=== PATIENT | female | born 1985 | race Two or more races ===

== ENCOUNTER → 2020-04-26 12:18 | Outpatient (BNVA) | payer OTHER, SELFPAY | PROVIDERS: PCP Internal Medicine; Visit Provider Physician Assistant | DX: E66.01 Morbid (severe) obesity due to excess calories (principal); Z68.41 Body mass index [BMI] 40.0-44.9, adult | CPT/HCPCS: 99212 ==

== ENCOUNTER → 2020-05-11 14:26 | Outpatient (BNVA) | payer OTHER, SELFPAY | PROVIDERS: PCP Internal Medicine; Visit Provider Hospitalist | DX: J45.40 Moderate persistent asthma, uncomplicated (principal); J30.2 Other seasonal allergic rhinitis; G47.33 Obstructive sleep apnea (adult) (pediatric) | CPT/HCPCS: 90686; 99212 ==

== ENCOUNTER → 2020-05-26 10:44 | Outpatient (BNVA) | payer OTHER, SELFPAY | PROVIDERS: PCP Internal Medicine; Visit Provider Physician Assistant | DX: Z76.89 Persons encountering health services in other specified circumstances (principal) ==

== ENCOUNTER 2020-05-29 14:12 | Outpatient (REF) | payer OTHER, SELFPAY ==
--- NOTE | 2020-05-29 14:48 | ECG_ITS ---
Test Reason : CP Blood Pressure : / mmHG Vent. Rate : 073 BPM Atrial Rate : 073 BPM P-R Int : 126 ms QRS Dur : 074 ms QT Int : 390 ms P-R-T Axes : 067 020 034 degrees QTc Int : 429 ms Normal sinus rhythm Normal ECG When compared to the previous EKG of No significant changes seen Referred By: Toña Isaac Electronically Signed By:ALISA RUSSELL MD
[2020-05-29 15:24] LABS: Basophils Percent Auto 0.2 % (0-2); Eosinophils Absolute Auto 0.3 X10*3/uL (0.0-0.4); Hematocrit 41.2 % (37-47); Hemoglobin 13.3 g/dl (12.0-16.0); Imm Gran Abs Auto 0.03 X10*3/uL (0.00-0.03); Imm Gran Pct Auto 0.3 % (0.0-0.4); MANUAL DIFF FLAG NO; Mean Corpuscular HGB Conc 32.3 g/dl (31.0-35.0); Mean Corpuscular Hemoglobin 27.7 pg (27.0-33.0); Mean Corpuscular Volume 85.8 fL (80-98); Mean Platelet Volume 11.4 fL (9.4-12.3); Monocytes Absolute Auto 0.6 X10*3/uL (0.1-1.2); Monocytes Percent Auto 6.2 % (2-11); Neutrophils Absolute Auto 6.1 X10*3/uL (2.0-8.3); Neutrophils Percent Auto 68.3 % (45-73); Platelet Count 256 X10*3/uL (160-400); Red Cell Distribution Width 12.9 % (11.0-16.0)
[2020-05-29 15:49] LABS: Glucose Urine UA NEG (NEG); Leukocyte Esterase Urine NEG (NEG); Nitrite Urine NEG (NEG); Urine Blood NEG (NEG); Urine Ketones NEG (NEG); Urine Protein NEG (NEG-TRACE)
[2020-05-29 15:52] LABS: Appearance Urine CLEAR; Color Urine YELLOW
[2020-05-29 16:01] LABS: Albumin Level 4.1 g/dL (3.5-5.0); Anion Gap 11 (12-20); Blood Urea Nitrogen 11 mg/dL (9-16); Calcium 9.1 mg/dL (8.4-10.2); Carbon Dioxide 31 mmol/L (22-29); Chloride 101 mmol/L (96-108); Estimated Glomerular Filt Rate > 60; Glucose Random 101 mg/dL (60-115); Potassium 4.1 mmol/l (3.3-5.1); Sodium 139 mmol/L (135-145)
== END 2020-05-29 14:13 | disposition home or self-care (01) ==
LOC: HO.LAB 14:12
PROVIDERS: PCP Internal Medicine; Visit Provider Surgery
DX: R07.9 Chest pain, unspecified (principal); Z01.818 Encounter for other preprocedural examination; R06.02 Shortness of breath
CPT/HCPCS: 36415; 80048; 81003; 82040; 85025; 86850; 86900; 86901; 93005; 99212

== ENCOUNTER 2020-06-07 09:59 | Inpatient (IN) | payer OTHER, SELFPAY ==
[2020-05-26 10:40] VITALS: BMI 42.3
--- NOTE | 2020-06-05 14:52 | MHC.SHP ---
Pre-Procedural Eval Section B Chief Complaint: severe obesity Allergies: Allergies Allergy/AdvReac Type Severity Reaction Status Date / Time Shellfish Allergy Severe oral Verified 05/29/20 14:32 swelling ENVIRONMENTAL Allergy Severe SINUS, Uncoded 05/29/20 14:32 SNEEZING Plan I have reviewed the history and physical and performed a pertinent physical examination on my patient. No changes have occurred unless specified.
--- NOTE | 2020-06-06 10:34 | P.CONAN_ITS ---
Documented by User: Alexandra Colmenares 06/06/20 10:37 HPI - Anesthesia Eval Consult details Narrative: 34yo F for Gastrectomy Sleeve PMFSH Past Medical History Medical History ASCUS favor benign Degenerative disc disease, lumbar Depression with anxiety Intrauterine contraceptive device Moderate persistent asthma Morbid obesity RODRIGUEZ (obstructive sleep apnea) RODRIGUEZ on CPAP Seasonal allergies Family History Family History Mother Stroke Dementia Migraines Kidney stone Father Asthma Surgical History Surgical History History of appendectomy History of esophagogastroduodenoscopy (EGD) History of tonsillectomy Social History Social History Household Members: Children Are you a primary health care analyst to a significant other at home: Yes (children) Do you presently have visiting nurse or other home services: No Alcohol intake: never Smoking Status: Never smoker Use of substances other than those prescribed or required for medical reasons: No Have you been hit, kicked, punched, or otherwise hurt by someone within the past year? If so, by whom?: No Advance Directives Information Provided: No Recently lost weight without trying: No Meds Allergies Allergy/AdvReac Type Severity Reaction Status Date / Time Shellfish Allergy Severe oral Verified 06/07/20 09:22 swelling ENVIRONMENTAL Allergy Severe SINUS, Uncoded 05/29/20 14:32 SNEEZING Home Medications Medication Instructions Recorded Confirmed Type albuterol sulfate 90 mcg/actuation 2 puff INHALATION Q4H PRN 03/29/20 05/29/20 History aerosol inhaler budesonide-formoterol HFA 160 2 puff PO BID 03/29/20 05/29/20 History mcg-4.5 mcg/actuation aerosol inhaler cyclobenzaprine 10 mg tablet 10 mg PO TID 03/29/20 05/29/20 History dupilumab 300 mg/2 mL subcutaneous 300 mg SUBCUT Q2W 03/29/20 05/29/20 History syringe epinephrine 0.3 mg/0.3 mL 0.3 mg IM DAILY PRN 03/29/20 05/29/20 History injection, auto-injector fluoxetine 20 mg capsule 20 mg PO DAILY 03/29/20 05/29/20 History fluticasone 232 mcg-salmeterol 14 1 inh PO BID 03/29/20 05/29/20 History mcg/actuation breath activated powdr folic acid 400 mcg tablet 0.4 mg PO DAILY 03/29/20 05/29/20 History loratadine 10 mg tablet 10 mg PO DAILY 03/29/20 05/29/20 History montelukast 10 mg tablet 10 mg PO BEDTIME 03/29/20 05/29/20 History tiotropium bromide 2.5 1 puff INHALATION BEDTIME 03/29/20 05/29/20 History mcg/actuation mist for inhalation trazodone 50 mg tablet 50 mg PO BEDTIME 03/29/20 05/29/20 History albuterol sulfate 2.5 mg INHALATION TID PRN 05/26/20 05/29/20 History roflumilast 500 mcg PO BEDTIME 05/26/20 05/29/20 History Exam Exam Date and Time: June 06, 2020 1034 Height,Weight and Vital Signs: Height 5 ft 3 in Weight 108.409 kg Pertinent Lab Results Pertinent Lab Results: Laboratory Tests 05/29/20 15:10 Blood Type A Negative Antibody Screen NEGATIVE Laboratory Tests 05/29/20 05/29/20 15:15 15:15 WBC 9.0 Hgb 13.3 Hct 41.2 Plt Count 256 Sodium 139 Potassium 4.1 Chloride 101 Carbon Dioxide 31 H BUN 11 Creatinine 0.76 Narrative Narrative: EKG NSR@73 Assessment and Plan Assessment Anesthesia Assessment: Chart Reviewed Documented by User: Scott Nguyen MD 06/07/20 11:10 [facility] Past Medical History Medical History ASCUS favor benign Degenerative disc disease, lumbar Depression with anxiety Intrauterine contraceptive device Moderate persistent asthma Morbid obesity RODRIGUEZ (obstructive sleep apnea) RODRIGUEZ on CPAP Seasonal allergies Family History Family History Mother Stroke Dementia Migraines Kidney stone Father Asthma Surgical History Surgical History History of appendectomy History of esophagogastroduodenoscopy (EGD) History of tonsillectomy Social History Social History Household Members: Children Are you a primary health care analyst to a significant other at home: Yes (children) Do you presently have visiting nurse or other home services: No Alcohol intake: never Smoking Status: Never smoker Use of substances other than those prescribed or required for medical reasons: No Have you been hit, kicked, punched, or otherwise hurt by someone within the past year? If so, by whom?: No Advance Directives Information Provided: No Recently lost weight without trying: No Meds Allergies Allergy/AdvReac Type Severity Reaction Status Date / Time Shellfish Allergy Severe oral Verified 06/07/20 09:22 swelling ENVIRONMENTAL Allergy Severe SINUS, Uncoded 05/29/20 14:32 SNEEZING Home Medications Medication Instructions Recorded Confirmed Type albuterol sulfate 90 mcg/actuation 2 puff INHALATION Q4H PRN 03/29/20 05/29/20 History aerosol inhaler budesonide-formoterol HFA 160 2 puff PO BID 03/29/20 05/29/20 History mcg-4.5 mcg/actuation aerosol inhaler cyclobenzaprine 10 mg tablet 10 mg PO TID 03/29/20 05/29/20 History dupilumab 300 mg/2 mL subcutaneous 300 mg SUBCUT Q2W 03/29/20 05/29/20 History syringe epinephrine 0.3 mg/0.3 mL 0.3 mg IM DAILY PRN 03/29/20 05/29/20 History injection, auto-injector fluoxetine 20 mg capsule 20 mg PO DAILY 03/29/20 05/29/20 History fluticasone 232 mcg-salmeterol 14 1 inh PO BID 03/29/20 05/29/20 History mcg/actuation breath activated powdr folic acid 400 mcg tablet 0.4 mg PO DAILY 03/29/20 05/29/20 History loratadine 10 mg tablet 10 mg PO DAILY 03/29/20 05/29/20 History montelukast 10 mg tablet 10 mg PO BEDTIME 03/29/20 05/29/20 History tiotropium bromide 2.5 1 puff INHALATION BEDTIME 03/29/20 05/29/20 History mcg/actuation mist for inhalation trazodone 50 mg tablet 50 mg PO BEDTIME 03/29/20 05/29/20 History albuterol sulfate 2.5 mg INHALATION TID PRN 05/26/20 05/29/20 History roflumilast 500 mcg PO BEDTIME 05/26/20 05/29/20 History Exam Airway Mallampati Class: I TM Dist: >3cm Neck ROM: Full Loose/Missing/Broken Teeth: No Heart: RRR Lungs: NL Other: AO Assessment and Plan Assessment Anesthesia Assessment: Anesthesia Plan Discussed and Chart Reviewed Final Anesthetic Review NPO: Yes ASA Class: III Final Preanesthetic Review: No Changes in Pt Med Stat, Meds/Allgs Chart Reviewed, Consent Obtained/Reviewed and Anes Risks/Benef Reviewed Patient Risk: High Procedure Risk: Intermediate Anesthetic Plan Anesthetic Plan: GA Disposition: Standard PACU
[2020-06-07] VITALS (14 sets, daily range): BP systolic 106–143; BP diastolic 53–90; PULSE 73–97; RESP 15–20; TEMP 36–37.1; O2SAT 93–100
[2020-06-07 09:18] LABS: UPreg QC Valid YES; Urine Pregnancy NEGATIVE (NEGATIVE)
[2020-06-07 09:29] LABS: COVID-19 Test Negative (Negative); IDNOW Serial# 9DD0AD1C
[2020-06-07] MEDS: Lactated Ringers 1,000 ML 100 ML IVCONT (10:11)
--- NOTE | 2020-06-07 13:31 | P.BOP_ITS ---
Brief Operative Note Date of Service: 06/07/20 Pre-op diagnosis: Morbid obesity, BMI 42.5, sleep apnea Post-op diagnosis: other (Same and hiatal hernia) Procedure: Laparoscopic sleeve gastrectomy, hiatal hernia repair, Guerrero block, intraoperative endoscopy Implants: Covidien nicky Surgeon: Toña Isaac MD Anesthesia: GETA Supervisor Lending Activities: Paz Nino Estimated blood loss (mL): 10 Pathology: other (Partial gastrectomy) Condition: stable Disposition: PACU
--- NOTE | 2020-06-07 13:35 | P.OP_ITS ---
Operative Note Operative Note Date of Service: 06/07/20 Narrative: Patient was brought into the operating room and placed on the operating room table in the supine position. General anesthesia was induced. Normal DVT prophylaxis was instituted and the patient received 2 grams of cefotetan preoperatively. The abdomen was then prepped and draped in the normal sterile fashion. A safety time-out was performed. A mixture of 1% lidocaine with epinephrine and ??% Marcaine plain was used to a nesthetize the planned incision site in the left upper quadrant. A #11 scalpel was used to make a 5 mm left upper quadrant transverse incision through which a veress needle was placed. Three pops were heard going through the fascia. A saline drop test was used to confirm that the veress needle was intraabdominal. An optiview technique was then used to place a 5mm port in the left upper quadrant. A 5 mm 30 degree laproscope was then placed through this port and the abdominal cavity was surveyed and was normal. The patient was placed in reverse Trendelenburg positioning. A paula liver retractor was then placed in the subxyphoid position and it was used to hold up the left lobe of the liver to the abdominal wall. This was secured to the bed using the liver retractor hitchcock. A LACIE block was then performed for pain control on the right side of the abdomen. A 5 mm port was placed in the right upper quadrant near the falciform ligament. A 12 mm port was then placed in the mid epigastrium. One additional 5 mm port was placed in the left upper quadrant just to the left of the placement of the first port. I then performed a LACIE block on the left side of the abdomen. I then removed the epigastric fat pad; there was a small anterior hiatal hernia noted. I reapproximated the left and right crura with a total of 1 stitch of 2-0 ethibond and a laparoscopic knot pusher. There was no residual hiatal hernia. I then opened up the angle of His. We then gained entry into the lesser sac about 4-5 cm from the pylorus. I had anesthesia place a 34 Indonesian orogastric tube into the distal antrum to use as a sizing tool for gastric pouch size. I divided the short gastric vessels up to the angle of His. We then started the creation of the gastric pouch by firing a 60 mm purple load endostapler up the stomach about 4-5 cm from the pylorus. We completed the creation of the gastric pouch using a total of 5 firings of a 60 mm purple load stapler. We had anesthesia remove the orogastric tube, then we clamped across the distal antrum using a fired 60 mm endostapler. We flattened the patient and then instilled normal saline surrounding the newly created staple line. I then performed an on-table endoscopy. I passed the gastroscopy into the posterior oropharynx and down the esophagus evaluating the esophageal mucosa which was normal. There was no evidence of hiatal hernia. I passed the gastroscope into the gastric pouch and insufflated the gastric pouch. There was healthy pink mucosa and no evidence of active bleeding. There was no evidence of leak on laparoscopy. I desufflated the gastric pouch and removed the endoscope. I removed the endostapler from the abdomen and suctioned the fluid from the left upper quadrant. I then removed the partial gastrectomy specimen through the epigastric 12 mm port site. I reapproximated the 12 mm port using a 0 maxon suture with a laparoscopic suture passer. I instilled local anesthetic into the fascial closure site and tied the suture down at a pressure of 8-10 mm of Hg. There was no residual fascial defect. We removed the liver retractor and the left upper quadrant 5 mm ports under direct visualization. There was no evidence of any active bleeding. I desufflated the abdomen through the last remaining port and removed the laparoscope and 5 mm port. We reapproximated all incisions with a 4-0 monocryl subcuticular stitch. We cleaned and dried the abdominal skin and applied dermabond skin glue. All count were correct at the end of the case. The patient was awake and in stable condition prior to extubation and transfer to the recovery room.
[2020-06-07] MEDS: Ketorolac Tromethamine 15 MG/ML VIAL IVPUSH (13:51)
[2020-06-07] MEDS: Famotidine/PF 20 MG/2 ML VIAL IVPUSH ×2 (14:38→21:10)
[2020-06-07] MEDS: Metoclopramide HCl 10 MG/2 ML VIAL IVPUSH (14:59)
[2020-06-07] MEDS: Lactated Ringers 1,000 ML 150 ML IVCONT (18:11)
[2020-06-07] MEDS: 0.9 % Sodium Chloride Flush 3 ML SYRINGE IVFLUSH ×2 (18:14→21:14)
[2020-06-07] MEDS: ondansetron HCL 4 MG/2 ML VIAL IVPUSH (20:04)
[2020-06-07] MEDS: busPIRone HCl 5 MG TABLET PO (21:10)
[2020-06-07] MEDS: traZODone HCL 50 MG TABLET PO (21:10)
[2020-06-08] MEDS: Lactated Ringers 1,000 ML 150 ML IVCONT ×2 (00:03→04:30)
[2020-06-08 03:28] VITALS: BP 136/77; PULSE 96; RESP 18; TEMP 37.1; O2SAT 96
[2020-06-08] MEDS: ondansetron HCL 4 MG/2 ML VIAL IVPUSH ×2 (04:06→12:00)
[2020-06-08 04:31] LABS: Basophils Percent Auto 0.1 % (0-2); Eosinophils Percent Auto 0.1 % (0-4); Hematocrit 37.8 % (37-47); Hemoglobin 12.3 g/dl (12.0-16.0); Imm Gran Abs Auto 0.05 X10*3/uL (0.00-0.03); Imm Gran Pct Auto 0.4 % (0.0-0.4); Lymphocytes Absolute Auto 1.3 X10*3/uL (1.2-4.9); Lymphocytes Percent Auto 9.3 % (20-40); Mean Corpuscular HGB Conc 32.5 g/dl (31.0-35.0); Mean Corpuscular Hemoglobin 27.6 pg (27.0-33.0); Mean Corpuscular Volume 84.8 fL (80-98); Mean Platelet Volume 11.7 fL (9.4-12.3); Monocytes Absolute Auto 0.8 X10*3/uL (0.1-1.2); Monocytes Percent Auto 5.8 % (2-11); Neutrophils Percent Auto 84.3 % (45-73); Platelet Count 256 X10*3/uL (160-400); Red Blood Count 4.46 X10*6/uL (4.20-5.50); Red Cell Distribution Width 12.8 % (11.0-16.0); White Blood Count 14.3 X10*3/uL (4.8-10.8)
[2020-06-08 04:32] LABS: MANUAL DIFF FLAG NO
[2020-06-08 05:00] LABS: Anion Gap 17 (12-20); Blood Urea Nitrogen 12 mg/dL (9-16); Calcium 8.7 mg/dL (8.4-10.2); Carbon Dioxide 19 mmol/L (22-29); Chloride 105 mmol/L (96-108); Creatinine Clr Calc Pharmacy 126.5; Estimated Glomerular Filt Rate > 60; Glucose Random 111 mg/dL (60-115); Potassium 4.4 mmol/l (3.3-5.1); Sodium 137 mmol/L (135-145)
[2020-06-08 07:41] VITALS: BP 113/58; PULSE 92; RESP 15; TEMP 36.7; O2SAT 97
--- NOTE | 2020-06-08 08:43 | HO.POSTANES ---
Post Anesthesia Evaluation Post Anesthesia Evaluation Vital Signs: Vital Signs Temp Pulse Resp BP Pulse Ox 06/08/20 07:41 98.1 F 92 15 113/58 L 97 06/08/20 03:28 98.7 F 96 18 136/77 96 06/07/20 23:48 98.7 F 86 18 138/72 96 Anesthesia: General Mental Status: Awake Pain Control: Satisfactory Nausea/Vomiting: None Hydration: Adequate Anesthesia-Related Issues: No Anes. Related Issues
--- NOTE | 2020-06-08 09:10 | P.PNGS_ITS ---
Subjective Subjective Date of Service: 06/08/20 Interval history: POD #1: Patient doing well. Has been ambulating, using the incentive spirometer, and tolerating po liquids. No nausea. Mild incisional pain. Physical Exam Vital Signs: Vital Signs: Last Vital Signs Temp 98.1 F 06/08/20 07:41 Pulse 92 06/08/20 07:41 Resp 15 06/08/20 07:41 BP 113/58 L 06/08/20 07:41 Pulse Ox 97 06/08/20 07:41 Body Mass Index 42.3 Const: General: cooperative, comfortable and no acute distress Orientation/consciousness: oriented to person, oriented to place and oriented to time GI: Inspection: Yes normal to inspection, No distended, Yes incision (surgical glue intact, no erythema/drainage/warmth/tenderness/induration) and Yes obesity Palpation (GI): Soft to palpation, nontender and no guarding Neuro: General: oriented to person, oriented to place and oriented to time Extrem: General: No calf tenderness Right lower extremity: no edema Left lower extremity: no edema Psych: Affect: normal affect Attitude: cooperative Progress Note: A&P Assessment and plan (1) S/P laparoscopic sleeve gastrectomy: Status: Acute (2) Intestinal malabsorption following gastrectomy: Status: Acute Assessment and Plan: POD #1: Patient doing well and will be discharged home today. All instructions given in writing. Follow up as scheduled in 2 weeks. Fall Risk Details Current Medications: Current Medications Generic Name Dose Route Start Last Admin Trade Name Freq PRN Reason Stop Dose Admin Albuterol Sulfate 2 puff 06/07/20 13:44 Albuterol Sulfate 90 Mcg 8 Gm Inhaler INHALE Q4H PRN Shortness Of Breath Buspirone HCl 5 mg 06/07/20 21:00 06/07/20 21:10 Buspirone Hcl 5 Mg Tablet PO 5 mg BID JESÚS Administration Famotidine 20 mg 06/07/20 14:15 06/07/20 21:10 Famotidine/Pf 20 Mg/2 Ml Vial IVPUSH 20 mg BID JESÚS Administration Hydromorphone HCl 0.25 mg 06/07/20 14:00 Hydromorphone Hcl 0.5 Mg/0.5 Ml Syringe IVPUSH Q4H PRN Pain, Severe (Pain Scale 7-10) Lactated Ringer's 1,000 mls @ 150 mls/hr 06/07/20 14:00 06/08/20 04:30 Lr IVCONT 150 mls/hr .Q6H40M JESÚS Administration Acetaminophen 1,000 mg in 100 mls @ 16.7 mls/hr 06/07/20 19:00 06/08/20 06:20 Ofirmev IV 16.7 mls/hr .Q6H JESÚS Administration Metoclopramide HCl 10 mg 06/07/20 14:00 06/07/20 14:59 Metoclopramide Hcl 10 Mg/2 Ml Vial IVPUSH 10 mg Q6H PRN Administration Nausea Ondansetron HCl 4 mg 06/07/20 20:00 06/08/20 04:06 Ondansetron Hcl 4 Mg/2 Ml Vial IVPUSH 4 mg Q8H JESÚS Administration Sodium Chloride 3 ml 06/07/20 16:00 06/07/20 21:14 0.9 % Sodium Chloride Flush 3 Ml Syringe IVFLUSH 3 ml QSHIFT JESÚS Administration Trazodone HCl 50 mg 06/07/20 21:00 06/07/20 21:10 Trazodone Hcl 50 Mg Tablet PO 50 mg BEDTIME JESÚS Administration Time Spent With Patient Time: Total time spent is greater than 50% in coordination of care (as jossy hernandez) at patient's floor/unit and/or counseling patient: Time with patient: 15 - 24 minutes
--- NOTE | 2020-06-08 09:12 | PM.DS ---
DS: Providers Provider Date of admission: 06/07/20 09:59 Primary care physician: Kym Roberts MD DS: Diagnosis Discharge Diagnosis (1) S/P laparoscopic sleeve gastrectomy: Status: Acute (2) Intestinal malabsorption following gastrectomy: Status: Acute DS: Medications Discharge Medications Home Medications: Home Medications Medication Instructions Recorded Confirmed albuterol sulfate 90 mcg/actuation 2 puff INHALATION Q4H PRN 03/29/20 05/29/20 aerosol inhaler budesonide-formoterol HFA 160 2 puff PO BID 03/29/20 05/29/20 mcg-4.5 mcg/actuation aerosol inhaler cyclobenzaprine 10 mg tablet 10 mg PO TID 03/29/20 05/29/20 dupilumab 300 mg/2 mL subcutaneous 300 mg SUBCUT Q2W 03/29/20 05/29/20 syringe epinephrine 0.3 mg/0.3 mL 0.3 mg IM DAILY PRN 03/29/20 05/29/20 injection, auto-injector fluoxetine 20 mg capsule 20 mg PO DAILY 03/29/20 05/29/20 fluticasone 232 mcg-salmeterol 14 1 inh PO BID 03/29/20 05/29/20 mcg/actuation breath activated powdr folic acid 400 mcg tablet 0.4 mg PO DAILY 03/29/20 05/29/20 loratadine 10 mg tablet 10 mg PO DAILY 03/29/20 05/29/20 montelukast 10 mg tablet 10 mg PO BEDTIME 03/29/20 05/29/20 tiotropium bromide 2.5 1 puff INHALATION BEDTIME 03/29/20 05/29/20 mcg/actuation mist for inhalation trazodone 50 mg tablet 50 mg PO BEDTIME 03/29/20 05/29/20 albuterol sulfate 2.5 mg INHALATION TID PRN 05/26/20 05/29/20 roflumilast 500 mcg PO BEDTIME 05/26/20 05/29/20 Previous Rx's Medication Instructions Recorded baclofen 5 mg tablet 5 mg PO BEDTIME #14 tab 03/29/20 buspirone 5 mg tablet 5 mg PO BID #60 cap 05/02/20 pantoprazole 40 mg tablet,delayed 40 mg PO BID #60 cap 05/08/20 release theophylline 200 mg 400 mg PO DAILY #60 cap 05/12/20 capsule,extended release 24 hr acetaminophen 500 mg tablet 1,000 mg PO Q6H PRN #30 tab 05/29/20 docusate sodium 100 mg capsule 100 mg PO BID #30 cap 05/29/20 famotidine 20 mg tablet 20 mg PO DAILY #30 tab 05/29/20 ondansetron HCl 4 mg tablet 4 mg PO Q6H PRN #30 tab 05/29/20 simethicone 80 mg chewable tablet 80 mg PO TID-QID PRN #30 tab 05/29/20 DS: Summary Time Spent with Patient Time attestation: Total time spent providing and/or coordinating discharge services: Physical Exam Vital Signs: Vital Signs: Last Vital Signs Temp 98.1 F 06/08/20 07:41 Pulse 92 06/08/20 07:41 Resp 15 06/08/20 07:41 BP 113/58 L 06/08/20 07:41 Pulse Ox 97 06/08/20 07:41 Body Mass Index 42.3 DS: Data Data Completed and Pending Pending studies at discharge: Pending at discharge 06/07/20 13:12 Surgical [PTH] Routine Labs on day of discharge: 05/29/20 15:10 Type and Screen Routine 06/07/20 08:55 Ur Preg Test Stat 06/07/20 09:00 Acetaminophen [Ofirmev] 1,000 mg in 100 ml IV PREOP Albuterol Sulfate (0.083%) [Ventolin (0.083%)] 2.5 mg INHALE ONCE PRN Lactated Ringers [Lr] 1,000 ml IVCONT 100 mls/hr cefoTEtan disod/Dextrose,Iso [Cefotan] 2 gm in 50 ml IV PREOP 06/07/20 09:00 COVID-19 ID NOW (Lozano) Stat 06/07/20 Breakfast NPO Diet 06/07/20 10:06 cefoTEtan disodium [Cefotan] 2 gm .ROUTE .STK-MED ONE 06/07/20 10:07 Acetaminophen [Ofirmev] 1,000 mg in 100 ml IV As directed 06/07/20 10:44 Ketamine HCl/NS 50 mg IVPUSH .STK-MED ONE Lidocaine HCl 2 % MPF [Xylocaine 2 % MPF] 5 ml .ROUTE .STK-MED ONE Midazolam HCl/PF [Versed] 2 mg .ROUTE .STK-MED ONE Rocuronium [place] [Zemuron] 100 mg IV .STK-MED ONE fentaNYL citrate/PF [Sublimaze] 50 mcg .ROUTE .STK-MED ONE propofoL [Diprivan] 200 mg IVPUSH .STK-MED ONE 06/07/20 11:13 Bupivacaine MPF 0.25 % [Sensorcaine-MPF 0.25% 10 ML] 10 ml .ROUTE .STK-MED ONE Lidocaine HCl 1 % MPF [Xylocaine 1 % MPF] 5 ml .ROUTE .STK-MED ONE 06/07/20 11:26 HYDROmorphone HCl [Dilaudid] 0.25 mg IVPUSH Q5M PRN Ketorolac Tromethamine [Toradol] 15 mg IVPUSH ONCE PRN Promethazine HCL [Phenergan] 12.5 mg 0.9 % Sodium Chloride [Ns] 50 ml IV ONCE 06/07/20 12:17 dexAMETHasone sod phosphate [Decadron] 4 mg .ROUTE .STK-MED ONE ondansetron HCL [Zofran] 4 mg .ROUTE .STK-MED ONE 06/07/20 13:03 dexAMETHasone sod phosphate [Decadron] 4 mg .ROUTE .STK-MED ONE 06/07/20 13:06 Sugammadex Sodium [Bridion] 200 mg IVPUSH .STK-MED ONE 06/07/20 13:10 propofoL [Diprivan] 200 mg IVPUSH .STK-MED ONE 06/07/20 13:18 HYDROmorphone HCl [Dilaudid] 2 mg .ROUTE .STK-MED ONE 06/07/20 13:49 Ketorolac Tromethamine [Toradol] 15 mg .ROUTE .STK-MED ONE 06/07/20 13:51 Transfer Order Routine 06/07/20 14:30 Promethazine HCL [Phenergan] 25 mg IV .STK-MED ONE 06/07/20 14:31 Famotidine/PF [Pepcid/PF] 20 mg IVPUSH .STK-MED ONE 06/07/20 14:54 Metoclopramide HCl [Reglan] 10 mg .ROUTE .STK-MED ONE 06/07/20 23:59 cefoTEtan disodium [Cefotan] 2 gm .ROUTE .STK-MED ONE 06/08/20 00:00 cefoTEtan disodium [Cefotan] 2 gm 0.9 % Sodium Chloride [Ns] 100 ml IV POSTOP 06/08/20 04:10 Basic Metabolic Panel DAILY@0500 Complete Blood Count Auto Diff DAILY@0500 Laboratory Last Values WBC 14.3 X10*3/uL (4.8-10.8) H 06/08/20 04:10 RBC 4.46 X10*6/uL (4.20-5.50) 06/08/20 04:10 Hgb 12.3 g/dl (12.0-16.0) 06/08/20 04:10 Hct 37.8 % (37-47) 06/08/20 04:10 MCV 84.8 fL (80-98) 06/08/20 04:10 MCH 27.6 pg (27.0-33.0) 06/08/20 04:10 MCHC 32.5 g/dl (31.0-35.0) 06/08/20 04:10 RDW 12.8 % (11.0-16.0) 06/08/20 04:10 Plt Count 256 X10*3/uL (160-400) 06/08/20 04:10 MPV 11.7 fL (9.4-12.3) 06/08/20 04:10 Immature Gran % (Auto) 0.4 % (0.0-0.4) 06/08/20 04:10 Neut % (Auto) 84.3 % (45-73) H 06/08/20 04:10 Lymph % (Auto) 9.3 % (20-40) L 06/08/20 04:10 [place] % (Auto) 5.8 % (2-11) 06/08/20 04:10 Eos % (Auto) 0.1 % (0-4) 06/08/20 04:10 Baso % (Auto) 0.1 % (0-2) 06/08/20 04:10 Lymph # (Auto) 1.3 X10*3/uL (1.2-4.9) 06/08/20 04:10 [place] # (Auto) 0.8 X10*3/uL (0.1-1.2) 06/08/20 04:10 Eos # (Auto) 0.0 X10*3/uL (0.0-0.4) 06/08/20 04:10 Baso # (Auto) 0.0 X10*3/uL (0.0-0.2) 06/08/20 04:10 Abs Immat Gran (auto) 0.05 X10*3/uL (0.00-0.03) H 06/08/20 04:10 Absolute Neuts (auto) 12.0 X10*3/uL (2.0-8.3) H 06/08/20 04:10 Absolute Nucleated RBC 0.000 X10*3/uL (0.0-0.012) 06/08/20 04:10 Nucleated RBC % (auto) 0.0 /100WBC (0.0-0.2) 06/08/20 04:10 Sodium 137 mmol/L (135-145) 06/08/20 04:10 Potassium 4.4 mmol/l (3.3-5.1) 06/08/20 04:10 Chloride 105 mmol/L (96-108) 06/08/20 04:10 Carbon Dioxide 19 mmol/L (22-29) L 06/08/20 04:10 Anion Gap 17 (-20) 06/08/20 04:10 BUN 12 mg/dL (9-16) 06/08/20 04:10 Creatinine 0.74 mg/dL (0.5-1.4) 06/08/20 04:10 Estim Creat Clear Calc 126.5 06/08/20 04:10 Estimated GFR > 60 06/08/20 04:10 Random Glucose 111 mg/dL (60-115) 06/08/20 04:10 Calcium 8.7 mg/dL (8.4-10.2) 06/08/20 04:10 Urine Test NEGATIVE (NEGATIVE) 06/07/20 08:55 COVID-19 (CANDY) Negative (Negative) 06/07/20 09:00 COVID-19 Clin Com See Note 06/07/20 09:00 Blood Type A Negative 05/29/20 15:10 Antibody Screen NEGATIVE 05/29/20 15:10 Discharge Plan Discharge Anticipated Discharge Date/Time: 06/08/20 12:00 Patient Disposition: Home, Self-Care Referrals: Kym Roberts MD [Primary Care Provider] - Discharge Medications: Continued baclofen 5 mg tablet 5 mg PO BEDTIME Qty: 14 RF: 0 buspirone 5 mg tablet 5 mg PO BID Qty: 60 RF: 0 pantoprazole 40 mg tablet,delayed release (DR/EC) 40 mg PO BID Qty: 60 RF: 3 theophylline [Rasheed-24] 200 mg capsule,extended release 24hr 400 mg PO DAILY Qty: 60 RF: 11 albuterol sulfate 2.5 mg /3 mL (0.083 %) solution for nebulization 2.5 mg inhalation TID PRN (Reason: Shortness Of Breath) RF: 0 roflumilast 500 mcg tablet 500 mcg PO BEDTIME RF: 0 tiotropium bromide 2.5 mcg/actuation mist 1 puff inhalation BEDTIME RF: 0 epinephrine 0.3 mg/0.3 mL auto-injector 0.3 mg IM DAILY PRN (Reason: Anaphylaxis) RF: 0 budesonide-formoterol 160-4.5 mcg/actuation HFA aerosol inhaler 2 puff PO BID RF: 0 dupilumab 300 mg/2 mL syringe 300 mg subcut Q2W RF: 0 loratadine 10 mg tablet 10 mg PO DAILY RF: 0 fluoxetine 20 mg capsule 20 mg PO DAILY RF: 0 trazodone 50 mg tablet 50 mg PO BEDTIME RF: 0 montelukast 10 mg tablet 10 mg PO BEDTIME RF: 0 albuterol sulfate 90 mcg/actuation HFA aerosol inhaler 2 puff inhalation Q4H PRN (Reason: Shortness Of Breath) RF: 0 fluticasone propion-salmeterol 232-14 mcg/actuation aerosol powdr breath activated 1 inh PO BID RF: 0 cyclobenzaprine 10 mg tablet 10 mg PO TID RF: 0 folic acid 400 mcg tablet 0.4 mg PO DAILY RF: 0 acetaminophen [Tylenol Extra Strength] 500 mg tablet 1,000 mg PO Q6H PRN (Reason: pain) Qty: 30 RF: 1 simethicone [Gas Relief (simethicone)] 80 mg tablet,chewable 80 mg PO TID-QID PRN (Reason: abdominal distention) Qty: 30 RF: 1 ondansetron HCl [Zofran] 4 mg tablet 4 mg PO Q6H PRN (Reason: nausea and vomiting) Qty: 30 RF: 1 docusate sodium [Colace] 100 mg capsule 100 mg PO BID Qty: 30 RF: 1 Discontinued famotidine [Pepcid AC] 20 mg tablet 20 mg PO DAILY Qty: 30 RF: 1 Diet: other Activity on Discharge: No heavy lifting Activity Restrictions/Additional Instructions: Discharge Instructions 1. Please call your doctor or come back to the emergency room should any new symptoms arise. 2. You will receive a courtesy call from [facility] 24-48 hours after discharge. 3. Activity: abstain from alcohol, practice limited stair climbing, no bending, no driving, no exercise, no illicit substances, no lifting, no sex, no tub bath, no work. 4. Diet: continue stage 3 protein shakes until your [address] Isaac. 5. Dressing Change/Wound Care: Your incision is covered by surgical glue. If the area is tender, you may apply an ice pack for short intervals (no more than 20 minutes on, followed by at least 20 minutes off). Do not apply heat. Do not use creams, lotions, or topical antibiotics unless instructed to do so by your surgeon. These can cause infection or allergic reaction. 6. Call your doctor if: - Your temperature exceeds 101.5 F - You experience excessive pain or swelling - You have an unexpected reaction to medication - You have excessive bleeding - You experience continued vomiting/nausea - Your incision begins to separate - Your incision shows signs of infection such as increased redness, swelling, excessive pain, heat, or drainage (light blood or clear fluid is normal) 7. General instructions: - No lifting greater than 5 lbs for the next 4 weeks. - No driving within 24 hours of taking narcotic pain medications. - If you do not move your bowels in the next 2 days, please take milk of magnesia over the counter. Please follow the post op diet and do not advance your diet until you are seen in the office in about 2 weeks. - Please walk around your home every hour or two to prevent blood clots from forming in your legs. You do not need to wake from sleeping to walk. - Please sleep in a bed or couch to prevent kinking at the hips and knees. - Please take your incentive spirometer (your lung sales project manager) home with you and use it for the next few days to prevent pneumonias. - You may shower, no hot tubs, baths or swimming pools. - Please call the office with any questions or concerns such as increasing abdominal pain, fever, chills, shortness of breath, chest pain, leg pain or swelling, or redness or drainage from your incisions. - Please stay on stage 3 diet which includes sugar free clear liquids such as ice pops and jello and broth and crystal light. Avoid all carbonation. Please drink 3 protein shakes with at least 25-30 grams of protein daily or 3 of the Celebrate 4:1 shakes which can be purchased in our office. The Celebrate shakes have all of the bariatric vitamins you need if you consume these shakes. If you are drinking other protein shakes, you will need to purchase the Celebrate multivitamins and calcium that we provide in the office (they will provide all the vitamins you need). Please make sure you are consuming at least 40-60 ounces of water in addition to your 3 protein shakes daily. 8. Do not hesitate to contact the office with any questions at . Discharge Summary Date of Service: 06/08/20 Admitting Diagnosis: obesity Discharge Diagnosis: same Procedure Performed: LSG, HH repair, elise block, intraoperative endoscopy Discharge Medications: 1. Simethicone 80mg tablet chewable (Si tablet every 6 hours orally for 7 days, #28, 1 RF) q4h prn gas 2. Acetaminophen 500 mg tablet (Si tablets as needed every 6 hours orally for 30 days, #240, 0 RF) 3. Ondansetron 4 mg tablet disintegrating (Si tablet every 6 hours orally for 7 days, #28, 1 RF) 4. Colace 100 mg capsule (Si capsule twice a day for 30 days, #60, 2 RF) 5. Pepcid 20 mg chewable tablet (Si tablet twice a day for 30 days, #60, 3 RF) Discharge Instructions: The patient should continue on the stage III bariatric diet, which includes 3 protein shakes of at least 20-30g of protein on a daily basis. The patient was encouraged to avoid drinking liquids with her protein shakes. They should wait 30-45 minutes in between her meals and drinking water. She should drink at least 40-60 ounces of water on a daily basis. They should ambulate while at home to avoid any blood clots in her lower extremities. They should call with any questions or concerns such as increase in abdominal pain, persistent nausea, vomiting, redness and drainage from her incisions, fever, chills, shortness of breast, or chest pain beyond what is normal for her. The patient should avoid all heavy lifting greater than 5 pounds for the next 4 weeks. The patient is already scheduled to follow up with me in 2 weeks time, but should call the office with any questions prior to that follow up appointment. The patient should not advance their diet until they are seen in the office for the 2 week appointment. Hospital Course: The patient was admitted after undergoing SURGERY. They were started on stage II (1 oz of fluid every 15 minutes) on POD #0. The next morning they were evaluated and started on stage III diet (protein shakes). All labs were within normal limits. On post-operative day #1 she was feeling better, nausea and epigastric pain improved and they were tolerating stage III bariatric diet well. The patient was discharged home. Discharge Disposition: Home. Visit Report Forms: Patient Portal Discharge page Care Plan Goals: weight loss Health Concerns: obesity Plan of Treatment: s/p sleeve gastrectomy
--- NOTE | 2020-06-08 09:40 | MHC.CM.PN ---
Pt reports she lives at home with her 11 and 14 yo children. She works and drives, and is fully independent. Pt reports having a nebulizer, cpap and inhalers at home. Pt has a HCP, she reports she completed with her PCP, Kym Roberts. Pt will DC home today with no services Family will transport
[2020-06-08] MEDS: busPIRone HCl 5 MG TABLET PO (09:52)
[2020-06-08] MEDS: Famotidine/PF 20 MG/2 ML VIAL IVPUSH (09:53)
[2020-06-08] MEDS: 0.9 % Sodium Chloride Flush 3 ML SYRINGE IVFLUSH (09:53)
== END 2020-06-08 12:33 | disposition home or self-care (01) | DRG 403 ==
LOC: HO.SSSA 14:19 → HO.S3 14:43
PROVIDERS: Nurse Practitioner; Physician Assistant; Admitting Provider Surgery; PCP Internal Medicine; Visit Provider Surgery
PROC: 0DB64Z3 Excision of Stomach, Percutaneous Endoscopic Approach, Vertical (ICD-10-PCS; CPT 43845; principal; 2020-06-07 10:30)
DX: E66.01 Morbid (severe) obesity due to excess calories (principal); K44.9 Diaphragmatic hernia without obstruction or gangrene; Z20.828 Contact with and (suspected) exposure to other viral communicable diseases; Z79.51 Long term (current) use of inhaled steroids; Z79.899 Other long term (current) drug therapy; Z68.41 Body mass index [BMI] 40.0-44.9, adult
CPT/HCPCS: 36415; 80048; 81025; 85025; 86901; 87635; 88307; 88342; C1776; J0131; J1100; J1170; J1885; J2250; J2405; J2765; J3010

== ENCOUNTER → 2020-06-22 10:19 | Outpatient (BNVA) | payer OTHER, SELFPAY | PROVIDERS: PCP Internal Medicine; Referring Provider Internal Medicine; Visit Provider Surgery | DX: K91.2 Postsurgical malabsorption, not elsewhere classified (principal); K44.9 Diaphragmatic hernia without obstruction or gangrene; E66.01 Morbid (severe) obesity due to excess calories; Z90.3 Acquired absence of stomach [part of]; Z98.84 Bariatric surgery status; Z98.890 Other specified postprocedural states; Z87.19 Personal history of other diseases of the digestive system | CPT/HCPCS: 99212 ==

== ENCOUNTER → 2020-07-05 13:59 | Outpatient (BNVA) | payer OTHER, SELFPAY | PROVIDERS: PCP Internal Medicine; Visit Provider Physician Assistant | DX: K91.2 Postsurgical malabsorption, not elsewhere classified (principal); E66.9 Obesity, unspecified; Z90.3 Acquired absence of stomach [part of]; Z98.84 Bariatric surgery status | CPT/HCPCS: 99212 ==

== ENCOUNTER → 2020-07-13 08:12 | Outpatient (BNVA) | payer OTHER, SELFPAY | PROVIDERS: PCP Internal Medicine; Visit Provider Dietitian, Registered ==

== ENCOUNTER 2020-07-17 10:25 | Outpatient (REF) | payer OTHER, SELFPAY ==
[2020-07-17 11:43] LABS: MANUAL DIFF FLAG NO
[2020-07-17 11:56] LABS: Basophils Percent Auto 0.5 % (0-2); Eosinophils Absolute Auto 0.3 X10*3/uL (0.0-0.4); Eosinophils Percent Auto 4.9 % (0-4); Hematocrit 42.2 % (37-47); Hemoglobin 13.5 g/dl (12.0-16.0); Imm Gran Abs Auto 0.02 X10*3/uL (0.00-0.03); Imm Gran Pct Auto 0.3 % (0.0-0.4); Lymphocytes Absolute Auto 1.9 X10*3/uL (1.2-4.9); Lymphocytes Percent Auto 28.9 % (20-40); Mean Corpuscular Hemoglobin 27.7 pg (27.0-33.0); Mean Corpuscular Volume 86.7 fL (80-98); Mean Platelet Volume 12.3 fL (9.4-12.3); Monocytes Absolute Auto 0.5 X10*3/uL (0.1-1.2); Monocytes Percent Auto 7.4 % (2-11); Neutrophils Absolute Auto 3.8 X10*3/uL (2.0-8.3); Platelet Count 230 X10*3/uL (160-400); Red Blood Count 4.87 X10*6/uL (4.20-5.50); Red Cell Distribution Width 13.6 % (11.0-16.0); White Blood Count 6.5 X10*3/uL (4.8-10.8)
[2020-07-17 12:17] LABS: Anion Gap 11 (12-20); Blood Urea Nitrogen 10 mg/dL (9-16); Calcium 9.4 mg/dL (8.4-10.2); Carbon Dioxide 30 mmol/L (22-29); Chloride 105 mmol/L (96-108); Estimated Glomerular Filt Rate > 60; Glucose Fasting 99 mg/dL (60-99); Iron 87 mcg/dL (30-160); Percent Iron Saturation 30 % (15-50); Potassium 4.3 mmol/L (3.3-5.1); Sodium 142 mmol/L (135-145); Total Iron Binding Capacity 290 mcg/dL (228-428); Unsaturated Iron Binding 203 ug/dL
[2020-07-17 12:39] LABS: Thyroid Stimulating Hormone 1.46 uIU/mL (0.32-4.0); Vitamin D 25-OH Total 32.5 ng/mL (>30)
[2020-07-17 12:53] LABS: Folate 5.1 ng/mL (> or = 4.0); Vitamin B12 343 pg/mL (200-900)
== END 2020-07-17 10:26 | disposition home or self-care (01) ==
LOC: HO.HMGCLDS 10:25
PROVIDERS: PCP Internal Medicine; Visit Provider Internal Medicine
DX: I10 Essential (primary) hypertension (principal); R00.2 Palpitations
CPT/HCPCS: 36415; 80048; 82306; 82607; 82746; 83540; 84443; 85025

== ENCOUNTER → 2020-08-08 13:12 | Outpatient (REF) | payer OTHER, SELFPAY ==
--- NOTE | 2020-08-08 13:30 | ECG_ITS ---
Hook-up date: 2020-08-08 13:36:00 Duration: 41:56:00 Test Indications: PALPITATIONS Medications: 49051 QRS complexes * Ventricular ectopics which represent % of total QRS comp. * Supraventricular ectopics which represent % of total QRS comp. * Paced QRS complexs which represent % of total QRS comp. VENTRICULAR ECTOPY * Isolated * Bigeminal Cycles * Couplets * Runs * Beats in Runs * Beats LONGEST at * BPM at :: -- * Beats FASTEST at * BPM at :: -- SUPRAVENTRICULAR ECTOPY * Isolated * Couplets * Runs * Beats in Runs * Beats LONGEST at * BPM at :: -- * Beats FASTEST at * BPM at :: -- HEART RATES 44 MIN at 06:39:23 2020-08-09 71 AVG 137 MAX at 09:59:55 2020-08-09 LONGEST RR 1.4640 secs at 07:46:47 2020-08-09 S-T LEVELS Channel 1 - 128 mm at 13:36:00 2020-08-08 - 128 mm at 13:36:00 2020-08-08 Channel 2 - 128 mm at 13:36:00 2020-08-08 - 128 mm at 13:36:00 2020-08-08 Channel 3 - 128 mm at 03:25:51 -- - 128 mm at 03:25:51 Basic rhythm Normal sinus rhythm No long pause or profound bradycardia No dangerous dysrhythm periods Patient reported symptoms of palpitations correlated with NSR Referred By: Kym Roberts Overread By: ALISA RUSSELL MD
== END ==
LOC: HO.CARD 13:12
PROVIDERS: Visit Provider Internal Medicine
DX: R00.2 Palpitations (principal)
CPT/HCPCS: 93225; 93226

== ENCOUNTER → 2020-08-10 08:10 | Outpatient (BNVA) | payer OTHER, SELFPAY | PROVIDERS: PCP Internal Medicine; Visit Provider Dietitian, Registered ==

== ENCOUNTER → 2020-08-11 14:43 | Outpatient (BNVA) | payer OTHER, SELFPAY | PROVIDERS: PCP Internal Medicine; Visit Provider Hospitalist | DX: J45.40 Moderate persistent asthma, uncomplicated (principal); R00.2 Palpitations; G47.33 Obstructive sleep apnea (adult) (pediatric); Z99.89 Dependence on other enabling machines and devices; Z79.51 Long term (current) use of inhaled steroids | CPT/HCPCS: 99212 ==

== ENCOUNTER → 2020-09-05 09:47 | Outpatient (BNVA) | payer OTHER, SELFPAY | PROVIDERS: PCP Internal Medicine; Visit Provider Surgery | DX: E66.9 Obesity, unspecified (principal); Z68.34 Body mass index [BMI] 34.0-34.9, adult; Z98.84 Bariatric surgery status | CPT/HCPCS: 99212 ==

== ENCOUNTER → 2020-10-05 11:29 | Outpatient (BNVA) | payer OTHER, SELFPAY | PROVIDERS: PCP Internal Medicine; Visit Provider Physician Assistant | DX: E66.9 Obesity, unspecified (principal); K91.2 Postsurgical malabsorption, not elsewhere classified; Z90.3 Acquired absence of stomach [part of]; Z68.33 Body mass index [BMI] 33.0-33.9, adult; Z98.84 Bariatric surgery status | CPT/HCPCS: 99212 ==

== ENCOUNTER → 2020-11-02 08:20 | Outpatient (BNVA) | payer OTHER, SELFPAY | PROVIDERS: PCP Internal Medicine; Visit Provider Dietitian, Registered | DX: E66.9 Obesity, unspecified (principal); Z68.31 Body mass index [BMI] 31.0-31.9, adult | CPT/HCPCS: 97803 ==

== ENCOUNTER → 2020-11-15 12:56 | Outpatient (BNVA) | payer OTHER, SELFPAY | PROVIDERS: PCP Internal Medicine; Visit Provider Internal Medicine Pulmonary Disease | DX: J45.901 Unspecified asthma with (acute) exacerbation (principal) | CPT/HCPCS: 99212 ==

== ENCOUNTER → 2020-11-21 11:04 | Outpatient (BNVA) | payer OTHER, SELFPAY | PROVIDERS: PCP Internal Medicine; Visit Provider Hospitalist | DX: J45.51 Severe persistent asthma with (acute) exacerbation (principal); G47.33 Obstructive sleep apnea (adult) (pediatric); K44.9 Diaphragmatic hernia without obstruction or gangrene; Z99.89 Dependence on other enabling machines and devices | CPT/HCPCS: 96372; 99212; J2930 ==

== ENCOUNTER → 2020-12-21 14:17 | Outpatient (BNVA) | payer OTHER, SELFPAY | PROVIDERS: PCP Internal Medicine; Visit Provider Hospitalist | DX: J45.50 Severe persistent asthma, uncomplicated (principal); G47.33 Obstructive sleep apnea (adult) (pediatric); K44.9 Diaphragmatic hernia without obstruction or gangrene; Z99.89 Dependence on other enabling machines and devices | CPT/HCPCS: 99212 ==

== ENCOUNTER → 2020-12-26 10:51 | Outpatient (BNVA) | payer OTHER, SELFPAY | PROVIDERS: PCP Internal Medicine; Referring Provider Internal Medicine; Visit Provider Surgery | DX: E66.9 Obesity, unspecified (principal); K91.2 Postsurgical malabsorption, not elsewhere classified; Z90.3 Acquired absence of stomach [part of]; Z98.84 Bariatric surgery status; Z68.30 Body mass index [BMI] 30.0-30.9, adult | CPT/HCPCS: 99212 ==

== ENCOUNTER 2020-12-28 08:44 | Outpatient (REF) | payer OTHER, SELFPAY ==
[2020-12-28 09:46] LABS: MANUAL DIFF FLAG NO
[2020-12-28 09:52] LABS: Basophils Percent Auto 0.5 % (0-2); Eosinophils Absolute Auto 0.2 X10*3/uL (0.0-0.4); Eosinophils Percent Auto 3.9 % (0-4); Hematocrit 39.9 % (37-47); Hemoglobin 12.8 g/dl (12.0-16.0); Imm Gran Abs Auto 0.01 X10*3/uL (0.00-0.03); Imm Gran Pct Auto 0.2 % (0.0-0.4); Lymphocytes Absolute Auto 1.8 X10*3/uL (1.2-4.9); Lymphocytes Percent Auto 28.6 % (20-40); Mean Corpuscular HGB Conc 32.1 g/dl (31.0-35.0); Mean Corpuscular Hemoglobin 28.1 pg (27.0-33.0); Mean Corpuscular Volume 87.7 fL (80-98); Mean Platelet Volume 11.5 fL (9.4-12.3); Monocytes Absolute Auto 0.4 X10*3/uL (0.1-1.2); Monocytes Percent Auto 6.8 % (2-11); Neutrophils Absolute Auto 3.7 X10*3/uL (2.0-8.3); Platelet Count 263 X10*3/uL (160-400); Red Blood Count 4.55 X10*6/uL (4.20-5.50); Red Cell Distribution Width 13.7 % (11.0-16.0); White Blood Count 6.2 X10*3/uL (4.8-10.8)
[2020-12-28 10:24] LABS: Estimated Average Glucose 108 mg/dL; Hemoglobin A1c % 5.4 %
[2020-12-28 10:31] LABS: Alanine Aminotransferase 11 U/L (0-31); Albumin Level 4.1 g/dL (3.5-5.0); Alkaline Phosphatase 84 U/L (39-117); Anion Gap 12 (12-20); Aspartate Amino Transferase 12 U/L (5-31); Bilirubin Total 0.5 mg/dL (0.0-1.0); Blood Urea Nitrogen 11 mg/dL (9-16); C Reactive Protein 0.15 mg/dL (< or = 0.50); Calcium 9.8 mg/dL (8.4-10.2); Carbon Dioxide 28 mmol/L (22-29); Chloride 106 mmol/L (96-108); Cholesterol 187 mg/dL; Estimated Glomerular Filt Rate > 60; Glucose Fasting 95 mg/dL (60-99); HDL Cholesterol 45 mg/dL; Iron 105 mcg/dL (30-160); LDL Cholesterol Calculated 128 mg/dl; Percent Iron Saturation 37 % (15-50); Potassium 4.3 mmol/L (3.3-5.1); Sodium 142 mmol/L (135-145); Total Iron Binding Capacity 286 mcg/dL (228-428); Total Protein 6.7 g/dL (6.5-8.0); Triglycerides 74 mg/dL; Unsaturated Iron Binding 181 ug/dL
[2020-12-28 10:45] LABS: Thyroid Stimulating Hormone 1.97 uIU/mL (0.32-4.0); Vitamin D 25-OH Total 27.8 ng/mL (>30)
[2020-12-28 11:50] LABS: Vitamin B12 198 pg/mL (200-900)
[2020-12-31 16:17] LABS: Zinc 73 mcg/dL (60-130)
[2021-01-02 09:01] LABS: Vitamin B1 10 nmol/L (8-30)
[2021-01-04 03:32] LABS: Vitamin A 32 mcg/dL (38-98)
== END 2020-12-28 08:45 | disposition home or self-care (01) ==
LOC: HO.LAB 08:44
PROVIDERS: PCP Internal Medicine; Visit Provider Surgery
DX: Z01.818 Encounter for other preprocedural examination (principal); K91.2 Postsurgical malabsorption, not elsewhere classified; Z90.3 Acquired absence of stomach [part of]
CPT/HCPCS: 36415; 80053; 80061; 82306; 82607; 83036; 83540; 84425; 84443; 84590; 84630; 85025; 86140

== ENCOUNTER → 2021-02-01 08:00 | Outpatient (BNVA) | payer OTHER, SELFPAY | PROVIDERS: PCP Internal Medicine; Visit Provider Dietitian, Registered | DX: E66.9 Obesity, unspecified (principal); Z68.29 Body mass index [BMI] 29.0-29.9, adult | CPT/HCPCS: 97803 ==

== ENCOUNTER 2021-02-21 20:35 | Emergency (ER) | payer OTHER, SELFPAY ==
--- NOTE | ~2021-02-21 | XR_ITS ---
EXAMINATION: XR CHEST CLINICAL INFORMATION: COVID positive COMPARISON: None TECHNIQUE: Frontal view of the chest was obtained. FINDINGS: No significant abnormality is noted involving the heart, lungs, mediastinum, bony thorax or soft tissues. XR/XR chest 1V IMPRESSION: No airspace opacity seen.
[2021-02-21 21:09] VITALS: BP 109/62; PULSE 651; RESP 18; TEMP 37.2; O2SAT 100; BMI 28.9
--- NOTE | 2021-02-21 21:35 | ED_ITS ---
HPI - URI/Sore Throat General Chief Complaint: Upper Respiratory Symptoms Stated Complaint: COVID+ chest tightness Time Seen by Provider: 02/21/21 21:35 Source: patient Mode of arrival: ambulatory Limitations: no limitations History of Present Illness HPI Narrative: Patient 35 years old with history of asthma COVID vaccinated in 09/27 been feeling congested for last 4- 5 days had a COVID PCR done on 02/19 came back positive patient saturating 100% feels slight short of breath body aches tiredness no fever no chills otherwise okay Related Data Home Medications Medication Instructions Recorded Confirmed epinephrine 0.3 mg/0.3 mL 0.3 mg IM DAILY PRN 03/29/20 01/18/21 injection, auto-injector tiotropium bromide 2.5 1 puff INHALATION BEDTIME 03/29/20 01/18/21 mcg/actuation mist for inhalation theophylline 200 mg 400 mg PO DAILY cap 12/26/20 01/18/21 capsule,extended release 24 hr Previous Rx's Medication Instructions Recorded trazodone 50 mg tablet 50 mg PO BEDTIME PRN #30 tab 08/15/20 dupilumab 300 mg/2 mL subcutaneous 300 mg SUBCUT Q2W #4 ml 08/31/20 syringe (Dupixent) benzonatate 200 mg capsule 200 mg PO TID PRN 30 Days #60 cap 09/11/20 fluticasone 232 mcg-salmeterol 14 1 inh PO BID 30 Days #1 ea 12/21/20 mcg/actuation breath activated powdr mometasone-formoterol HFA 200 2 puff INHALATION Q12H 30 Days #13 12/25/20 mcg-5 mcg/actuation aerosol g inhaler (Dulera) buspirone 5 mg tablet 5 mg PO BID #60 cap 01/03/21 fluoxetine 20 mg capsule 20 mg PO DAILY #30 cap 01/03/21 montelukast 10 mg tablet 10 mg PO BEDTIME #30 tab 01/05/21 roflumilast 500 mcg tablet 500 mcg PO DAILY #30 tab 01/05/21 (Daliresp) nebulizers #1 ea 01/18/21 amoxicillin 875 mg-potassium 1 tab PO BID 7 Days #14 tab 02/17/21 clavulanate 125 mg tablet ProAir HFA 90 mcg/actuation 2 puff PO Q4-6H PRN #8.5 g NS 02/19/21 aerosol inhaler (albuterol sulfate) albuterol sulfate 2.5 mg INHALATION TID PRN #180 ml 02/19/21 loratadine 10 mg tablet 10 mg PO DAILY #30 tab 02/19/21 benzonatate 100 mg capsule 100 mg PO TID PRN #20 cap 02/21/21 (Tessalon Perles) dexamethasone 6 mg tablet 6 mg PO DAILY #7 tab 02/21/21 (Decadron) Allergies Allergy/AdvReac Type Severity Reaction Status Date / Time Shellfish Allergy Severe oral Verified 02/21/21 21:09 swelling ENVIRONMENTAL Allergy Severe SINUS, Uncoded 12/26/20 11:44 SNEEZING Review of Systems Review of Systems: Yes all other systems are reviewed and are negative [facility] Past Medical History Medical History (Updated 02/21/21 @ 21:49 by Jarvis Cortes MD) ASCUS favor benign Asthma BMI 33.0-33.9,adult Degenerative disc disease, lumbar Depression with anxiety Intermittent palpitations Intrauterine contraceptive device Left anterior knee pain Moderate persistent asthma Morbid obesity Obesity (BMI 30-39.9) RODRIGUEZ on CPAP Seasonal allergies Surgical History History of appendectomy History of esophagogastroduodenoscopy (EGD) History of repair of hiatal hernia History of tonsillectomy S/P laparoscopic sleeve gastrectomy Family History Family History Mother Stroke Dementia Migraines Kidney stone Father Asthma Sister Asthma Son Asthma Daughter Anxiety Depressed Social History Social History Household Members: Children Housing: Apartment Are you a primary healthcare representative to a significant other at home: Yes (children) Do you presently have visiting nurse or other home services: No Alcohol intake: never Patient Tobacco Use Status: Never used Tobacco e-Cigarette/Vaping Use: Never Used Second Hand Smoke Exposure: No Advance Directives: No Advance Directives Information Provided: No service: No Current occupational status: employed Physical Exam Vital Signs: Vital Signs: Last Vital Signs Temp 98.9 F 02/21/21 21:09 Pulse 62 02/21/21 21:52 Resp 18 02/21/21 21:09 BP 109/62 02/21/21 21:09 Pulse Ox 100 02/21/21 21:09 Body Mass Index 28.9 Appearance: Alert. Oriented X3. No acute distress. Eyes: No pallor or icterus ENT: Pharynx normal. Oral Mucosa moist Neck: Normal inspection. Neck supple. CVS: Normal heart rate and rhythm. Pulses normal. Respiratory: No respiratory distress. Equal air entry bilateral, no wheezing/rales/rhonchi Abdomen: Soft and nontender. Bowel sounds are present, Skin: Skin warm and dry. Normal skin color. Normal skin turgor. Extremities: No lower extremity edema. No calf tenderness Neuro: Oriented X 3. MDM - URI/Sore Throat MDM Narrative Medical decision making narrative: Patient COVID present with positive saturating 100% chest x-ray negative for infiltrate will give patient Decadron and discharge Discharge Plan Discharge Clinical Impression: COVID-19 Patient Disposition: Home, Self-Care Instructions: COVID-19 (Coronavirus Disease 2019) (ED) Additional Instructions: Take medication as prescribed and use inhalers. Report to the ER/PCP increased shortness of breath Drink plenty of fluids Prescriptions: New dexamethasone [Decadron] 6 mg tablet 6 mg PO DAILY Qty: 7 RF: 0 benzonatate [Tessalon Perles] 100 mg capsule 100 mg PO TID PRN (Reason: cough) Qty: 20 RF: 0 No Action trazodone 50 mg tablet 50 mg PO BEDTIME PRN (Reason: insomnia) Qty: 30 RF: 1 dupilumab [Dupixent Syringe] 300 mg/2 mL syringe 300 mg subcut Q2W Qty: 4 RF: 11 benzonatate 200 mg capsule 200 mg PO TID PRN (Reason: cough) 30 Days Qty: 60 RF: 3 Dulera 200-5 mcg/actuation HFA aerosol inhaler 2 puff inhalation Q12H 30 Days Qty: 13 RF: 11 fluoxetine 20 mg capsule 20 mg PO DAILY Qty: 30 RF: 2 buspirone 5 mg tablet 5 mg PO BID Qty: 60 RF: 2 montelukast 10 mg tablet 10 mg PO BEDTIME Qty: 30 RF: 3 Daliresp 500 mcg tablet 500 mcg PO DAILY Qty: 30 RF: 1 amoxicillin-pot clavulanate 875-125 mg tablet 1 tab PO BID 7 Days Qty: 14 RF: 0 albuterol sulfate [ProAir HFA] 90 mcg/actuation HFA aerosol inhaler 2 puff PO Q4-6H PRN (Reason: for wheezing) Qty: 8.5 RF: 0 albuterol sulfate 2.5 mg /3 mL (0.083 %) solution for nebulization 2.5 mg inhalation TID PRN (Reason: Shortness Of Breath) Qty: 180 RF: 2 loratadine 10 mg tablet 10 mg PO DAILY Qty: 30 RF: 3 (DME) nebulizers Misc See Rx Instructions .Route Qty: 1 RF: 0 tiotropium bromide 2.5 mcg/actuation mist 1 puff inhalation BEDTIME RF: 0 epinephrine 0.3 mg/0.3 mL auto-injector 0.3 mg IM DAILY PRN (Reason: Anaphylaxis) RF: 0 theophylline 200 mg capsule,extended release 24hr 400 mg PO DAILY RF: 0 fluticasone propion-salmeterol 232-14 mcg/actuation aerosol powdr breath activated 1 inh PO BID 30 Days Qty: 1 RF: 11 Interventions: ED Discharge Assessment Last Done: 02/21/21 21:58 Discharge Date/Time: 02/21/21 21:59
[2021-02-21 21:52] VITALS: PULSE 62
[2021-02-21] MEDS: dexAMETHasone 6 MG TABLET PO (21:56)
== END 2021-02-21 21:59 | disposition home or self-care (01) ==
PROVIDERS: Emergency Provider Internal Medicine; PCP Internal Medicine
DX: U07.1 COVID-19 (principal); R07.81 Pleurodynia; Z79.899 Other long term (current) drug therapy
CPT/HCPCS: 71045; 99283; 99284; J8540

== ENCOUNTER → 2021-03-07 09:48 | Outpatient (BNVA) | payer OTHER, SELFPAY | PROVIDERS: PCP Internal Medicine; Referring Provider Internal Medicine; Visit Provider Surgery | DX: E66.3 Overweight (principal); Z68.29 Body mass index [BMI] 29.0-29.9, adult; Z98.84 Bariatric surgery status | CPT/HCPCS: 99212 ==

== ENCOUNTER → 2021-04-23 09:48 | Outpatient (BNVA) | payer OTHER, SELFPAY | PROVIDERS: PCP Internal Medicine; Visit Provider Hospitalist | DX: J45.50 Severe persistent asthma, uncomplicated (principal); G47.33 Obstructive sleep apnea (adult) (pediatric); K44.9 Diaphragmatic hernia without obstruction or gangrene; Z99.89 Dependence on other enabling machines and devices | CPT/HCPCS: 90686; 99212 ==

== ENCOUNTER 2021-05-07 08:49 | Outpatient (REF) | payer OTHER, SELFPAY | END 2021-05-07 08:50 | disposition home or self-care (01) | LOC: HO.HOSX 08:49 | PROVIDERS: Visit Provider Physician Assistant | DX: Z13.89 Encounter for screening for other disorder (principal) ==

== ENCOUNTER 2021-06-19 09:17 | Outpatient (REF) | payer OTHER, SELFPAY ==
--- NOTE | ~2021-06-19 | XR_ITS ---
EXAMINATION: X-RAY KNEES SINGLE STANDING VIEW BILATERAL X-RAY LEFT KNEE 2 VIEWS CLINICAL INFORMATION: Pain. COMPARISON: Radiograph of the left knee dated from 01/26/2019. TECHNIQUE: Single standing AP view of both knees, lateral view of the left knee and sunrise patellar view of the left knee. FINDINGS: No evidence of acute fractures or malalignment. No significant degenerative changes. No erosions or chondrocalcinosis. Normal appearance of the soft tissues. No joint effusions. XR/XR knee LT 2V IMPRESSION: Normal radiographic images of the knees.
--- NOTE | ~2021-06-19 | XR_ITS ---
EXAMINATION: X-RAY KNEES SINGLE STANDING VIEW BILATERAL X-RAY LEFT KNEE 2 VIEWS CLINICAL INFORMATION: Pain. COMPARISON: Radiograph of the left knee dated from 01/26/2019. TECHNIQUE: Single standing AP view of both knees, lateral view of the left knee and sunrise patellar view of the left knee. FINDINGS: No evidence of acute fractures or malalignment. No significant degenerative changes. No erosions or chondrocalcinosis. Normal appearance of the soft tissues. No joint effusions. XR/XR knee standing BI IMPRESSION: Normal radiographic images of the knees.
== END 2021-06-19 09:18 | disposition home or self-care (01) ==
LOC: HO.HOSX 09:17
PROVIDERS: Visit Provider Physician Assistant
DX: S83.242D Other tear of medial meniscus, current injury, left knee, subsequent encounter (principal)
CPT/HCPCS: 73560; 73565; 99212

== ENCOUNTER 2021-07-05 10:28 | Outpatient (REF) | payer OTHER, SELFPAY ==
--- NOTE | ~2021-07-05 | MR_ITS ---
EXAMINATION: MR KNEE WITHOUT CONTRAST, LEFT CLINICAL INFORMATION: Knee pain. COMPARISON: MRI 02/27/2019 TECHNIQUE: MRI of the knee without contrast was performed using routine sequences on a high-field scanner. FINDINGS: MENISCI: Medial Meniscus: Intrasubstance degenerative signal in the posterior horn, slightly more prominent as compared to previous. Possible focal undersurface fraying/tear near the posterior root. Mild medial extrusion of the body. Degenerative signal in the body. Lateral Meniscus: Mild undersurface fraying of the posterior root/central posterior horn. No focal tears otherwise seen. LIGAMENTS: Cruciate: Intact Collateral: Intact EXTENSOR MECHANISM: Intact ARTICULAR CARTILAGE/BONE: Patellofemoral Compartment: No focal cartilage loss. Medial Compartment: Focal mild cartilage thinning in the anterior weightbearing tibia. Faint subchondral edema, improved from previous. Lateral Compartment: No significant cartilage loss. JOINT FLUID AND BURSAE: Small effusion. MR/MR knee LT wo con IMPRESSION: 1. Degeneration in the posterior horn of the medial meniscus, slightly more prominent as compared to previous. Possible focal undersurface fraying/tearing of the posterior root. 2. Mild undersurface fraying of the posterior root/central posterior horn of the lateral meniscus. 3. Mild arthrosis in the anterior weightbearing medial compartment. 4. Small effusion.
== END 2021-07-05 10:29 | disposition home or self-care (01) ==
LOC: HO.MRI 10:28
PROVIDERS: Visit Provider Physician Assistant
DX: M25.562 Pain in left knee (principal); S83.242A Other tear of medial meniscus, current injury, left knee, initial encounter
CPT/HCPCS: 73721

== ENCOUNTER → 2021-07-20 15:05 | Outpatient (BNVA) | payer OTHER, SELFPAY | PROVIDERS: Visit Provider Physician Assistant | DX: S83.242D Other tear of medial meniscus, current injury, left knee, subsequent encounter (principal) | CPT/HCPCS: 99212 ==

== ENCOUNTER → 2021-08-23 08:54 | Outpatient (BNVA) | payer OTHER, SELFPAY | PROVIDERS: PCP Internal Medicine; Visit Provider Hospitalist | DX: J45.50 Severe persistent asthma, uncomplicated (principal); G47.33 Obstructive sleep apnea (adult) (pediatric); K44.9 Diaphragmatic hernia without obstruction or gangrene; Z99.89 Dependence on other enabling machines and devices | CPT/HCPCS: 99212 ==

== ENCOUNTER → 2021-11-28 10:39 | Outpatient (BNVA) | payer OTHER, SELFPAY | PROVIDERS: PCP Nurse Practitioner Family; Visit Provider Hospitalist | DX: G47.33 Obstructive sleep apnea (adult) (pediatric) (principal); J45.50 Severe persistent asthma, uncomplicated; K44.9 Diaphragmatic hernia without obstruction or gangrene; Z99.89 Dependence on other enabling machines and devices | CPT/HCPCS: 99212 ==

== ENCOUNTER 2022-01-21 11:20 | Outpatient (REF) | payer OTHER, SELFPAY ==
[2022-01-21 13:47] LABS: MANUAL DIFF FLAG NO
[2022-01-21 13:56] LABS: Appearance Urine CLEAR; Color Urine YELLOW; Glucose Urine UA NEG (NEG); Leukocyte Esterase Urine NEG (Negative); Nitrite Urine NEG (NEG); Specific Gravity - Urine 1.025 (1.005-1.025); Urine Blood NEG (NEG); Urine Ketones NEG (NEG); Urine Protein NEG (NEG-TRACE)
[2022-01-21 14:02] LABS: Alanine Aminotransferase 18 U/L (0-31); Albumin Level 4.2 g/dL (3.5-5.0); Alkaline Phosphatase 67 U/L (39-117); Anion Gap 13 (12-20); Aspartate Amino Transferase 15 U/L (5-31); Bilirubin Total 0.5 mg/dL (0.0-1.0); Blood Urea Nitrogen 16 mg/dL (9-16); Calcium 9.5 mg/dL (8.4-10.2); Carbon Dioxide 29 mmol/L (22-29); Chloride 103 mmol/L (96-108); Cholesterol 200 mg/dL; Estimated Glomerular Filt Rate > 60; Glucose Fasting 102 mg/dL (60-99); HDL Cholesterol 74 mg/dL; LDL Cholesterol Calculated 115 mg/dl; Potassium 4.8 mmol/L (3.3-5.1); Sodium 140 mmol/L (135-145); Total Protein 6.9 g/dL (6.5-8.0); Triglycerides 55 mg/dL
[2022-01-21 18:26] LABS: Basophils Percent Auto 0.7 % (0-2); Eosinophils Absolute Auto 0.1 X10*3/uL (0.0-0.4); Hematocrit 40.9 % (37.0-47.0); Hemoglobin 13.3 g/dl (12.0-16.0); Imm Gran Abs Auto 0.01 X10*3/uL (0.00-0.03); Imm Gran Pct Auto 0.2 % (0.0-0.4); Lymphocytes Absolute Auto 1.9 X10*3/uL (1.2-4.9); Lymphocytes Percent Auto 33.7 % (20-40); Mean Corpuscular HGB Conc 32.5 g/dl (31.0-35.0); Mean Corpuscular Hemoglobin 28.8 pg (27.0-33.0); Mean Corpuscular Volume 88.5 fL (80.0-98.0); Mean Platelet Volume 11.1 fL (9.4-12.3); Monocytes Absolute Auto 0.4 X10*3/uL (0.1-1.2); Monocytes Percent Auto 6.7 % (2-11); Neutrophils Absolute Auto 3.2 x10*3/uL (2.0-8.3); Neutrophils Percent Auto 56.7 % (45-73); Platelet Count 243 X10*3/uL (160-400); Red Blood Count 4.62 X10*6/uL (4.20-5.50); Red Cell Distribution Width 13.2 % (11.0-16.0); White Blood Count 5.6 X10*3/uL (4.8-10.8)
== END 2022-01-21 11:21 | disposition home or self-care (01) ==
LOC: HO.HMGCLDS 11:20
PROVIDERS: PCP Nurse Practitioner Family; Visit Provider Nurse Practitioner Family
DX: Z00.00 Encounter for general adult medical examination without abnormal findings (principal)
CPT/HCPCS: 36415; 80053; 80061; 81003; 84443; 85025

== ENCOUNTER → 2022-05-13 11:25 | Outpatient (BNVA) | payer OTHER, SELFPAY | PROVIDERS: PCP Nurse Practitioner Family; Visit Provider Orthopaedic Surgery | DX: M76.52 Patellar tendinitis, left knee (principal) | CPT/HCPCS: 99212 ==

== ENCOUNTER → 2022-06-17 10:34 | Outpatient (BNVA) | payer OTHER, SELFPAY | PROVIDERS: PCP Nurse Practitioner Family; Visit Provider Hospitalist | DX: J45.50 Severe persistent asthma, uncomplicated (principal); G47.33 Obstructive sleep apnea (adult) (pediatric); K44.9 Diaphragmatic hernia without obstruction or gangrene; Z79.899 Other long term (current) drug therapy; Z99.89 Dependence on other enabling machines and devices | CPT/HCPCS: 99212 ==

== ENCOUNTER → 2022-06-25 12:26 | Outpatient (BNVA) | payer OTHER, SELFPAY | PROVIDERS: PCP Nurse Practitioner Family; Visit Provider Physician Assistant | DX: M76.52 Patellar tendinitis, left knee (principal) | CPT/HCPCS: 99212 ==

== ENCOUNTER 2022-08-13 09:00 | Outpatient (RCR) | payer OTHER, SELFPAY ==
--- NOTE | 2022-06-27 14:30 | MHC.PT.EP ---
[facility] [place] Office [place] [facility] [place] [facility] [address] Merrill Arzola [address] [phone] F: [phone] F: [phone] F: [phone] F: [phone] Physical Therapy Plan of Care Date of Evaluation: Date of Surgery: N/A Diagnosis: patellar tendinitis, left knee Assessment: Pt is a pleasant 36yo F who presents to PT with L knee pain. She presents to PT with current impairments in pain, decreased L knee ROM, decreased quad strength, decreased hip/glute strength, decreased muscle length and soft tissue restrictions. She is limited functionally by prolonged standing, walking, jogging, and sitting. She is an excellent candidate for skilled PT in order to address current impairments to facilitate return to PLOF. She is recommended to be seen 2x/week for 4 weeks and will be reassessed at that time. 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 Manual therapy to restore motion and function. Therapeutic exercise to improve strength and flexibility. Neuromuscular re-education for posture and balance. Therapeutic activities to return to functional activities of daily living. Electronically signed by: Nora Holman, PT, DPT Please sign and return to therapist. Thank you for your referral.
--- NOTE | 2022-09-25 14:40 | MHC.PT.DC ---
[facility] [place] Office [place] Office [place] Office [address] Merrill Arzola [address] [phone] F: [phone] F: [phone] F: [phone] F: [phone] Physical Therapy Discharge Report Diagnosis: patellar tendinitis, left knee Date of Surgery: N/A Date of Evaluation: 06/27/22 Date of Discharge: 09/25/22 Treatments to Date: 8 Cancellations to Date: 3 No Shows to Date: 2 Discharge Status: Visit Non-compliance Discharge Summary: Pt was seen for PT from 06/27/22-08/13/22. She has had 3 cancellations and 2 no-show appointments since SOC including a no-show for her last scheduled appointment. Pt is being D/C per [facility] attendance policy and visit non-compliance. Pt current level of function unknown at this time. Electronically signed by: Nora Holman, PT, DPT Please sign and return to therapist. Thank you for your referral.
== END 2022-09-25 14:41 | disposition home or self-care (01) ==
LOC: HO.PT 09:00
PROVIDERS: PCP Nurse Practitioner Family; Visit Provider Orthopaedic Surgery
DX: M76.52 Patellar tendinitis, left knee (principal)
CPT/HCPCS: 97110; 97161

== ENCOUNTER 2022-12-20 09:59 | Outpatient (AMB) | payer OTHER, SELFPAY ==
--- NOTE | 2022-12-20 10:21 | A.OFFVIS_ITS ---
Intake Vital Signs 12/20/22 10:22 Height 5 ft 2 in Weight 148 lb BMI 27.1 BP 100/60 Blood Pressure Location Lt brachial Position Sitting Pulse 61 Pulse Source Pulse Oximeter Pulse Oximetry (%) 99 Oxygen Delivery Method Room Air Intake Visit Reasons: Obstructive sleep apnea Collar Cutter Required: No Allergies shellfish derived Allergy (Severe, Verified 12/20/22 10:26) Oral swelling ENVIRONMENTAL Allergy (Severe, Uncoded 12/20/22 10:26) SINUS, SNEEZING HPI HPI Comments History of Present Illness Details The patient is a 37 y/o womanwith severe persistent asthma. Has been responding well to the Xolair and also to the addition of theophylline. Still, has been getting episodes of exacerbations some flares. Recently she did take a course of prednisone. Apparently her major triggers are stress in agitation. It appears that her allergy symptoms are well controlled on the current respiratory regimen. Current she has been noticing increased weight gain. We talked about the importance of losing weight to minimize the respiratory symptoms for her to improve her overall health. Recently her Xolair was increased to 300 mg twice a month. We did review her blood work that she had and she has had some eosinophilia as well as a critically high IgE level. Therefore, if she does not respond to Xolair she may be a good candidate for Dupixent. She continues on a very aggressive respiratory regimen including theophylline, Daliresp, Symbicort, Spiriva and singular. She is having hard time keeping up with work. I do agree that we have to improve her respiratory status in order for her to be able to function work without putting herself at risk of an adverse of event. Therefore, I do agree that for the next 3 months we could decrease the amount of work hours in order to optimize her respiratory therapy. In addition to that the patient has been complaining of some difficulty swallowing due to pain. She feels a fullness in a tightness of her throat area. She also did have a barium swallow demonstrating a small hiatal hernia with reflux. She will be following up with that endoscopy soon with gastroenterology. 08/23/2021 the patient is here for a pulmonary follow-up visit. From a respiratory status she continues to do okay. She continues on the Dupixent injections which appeared to be very helpful. Her Dulera does not appear to be available all the time now specially because of shortage is. She continues on the long-acting muscarinic antagonist. Therefore, I will place her on Breztri which she can continue to use twice a day. in addition to that the patient continues to lose significant amount of weight after her bariatric surgery. She has had some near syncopal episodes which are concerning because she has been working in the [facility]. She is going to follow up with her bariatric surgeon soon. In the meantime the patient may have some orthostatic hypotension issues after her surgery. I will give her some compression stockings in order for her decrease the risk of syncope. She continues use her CPAP. The CPAP therapy continues to be affecting beneficial. Will follow-up in 6 months. 11/28/2021 the patient is here for pulmonary follow-up visit. She overall is doing well. She does have increasing allergy symptoms that with the spring and early summer season. She continues use her respiratory therapy. She never did start the Breztri inhaler. She is continue with her previous therapy. The inhaler had that being covered. She continues with the Dupixent injections which appeared to be if still affecting beneficial. With grecia young symptoms of allergies we will consider a TSLP inhibitor in the future if she continues to have symptoms while on Dupixent. The patient continues to lose weight after her bariatric surgery. She appears to be healthy and she is maintaining her multivitamins as recommended by her surgeon and That addition. She continues uses CPAP. The CPAP therapy continues to be affecting beneficial. She does use it for more than 4 hours a night. She will continue with CPAP at this time. once she reaches her goal weight we will consider stopping CPAP and repeating sleep study to address the question any residual sleep apnea. 06/17/2022 the patient is here for a pulmonary follow-up visit. Lately she has been noticing increasing chest tightness and shortness of breath. Even on Dupixent. Sometimes however she is late with her Dupixent injections and does usually when she becomes more symptomatic. Otherwise Dupixent has been very effective for her. She continues to use her inhalers as prescribed otherwise she would have additional symptoms as well. She has been using her rescue inhaler once or twice a day for the last couple days. If her symptoms worsen then she may need some prednisone. I will provide her with a prescription just in case her symptoms do worsen. Denies any fevers or chills and denies any sick contacts at this time. 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 In regards her sleep apnea she is not using her CPAP at this time. She otherwise is feeling rested. 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 The the patient is currently in the weight loss program. When she gets to her ideal weight will plan to repeat the sleep study to see if she needs to continue with CPAP therapy. 12/20/2022 the patient is here for pulmonary follow-up visit. She continues on Dupixent. Lately she has been having increasing chest tightness and having to use her nebulizer more often. She continues use all her respiratory therapy as prescribed. Denies any sick contacts. Continues to respond positively to the Dupixent although still symptomatic at times. I explained to her that Dupixent will treat allergic triggers but would not do tree any nonallergic triggers for her asthma. I do not believe that she needing the biologic is really going to make a big change in her asthma control at this time. Patient will monitor closely for any reflux disease or other potential triggers such as lower respiratory infections. She has not been using her CPAP. The patient has been doing well her [place] score is 6/24. She is working on losing weight after her bariatric surgery. We will plan to do a repeat study when she gets to her ideal weight. [facility] Medical History ASCUS favor benign Asthma BMI 33.0-33.9,adult Degenerative disc disease, lumbar Depression with anxiety Intermittent palpitations Intrauterine contraceptive device Left anterior knee pain Moderate persistent asthma Morbid obesity Obesity (BMI 30-39.9) Orthostatic hypotension RODRIGUEZ on CPAP Seasonal allergies Surgical History History of appendectomy History of esophagogastroduodenoscopy (EGD) History of repair of hiatal hernia History of tonsillectomy S/P laparoscopic sleeve gastrectomy Family History Mother Stroke Dementia Migraines Kidney stone Father Asthma Sister Asthma Son Asthma Daughter Anxiety Depressed Social History Household Members: Children Housing: Apartment 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: Yes (children) Do you presently have visiting nurse or other home services: No Alcohol intake: never Patient Tobacco Use Status: Never used Tobacco e-Cigarette/Vaping Use: Never Used Second Hand Smoke Exposure: No service: No Current occupational status: employed Current occupation: [employer] Current occupational exposures/hazards: No Cognitive needs: No Hearing needs: No Vision needs: No Female Reproductive History Menstrual Age of Menarche: 12 Review of Systems Const Denies difficulty sleeping, Denies fever(s), Denies headache(s), Denies snoring, Denies stops breathing during sleep and Reports weight loss Eyes Denies blurry vision and Denies diplopia ENT Denies dizziness and Denies headache(s) Card Denies chest pain, Denies irregular heart rhythm, Denies leg edema, Reports lightheadedness, Denies dyspnea, Denies dyspnea on exertion and Reports other (palpitations) Resp Reports cough, Denies hemoptysis, Denies excessive phlegm production, Denies dyspnea, Denies dyspnea on exertion, Denies snoring and Reports wheezing GI Denies abdominal pain, Denies hematochezia, Denies constipation, Denies heartburn, Denies diarrhea, Denies nausea and Denies vomiting Musc Reports back pain, Denies arthralgias, Denies joint swelling and Denies limited range of motion Neuro Denies dizziness and Denies headache(s) Psych Denies abnormal sleep pattern, Denies anxiety and Denies depression Aller/Immun Reports wheezing Physical Exam Vital Signs: Last Vital Signs Pulse 61 12/20/22 10:22 BP 100/60 12/20/22 10:22 Pulse Ox 99 12/20/22 10:22 Oxygen Delivery Method Room Air 12/20/22 10:22 BMI result Body Mass Index 27.1 Const General: alert Neck Neck: Yes normal visual inspection, Yes full ROM and Yes no lymphadenopathy Chest Chest palpation & inspection: normal inspection of the chest Resp Auscultation: no wheezes and diminished lung sounds Cardio Rate: regular rate Rhythm: regular rhythm Heart sounds: S1 normal heart sound present and S2 normal heart sound present GI Palpation (GI): Soft to palpation and nontender Auscultation: normal bowel sounds General: Yes no CVA tenderness Back/Spine/Pelvis Back: no CVA tenderness Assessment & Plan Assessment & Plan (1) Asthma: Code(s): J45.909 - Unspecified asthma, uncomplicated Qualifiers: Asthma complication type: uncomplicated Asthma persistence: persistent Asthma severity: severe Qualified Code(s): J45.50 - Severe persistent asthma, uncomplicated (2) RODRIGUEZ on CPAP: Comment: CPAP new to patient-started using 05/26/20, not on CPAP Code(s): G47.33 - Obstructive sleep apnea (adult) (pediatric); Z99.89 - Dependence on other enabling machines and devices (3) Hiatal hernia: Code(s): K44.9 - Diaphragmatic hernia without obstruction or gangrene Plan stop Dulera stop Spiriva start Trelegy 200 continue Daliresp continue Singulair and Claritin continue Dupixent every 2 weeks stopped CPAP therapy, consider PSG once she gets to her ideal weight Follow-up in 6 months Medications: New zekcdvlvgoq-iyxygbajc-yfbyujpr 200-62.5-25 mcg (Trelegy Ellipta) 1 inh inhalation DAILY 30 days 60 ea 12RF Coding Level of Care Code Est Pt Level 4 (94909) Diagnoses Asthma J45.50 Asthma complication type: uncomplicated Asthma persistence: persistent Asthma severity: severe RODRIGUEZ on CPAP G47.33; Z99.89 Hiatal hernia K44.9 Time Spent (min) 18
[2022-12-20 10:22] VITALS: BP 100/60; PULSE 61; O2SAT 99; BMI 27.1
== END 2022-12-20 10:44 | disposition home or self-care (01) ==
PROVIDERS: PCP Nurse Practitioner Family; Visit Provider Hospitalist
DX: J45.50 Severe persistent asthma, uncomplicated (principal); G47.33 Obstructive sleep apnea (adult) (pediatric); Z99.89 Dependence on other enabling machines and devices; K44.9 Diaphragmatic hernia without obstruction or gangrene
CPT/HCPCS: 99214

== ENCOUNTER → 2022-12-20 09:59 | Outpatient (BNVA) | payer OTHER, SELFPAY | PROVIDERS: Visit Provider Hospitalist | DX: G47.33 Obstructive sleep apnea (adult) (pediatric) (principal); J45.50 Severe persistent asthma, uncomplicated; K44.9 Diaphragmatic hernia without obstruction or gangrene; Z99.89 Dependence on other enabling machines and devices | CPT/HCPCS: 99212 ==

== ENCOUNTER 2023-02-06 08:56 | Outpatient (AMB) | payer OTHER, SELFPAY ==
--- NOTE | 2023-02-06 09:01 | MHC.PC.OV ---
Vital Signs 02/06/23 09:02 Height 5 ft 2 in Weight 186 lb 8 oz BMI 34.1 BP 118/82 Blood Pressure Location Lt brachial Position Sitting Pulse 63 Pulse Source Pulse Oximeter Pulse Oximetry (%) 98 Oxygen Delivery Method Room Air Intake Visit Reasons: Physical exam Allergies shellfish derived Allergy (Severe, Verified 02/06/23 09:44) Oral swelling ENVIRONMENTAL Allergy (Severe, Uncoded 02/06/23 09:44) SINUS, SNEEZING Medication List - Last Reconciled 02/06/23 by ALEJO Parker- albuterol sulfate 2.5 mg (3 mL) inhalation TID PRN buspirone 5 mg PO BID compr.stocking,thigh,reg,small As directed Daliresp (roflumilast) 500 mcg PO DAILY NS dupilumab (Dupixent) 300 mg (2 mL) subcut Q2W epinephrine 0.3 mg (0.3 mL) IM DAILY PRN fluoxetine 20 mg PO DAILY fluticasone furoate-vilanterol 200-25 mcg/dose (Breo Ellipta) 1 inh inhalation DAILY 30 days ibuprofen 600 mg PO BID PRN levonorgestrel (Mirena) intrauterine loratadine 10 mg PO DAILY montelukast 10 mg PO BEDTIME nebulizers As directed omeprazole 20 mg PO DAILY sucralfate 10 mL PO QID trazodone 50 mg PO BEDTIME PRN umeclidinium 62.5 mcg/actuation (Incruse Ellipta) 1 inh inhalation DAILY 30 days Ventolin HFA 90 mcg/actuation (albuterol sulfate) 2 puffs PO Q4-6H PRN NS Tobacco use date assessed: 02/06/23 Dental Screening Dental Screen Date: 02/06/23 Did you have a dental visit in the last 12 months?: Yes Did you have a dental problem in the last 6 months where you did not have access to dental care?: No Was dental information given to patient?: Patient has dentist HPI Physical exam HPI Details Pt is here for a PE. Will order labs. 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 Pt sees pulmonary. [facility] Medical History ASCUS favor benign Asthma BMI 33.0-33.9,adult Degenerative disc disease, lumbar Depression with anxiety Intermittent palpitations Intrauterine contraceptive device Left anterior knee pain Moderate persistent asthma Morbid obesity Obesity (BMI 30-39.9) Orthostatic hypotension RODRIGUEZ on CPAP Seasonal allergies Surgical History (Reviewed 02/06/23 @ 09:44 by Vivek Aponte [facility]) History of appendectomy History of esophagogastroduodenoscopy (EGD) History of repair of hiatal hernia History of tonsillectomy S/P laparoscopic sleeve gastrectomy Family History (Reviewed 02/06/23 @ 09:44 by Vivek Aponte [facility]) Mother Stroke Dementia Migraines Kidney stone Father Asthma Sister Asthma Son Asthma Daughter Anxiety Depressed Social History Household Members: Children Housing: Apartment Are you a primary care assistant to a significant other at home: Yes (children) Do you presently have visiting nurse or other home services: No Alcohol intake: never Patient Tobacco Use Status: Never used Tobacco e-Cigarette/Vaping Use: Never Used Second Hand Smoke Exposure: No service: No Current occupational status: employed Current occupation: [employer] Current occupational exposures/hazards: No Cognitive needs: No Hearing needs: No Vision needs: No Female Reproductive History Menstrual Age of Menarche: 12 Questionnaire Thrive Questionnaire Date Thrive assessed: 01/21/22 AUDIT C Alcohol Use Questionnaire (AUDIT-C) 1. How often do you have a drink containing alcohol?: Never Total Score: 0 MIRANDA-7 AMB Questionnaire MIRANDA-7 Date MIRANDA - 7 assessed: 01/21/22 Source: Developed by Drs. Tuan Alves, Donna Epps, Piero Basurto and colleagues, with an educational will from [employer]. Review of Systems Const Denies chills and Denies fever(s) Eyes Denies blurry vision ENT Denies vertigo, Denies dizziness and Denies sore throat Card Denies chest pain at rest, Denies chest pain with activity, Denies diaphoresis, Denies dyspnea and Denies dyspnea on exertion Resp Denies cough, Denies dyspnea, Denies dyspnea on exertion and Denies wheezing GI Denies abdominal pain, Denies melena, Denies hematochezia, Denies constipation, Denies diarrhea and Denies loose stools Denies hematuria Musc Denies numbness and Denies tingling Skin/Breast Denies lesions Neuro Denies vertigo, Denies dizziness, Denies numbness and Denies tingling Psych Denies anxiety, Denies depression, Denies homicidal ideation, Denies suicidal ideation and Denies other (substance abuse) Aller/Immun Denies wheezing Physical exam (Primary Care) Vital Signs: Last Vital Signs Pulse 63 02/06/23 09:02 BP 118/82 02/06/23 09:02 Pulse Ox 98 02/06/23 09:02 Oxygen Delivery Method Room Air 02/06/23 09:02 BMI result Body Mass Index 34.1 Tobacco/Smoking Status: Tobacco use Status Tobacco use date assessed 02/06/23 02/06/23 09:06 Patient Tobacco Use Status Never used Tobacco 02/06/23 09:06 e-Cigarette/Vaping Use Never Used 02/06/23 09:06 Thrive Assessment: Date of Thrive Assessment Date Thrive assessed 01/21/22 02/06/23 09:06 Const General: cooperative Nutritional Appearance: obese Orientation/consciousness: patient oriented x3 HENMT Head: Yes normal to inspection, Yes normocephalic and Yes atraumatic Ears: TM's normal bilaterally Eyes General: appearance normal, both eyes and all related structures Alignment and Position: alignment normal and position normal Neck Neck: Yes normal visual inspection and Yes no lymphadenopathy Thyroid: Thyroid normal Resp Effort & Inspection: normal respiratory effort Auscultation: clear to auscultation bilaterally Cardio Rate: regular rate Rhythm: regular rhythm Heart sounds: S1 normal heart sound present, S2 normal heart sound present and no murmurs GI Palpation (GI): Soft to palpation and nontender Auscultation: normal bowel sounds Skin Rashes: no rashes Neuro General: patient oriented x3, moves all extremities, no focal motor deficits and deep tendon reflexes 2+ bilaterally Romberg Test: Negative Psych Appearance: grossly normal Mental Status: mental status grossly normal Speech and movement: Normal speech and movement present Affect: normal affect Attitude: cooperative Thought process: Normal thought process present Thought content: Normal thought content present Insight: Good insight present (Psych) Judgement: Good judgement present (Psych) Assessment and Plan Assessment & Plan (1) Physical exam: Code(s): Z00.00 - Encounter for general adult medical examination without abnormal findings Plan: Labs ordered Plan The patient agreed to the use of a director biomedical engineering for this encounter. Scribed for HAROLDO Hopson by Tamra Mackey director biomedical engineering, on 02/06/2023 at 09:15 EST. Orders: Orders Comprehensive [place]. Panel Fast Today Z00.00 - Encounter for general adult medical examination without abnormal findings Lipid Panel Today Z00.00 - Encounter for general adult medical examination without abnormal findings TSH reflex Free T4 Today Z00.00 - Encounter for general adult medical examination without abnormal findings Complete Blood Count Auto Diff Today Z00.00 - Encounter for general adult medical examination without abnormal findings UA CC w/rflx Micro + Cult Today Z00.00 - Encounter for general adult medical examination without abnormal findings Medications: Refilled epinephrine 0.3 mg (0.3 mL) IM DAILY PRN 2 ea 4RF Anaphylaxis Coding Level of Care Code Est Pt Prev Care 18-39y(49268) Diagnoses Physical exam Z00.00
[2023-02-06 09:02] VITALS: BP 118/82; PULSE 63; O2SAT 98; BMI 34.1
== END 2023-02-06 09:26 | disposition home or self-care (01) ==
PROVIDERS: Visit Provider Nurse Practitioner Family
DX: Z00.00 Encounter for general adult medical examination without abnormal findings (principal)
CPT/HCPCS: 99395

== ENCOUNTER 2023-02-17 07:53 | Outpatient (REF) | payer OTHER, SELFPAY ==
[2023-02-17 08:05] LABS: MANUAL DIFF FLAG NO
[2023-02-17 08:40] LABS: Basophils Percent Auto 0.4 % (0-2); Eosinophils Absolute Auto 0.1 X10*3/uL (0.0-0.4); Eosinophils Percent Auto 1.5 % (0-4); Hemoglobin 12.8 g/dl (12.0-16.0); Imm Gran Abs Auto 0.04 X10*3/uL (0.00-0.03); Imm Gran Pct Auto 0.5 % (0.0-0.4); Lymphocytes Percent Auto 25.1 % (20-40); Mean Corpuscular Hemoglobin 28.3 pg (27.0-33.0); Mean Corpuscular Volume 88.5 fL (80.0-98.0); Mean Platelet Volume 11.1 fL (9.4-12.3); Monocytes Absolute Auto 0.6 X10*3/uL (0.1-1.2); Monocytes Percent Auto 7.2 % (2-11); Neutrophils Absolute Auto 5.1 x10*3/uL (2.0-8.3); Neutrophils Percent Auto 65.3 % (45-73); Platelet Count 233 X10*3/uL (160-400); Red Blood Count 4.52 X10*6/uL (4.20-5.50); Red Cell Distribution Width 13.1 % (11.0-16.0); White Blood Count 7.9 X10*3/uL (4.8-10.8)
[2023-02-17 09:10] LABS: Alanine Aminotransferase 9 U/L (0-31); Albumin Level 3.7 g/dL (3.5-5.0); Alkaline Phosphatase 60 U/L (39-117); Anion Gap 10 (12-20); Aspartate Amino Transferase 13 U/L (5-31); Bilirubin Total 0.4 mg/dL (0.0-1.0); Blood Urea Nitrogen 15 mg/dL (9-16); Calcium 8.8 mg/dL (8.4-10.2); Carbon Dioxide 27 mmol/L (22-29); Chloride 106 mmol/L (96-108); Cholesterol 176 mg/dL (<200); Estimated Glomerular Filt Rate > 60; Glucose Fasting 90 mg/dL (60-99); HDL Cholesterol 63 mg/dL (>40); LDL Cholesterol Calculated 100 mg/dL (<100); Sodium 139 mmol/L (135-145); Total Protein 6.6 g/dL (6.5-8.0); Triglycerides 68 mg/dL (<150)
[2023-02-17 09:25] LABS: TSH reflex Free T4 4.74 uIU/mL (0.32-4.0)
[2023-02-17 09:42] LABS: Appearance Urine Clear; Color Urine Yellow; Glucose Urine UA Negative (Negative); Leukocyte Esterase Urine Negative (Negative); Nitrite Urine Negative (Negative); Specific Gravity - Urine >= 1.030 (1.005-1.025); Urine Blood Negative (Negative); Urine Ketones Negative (Negative); Urine Protein Negative (Neg-Trace)
[2023-02-17 09:57] LABS: Free T4 (Free Thyroxine) 0.81 ng/dL (0.71-1.85)
== END 2023-02-17 07:54 | disposition home or self-care (01) ==
LOC: HO.LAB 07:53
PROVIDERS: PCP Nurse Practitioner Family; Visit Provider Nurse Practitioner Family
DX: Z00.00 Encounter for general adult medical examination without abnormal findings (principal)
CPT/HCPCS: 36415; 80053; 80061; 81003; 84439; 84443; 85025

== ENCOUNTER 2023-02-24 09:01 | Outpatient (REF) | payer OTHER, SELFPAY ==
[2023-02-24 11:06] LABS: TSH reflex Free T4 2.45 uIU/mL (0.32-4.0)
[2023-02-26 03:14] LABS: Thyroid Peroxidase Antibodies 426 IU/mL (<9)
== END 2023-02-24 09:02 | disposition home or self-care (01) ==
LOC: HO.LAB 09:01
PROVIDERS: PCP Nurse Practitioner Family; Visit Provider Nurse Practitioner Family
DX: R79.89 Other specified abnormal findings of blood chemistry (principal)
CPT/HCPCS: 36415; 84443; 86376

== ENCOUNTER 2023-05-22 10:01 | Outpatient (REF) | payer OTHER, SELFPAY ==
[2023-05-22 11:19] LABS: Alanine Aminotransferase 9 U/L (0-31); Albumin Level 4.1 g/dL (3.5-5.0); Alkaline Phosphatase 65 U/L (39-117); Anion Gap 13 (12-20); Aspartate Amino Transferase 13 U/L (5-31); Bilirubin Total 0.4 mg/dL (0.0-1.0); Blood Urea Nitrogen 17 mg/dL (9-16); Calcium 9.3 mg/dL (8.4-10.2); Carbon Dioxide 27 mmol/L (22-29); Chloride 103 mmol/L (96-108); Estimated Glomerular Filt Rate > 60; Glucose Random 81 mg/dL (60-115); Potassium 3.9 mmol/L (3.3-5.1); Sodium 139 mmol/L (135-145); Total Protein 7.3 g/dL (6.5-8.0)
[2023-05-22 11:36] LABS: TSH reflex Free T4 3.67 uIU/mL (0.32-4.0)
== END 2023-05-22 10:02 | disposition home or self-care (01) ==
LOC: HO.10HDL 10:01
PROVIDERS: Visit Provider Nurse Practitioner Family
DX: R94.6 Abnormal results of thyroid function studies (principal); E06.3 Autoimmune thyroiditis
CPT/HCPCS: 36415; 80053; 84443

== ENCOUNTER 2023-07-16 09:25 | Outpatient (AMB) | payer OTHER, SELFPAY ==
--- NOTE | 2023-07-16 09:27 | A.OFFVIS_ITS ---
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 No complaints. Last Pap/HPV was negative in 01/26 [facility] Medical History Autumn's disease Orthostatic hypotension Left anterior knee pain Asthma BMI 33.0-33.9,adult Intermittent palpitations Obesity (BMI 30-39.9) Intrauterine contraceptive device RODRIGUEZ on CPAP Morbid obesity Moderate persistent asthma Degenerative disc disease, lumbar ASCUS favor benign Seasonal allergies Depression with anxiety Surgical History S/P laparoscopic sleeve gastrectomy History of repair of hiatal hernia History of esophagogastroduodenoscopy (EGD) History of appendectomy History of tonsillectomy Family History Mother Stroke Dementia Migraines Kidney stone Father Asthma Sister Asthma Son Asthma Daughter Anxiety Depressed Social History Household Members: Children Housing: Apartment Are you a primary childcare center director to a significant other at home: Yes (children) Do you presently have visiting nurse or other home services: No Alcohol intake: never Patient Tobacco Use Status: Never used Tobacco e-Cigarette/Vaping Use: Never Used Second Hand Smoke Exposure: No service: No Current occupational status: employed Current occupation: [employer] Current occupational exposures/hazards: No Cognitive needs: No Hearing needs: No Vision needs: No Female Reproductive History Menstrual Age of Menarche: 12 control method: progestin IUCD Total pregnancies: 2 Full term: 2 Number of Living Children: 2 Date of last pap smear: 02/02/20 Review of Systems Const All systems reviewed & are unremarkable except as noted in HPI and below Card Reports as per HPI Resp Reports as per HPI GI Reports as per HPI and Reports no additional complaints Reports as per HPI Physical Exam Vital Signs: BMI result Body Mass Index 34.7 Const General: cooperative, healthy appearing and comfortable Chest Chest palpation & inspection: normal inspection of the chest and normal palpation of entire chest wall Breast/axilla inspection: normal inspection of the breasts and normal inspection of the axillae Breast/axilla palpation: normal palpation of the breasts, normal palpation of the axillae and no axillary lymphadenopathy Resp Effort & Inspection: normal respiratory effort Auscultation: clear to auscultation bilaterally Percussion: percussion normal Cardio Palpation: normal PMI Rate: regular rate Rhythm: regular rhythm Heart sounds: no murmurs and no rubs Peripheral pulses: Peripheral pulses 2+ throughout GI Inspection: Yes normal to inspection Palpation (GI): Soft to palpation, nontender, no guarding, not rigid and No hepatosplenomegaly present Percussion: Yes normal to percussion Auscultation: normal bowel sounds Rectal Exam - Female: deferred General: Yes bladder normal to palpation External Female Exam: No lesion Speculum Exam - Vagina: normal appearance of the vagina, normal palpation, normal vaginal discharge and not erythematous Speculum Exam - Cervix: normal appearance of the cervix, normal palpation and Other cervical findings present (IUD string in place) Bimanual exam- vagina & uterus: normal bimanual exam, normal palpation, uterine size normal, bladder normal to palpation, consistency normal and normal palpation Bimanual Exam- Adnexa, other: normal adnexae, no masses and no tenderness Assessment & Plan Assessment & Plan (1) Well woman exam: Code(s): Z01.419 - Encounter for gynecological examination (general) (routine) without abnormal findings Plan: Cotesting not indicated this year. Counseled the patient about the recommended dietary allowance of 1000 mg of Calcium & 600 IU of vitamin D. The patient was instructed to perform monthly self-breast exams and to schedule an annual exam in a year; All questions answered and the patient verbalized understanding. Instructed the patient to schedule annual exam in a year (2) IUD check up: Code(s): Z30.431 - Encounter for routine checking of intrauterine contraceptive device Plan: Since the patient had her Mirena IUD inserted in 05/24, recommended for the patient to call day 1 of her menstrual cycle in to set up an appointment for IUD removal and reinsertion between day 1 and 5 of her menstrual cycle. All questions answered, the patient verbalized understanding Coding Level of Care Code Est Pt Prev Care 18-39y(05004) Diagnoses Well woman exam Z01.419 IUD check up Z30.431
[2023-07-16 09:30] VITALS: BP 120/76; BMI 34.7
== END 2023-07-16 10:01 | disposition home or self-care (01) ==
PROVIDERS: PCP Nurse Practitioner Family; Visit Provider Obstetrics & Gynecology
DX: Z01.419 Encounter for gynecological examination (general) (routine) without abnormal findings (principal); Z30.431 Encounter for routine checking of intrauterine contraceptive device
CPT/HCPCS: 99395

== ENCOUNTER → 2023-07-16 09:25 | Outpatient (BNVA) | payer OTHER, SELFPAY | PROVIDERS: PCP Nurse Practitioner Family; Visit Provider Obstetrics & Gynecology | DX: Z01.419 Encounter for gynecological examination (general) (routine) without abnormal findings (principal); Z30.431 Encounter for routine checking of intrauterine contraceptive device | CPT/HCPCS: 99395 ==

== ENCOUNTER 2023-07-29 09:51 | Outpatient (AMB) | payer OTHER, SELFPAY ==
[2023-07-29 10:05] VITALS: PULSE 72; O2SAT 98; BMI 29.6
--- NOTE | 2023-07-29 10:05 | MHC.OFFVIS ---
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 Has been responding well to the Xolair and also to the addition of theophylline. Still, has been getting episodes of exacerbations some flares. Recently she did take a course of prednisone. Apparently her major triggers are stress in agitation. It appears that her allergy symptoms are well controlled on the current respiratory regimen. Current she has been noticing increased weight gain. We talked about the importance of losing weight to minimize the respiratory symptoms for her to improve her overall health. Recently her Xolair was increased to 300 mg twice a month. We did review her blood work that she had and she has had some eosinophilia as well as a critically high IgE level. Therefore, if she does not respond to Xolair she may be a good candidate for Dupixent. She continues on a very aggressive respiratory regimen including theophylline, Daliresp, Symbicort, Spiriva and singular. She is having hard time keeping up with work. I do agree that we have to improve her respiratory status in order for her to be able to function work without putting herself at risk of an adverse of event. Therefore, I do agree that for the next 3 months we could decrease the amount of work hours in order to optimize her respiratory therapy. In addition to that the patient has been complaining of some difficulty swallowing due to pain. She feels a fullness in a tightness of her throat area. She also did have a barium swallow demonstrating a small hiatal hernia with reflux. She will be following up with that endoscopy soon with gastroenterology. 08/23/2021 the patient is here for a pulmonary follow-up visit. From a respiratory status she continues to do okay. She continues on the Dupixent injections which appeared to be very helpful. Her Dulera does not appear to be available all the time now specially because of shortage is. She continues on the long-acting muscarinic antagonist. Therefore, I will place her on Breztri which she can continue to use twice a day. in addition to that the patient continues to lose significant amount of weight after her bariatric surgery. She has had some near syncopal episodes which are concerning because she has been working in the [facility]. She is going to follow up with her bariatric surgeon soon. In the meantime the patient may have some orthostatic hypotension issues after her surgery. I will give her some compression stockings in order for her decrease the risk of syncope. She continues use her CPAP. The CPAP therapy continues to be affecting beneficial. Will follow-up in 6 months. 11/28/2021 the patient is here for pulmonary follow-up visit. She overall is doing well. She does have increasing allergy symptoms that with the spring and early summer season. She continues use her respiratory therapy. She never did start the Breztri inhaler. She is continue with her previous therapy. The inhaler had that being covered. She continues with the Dupixent injections which appeared to be if still affecting beneficial. With breakthrough symptoms of allergies we will consider a TSLP inhibitor in the future if she continues to have symptoms while on Dupixent. The patient continues to lose weight after her bariatric surgery. She appears to be healthy and she is maintaining her multivitamins as recommended by her surgeon and That addition. She continues uses CPAP. The CPAP therapy continues to be affecting beneficial. She does use it for more than 4 hours a night. She will continue with CPAP at this time. once she reaches her goal weight we will consider stopping CPAP and repeating sleep study to address the question any residual sleep apnea. 06/17/2022 the patient is here for a pulmonary follow-up visit. Lately she has been noticing increasing chest tightness and shortness of breath. Even on Dupixent. Sometimes however she is late with her Dupixent injections and does usually when she becomes more symptomatic. Otherwise Dupixent has been very effective for her. She continues to use her inhalers as prescribed otherwise she would have additional symptoms as well. She has been using her rescue inhaler once or twice a day for the last couple days. If her symptoms worsen then she may need some prednisone. I will provide her with a prescription just in case her symptoms do worsen. Denies any fevers or chills and denies any sick contacts at this time. 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 In regards her sleep apnea she is not using her CPAP at this time. She otherwise is feeling rested. 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 The the patient is currently in the weight loss program. When she gets to her ideal weight will plan to repeat the sleep study to see if she needs to continue with CPAP therapy. 12/20/2022 the patient is here for pulmonary follow-up visit. She continues on Dupixent. Lately she has been having increasing chest tightness and having to use her nebulizer more often. She continues use all her respiratory therapy as prescribed. Denies any sick contacts. Continues to respond positively to the Dupixent although still symptomatic at times. I explained to her that Dupixent will treat allergic triggers but would not do tree any nonallergic triggers for her asthma. I do not believe that she needing the biologic is really going to make a big change in her asthma control at this time. Patient will monitor closely for any reflux disease or other potential triggers such as lower respiratory infections. She has not been using her CPAP. The patient has been doing well her Hayden score is 6/24. She is working on losing weight after her bariatric surgery. We will plan to do a repeat study when she gets to her ideal weight. 07/29/2023 the patient is here for pulmonary follow-up visit. She keeps waxing and waning. She had been on Spiriva in [facility] and was switched over to Trelegy. Unfortunately the Trelegy was not covered and she was provided with Breo and Incruse. She has only been using 1 of the inhalers not knowing that she was supposed to be on 2. Explained to her that she is take both in the morning and hopefully her symptoms a little bit as well. The Dupixent shots continue to be affecting beneficial. She does get a headache after using it will usually wears off after 48 hours. We did talk about considering a lower dose in case her headaches get any worse. But right now will keep her on the during 100 mg dose. As far as the sleep apnea she has been off her CPAP now for some time after having surgery. She reach her ideal weight for her and therefore will go ahead and repeat her sleep study. Hayden score continues to be low elevated at 8 over 24. The patient understands that if her sleep study demonstrates underlying sleep apnea she needs to go back on CPAP. [facility] Medical History Autumn's disease Orthostatic hypotension Left anterior knee pain Asthma BMI 33.0-33.9,adult Intermittent palpitations Obesity (BMI 30-39.9) Intrauterine contraceptive device RODRIGUEZ on CPAP Morbid obesity Moderate persistent asthma Degenerative disc disease, lumbar ASCUS favor benign Seasonal allergies Depression with anxiety Surgical History S/P laparoscopic sleeve gastrectomy History of repair of hiatal hernia History of esophagogastroduodenoscopy (EGD) History of appendectomy History of tonsillectomy Family History Mother Stroke Dementia Migraines Kidney stone Father Asthma Sister Asthma Son Asthma Daughter Anxiety Depressed Social History Household Members: Children Housing: Apartment Are you a primary nurse behavioral health care to a significant other at home: Yes (children) Do you presently have visiting nurse or other home services: No Alcohol intake: never Patient Tobacco Use Status: Never used Tobacco e-Cigarette/Vaping Use: Never Used Second Hand Smoke Exposure: No service: No Current occupational status: employed Current occupation: [employer] Current occupational exposures/hazards: No Cognitive needs: No Hearing needs: No Vision needs: No Female Reproductive History Menstrual Age of Menarche: 12 Review of Systems Const Reports daytime sleepiness, Denies difficulty sleeping, Denies fever(s), Denies headache(s), Denies snoring, Denies stops breathing during sleep and Reports weight loss Eyes Denies blurry vision and Denies diplopia ENT Denies dizziness and Denies headache(s) Card Denies chest pain, Denies irregular heart rhythm, Denies leg edema, Reports lightheadedness, Denies dyspnea, Denies dyspnea on exertion and Reports other (palpitations) Resp Reports cough, Denies hemoptysis, Denies excessive phlegm production, Denies dyspnea, Denies dyspnea on exertion, Denies snoring and Reports wheezing GI Denies abdominal pain, Denies hematochezia, Denies constipation, Denies heartburn, Denies diarrhea, Denies nausea and Denies vomiting Musc Reports back pain, Denies arthralgias, Denies joint swelling and Denies limited range of motion Neuro Denies dizziness and Denies headache(s) Psych Denies abnormal sleep pattern, Denies anxiety and Denies depression Aller/Immun Reports wheezing Physical Exam Vital Signs: Last Vital Signs Pulse 72 07/29/23 10:05 Pulse Ox 98 07/29/23 10:05 Oxygen Delivery Method Room Air 07/29/23 10:05 BMI result Body Mass Index 29.6 Const General: alert Neck Neck: Yes normal visual inspection, Yes full ROM and Yes no lymphadenopathy Chest Chest palpation & inspection: normal inspection of the chest Resp Auscultation: no wheezes and diminished lung sounds Cardio Rate: regular rate Rhythm: regular rhythm Heart sounds: S1 normal heart sound present and S2 normal heart sound present GI Palpation (GI): Soft to palpation and nontender Auscultation: normal bowel sounds General: Yes no CVA tenderness Back/Spine/Pelvis Back: no CVA tenderness Assessment & Plan Assessment & Plan (1) Asthma: Code(s): J45.909 - Unspecified asthma, uncomplicated Qualifiers: Asthma complication type: uncomplicated Asthma persistence: persistent Asthma severity: severe Qualified Code(s): J45.50 - Severe persistent asthma, uncomplicated (2) RODRIGUEZ on CPAP: Comment: CPAP new to patient-started using 05/26/20, not on CPAP Code(s): G47.33 - Obstructive sleep apnea (adult) (pediatric); Z99.89 - Dependence on other enabling machines and devices (3) Hiatal hernia: Code(s): K44.9 - Diaphragmatic hernia without obstruction or gangrene Plan continue Breo 200 start Incruse continue Daliresp continue Singulair and Claritin continue Dupixent every 2 weeks home PSG Follow-up in 6 months Orders: Orders RT home sleep study Today Medications: Refilled fluticasone furoate-vilanterol 200-25 mcg/dose (Breo Ellipta) 1 inh inhalation DAILY 30 days 60 ea 11RF J45.909 - Unspecified asthma, uncomplicated umeclidinium 62.5 mcg/actuation (Incruse Ellipta) 1 inh inhalation DAILY 30 days 30 ea 11RF J45.909 - Unspecified asthma, uncomplicated umeclidinium 62.5 mcg/actuation (Incruse Ellipta) 1 inh inhalation DAILY 30 days 30 ea 11RF J45.909 - Unspecified asthma, uncomplicated Coding Level of Care Code Est Pt Level 4 (34825) Diagnoses Severe persistent asthma without complication J45.50 Asthma complication type: uncomplicated Asthma persistence: persistent Asthma severity: severe RODRIGUEZ on CPAP G47.33; Z99.89 Hiatal hernia K44.9 Time Spent (min) 16
== END 2023-07-29 10:18 | disposition home or self-care (01) ==
PROVIDERS: PCP Nurse Practitioner Family; Visit Provider Hospitalist
DX: J45.50 Severe persistent asthma, uncomplicated (principal); G47.33 Obstructive sleep apnea (adult) (pediatric); Z99.89 Dependence on other enabling machines and devices; K44.9 Diaphragmatic hernia without obstruction or gangrene
CPT/HCPCS: 99214

== ENCOUNTER → 2023-07-29 09:51 | Outpatient (BNVA) | payer OTHER, SELFPAY | PROVIDERS: PCP Nurse Practitioner Family; Visit Provider Hospitalist | DX: G47.33 Obstructive sleep apnea (adult) (pediatric) (principal); J45.50 Severe persistent asthma, uncomplicated; K44.9 Diaphragmatic hernia without obstruction or gangrene; Z99.89 Dependence on other enabling machines and devices | CPT/HCPCS: 99212 ==

== ENCOUNTER → 2023-08-07 10:53 | Outpatient (REF) | payer OTHER, SELFPAY | LOC: HO.SL 10:53 | PROVIDERS: PCP Nurse Practitioner Family; Visit Provider Hospitalist | DX: R06.83 Snoring (principal); G47.33 Obstructive sleep apnea (adult) (pediatric) | CPT/HCPCS: 95806 ==

== ENCOUNTER → 2023-08-07 13:12 | Outpatient (BNV) | payer OTHER, SELFPAY | PROVIDERS: PCP Nurse Practitioner Family; Visit Provider Internal Medicine | DX: R06.83 Snoring (principal) | CPT/HCPCS: 95806 ==

== ENCOUNTER 2024-02-12 08:14 | Outpatient (AMB) | payer OTHER, SELFPAY ==
--- NOTE | 2024-02-12 08:16 | MHC.PC.OV ---
Vital Signs 02/12/24 08:22 Height 5 ft 2 in Weight 198 lb BMI 36.2 BP 118/76 Blood Pressure Location Rt brachial Position Sitting Pulse 62 Pulse Source Pulse Oximeter Pulse Oximetry (%) 99 Intake Visit Reasons: Annual PE Allergies shellfish derived Allergy (Severe, Verified 02/12/24 08:32) Oral swelling ENVIRONMENTAL Allergy (Severe, Uncoded 07/29/23 10:06) SINUS, SNEEZING Tobacco use date assessed: 02/12/24 Dental Screening Dental Screen Date: 02/12/24 Did you have a dental visit in the last 12 months?: Yes Did you have a dental problem in the last 6 months where you did not have access to dental care?: No Was dental information given to patient?: Patient has dentist HPI Annual PE HPI Details Pt is here for a PE. Will order labs. 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 Pt c/o increased fatigue. Previous sleep study was negative for sleep apnea. Will order labs. Pt follows up with pulmonology for asthma. [facility] Medical History Autumn's disease Orthostatic hypotension Left anterior knee pain Asthma BMI 33.0-33.9,adult Intermittent palpitations Obesity (BMI 30-39.9) Intrauterine contraceptive device RODRIGUEZ on CPAP Morbid obesity Moderate persistent asthma Degenerative disc disease, lumbar ASCUS favor benign Seasonal allergies Depression with anxiety Surgical History S/P laparoscopic sleeve gastrectomy History of repair of hiatal hernia History of esophagogastroduodenoscopy (EGD) History of appendectomy History of tonsillectomy Family History Mother Stroke Dementia Migraines Kidney stone Father Asthma Sister Asthma Son Asthma Daughter Anxiety Depressed Social History Household Members: Children Housing: Apartment Are you a primary doggy daycare activities director to a significant other at home: Yes (children) Do you presently have visiting nurse or other home services: No Alcohol intake: never Patient Tobacco Use Status: Never used Tobacco e-Cigarette/Vaping Use: Never Used Second Hand Smoke Exposure: No service: No Current occupational status: employed Current occupation: [employer] Current occupational exposures/hazards: No Cognitive needs: No Hearing needs: No Vision needs: No Female Reproductive History Menstrual Age of Menarche: 12 Questionnaire PHQ-9 Over the last 2 weeks, how often have you been bothered by any of the following problems? 1. Little interest or pleasure in doing things: several days 2. Feeling down, depressed, or hopeless: not at all 3. Trouble falling or staying asleep, or sleeping too much: several days 4. Feeling tired or having little energy: more than half the days 5. Poor appetite or overeating: not at all 6. Feeling bad about yourself - or that you are a failure or have let yourself or your family down: not at all 7. Trouble concentrating on things, such as reading the newspaper or watching television: not at all 8. Moving or speaking so slowly that other people could have noticed. Or the opposite - being so fidgety or restless that you have been moving around a lot more than usual: not at all 9. Thoughts that you would be better off or of hurting yourself in some way: not at all Total score: 4 Depression Screening Interpretation: Negative Depression Screening Done: Yes 21728 - PHQ-9 Billing: Yes Source: Developed by Drs. Tuan Alves, Donna Epps, Piero Basurto and colleagues, with an educational will from [employer]. Thrive Questionnaire Date Thrive assessed: 02/12/24 I am a: Patient What is your living situation today?: I have a steady place to live Within the past 12 months, did the food you bought not last and you didn't have the money to get more?: Never true Within the past 12 months, did you worry whether your food would run out before you got money to buy more?: Never true Do you have trouble paying for medicines?: No Do you have trouble getting transportation to medical appointments?: No Do you have trouble paying your heating and electricity bill?: No Do you have trouble taking care of your child, family member or friend?: No Do you have trouble with day-to-day activities such as bathing, preparing meals, shopping, managing finances, etc.?: No Are you currently unemployed and looking for a job?: No Are you interested in more education?: No Please select the resources that you would like help with: None Currently or been in a relationship where the following occur: No concerns reported THRIVE Score: 0 AUDIT C Alcohol Use Questionnaire (AUDIT-C) 1. How often do you have a drink containing alcohol?: Never 3. How often do you have six or more drinks on one occasion?: Never Total Score: 0 Score Reviewed/Action Taken: Yes MIRANDA-7 AMB Questionnaire MIRANDA-7 Date MIRANDA - 7 assessed: 02/12/24 Feeling nervous, anxious, or on edge: 0 = Not at all Not being able to stop or control worryin = Not at all Worrying too much about different things: 0 = Not at all Trouble relaxin = Several days Being so restless that it is hard to sit still: 0 = Not at all Becoming easily annoyed or irritable: 1 = Several days Feeling afraid as if something awful might happen: 0 = Not at all Total MIRANDA-7 score (0-4 normal; 5-9 mild; 10-14 moderate; 15-21 severe): 2 Source: Developed by Drs. Tuan Alves, Donna Epps, Piero Basurto and colleagues, with an educational will from [employer]. MIRANDA-7 Assessment Billing MIRANDA-7 Assessment Tool: MIRANDA-7 Assessment 50400 Review of Systems Const Denies chills and Denies fever(s) Eyes Denies blurry vision ENT Denies vertigo, Denies dizziness and Denies sore throat Card Denies chest pain at rest, Denies chest pain with activity, Denies diaphoresis, Denies dyspnea and Denies dyspnea on exertion Resp Denies cough, Denies dyspnea, Denies dyspnea on exertion and Denies wheezing GI Denies abdominal pain, Denies melena, Denies hematochezia, Denies constipation, Denies diarrhea and Denies loose stools Denies hematuria Musc Denies numbness and Denies tingling Skin/Breast Denies lesions Neuro Denies vertigo, Denies dizziness, Denies numbness and Denies tingling Psych Denies anxiety, Denies depression, Denies homicidal ideation, Denies suicidal ideation and Denies other (substance abuse) Aller/Immun Denies wheezing Physical exam (Primary Care) Vital Signs: Last Vital Signs Pulse 62 02/12/24 08:22 BP 118/76 02/12/24 08:22 Pulse Ox 99 09/05/24 08:22 BMI result Body Mass Index 36.2 Tobacco/Smoking Status: Tobacco use Status Tobacco use date assessed 02/12/24 02/12/24 08:33 Patient Tobacco Use Status Never used Tobacco 02/12/24 08:16 e-Cigarette/Vaping Use Never Used 02/12/24 08:16 PHQ-9: PHQ-9 Score PHQ-9: Total score 4 02/12/24 08:33 Depression Screening Interpretation: Negative Thrive Assessment: Date of Thrive Assessment Date Thrive assessed 02/12/24 02/12/24 08:33 Currently or been in a relationship where the following occur: No concerns reported Const General: cooperative Nutritional Appearance: well nourished Orientation/consciousness: patient oriented x3 HENMT Head: Yes normal to inspection, Yes normocephalic and Yes atraumatic Ears: TM's normal bilaterally Eyes General: appearance normal, both eyes and all related structures Alignment and Position: alignment normal and position normal Neck Neck: Yes normal visual inspection, Yes no lymphadenopathy and Yes supple Resp Effort & Inspection: normal respiratory effort Auscultation: clear to auscultation bilaterally Cardio Rate: regular rate Rhythm: regular rhythm Heart sounds: S1 normal heart sound present, S2 normal heart sound present and no murmurs GI Palpation (GI): Soft to palpation and nontender Auscultation: normal bowel sounds Skin Rashes: no rashes Neuro General: patient oriented x3, moves all extremities, no focal motor deficits and deep tendon reflexes 2+ bilaterally Romberg Test: Negative Psych Appearance: grossly normal Mental Status: mental status grossly normal Speech and movement: Normal speech and movement present Affect: normal affect Attitude: cooperative Thought process: Normal thought process present Thought content: Normal thought content present Insight: Good insight present (Psych) Judgement: Good judgement present (Psych) Assessment and Plan Assessment & Plan (1) Physical exam: Code(s): Z00.00 - Encounter for general adult medical examination without abnormal findings (2) Fatigue: Code(s): R53.83 - Other fatigue Plan: labs ordered, sleep apnea ruled out Plan The patient agreed to the use of a medical office assistant instructor for this encounter. Scribed for HAROLDO Hopson by Tamra Mackey medical office assistant instructor, on 02/12/2024 at 08:35 EST. Orders: Orders Comprehensive [place]. Panel Fast Today R53.83 - Other fatigue, Z00.00 - Encounter for general adult medical examination without abnormal findings UA CC w/rflx Micro + Cult Today R53.83 - Other fatigue, Z00.00 - Encounter for general adult medical examination without abnormal findings Ferritin Today R53.83 - Other fatigue, Z00.00 - Encounter for general adult medical examination without abnormal findings IRON PROFILE Today R53.83 - Other fatigue, Z00.00 - Encounter for general adult medical examination without abnormal findings Complete Blood Count Auto Diff Today R53.83 - Other fatigue, Z00.00 - Encounter for general adult medical examination without abnormal findings TSH reflex Free T4 Today R53.83 - Other fatigue, Z00.00 - Encounter for general adult medical examination without abnormal findings Lipid Panel Today R53.83 - Other fatigue, Z00.00 - Encounter for general adult medical examination without abnormal findings Vitamin B12 and Folate Today R53.83 - Other fatigue, Z00.00 - Encounter for general adult medical examination without abnormal findings Coding Level of Care Code Est Pt Prev Care 18-39y(10863) Diagnoses Physical exam Z00.00 Fatigue R53.83 Additional Codes MIRANDA-7 Assessment Billing - MIRANDA-7 Assessment Tool: MIRANDA-7 Assessment 23404 ([id number])
[2024-02-12 08:22] VITALS: BP 118/76; PULSE 62; O2SAT 99; BMI 36.2
== END 2024-02-12 08:42 | disposition home or self-care (01) ==
PROVIDERS: PCP Nurse Practitioner Family; Visit Provider Nurse Practitioner Family
DX: Z00.00 Encounter for general adult medical examination without abnormal findings (principal); R53.83 Other fatigue
CPT/HCPCS: 99395

== ENCOUNTER 2024-02-12 08:43 | Outpatient (REF) | payer OTHER, SELFPAY ==
[2024-02-12 10:02] LABS: Appearance Urine Clear; Color Urine Yellow; Glucose Urine UA Negative (Negative); Leukocyte Esterase Urine Moderate (2+) (Negative); Nitrite Urine Negative (Negative); UMIC TRIGGER UACC YES; Urine Blood Negative (Negative); Urine Ketones Negative (Negative); Urine Protein Negative (Neg-Trace)
[2024-02-12 10:04] LABS: Bacteria Urine 4+ (None Seen); Hyaline Casts Urine 0-2 /LPF (0-2); RBC Urine 0-2 /HPF (0-2); UACC Culture Trigger YES
[2024-02-12 10:15] LABS: MANUAL DIFF FLAG NO
[2024-02-12 10:21] LABS: Basophils Percent Auto 0.5 % (0-2); Eosinophils Absolute Auto 0.1 X10*3/uL (0.0-0.4); Eosinophils Percent Auto 0.8 % (0-4); Hematocrit 41.7 % (37.0-47.0); Hemoglobin 13.5 g/dl (12.0-16.0); Imm Gran Abs Auto 0.03 X10*3/uL (0.00-0.03); Imm Gran Pct Auto 0.4 % (0.0-0.4); Lymphocytes Percent Auto 26.5 % (20-40); Mean Corpuscular HGB Conc 32.4 g/dl (31.0-35.0); Mean Corpuscular Hemoglobin 28.1 pg (27.0-33.0); Mean Corpuscular Volume 86.9 fL (80.0-98.0); Monocytes Absolute Auto 0.5 X10*3/uL (0.1-1.2); Monocytes Percent Auto 6.7 % (2-11); Neutrophils Absolute Auto 4.8 x10*3/uL (2.0-8.3); Neutrophils Percent Auto 65.1 % (45-73); Platelet Count 272 X10*3/uL (160-400); Red Cell Distribution Width 13.2 % (11.0-16.0); White Blood Count 7.4 X10*3/uL (4.8-10.8)
[2024-02-12 10:59] LABS: Alanine Aminotransferase 14 U/L (0-31); Alkaline Phosphatase 75 U/L (39-117); Anion Gap 12 (12-20); Aspartate Amino Transferase 13 U/L (5-31); Bilirubin Total 0.4 mg/dL (0.0-1.0); Blood Urea Nitrogen 14 mg/dL (9-16); Calcium 9.6 mg/dL (8.4-10.2); Carbon Dioxide 27 mmol/L (22-29); Chloride 106 mmol/L (96-108); Cholesterol 201 mg/dL (<200); Estimated Glomerular Filt Rate > 60; Glucose Fasting 90 mg/dL (60-99); HDL Cholesterol 60 mg/dL (>40); Iron 116 mcg/dL (30-160); LDL Cholesterol Calculated 128 mg/dL (<100); Percent Iron Saturation 41 % (15-50); Potassium 4.1 mmol/L (3.3-5.1); Sodium 141 mmol/L (135-145); Total Iron Binding Capacity 281 mcg/dL (228-428); Total Protein 7.3 g/dL (6.5-8.0); Triglycerides 68 mg/dL (<150); Unsaturated Iron Binding 165 ug/dL
[2024-02-12 11:01] LABS: Ferritin 133 ng/mL (10-122); TSH reflex Free T4 3.43 uIU/mL (0.32-4.0)
[2024-02-12 11:17] LABS: Folate 9.7 ng/mL (> or = 4.0); Vitamin B12 392 pg/mL (200-900)
== END 2024-02-12 08:44 | disposition home or self-care (01) ==
LOC: HO.HMGCLDS 08:43
PROVIDERS: PCP Nurse Practitioner Family; Visit Provider Nurse Practitioner Family
DX: Z00.00 Encounter for general adult medical examination without abnormal findings (principal); R53.83 Other fatigue
CPT/HCPCS: 36415; 80053; 80061; 81001; 81003; 82607; 82728; 82746; 83540; 84443; 85025; 87086; 87088; 87186

== ENCOUNTER → 2024-02-23 06:51 | Outpatient (BNVA) | payer OTHER, SELFPAY | PROVIDERS: PCP Nurse Practitioner Family; Visit Provider Nurse Practitioner Family ==

== ENCOUNTER 2024-04-07 11:17 | Outpatient (REF) | payer OTHER, SELFPAY ==
[2024-04-07 12:33] LABS: MANUAL DIFF FLAG NO
[2024-04-07 13:05] LABS: Basophils Percent Auto 0.5 % (0-2); Eosinophils Absolute Auto 0.1 X10*3/uL (0.0-0.4); Eosinophils Percent Auto 1.1 % (0-4); Hematocrit 43.8 % (37.0-47.0); Hemoglobin 14.6 g/dl (12.0-16.0); Imm Gran Abs Auto 0.02 X10*3/uL (0.00-0.03); Imm Gran Pct Auto 0.3 % (0.0-0.4); Lymphocytes Absolute Auto 2.1 X10*3/uL (1.2-4.9); Lymphocytes Percent Auto 32.1 % (20-40); Mean Corpuscular HGB Conc 33.3 g/dl (31.0-35.0); Mean Corpuscular Hemoglobin 28.4 pg (27.0-33.0); Mean Corpuscular Volume 85.2 fL (80.0-98.0); Mean Platelet Volume 10.8 fL (9.4-12.3); Monocytes Absolute Auto 0.5 X10*3/uL (0.1-1.2); Monocytes Percent Auto 7.9 % (2-11); Neutrophils Absolute Auto 3.8 x10*3/uL (2.0-8.3); Neutrophils Percent Auto 58.1 % (45-73); Platelet Count 254 X10*3/uL (160-400); Red Blood Count 5.14 X10*6/uL (4.20-5.50); Red Cell Distribution Width 12.8 % (11.0-16.0); White Blood Count 6.6 X10*3/uL (4.8-10.8)
[2024-04-07 13:24] LABS: Appearance Urine Clear; Color Urine Yellow; Glucose Urine UA Negative (Negative); Leukocyte Esterase Urine Negative (Negative); Nitrite Urine Negative (Negative); PH 8.5 (5.0-9.0); Urine Blood Negative (Negative); Urine Ketones Negative (Negative); Urine Protein Negative (Neg-Trace)
[2024-04-07 13:50] LABS: Erythrocyte Sedimentation Rate 14 MM/HR (0-20)
[2024-04-07 14:05] LABS: Anion Gap 15 (12-20); Blood Urea Nitrogen 10 mg/dL (9-16); Calcium 9.5 mg/dL (8.4-10.2); Carbon Dioxide 26 mmol/L (22-29); Chloride 104 mmol/L (96-108); Estimated Glomerular Filt Rate > 60; Glucose Random 89 mg/dL (60-115); Potassium 4.1 mmol/L (3.3-5.1); Sodium 141 mmol/L (135-145)
[2024-04-08 14:08] LABS: Class Alternaria alternata 0; Class Aspergillus fumigatus 0; Class Bermuda Grass 1; Class Birch 2; Class Cat Dander 3; Class Cladosporium herbarum 0; Class Cockroach 0/1; Class Common Ragweed 2; Class Cottonwood 1; Class Derm. pterony 3; Class Dermatophagoides farinae 3; Class Dog Dander 4; Class Elm 0/1; Class Maple Box Elder 1; Class Mountain Cedar 0/1; Class Mouse Urine Protein 0/1; Class Mugwort 1; Class Oak 2; Class Penicillium crysogenum 0; Class Rough Pigweed 0/1; Class Sheep Sorrel 0; Class Sycamore 0/1; Class Timothy Grass 2; Class Walnut Tree 0/1; Class White Ash 1; Class White Mulberry 0; D001 IgE D pteronyssinus 9.43 kU/L; D002 - IgE D farinae 8.91 kU/L; E072-IgE Mouse Urine 0.12 kU/L; G006 - IgE Timothy Grass 0.89 kU/L; I006-IgE Cockroach, German 0.29 kU/L; Immunoglobulin E 166 kU/L (<OR=114); M001 IgE Penicillium chrysogen <0.10 kU/L; M002 - IgE Cladosporium herbar <0.10 kU/L; M003 - IgE Aspergillus fumigat <0.10 kU/L; M006 - IgE Alternaria alternat <0.10 kU/L; T001 IgE Maple/Box Elder 0.38 kU/L; T003 IgE Common Silver Birch 1.47 kU/L; T006 - IgE Cedar, Mountain 0.13 kU/L; T007 - IgE Oak, White 2.45 kU/L; T008 IgE Elm, American 0.21 kU/L; T010 - IgE Walnut 0.19 kU/L; T011 - IgE Maple Leaf Sycamore 0.14 kU/L; T014 - IgE Cottonwood 0.36 kU/L; T015 - IgE Ash, White 0.36 kU/L; T070 - IgE White Mulberry <0.10 kU/L; W006 - IgE Mugwort 0.65 kU/L; W014 IgE Pigweed, Common 0.15 kU/L; W018 IgE Sheep Sorrel <0.10 kU/L
[2024-04-27 10:28] LABS: Asperg fumigatus Precip Abs NEGATIVE; Micropoly faeni Abs NEGATIVE; Pigeon serum Abs NEGATIVE; Thermo candidus Abs NEGATIVE; Thermoa vulgaris #1 NEGATIVE
[2024-04-27 10:31] LABS: Saccharo pora viridis Abs NEGATIVE
== END 2024-04-07 11:18 | disposition home or self-care (01) ==
LOC: HO.LAB 11:17
PROVIDERS: Absent Provider Nurse Practitioner Family; PCP Nurse Practitioner Family; Visit Provider Hospitalist
DX: Z00.00 Encounter for general adult medical examination without abnormal findings (principal); R53.83 Other fatigue; R79.89 Other specified abnormal findings of blood chemistry; E06.3 Autoimmune thyroiditis; R91.1 Solitary pulmonary nodule; J45.50 Severe persistent asthma, uncomplicated; R91.8 Other nonspecific abnormal finding of lung field; G47.33 Obstructive sleep apnea (adult) (pediatric); Z99.89 Dependence on other enabling machines and devices; K44.9 Diaphragmatic hernia without obstruction or gangrene; T78.40XD Allergy, unspecified, subsequent encounter; Z79.899 Other long term (current) drug therapy
CPT/HCPCS: 36415; 80048; 81003; 82785; 84443; 85025; 85652; 86003; 86331; 86606; 86609; 99212

== ENCOUNTER 2024-04-07 11:17 | Outpatient (AMB) | payer OTHER, SELFPAY ==
[2024-04-07 11:20] VITALS: BP 110/66; PULSE 69; O2SAT 100
--- NOTE | 2024-04-07 11:20 | A.OFFVIS_ITS ---
Vital Signs 04/07/24 11:20 Weight 194 lb 0.108 oz BP 110/66 Blood Pressure Location Lt brachial Position Sitting Pulse 69 Pulse Source Pulse Oximeter Pulse Oximetry (%) 100 Oxygen Delivery Method Room Air Intake Visit Reasons: rodriguez Allergies shellfish derived Allergy (Severe, Verified 04/07/24 11:24) Oral swelling ENVIRONMENTAL Allergy (Severe, Uncoded 04/07/24 11:24) SINUS, SNEEZING Medication List - Last Reconciled 04/07/24 by Payton Degroot LPN albuterol sulfate 2.5 mg (3 mL) inhalation TID PRN buspirone 5 mg PO BID compr.stocking,thigh,reg,small As directed Daliresp (roflumilast) 500 mcg PO DAILY NS dupilumab (Dupixent) 300 mg (2 mL) subcut Q2W epinephrine 0.3 mg (0.3 mL) IM DAILY PRN fluoxetine 20 mg PO DAILY fluticasone furoate-vilanterol 200-25 mcg/dose (Breo Ellipta) 1 inh inhalation DAILY 30 days ibuprofen 600 mg PO BID PRN levonorgestrel (Mirena) intrauterine levothyroxine 25 mcg PO DAILY loratadine 10 mg PO DAILY montelukast 10 mg PO BEDTIME nebulizers As directed omeprazole 20 mg PO DAILY sucralfate 10 mL PO QID sulfamethoxazole-trimethoprim 800-160 mg (Bactrim DS) 1 tab PO BID 3 days trazodone 50 mg PO BEDTIME PRN umeclidinium 62.5 mcg/actuation (Incruse Ellipta) 1 inh inhalation DAILY 30 days Ventolin HFA 90 mcg/actuation (albuterol sulfate) 2 puffs PO Q4-6H PRN NS HPI Comments Details: The patient is a 38 y/o womanwith severe persistent asthma. Has been responding well to the Xolair and also to the addition of theophylline. Still, has been getting episodes of exacerbations some flares. Recently she did take a course of prednisone. Apparently her major triggers are stress in agitation. It appears that her allergy symptoms are well controlled on the current respiratory regimen. Current she has been noticing increased weight gain. We talked about the importance of losing weight to minimize the respiratory symptoms for her to improve her overall health. Recently her Xolair was increased to 300 mg twice a month. We did review her blood work that she had and she has had some eosinophilia as well as a critically high IgE level. Therefore, if she does not respond to Xolair she may be a good candidate for Dupixent. She continues on a very aggressive respiratory regimen including theophylline, Daliresp, Symbicort, Spiriva and singular. She is having hard time keeping up with work. I do agree that we have to improve her respiratory status in order for her to be able to function work without putting herself at risk of an adverse of event. Therefore, I do agree that for the next 3 months we could decrease the amount of work hours in order to optimize her respiratory therapy. In addition to that the patient has been complaining of some difficulty swallowing due to pain. She feels a fullness in a tightness of her throat area. She also did have a barium swallow demonstrating a small hiatal hernia with reflux. She will be following up with that endoscopy soon with gastroenterology. 12/20/2022 the patient is here for pulmonary follow-up visit. She continues on Dupixent. Lately she has been having increasing chest tightness and having to use her nebulizer more often. She continues use all her respiratory therapy as prescribed. Denies any sick contacts. Continues to respond positively to the Dupixent although still symptomatic at times. I explained to her that Dupixent will treat allergic triggers but would not do tree any nonallergic triggers for her asthma. I do not believe that she needing the biologic is really going to make a big change in her asthma control at this time. Patient will monitor closely for any reflux disease or other potential triggers such as lower respiratory infections. She has not been using her CPAP. The patient has been doing well her Mullin score is 6/24. She is working on losing weight after her bariatric surgery. We will plan to do a repeat study when she gets to her ideal weight. 07/29/2023 the patient is here for pulmonary follow-up visit. She keeps waxing and waning. She had been on Spiriva in [facility] and was switched over to Trelegy. Unfortunately the Trelegy was not covered and she was provided with Breo and Incruse. She has only been using 1 of the inhalers not knowing that she was supposed to be on 2. Explained to her that she is take both in the morning and hopefully her symptoms a little bit as well. The Dupixent shots continue to be affecting beneficial. She does get a headache after using it will usually wears off after 48 hours. We did talk about considering a lower dose in case her headaches get any worse. But right now will keep her on the during 100 mg dose. As far as the sleep apnea she has been off her CPAP now for some time after having surgery. She reach her ideal weight for her and therefore will go ahead and repeat her sleep study. Mullin score continues to be low elevated at 8 over 24. The patient understands that if her sleep study demonstrates underlying sleep apnea she needs to go back on CPAP. 04/07/2024 the patient is here for pulmonary follow-up visit. She is having hard time with her breathing. She had to take a course of prednisone couple weeks ago. She continues on Dupixent. She has been on the Breo and the Incruse she does not feel like they are working very well. She is having to use her rescue inhaler multiple times a day. She did have a problem with a water leak. Apparently developing some mold. Besides that denies any other exposures. Will go ahead and recheck her allergy levels including her mold allergies. If indeed she has significant more larger allergies she may need further the mold issue in her apartment. Otherwise the patient will continue with the Dupixent. She also has been dealing with other issues including thyroid issues. She is going to be talking to her primary care doctor about that. Will follow-up in 3 months. If she has any worsening symptoms she will call for an earlier assessment. [facility] Medical History (Updated 04/07/24 @ 21:26 by Sam Dukes MD) Allergies Autumn's disease Orthostatic hypotension Left anterior knee pain Asthma BMI 33.0-33.9,adult Intermittent palpitations Obesity (BMI 30-39.9) Intrauterine contraceptive device RODRIGUEZ on CPAP Morbid obesity Moderate persistent asthma Degenerative disc disease, lumbar ASCUS favor benign Seasonal allergies Depression with anxiety Surgical History S/P laparoscopic sleeve gastrectomy History of repair of hiatal hernia History of esophagogastroduodenoscopy (EGD) History of appendectomy History of tonsillectomy Family History Mother Stroke Dementia Migraines Kidney stone Father Asthma Sister Asthma Son Asthma Daughter Anxiety Depressed Social History Household Members: Children Housing: Apartment Are you a primary home day care provider to a significant other at home: Yes (children) Do you presently have visiting nurse or other home services: No Alcohol intake: never Patient Tobacco Use Status: Never used Tobacco e-Cigarette/Vaping Use: Never Used Second Hand Smoke Exposure: No service: No Current occupational status: employed Current occupation: [employer] Current occupational exposures/hazards: No Cognitive needs: No Hearing needs: No Vision needs: No Female Reproductive History Menstrual Age of Menarche: 12 Review of Systems Const Reports daytime sleepiness, Denies difficulty sleeping, Denies fever(s), Denies headache(s), Denies snoring, Denies stops breathing during sleep and Reports weight loss Eyes Denies blurry vision and Denies diplopia ENT Denies dizziness and Denies headache(s) Card Denies chest pain, Denies irregular heart rhythm, Denies leg edema, Reports lightheadedness, Reports dyspnea on exertion and Reports other (palpitations) Resp Reports cough, Denies hemoptysis, Denies excessive phlegm production, Reports dyspnea on exertion, Denies snoring and Reports wheezing GI Denies abdominal pain, Denies hematochezia, Denies constipation, Denies heartburn, Denies diarrhea, Denies nausea and Denies vomiting Musc Reports back pain, Denies arthralgias, Denies joint swelling and Denies limited range of motion Neuro Denies dizziness and Denies headache(s) Psych Denies abnormal sleep pattern, Denies anxiety and Denies depression Aller/Immun Reports wheezing Physical Exam Vital Signs: Last Vital Signs Pulse 69 04/07/24 11:20 BP 110/66 04/07/24 11:20 Pulse Ox 100 04/07/24 11:20 Oxygen Delivery Method Room Air 04/07/24 11:20 Const General: alert Neck Neck: Yes normal visual inspection, Yes full ROM and Yes no lymphadenopathy Chest Chest palpation & inspection: normal inspection of the chest Resp Auscultation: no wheezes and diminished lung sounds Cardio Rate: regular rate Rhythm: regular rhythm Heart sounds: S1 normal heart sound present and S2 normal heart sound present GI Palpation (GI): Soft to palpation and nontender Auscultation: normal bowel sounds General: Yes no CVA tenderness Back/Spine/Pelvis Back: no CVA tenderness Assessment & Plan Assessment & Plan (1) Asthma: Code(s): J45.909 - Unspecified asthma, uncomplicated Category: Medical Qualifiers: Asthma complication type: uncomplicated Asthma persistence: persistent Asthma severity: severe Qualified Code(s): J45.50 - Severe persistent asthma, uncomplicated (2) RODRIGUEZ on CPAP: Comment: CPAP new to patient-started using 05/26/20, not on CPAP Code(s): G47.33 - Obstructive sleep apnea (adult) (pediatric); Z99.89 - Dependence on other enabling machines and devices Category: Medical (3) Hiatal hernia: Code(s): K44.9 - Diaphragmatic hernia without obstruction or gangrene Category: Medical (4) Allergies: Code(s): T78.40XA - Allergy, unspecified, initial encounter Category: Medical Qualifiers: Encounter type: subsequent encounter Qualified Code(s): T78.40XD - Allergy, unspecified, subsequent encounter Plan stop Breo 200 stop Incruse try Breztri continue Daliresp continue Singulair and Claritin continue Dupixent every 2 weeks bloodwork/allergy testing Follow-up in 3 months Orders: Orders Erythrocyte Sedimentation Rate Today J45.50 - Severe persistent asthma, uncomplicated Resp Allergy Profile Region I Today J45.50 - Severe persistent asthma, uncomplicated, R91.1 - Solitary pulmonary nodule Complete Blood Count Auto Diff Today J45.50 - Severe persistent asthma, uncomplicated Immunoglobulin E Today J45.50 - Severe persistent asthma, uncomplicated Basic Metabolic Panel Today J45.50 - Severe persistent asthma, uncomplicated Hypersensitive Pneumonitis Prf Today J45.50 - Severe persistent asthma, uncomplicated, R91.8 - Other nonspecific abnormal finding of lung field Medications: New spahwkohjc-jtgpilpw-dqepymtnvj 160-9-4.8 mcg/actuation (Breztri Aerosphere) 2 inhalations inhalation BID 10.7 grams 11RF 30 days prednisone PO daily; Take 2 tabs daily x 5 days, then 1 tablet daily x 5 days 15 tabs 0RF 10 days montelukast (Singulair) 10 mg PO BEDTIME 30 tabs 11RF 30 days J45.909 - Unspecified asthma, uncomplicated Coding Level of Care Code Est Pt Level 4 (82198) Diagnoses Severe persistent asthma without complication J45.50 Asthma complication type: uncomplicated Asthma persistence: persistent Asthma severity: severe RODRIGUEZ on CPAP G47.33; Z99.89 Hiatal hernia K44.9 Allergy, subsequent encounter T78.40XD Encounter type: subsequent encounter Time Spent (min) 16
== END 2024-04-07 11:43 | disposition home or self-care (01) ==
LOC: HO.HPS 11:18
PROVIDERS: PCP Nurse Practitioner Family; Visit Provider Hospitalist
DX: J45.50 Severe persistent asthma, uncomplicated (principal); G47.33 Obstructive sleep apnea (adult) (pediatric); Z99.89 Dependence on other enabling machines and devices; K44.9 Diaphragmatic hernia without obstruction or gangrene; T78.40XD Allergy, unspecified, subsequent encounter
CPT/HCPCS: 99214

== ENCOUNTER 2024-05-25 11:11 | Outpatient (AMB) | payer OTHER, SELFPAY ==
--- NOTE | 2024-05-25 12:29 | AM.OFFWIN_ITS ---
Intake Vital Signs 05/25/24 12:34 Weight 194 lb BP 110/78 Blood Pressure Location Rt brachial Position Sitting Pulse 76 Pulse Source Pulse Oximeter Pulse Oximetry (%) 98 Oxygen Delivery Method Room Air Intake Visit Reasons: EP-whole body rash & itchiness Intake Note: Patient here for itching/rash all over body after being on new thyroid med, she states that she was on the generic brand of levothyroxine for about 2 months and then had this reaction so she stopped it and was put on brand name for about 1 month and is having the reaction again. Patient Tobacco Use Status: Never used Tobacco Allergies shellfish derived Allergy (Severe, Verified 05/25/24 12:35) Oral swelling levothyroxine sodium [From Synthroid] Allergy (Intermediate, Verified 05/25/24 12:52) Rash levothyroxine Allergy (Mild, Verified 05/25/24 12:35) Rash ENVIRONMENTAL Allergy (Severe, Uncoded 05/25/24 12:35) SINUS, SNEEZING Medication List - Last Reconciled 05/25/24 by Alexandria De La Cruz MD albuterol sulfate 2.5 mg (3 mL) inhalation TID PRN budesonide-formoterol 160-4.5 mcg/actuation (Symbicort) 2 puffs inhalation BID 30 days buspirone 5 mg PO BID compr.stocking,thigh,reg,small As directed Daliresp (roflumilast) 500 mcg PO DAILY NS dupilumab (Dupixent) 300 mg (2 mL) subcut Q2W epinephrine 0.3 mg (0.3 mL) IM DAILY PRN fluoxetine 20 mg PO DAILY ibuprofen 600 mg PO BID PRN levonorgestrel (Mirena) intrauterine levothyroxine (Synthroid) 25 mcg PO DAILY loratadine 10 mg PO DAILY montelukast (Singulair) 10 mg PO BEDTIME 30 days nebulizers As directed omeprazole 20 mg PO DAILY sucralfate 10 mL PO QID tiotropium bromide 2.5 mcg/actuation (Spiriva Respimat) 2 puffs inhalation DAILY 30 days tiotropium bromide 2.5 mcg/actuation (Spiriva Respimat) 2 puffs inhalation DAILY 30 days trazodone 50 mg PO BEDTIME PRN Ventolin HFA 90 mcg/actuation (albuterol sulfate) 2 puffs PO Q4-6H PRN NS HPI EP-whole body rash & itchiness HPI Details Patient is a 38-year-old female with a history of hypothyroidism Was started on levothyroxine 25 mcg which started causing itching Medication was switched to Synthroid, but symptoms continued I have told her to stop taking levothyroxine Repeat labs again in 6 weeks I have also placed a referral for her to be evaluated for asbestos pipe supervisor and address medication issue Meanwhile she may continue with Benadryl I have also sent hydroxyzine to be taken at night for itching PFSH Medical History Allergies Auutmn's disease Orthostatic hypotension Left anterior knee pain Asthma BMI 33.0-33.9,adult Intermittent palpitations Obesity (BMI 30-39.9) Intrauterine contraceptive device RODRIGUEZ on CPAP Morbid obesity Moderate persistent asthma Degenerative disc disease, lumbar ASCUS favor benign Seasonal allergies Depression with anxiety Surgical History S/P laparoscopic sleeve gastrectomy History of repair of hiatal hernia History of esophagogastroduodenoscopy (EGD) History of appendectomy History of tonsillectomy Family History Mother Stroke Dementia Migraines Kidney stone Father Asthma Sister Asthma Son Asthma Daughter Anxiety Depressed Social History Household Members: Children Housing: Apartment Are you a primary auto care center manager to a significant other at home: Yes (children) Do you presently have visiting nurse or other home services: No Alcohol intake: never Patient Tobacco Use Status: Never used Tobacco e-Cigarette/Vaping Use: Never Used Second Hand Smoke Exposure: No service: No Current occupational status: employed Current occupation: [employer] Current occupational exposures/hazards: No Cognitive needs: No Hearing needs: No Vision needs: No Female Reproductive History Menstrual Age of Menarche: 12 Review of Systems Const All systems reviewed & are unremarkable except as noted in HPI and below Physical Exam Vital Signs: Last Vital Signs Pulse 76 05/25/24 12:34 BP 110/78 05/25/24 12:34 Pulse Ox 98 05/25/24 12:34 Oxygen Delivery Method Room Air 05/25/24 12:34 Const General: no acute distress Orientation/consciousness: patient oriented x3 Eyes General: appearance normal, both eyes and all related structures Resp Effort & Inspection: normal respiratory effort and able to speak in complete sentences Neuro General: patient oriented x3 Psych Mental Status: mental status grossly normal Assessment & Plan Assessment & Plan (1) Elevated TSH: Code(s): R79.89 - Other specified abnormal findings of blood chemistry Plan Patient is a 38-year-old female with a history of hypothyroidism Was started on levothyroxine 25 mcg which started causing itching Medication was switched to Synthroid, but symptoms continued I have told her to stop taking levothyroxine Repeat labs again in 6 weeks I have also placed a referral for her to be evaluated for asbestos 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 supervisor and address medication issue Meanwhile she may continue with Benadryl I have also sent hydroxyzine to be taken at night for itching Orders: Orders TSH reflex Free T4 Today R79.89 - Other specified abnormal findings of blood chemistry Referrals Endocrinology Referral R79.89 - Other specified abnormal findings of blood chemistry Medications: New hydroxyzine HCl 25 mg PO BEDTIME 14 tabs 0RF Discontinued levothyroxine (Synthroid) brand name only please Discontinued Reason: Doctor's Order 25 mcg PO DAILY 90 tabs 0RF Coding Level of Care Code Est Pt Level 3 (91131) Diagnoses Elevated TSH R79.89
[2024-05-25 12:34] VITALS: BP 110/78; PULSE 76; O2SAT 98
== END 2024-05-25 12:54 | disposition home or self-care (01) ==
PROVIDERS: PCP Nurse Practitioner Family; Visit Provider Internal Medicine
DX: R79.89 Other specified abnormal findings of blood chemistry (principal)

== ENCOUNTER → 2024-05-25 11:11 | Outpatient (BNVA) | payer OTHER, SELFPAY | PROVIDERS: PCP Nurse Practitioner Family; Visit Provider Internal Medicine | DX: R79.89 Other specified abnormal findings of blood chemistry (principal) | CPT/HCPCS: 99212 ==

== ENCOUNTER 2024-06-14 12:31 | Outpatient (AMB) | payer OTHER, SELFPAY ==
[2024-06-14 12:33] VITALS: BP 98/58; PULSE 60; BMI 35.2
--- NOTE | 2024-06-14 12:33 | MHC.OFFVIS ---
Vital Signs 06/14/24 12:33 Height 5 ft 2 in Weight 192 lb 10.944 oz BMI 35.2 BP 98/58 L Blood Pressure Location Lt brachial Position Sitting Pulse 60 Pulse Source Pulse Oximeter Intake Visit Reasons: Other specified abnormal findings of blood chem Intake Note: New patient present today for Other specified abnormal findings of blood chem. 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 Required: No Accompanied by: Self / Same As Patient Allergies shellfish derived Allergy (Severe, Verified 06/14/24 12:38) Oral swelling levothyroxine sodium [From Synthroid] Allergy (Intermediate, Verified 06/14/24 12:38) Rash levothyroxine Allergy (Mild, Verified 06/14/24 12:38) Rash ENVIRONMENTAL Allergy (Severe, Uncoded 06/14/24 12:38) SINUS, SNEEZING Medication List - Last Reconciled 06/14/24 by Codi Larson MD albuterol sulfate 2.5 mg (3 mL) inhalation TID PRN budesonide-formoterol 160-4.5 mcg/actuation (Symbicort) 2 puffs inhalation BID 30 days buspirone 5 mg PO BID compr.stocking,thigh,reg,small As directed Daliresp (roflumilast) 500 mcg PO DAILY NS dupilumab (Dupixent) 300 mg (2 mL) subcut Q2W epinephrine 0.3 mg (0.3 mL) IM DAILY PRN fluoxetine 20 mg PO DAILY hydroxyzine HCl 25 mg PO BEDTIME ibuprofen 600 mg PO BID PRN levonorgestrel (Mirena) intrauterine loratadine 10 mg PO DAILY montelukast (Singulair) 10 mg PO BEDTIME 30 days nebulizers As directed omeprazole 20 mg PO DAILY sucralfate 10 mL PO QID tiotropium bromide 2.5 mcg/actuation (Spiriva Respimat) 2 puffs inhalation DAILY 30 days tiotropium bromide 2.5 mcg/actuation (Spiriva Respimat) 2 puffs inhalation DAILY 30 days tirzepatide (weight loss) (Zepbound) mg subcut trazodone 50 mg PO BEDTIME PRN Ventolin HFA 90 mcg/actuation (albuterol sulfate) 2 puffs PO Q4-6H PRN NS HPI Comments Details: 38 year old female here today for evaluation of Hashimotos disease. Levothyroxine started February 2024 used it for 2 months had allergic reaction with rash and itchiness Changed to Synthroid brand and still continued to have itchiness Stopped thyroid medicine 05/24/24 LMP : 06/09/24 Reports fatigue Bowel movements are regular No skin or hair changes No heat or cold intolerance Losing weight with Mounjaro : lost 7 lbs Patient denies any difficulty swallowing, pain on swallowing or voice changes or difficulty breathing. Patient denies any history of childhood neck radiation. Denies having ever used lithium, amiodarone or biotin supplements. Patient denies any family history of thyroid cancer Maternal aunt and cousin have hyperthyroidism Physical exam General: sitting comfortably in no acute distress HEENT: normocephalic/atraumatic, moist oral mucosa Neck: supple, symmetrical, no thyromegaly , no dorsocervical or supraclavicular fat pads Cardiac: normal heart sounds Pulm: normal breath sounds B/L, no added breath sounds Abd: not distended, no tenderness Extremities: no edema, no signs of myxedema Neuro: AAO x3, Speech: normal, no facial droop, moving all 4 extremities Laboratory Tests 02/17/23 02/24/23 05/22/23 08:03 09:24 10:05 TSH 4.74 H 2.45 3.67 Free T4 0.81 02/12/24 04/07/24 08:53 12:32 TSH 3.43 1.90 Free T4 Laboratory Tests 02/24/23 09:24 Thyroid Peroxidase Ab 426 H PFS Medical History Allergies Autumn's disease Orthostatic hypotension Left anterior knee pain Asthma BMI 33.0-33.9,adult Intermittent palpitations Obesity (BMI 30-39.9) Intrauterine contraceptive device RODRIGUEZ on CPAP Morbid obesity Moderate persistent asthma Degenerative disc disease, lumbar ASCUS favor benign Seasonal allergies Depression with anxiety Surgical History S/P laparoscopic sleeve gastrectomy History of repair of hiatal hernia History of esophagogastroduodenoscopy (EGD) History of appendectomy History of tonsillectomy Family History Mother Stroke Dementia Migraines Kidney stone Father Asthma Sister Asthma Son Asthma Daughter Anxiety Depressed Social History Household Members: Children Housing: Apartment Are you a primary manager intensive care to a significant other at home: Yes (children) Do you presently have visiting nurse or other home services: No Alcohol intake: never Patient Tobacco Use Status: Never used Tobacco e-Cigarette/Vaping Use: Never Used Second Hand Smoke Exposure: No service: No Current occupational status: employed Current occupation: [employer] Current occupational exposures/hazards: No Cognitive needs: No Hearing needs: No Vision needs: No Female Reproductive History Menstrual Age of Menarche: 12 Physical Exam Vital Signs: Last Vital Signs Pulse 60 06/14/24 12:33 BP 98/58 L 06/14/24 12:33 BMI result Body Mass Index 35.2 Assessment & Plan Assessment & Plan (1) Elevated TSH: Code(s): R79.89 - Other specified abnormal findings of blood chemistry Category: Medical Plan: 38-year-old female coming in today for initial evaluation of hypothyroidism. Started taking levothyroxine 25 mcg daily in February 2024 which was prescribed by PCP due to TSH of the high normal side and patient complaining of fatigue. She says she did have some improvement in fatigue with the levothyroxine. However she unfortunately had severe itching and rash with the medication and was switched to Synthroid, however had even worsening of itching with that. At this point she has been taken off the medicine 3 weeks ago. We will repeat labs in 3 weeks to see if she really needs medication. If she does we will prescribe her brand-name Tirosint. Plan: -ordered TSH, free T4 to be done in 3 weeks which would be 6 weeks since stopping the medication -follow up in 4 weeks to discuss results -stay off levothyroxine for now Plan See above Orders: Orders Thyroid Stimulating Hormone 3 Weeks R79.89 - Other specified abnormal findings of blood chemistry Free T4 (Free Thyroxine) 3 Weeks R79.89 - Other specified abnormal findings of blood chemistry Patient Instructions: Do blood work in 3 weeks Stop any biotin 4 days before blood work Follow up in 4weeks Coding Level of Care Code New Pt Level 4 (68353) Diagnoses Elevated TSH R79.89
== END 2024-06-14 13:04 | disposition home or self-care (01) ==
PROVIDERS: PCP Nurse Practitioner Family; Visit Provider Student in an Organized Health Care Education/Training Program
DX: R79.89 Other specified abnormal findings of blood chemistry (principal)
CPT/HCPCS: 99204

== ENCOUNTER → 2024-06-14 12:31 | Outpatient (BNVA) | payer OTHER, SELFPAY | PROVIDERS: PCP Nurse Practitioner Family; Visit Provider Student in an Organized Health Care Education/Training Program | DX: R79.89 Other specified abnormal findings of blood chemistry (principal) | CPT/HCPCS: 99202 ==

== ENCOUNTER 2024-07-06 12:15 | Outpatient (REF) | payer OTHER, SELFPAY ==
[2024-07-06 13:51] LABS: Free T4 (Free Thyroxine) 0.99 ng/dL (0.71-1.85); Thyroid Stimulating Hormone 2.28 uIU/mL (0.32-4.0)
== END 2024-07-06 12:16 | disposition home or self-care (01) ==
LOC: HO.10HDL 12:15
PROVIDERS: Visit Provider Student in an Organized Health Care Education/Training Program
DX: R79.89 Other specified abnormal findings of blood chemistry (principal)
CPT/HCPCS: 36415; 84439; 84443

== ENCOUNTER 2024-07-08 08:03 | Outpatient (REF) | payer OTHER, SELFPAY ==
--- NOTE | ~2024-07-08 | XR_ITS ---
EXAMINATION: XR ANKLE, LEFT CLINICAL INFORMATION: S99.912A - Unspecified injury of left ankle, initial encounter COMPARISON: None available. TECHNIQUE: AP, lateral, and mortise views of the left ankle. FINDINGS: No fracture. Alignment is anatomic. No erosions. Joint spaces are maintained. There is a large retrocalcaneal enthesophyte. Normal. XR/XR ankle LT min 3V IMPRESSION: Large retrocalcaneal enthesophyte. Otherwise unremarkable left ankle exam. Electronically signed by: Adrián Blount MD 07/08/2024 09:16 AM LALO
--- OUTSIDE RECORDS SUMMARY | 2024-07-08 11:29 | XMS_ITS | Encounter Summary ---
Author Organization [facility] Address [address] [place] [address] Care Team Providers Care Restaurant Assistant Manager Name Role Phone Yola Vigil Primary Care Provider Unavailabl e Reason for Visit * Reason Onset Date Comments medication problems 09/02/2018 Encounter Details Date Type Department Care Team Description 09/02/2018 Telephone Pulmonology - [address] [place] [id number] Sam Dukes MD medication problems Social History Tobacco Use Types Packs/Day Years Used Date Smoking Tobacco: Never Smokeless Tobacco: Never Alcohol Use Standard Drinks/Week Comments No 0 (1 standard drink = 0.6 oz pur e alcohol) Sex Assigned at Date Recorded Not on file documented as of this encounter Miscellaneous Notes * Telephone Encounter - Victorina Dukes - 09/02/2018 1:46 PM EDT [facility] wants to know if the patient still active on the following medication- Please call them to confirm Formoterol Fumarate (PERFOROMIST) 20 MCG/2ML Nebu Soln budesonide (PULMICORT) 0.5 MG/2ML nebulizer solution albuterol (PROVENTIL) (2.5 MG/3ML) 0.083% nebulizer solution ALBUTEROL SULFATE (PROAIR HFA) 108 (90 BASE) MCG/ACT Aero Soln Tiotropium [place] Monohydrate (SPIRIVA RESPIMAT) 2.5 MCG/ACT Aero Soln documented in this encounter Plan of Treatment Not on file documented as of this encounter Visit Diagnoses Not on filedocumented in this encounter Care Teams Restaurant Assistant Manager Relationship Specialty Start Date End Date Yola Vigil PCP - General Family Practice 08/13/18 documented as of this encounter
--- OUTSIDE RECORDS SUMMARY | 2024-07-08 11:29 | XMS_ITS | Encounter Summary ---
Author Organization [facility] Address [address] [place] [address] Care Team Providers Care Excel Developer Name Role Phone Yola Vigil Primary Care Provider Vita e Encounter Details Date Type Department Care Team Description 08/13/2018 Orders Only Medical Records [address] [place] [address] Abstract, Provider Severe persistent asthma without complication; Allergic rhinitis, unspecified seasonality, unspecified trigger; Morbid obesity with BMI of 50.0-59.9, adult (HCC) Social History Tobacco Use Types Packs/Day Years Used Date Smoking Tobacco: Never Smokeless Tobacco: Never Alcohol Use Standard Drinks/Week Comments No 0 (1 standard drink = 0.6 oz pur e alcohol) Sex Assigned at Date Recorded Not on file documented as of this encounter Plan of Treatment Not on file documented as of this encounter Procedures Procedure Name Priority Date/Time Associated Diagnosis Comments CHG RADIOLOGIC EXAM CHEST 2 VIEWS Routine 08/13/2018 Severe persistent asthma without complication Allergic rhinitis, unspecified seasonality, unspecified trigger Morbid obesity with BMI of 50.0-59.9, adult (HCC) documented in this encounter Results * RADIOLOGIC EXAM CHEST 2 VIEWS (08/13/2018) Sam Dukes MD RADIOLOGY documented in this encounter Visit Diagnoses Diagnosis Severe persistent asthma without complication Allergic rhinitis, unspecified seasonality, unspecified trigger Morbid obesity with BMI of 50.0-59.9, adult (HCC) documented in this encounter Care Teams Excel Developer Relationship Specialty Start Date End Date Yola Vigil PCP - General Family Practice 08/13/18 documented as of this encounter
--- OUTSIDE RECORDS SUMMARY | 2024-07-08 11:29 | XMS_ITS | Encounter Summary ---
Author Organization [facility] Address [address] [place] [address] Care Team Providers Care Line Assembler Name Role Phone Yola Vigil Primary Care Provider Unavailabl e Tano Guo MD Primary Care Provider Un available Yola Vigil Primary Care Provider Unavailabl e Reason for Referral * EXTERNAL (Priority) - Authorized/Booked Specialty Diagnoses / Procedures Referred By Contac t Referred To Contact Allergy & Immunology / Allergy Procedures REFERRAL TO ALLERGY Sam Dukes MD [address] [place] [phone] Nathaniel Humphrey MD [address] [place] [address] Referral ID Status Reason Start Date Expiration Date V isits Requested Visits Authorized SEE NOTE Authorized/B ooked 12/19/2017 03/21/2018 1 1 Encounter Details Date Type Department Care Team Description 12/19/2017 Orders Only Pulmonology - [place] [address] [facility] [address] [place] [id number] Sam Dukes MD Severe persistent asthma without complication (Primary Dx) Social History Tobacco Use Types Packs/Day Years Used Date Smoking Tobacco: Never Smokeless Tobacco: Never Alcohol Use Standard Drinks/Week Comments No 0 (1 standard drink = 0.6 oz pur e alcohol) Sex Assigned at Date Recorded Not on file documented as of this encounter Plan of Treatment Not on file documented as of this encounter Visit Diagnoses Diagnosis Severe persistent asthma without complication- Primary documented in this encounter Care Teams Line Assembler Relationship Specialty Start Date End Date Yola Vigil PCP - General Family Practice 07/23/17 06/24/18 Tano Guo MD PCP - General Internal Medicine 06/25/18 9 Yola Vigil PCP - General Family Practice 08/13/18 documented as of this encounter
--- OUTSIDE RECORDS SUMMARY | 2024-07-08 11:30 | XMS_ITS | Clinical Summary ---
Author Organization [facility] Address [address] [place] [address] Care Team Providers Care Baseball Inspector And Repairer Name Role Phone Yola Vigil Primary Care Provider Unavailabl e Allergies Active Allergy Reactions Severity Noted Date Comments Shellfish Allergy High 07/24/2017 Oral swelling Medications Medication Sig Dispensed Refills Start Date End Date Status EPINEPHrine HCl, Anaphylaxis, (EPIPEN 2-MANUELA IM) Inject into the muscle. 0 Active trazodone (DESYREL) 50 MG tablet Take 50 mg by mouth at bedtime. 0 Active folic acid (FOLVITE) 400 MCG tablet Take 400 mcg by mouth daily. 0 Active fluticasone 50 MCG/ACT nasal spray 2 Sprays by Each Nare route daily. 0 Active Levonorgestrel (MIRENA IU) by Intrauterine route. 0 Active loratadine (CLARITIN) 10 MG tablet Take 1 Tab by mouth daily for 30 days. 30 Tab 0 07/24/2017 Active budesonide-formoterol (SYMBICORT) 160-4.5 MCG/ACT inhaler Inhale 2 Puffs into the lungs every 12 hours for 30 days. This medication has inhaler steroid: Rinse mouth with water and expectorate after each dose to prevent oral/esophageal candidiasis or fungal infection. 1 Inhaler 11 07/24/2017 Active Tiotropium [place] Monohydrate (SPIRIVA RESPIMAT) 2.5 MCG/ACT Aero Soln Inhale 2 Puffs into the lungs daily for 30 days. 1 Inhaler 12/19/2017 Active budesonide (PULMICORT) 0.5 MG/2ML nebulizer solutionIndications:Se vazquez persistent asthma without complication,Chronic sinusitis, unspecified location,Gastroesophag eal reflux disease, esophagitis presence not specified Take 2 mL by nebulization 2 times daily for 30 days. 60 Ampule 11 05/22/2018 Active Formoterol Fumarate (PERFOROMIST) 20 MCG/2ML Nebu Soln Inhale 2 mL into the lungs 2 times daily for 30 days. COPD J49.5 120 mL 11 05/22/2018 Active albuterol (PROVENTIL) (2.5 MG/3ML) 0.083% nebulizer solution Take 1 Vial by nebulization every 4 hours as needed for Wheezing for up to 30 days. 120 Vial 11 05/22/2018 Active predniSONE (DELTASONE) 10 MG tablet 6 tabs by mouth daily x 3 days, then decrease by 1 tab every 3 days until completed 63 Tab 0 05/22/2018 Active omalizumab (XOLAIR) 150 MG injectionIndications:S evere persistent asthma without complication,Allergic rhinitis, unspecified seasonality, unspecified trigger,Chronic sinusitis, unspecified location,Gastroesophag eal reflux disease without esophagitis,Need for prophylactic vaccination and inoculation against influenza,Need for prophylactic vaccination against Streptococcus pneumoniae (pneumococcus) Inject 150 mg into the skin every 14 days for 30 days. 2 Each 11 06/26/2018 Active CHACHA-24 200 MG 24 hr capsule TAKE ONE CAPSULE BY MOUTH EVERY DAY 30 Cap 0 09/02/2018 Active theophylline (THEODUR) 200 MG 12 hr tablet Take 1 Tab by mouth 2 times daily for 360 days. 60 Tab 11 09/03/2018 Active montelukast (SINGULAIR) 10 MG tablet Take 1 Tab by mouth at bedtime. 30 Tab 3 09/03/2018 Active ALBUTEROL SULFATE 108 (90 Base) MCG/ACT Aero Soln INHALE 2 PUFFS INTO THE LUNGS EVERY 6 HOURS NEEDED FOR COUGH OR WHEEZE 8.5 g 5 03/01/2019 Active Active Problems Problem Noted Date Severe persistent asthma without complic ation 05/06/2018 Chronic sinusitis 09/10/2017 History of Helicobacter pylori infection 09/10/2017 History of Pap smear of cervix with ASCU S 09/10/2017 Overview: 2007 DDD (degenerative disc disease), lumbar 09/10/2017 Overview: L4-L5, L5-S1 Depression 09/10/2017 Insomnia 09/10/2017 Asthma 07/24/2017 Allergic rhinitis 07/24/2017 Morbid obesity with BMI of 50.0-59.9, ad ult 07/24/2017 GERD (gastroesophageal reflux disease) 0 07/24/2017 Resolved Problems Problem Noted Date Resolved Date RODRIGUEZ (obstructive sleep apnea) 07/24/2017 Immunizations Name Administration Dates Next Due Pneumoccoccal(Adult) Polysaccharide PPSV23 06/26 Family History Medical History Relation Name Comments Asthma Father allergies Stroke Mother dementia, kidne y stones , migraines Asthma Sister Relation Name Status Comments Father Mother Sister Social History Tobacco Use Types Packs/Day Years Used Date Smoking Tobacco: Never Smokeless Tobacco: Never Alcohol Use Standard Drinks/Week Comments No 0 (1 standard drink = 0.6 oz pur e alcohol) Sex Assigned at Date Recorded Not on file Last Filed Vital Signs Vital Sign Reading Time Taken Comments Blood Pressure 110/80 11/25/2018 10:00 AM EDT Pulse 78 11/25/2018 10:00 AM EDT Temperature - - Respiratory Rate 12 11/25/2018 10:00 AM EDT Oxygen Saturation 96% 11/25/2018 10:00 AM EDT Inhaled Oxygen Concentration - - Weight 125 kg (275 lb 9.6 oz) 11/25/2018 10:00 A M EDT Height 157.5 cm (5' 2 ) 11/25/2018 10:00 AM EDT Body Mass Index 50.41 11/25/2018 10:00 AM EDT Plan of Treatment Health Maintenance Due Date Last Done Comments Covid-19 Vaccine (#1) 04/21/1986 BASELINE HEALTH EXAM 18-39 2004 DTAP/TDAP/TD (1 - Tdap) 2004 CHOLESTEROL SCREENING 2005 CERVICAL CANCER SCREENING 2006 INFLUENZA (#1) 2024 BMI CHECK/ADVISE 06/09/2024 11/25/2018, , 08/13/2018, Additional history exists DEPRESSION SCREENING/FOLLOWUP 06/09/2024 09/10/2017 SOCIAL NEEDS SCREENING 06/09/2024 PNEUMOCOCCAL VACCINE FOR HIG H RISK PATIENTS (#2) 2050 06/26/2018 Care Teams Baseball Inspector And Repairer Relationship Specialty Start Date End Date Yola Vigil PCP - General Family Practice 08/13/18
--- OUTSIDE RECORDS SUMMARY | 2024-07-08 11:30 | XMS_ITS | Encounter Summary ---
Author Organization [facility] Address [address] [place] [address] Care Team Providers Care Cable Television Line Technician Name Role Phone Yola Vigil Primary Care Provider Unavailkarina e Tano Guo MD Primary Care Provider Un available Yola Vigil Primary Care Provider Unavailkarina e Encounter Details Date Type Department Care Team Description 07/31/2017 Transfer Records Medical Records [address] [place] [address] Abstract, Provider Social History Tobacco Use Types Packs/Day Years Used Date Smoking Tobacco: Never Smokeless Tobacco: Never Sex Assigned at Date Recorded Not on file documented as of this encounter Plan of Treatment Not on file documented as of this encounter Visit Diagnoses Not on filedocumented in this encounter Care Teams Cable Television Line Technician Relationship Specialty Start Date End Date Yola Vigil PCP - General Family Practice 07/23/17 06/24/18 Tano Guo MD PCP - General Internal Medicine 06/25/18 9 Yola Vigil PCP - General Family Practice 08/13/18 documented as of this encounter
--- OUTSIDE RECORDS SUMMARY | 2024-07-08 11:30 | XMS_ITS | Encounter Summary ---
Author Organization [facility] Address [address] [place] [address] Care Team Providers Care Respite Provider Name Role Phone Yola Vigil Primary Care Provider Tano Friedman MD Primary Care Provider Un available Yola Vigil Primary Care Provider Unavailkarina e Reason for Visit * Reason Onset Date Comments Call From Md Office 03/06/2018 Encounter Details Date Type Department Care Team Description 03/06/2018 Telephone Pulmonology - [address] [place] [address] Sam Dukes MD Call From Md Office Social History Tobacco Use Types Packs/Day Years Used Date Smoking Tobacco: Never Smokeless Tobacco: Never Alcohol Use Standard Drinks/Week Comments No 0 (1 standard drink = 0.6 oz pur e alcohol) Sex Assigned at Date Recorded Not on file documented as of this encounter Miscellaneous Notes * Telephone Encounter - Shruti Penn M.A. - 03/06/2018 10:25 AM EDT Faxed all noted from [facility] total. * Telephone Encounter - Dia Adler - 03/06/2018 10:21 AM EDT Patient was referred by Dr. Dukes and they are requesting the last 6 office visit notes over the past 6 mths Please review documented in this encounter Plan of Treatment Not on file documented as of this encounter Visit Diagnoses Not on filedocumented in this encounter Care Teams Respite Provider Relationship Specialty Start Date End Date Yola Vigil PCP - General Family Practice 07/23/17 06/24/18 Tano Guo MD PCP - General Internal Medicine 06/25/18 9 Yola Vigil PCP - General Family Practice 08/13/18 documented as of this encounter
== END 2024-07-08 08:04 | disposition home or self-care (01) ==
LOC: HO.XRAY 08:03
PROVIDERS: Absent Provider Nurse Practitioner Family; PCP Nurse Practitioner Family; Visit Provider Nurse Practitioner Family
DX: S99.912A Unspecified injury of left ankle, initial encounter (principal)
CPT/HCPCS: 73610; 99212

== ENCOUNTER 2024-07-08 08:03 | Outpatient (AMB) | payer OTHER, SELFPAY ==
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
[2024-07-08 08:12] VITALS: BP 110/74; PULSE 70; O2SAT 99
== END 2024-07-08 08:34 | disposition home or self-care (01) ==
PROVIDERS: PCP Nurse Practitioner Family; Visit Provider Nurse Practitioner Family
DX: S99.912A Unspecified injury of left ankle, initial encounter (principal)

== ENCOUNTER → 2024-07-08 08:49 | Outpatient (BNV) | payer OTHER, SELFPAY | PROVIDERS: Absent Provider Nurse Practitioner Family; PCP Nurse Practitioner Family; Visit Provider Radiology Diagnostic Radiology | DX: S99.912A Unspecified injury of left ankle, initial encounter (principal) | CPT/HCPCS: 73610 ==

== ENCOUNTER 2024-07-12 09:45 | Outpatient (AMB) | payer OTHER, SELFPAY ==
[2024-07-12 09:49] VITALS: BP 96/54; PULSE 73; O2SAT 97; BMI 34.1
--- NOTE | 2024-07-12 09:49 | A.OFFVIS_ITS ---
Vital Signs 07/12/24 09:49 Height 5 ft 2 in Weight 186 lb 4.65 oz BMI 34.1 BP 96/54 L Blood Pressure Location Rt brachial Position Sitting Pulse 73 Pulse Source Pulse Oximeter Pulse Oximetry (%) 97 Oxygen Delivery Method Room Air Intake Visit Reasons: Obstructive sleep apnea Allergies shellfish derived Allergy (Severe, Verified 07/12/24 11:26) Oral swelling levothyroxine sodium [From Synthroid] Allergy (Intermediate, Verified 07/12/24 11:26) Rash levothyroxine Allergy (Mild, Verified 07/12/24 11:26) Rash ENVIRONMENTAL Allergy (Severe, Uncoded 07/12/24 11:26) SINUS, SNEEZING HPI Comments Details: The patient is a 38 y/o womanwith severe persistent asthma. Has been responding well to the Xolair and also to the addition of theophylline. Still, has been getting episodes of exacerbations some flares. Recently she did take a course of prednisone. Apparently her major triggers are stress in agitation. It appears that her allergy symptoms are well controlled on the current respiratory regimen. Current she has been noticing increased weight gain. We talked about the importance of losing weight to minimize the respiratory symptoms for her to improve her overall health. Recently her Xolair was increased to 300 mg twice a month. We did review her blood work that she had and she has had some eosinophilia as well as a critically high IgE level. Therefore, if she does not respond to Xolair she may be a good candidate for Dupixent. She continues on a very aggressive respiratory regimen including theophylline, Daliresp, Symbicort, Spiriva and singular. She is having hard time keeping up with work. I do agree that we have to improve her respiratory status in order for her to be able to function work without putting herself at risk of an adverse of event. Therefore, I do agree that for the next 3 months we could decrease the amount of work hours in order to optimize her respiratory therapy. In addition to that the patient has been complaining of some difficulty swallowing due to pain. She feels a fullness in a tightness of her throat area. She also did have a barium swallow demonstrating a small hiatal hernia with reflux. She will be following up with that endoscopy soon with gastroenterology. 12/20/2022 the patient is here for pulmonary follow-up visit. She continues on Dupixent. Lately she has been having increasing chest tightness and having to use her nebulizer more often. She continues use all her respiratory therapy as prescribed. Denies any sick contacts. Continues to respond positively to the Dupixent although still symptomatic at times. I explained to her that Dupixent will treat allergic triggers but would not do tree any nonallergic triggers for her asthma. I do not believe that she needing the biologic is really going to make a big change in her asthma control at this time. Patient will monitor closely for any reflux disease or other potential triggers such as lower respiratory infections. She has not been using her CPAP. The patient has been doing well her Waterfall score is 6/24. She is working on losing weight after her bariatric surgery. We will plan to do a repeat study when she gets to her ideal weight. 07/29/2023 the patient is here for pulmonary follow-up visit. She keeps waxing and waning. She had been on Spiriva in [facility] and was switched over to Trelegy. Unfortunately the Trelegy was not covered and she was provided with Breo and Incruse. She has only been using 1 of the inhalers not knowing that she was supposed to be on 2. Explained to her that she is take both in the morning and hopefully her symptoms a little bit as well. The Dupixent shots continue to be affecting beneficial. She does get a headache after using it will usually wears off after 48 hours. We did talk about considering a lower dose in case her headaches get any worse. But right now will keep her on the during 100 mg dose. As far as the sleep apnea she has been off her CPAP now for some time after having surgery. She reach her ideal weight for her and therefore will go ahead and repeat her sleep study. Waterfall score continues to be low elevated at 8 over 24. The patient understands that if her sleep study demonstrates underlying sleep apnea she needs to go back on CPAP. 04/07/2024 the patient is here for pulmonary follow-up visit. She is having hard time with her breathing. She had to take a course of prednisone couple weeks ago. She continues on Dupixent. She has been on the Breo and the Incruse she does not feel like they are working very well. She is having to use her rescue inhaler multiple times a day. She did have a problem with a water leak. Apparently developing some mold. Besides that denies any other exposures. Will go ahead and recheck her allergy levels including her mold allergies. If indeed she has significant more larger allergies she may need further the mold issue in her apartment. Otherwise the patient will continue with the Dupixent. She also has been dealing with other issues including thyroid issues. She is going to be talking to her primary care doctor about that. Will follow-up in 3 months. If she has any worsening symptoms she will call for an earlier assessment. 07/12/2024 the patient is here for a pulmonary follow-up visit. She has been complaining worsening cough chest congestion consistent with chronic bronchitis. She does get relief with respiratory medicines. The Breztri inhaler has been hopeful. Will go ahead and send her prednisone to the pharmacy at this time. In the meantime she benefits from going back on Dupixent. Dupixent therapy has been very affecting beneficial. Therefore would like to continue this time. The patient also continues to wear CPAP. CPAP therapy continues to be affecting beneficial. Will go ahead and follow-up in 4-6 months. She has any issues she will call for an earlier assess [facility] Medical History (Updated 07/12/24 @ 10:03 by Sam Dukes MD) Asthma-COPD overlap syndrome Retrocalcaneal bone spur Left ankle injury Allergies Autumn's disease Orthostatic hypotension Left anterior knee pain Asthma BMI 33.0-33.9,adult Intermittent palpitations Obesity (BMI 30-39.9) Intrauterine contraceptive device RODRIGUEZ on CPAP Morbid obesity Moderate persistent asthma Degenerative disc disease, lumbar ASCUS favor benign Seasonal allergies Depression with anxiety Surgical History S/P laparoscopic sleeve gastrectomy History of repair of hiatal hernia History of esophagogastroduodenoscopy (EGD) History of appendectomy History of tonsillectomy Family History Mother Stroke Dementia Migraines Kidney stone Father Asthma Sister Asthma Son Asthma Daughter Anxiety Depressed Social History Household Members: Children Housing: Apartment Are you a primary health care legal assistant to a significant other at home: Yes (children) Do you presently have visiting nurse or other home services: No Alcohol intake: never Patient Tobacco Use Status: Never used Tobacco e-Cigarette/Vaping Use: Never Used Second Hand Smoke Exposure: No service: No Current occupational status: employed Current occupation: [employer] Current occupational exposures/hazards: No Cognitive needs: No Hearing needs: No Vision needs: No Female Reproductive History Menstrual Age of Menarche: 12 Review of Systems Const Reports daytime sleepiness, Denies difficulty sleeping, Denies fever(s), Denies headache(s), Denies snoring, Denies stops breathing during sleep and Reports weight loss Eyes Denies blurry vision and Denies diplopia ENT Denies dizziness and Denies headache(s) Card Denies chest pain, Denies irregular heart rhythm, Denies leg edema, Reports lightheadedness, Reports dyspnea on exertion and Reports other (palpitations) Resp Reports cough, Denies hemoptysis, Denies excessive phlegm production, Reports dyspnea on exertion, Denies snoring and Reports wheezing GI Denies abdominal pain, Denies hematochezia, Denies constipation, Denies heartburn, Denies diarrhea, Denies nausea and Denies vomiting Musc Reports back pain, Denies arthralgias, Denies joint swelling and Denies limited range of motion Neuro Denies dizziness and Denies headache(s) Psych Denies abnormal sleep pattern, Denies anxiety and Denies depression Aller/Immun Reports wheezing Physical Exam Vital Signs: Last Vital Signs Pulse 73 07/12/24 09:49 BP 96/54 L 07/12/24 09:49 Pulse Ox 97 07/12/24 09:49 Oxygen Delivery Method Room Air 07/12/24 09:49 BMI result Body Mass Index 34.1 Const General: alert Neck Neck: Yes normal visual inspection, Yes full ROM and Yes no lymphadenopathy Chest Chest palpation & inspection: normal inspection of the chest Resp Auscultation: no wheezes and diminished lung sounds Cardio Rate: regular rate Rhythm: regular rhythm Heart sounds: S1 normal heart sound present and S2 normal heart sound present GI Palpation (GI): Soft to palpation and nontender Auscultation: normal bowel sounds General: Yes no CVA tenderness Back/Spine/Pelvis Back: no CVA tenderness Assessment & Plan Assessment & Plan (1) Asthma: Code(s): J45.909 - Unspecified asthma, uncomplicated Category: Medical Qualifiers: Asthma complication type: uncomplicated Asthma persistence: persistent Asthma severity: severe Qualified Code(s): J45.50 - Severe persistent asthma, uncomplicated (2) RODRIGUEZ on CPAP: Comment: CPAP new to patient-started using 05/26/20, not on CPAP Code(s): G47.33 - Obstructive sleep apnea (adult) (pediatric); Z99.89 - Dependence on other enabling machines and devices Category: Medical (3) Hiatal hernia: Code(s): K44.9 - Diaphragmatic hernia without obstruction or gangrene Category: Medical (4) Allergies: Code(s): T78.40XA - Allergy, unspecified, initial encounter Category: Medical Qualifiers: Encounter type: subsequent encounter Qualified Code(s): T78.40XD - Allergy, unspecified, subsequent encounter (5) Asthma-COPD overlap syndrome: Code(s): J44.89 - Other specified chronic obstructive pulmonary disease Category: Medical Plan Rita BID needs Daliresp for her chronic bronchitis continue Singulair and Claritin continue Dupixent every 2 weeks prednisone Follow-up in 6 months Medications: New prednisone PO daily; Take 2 tabs daily x 5 days, then 1 tablet daily x 5 days 10 days 15 tabs 0RF Changed From Daliresp (roflumilast) 500 mcg PO DAILY 90 tabs 1RF NS J44.89 - Other specified chronic obstructive pulmonary disease To roflumilast 500 mcg PO DAILY 90 days 90 tabs 3RF NS J44.89 - Other specified chronic obstructive pulmonary disease Coding Level of Care Code Est Pt Level 4 (49598) Diagnoses Severe persistent asthma without complication J45.50 Asthma complication type: uncomplicated Asthma persistence: persistent Asthma severity: severe RODRIGUEZ on CPAP G47.33; Z99.89 Hiatal hernia K44.9 Allergy, subsequent encounter T78.40XD Encounter type: subsequent encounter Asthma-COPD overlap syndrome J44.89 Time Spent (min) 16
== END 2024-07-12 10:15 | disposition home or self-care (01) ==
PROVIDERS: PCP Nurse Practitioner Family; Visit Provider Hospitalist
DX: J45.50 Severe persistent asthma, uncomplicated (principal); G47.33 Obstructive sleep apnea (adult) (pediatric); Z99.89 Dependence on other enabling machines and devices; K44.9 Diaphragmatic hernia without obstruction or gangrene; T78.40XD Allergy, unspecified, subsequent encounter; J44.89 Other specified chronic obstructive pulmonary disease
CPT/HCPCS: 99214

== ENCOUNTER → 2024-07-12 09:45 | Outpatient (BNVA) | payer OTHER, SELFPAY | PROVIDERS: PCP Nurse Practitioner Family; Visit Provider Hospitalist | DX: J45.50 Severe persistent asthma, uncomplicated (principal); K44.9 Diaphragmatic hernia without obstruction or gangrene; E06.3 Autoimmune thyroiditis; R79.89 Other specified abnormal findings of blood chemistry; G47.33 Obstructive sleep apnea (adult) (pediatric); J44.89 Other specified chronic obstructive pulmonary disease; T78.40XD Allergy, unspecified, subsequent encounter; X58.XXXD Exposure to other specified factors, subsequent encounter; Z99.89 Dependence on other enabling machines and devices | CPT/HCPCS: 99212 ==

== ENCOUNTER 2024-07-12 11:17 | Outpatient (AMB) | payer OTHER, SELFPAY ==
[2024-07-12 11:22] VITALS: BP 98/54; PULSE 73; BMI 34.2
--- NOTE | 2024-07-12 11:22 | A.OFFVIS_ITS ---
Vital Signs 07/12/24 11:22 Height 5 ft 2 in Weight 187 lb 2.759 oz BMI 34.2 BP 98/54 L Blood Pressure Location Lt brachial Position Sitting Pulse 73 Pulse Source Pulse Oximeter Intake Visit Reasons: Elevated TSH Intake Note: Patient present today for Elevated TSH office visit. Ticket Speculator Required: No Accompanied by: Self / Same As Patient Allergies shellfish derived Allergy (Severe, Verified 07/12/24 11:26) Oral swelling levothyroxine sodium [From Synthroid] Allergy (Intermediate, Verified 07/12/24 11:26) Rash levothyroxine Allergy (Mild, Verified 07/12/24 11:26) Rash ENVIRONMENTAL Allergy (Severe, Uncoded 07/12/24 11:26) SINUS, SNEEZING HPI Comments Details: 38 year old female here today for follow up of Hashimotos disease. Levothyroxine started February 2024 used it for 2 months had allergic reaction with rash and itchiness Changed to Synthroid brand and still continued to have itchiness Stopped thyroid medicine 05/24/24 LMP : 06/09/24 Reports fatigue Bowel movements are regular No skin or hair changes No heat or cold intolerance Losing weight with Mounjaro : lost 7 lbs Patient denies any difficulty swallowing, pain on swallowing or voice changes or difficulty breathing. Patient denies any history of childhood neck radiation. Denies having ever used lithium, amiodarone or biotin supplements. Patient denies any family history of thyroid cancer Maternal aunt and cousin have hyperthyroidism Interval history Labs 07/06/2024 showed TSH of 2.28, free T4 0.99 Physical exam General: sitting comfortably in no acute distress HEENT: normocephalic/atraumatic, moist oral mucosa Neck: supple, symmetrical, no thyromegaly , no dorsocervical or supraclavicular fat pads Cardiac: normal heart sounds Pulm: normal breath sounds B/L, no added breath sounds Abd: not distended, no tenderness Extremities: no edema, no signs of myxedema Neuro: AAO x3, Speech: normal, no facial droop, moving all 4 extremities Laboratory Tests 02/17/23 02/24/23 05/22/23 08:03 09:24 10:05 TSH 4.74 H 2.45 3.67 Free T4 0.81 02/12/24 04/07/24 08:53 12:32 TSH 3.43 1.90 Free T4 Laboratory Tests 02/24/23 09:24 Thyroid Peroxidase Ab 426 H Laboratory Tests 07/06/24 Unknown TSH 2.28 Free T4 0.99 [facility] Medical History (Updated 07/12/24 @ 10:03 by Sam Dukes MD) Asthma-COPD overlap syndrome Retrocalcaneal bone spur Left ankle injury Allergies Autumn's disease Orthostatic hypotension Left anterior knee pain Asthma BMI 33.0-33.9,adult Intermittent palpitations Obesity (BMI 30-39.9) Intrauterine contraceptive device RODRIGUEZ on CPAP Morbid obesity Moderate persistent asthma Degenerative disc disease, lumbar ASCUS favor benign Seasonal allergies Depression with anxiety Surgical History S/P laparoscopic sleeve gastrectomy History of repair of hiatal hernia History of esophagogastroduodenoscopy (EGD) History of appendectomy History of tonsillectomy Family History Mother Stroke Dementia Migraines Kidney stone Father Asthma Sister Asthma Son Asthma Daughter Anxiety Depressed Social History Household Members: Children Housing: Apartment Are you a primary rn acute care to a significant other at home: Yes (children) Do you presently have visiting nurse or other home services: No Alcohol intake: never Patient Tobacco Use Status: Never used Tobacco e-Cigarette/Vaping Use: Never Used Second Hand Smoke Exposure: No service: No Current occupational status: employed Current occupation: [employer] Current occupational exposures/hazards: No Cognitive needs: No Hearing needs: No Vision needs: No Female Reproductive History Menstrual Age of Menarche: 12 Physical Exam Vital Signs: Last Vital Signs Pulse 73 07/12/24 11:22 BP 98/54 L 07/12/24 11:22 BMI result Body Mass Index 34.2 Assessment & Plan Assessment & Plan (1) Elevated TSH: Code(s): R79.89 - Other specified abnormal findings of blood chemistry Category: Medical Plan: 38-year-old female coming in today for follow up of hypothyroidism. Started taking levothyroxine 25 mcg daily in February 2024 which was prescribed by PCP due to TSH of the high normal side and patient complaining of fatigue. She says she did have some improvement in fatigue with the levothyroxine. However she unfortunately had severe itching and rash with the medication and was switched to Synthroid, however had even worsening of itching with that. At this point she has been taken off the medicine 05/26/2024. Labs 07/06/2024 showed TSH of 2.28, free T4 0.99, at this point labs are totally normal while she is off medicine. No need for any thyroid medication, patient does not need to follow up with us, her primary care provider can repeat thyroid labs in 6 months in summer 2024 and then annually. If she develops hypothyroidism in the future and if she ends up needing medication, Can consider prescribing her brand-name Tirosint. Plan: -no need to follow up with the endocrinology -no need for thyroid medication -follow up primary care provider who can repeat thyroid blood work with TSH and free T4 in 6 months sometime in summer 2024 and then check it once a annually, if labs are abnormal patient can be sent back to us Plan See above Patient Instructions: Primary care provider can repeat blood work in 6 months whihc would be summer 2024, and then check it once annually, if abnormal, can send back to us Coding Level of Care Code Est Pt Level 3 (90563) Diagnoses Elevated TSH R79.89
== END 2024-07-12 11:34 | disposition home or self-care (01) ==
PROVIDERS: PCP Nurse Practitioner Family; Visit Provider Student in an Organized Health Care Education/Training Program
DX: R79.89 Other specified abnormal findings of blood chemistry (principal)
CPT/HCPCS: 99213

== ENCOUNTER 2024-07-21 14:45 | Outpatient (AMB) | payer OTHER, SELFPAY ==
--- NOTE | 2024-07-21 14:59 | MHC.OFFVIS ---
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 No complaints. The patient is interested in Mirena IUD removal and reinsertion last insertion was 8 years ago Last Pap/HPV was negative in 01/26 [facility] Medical History Asthma-COPD overlap syndrome Retrocalcaneal bone spur Left ankle injury Allergies Autumn's disease Orthostatic hypotension Left anterior knee pain Asthma BMI 33.0-33.9,adult Intermittent palpitations Obesity (BMI 30-39.9) Intrauterine contraceptive device RODRIGUEZ on CPAP Morbid obesity Moderate persistent asthma Degenerative disc disease, lumbar ASCUS favor benign Seasonal allergies Depression with anxiety Surgical History S/P laparoscopic sleeve gastrectomy History of repair of hiatal hernia History of esophagogastroduodenoscopy (EGD) History of appendectomy History of tonsillectomy Family History Mother Stroke Dementia Migraines Kidney stone Father Asthma Sister Asthma Son Asthma Daughter Anxiety Depressed Social History Household Members: Children Housing: Apartment Are you a primary patient care representative to a significant other at home: Yes (children) Do you presently have visiting nurse or other home services: No Alcohol intake: never Patient Tobacco Use Status: Never used Tobacco e-Cigarette/Vaping Use: Never Used Second Hand Smoke Exposure: No service: No Current occupational status: employed Current occupation: [employer] Current occupational exposures/hazards: No Cognitive needs: No Hearing needs: No Vision needs: No Female Reproductive History Menstrual Age of Menarche: 12 control method: progestin IUCD Date of last pap smear: 02/02/20 Review of Systems Const All systems reviewed & are unremarkable except as noted in HPI and below Card Reports as per HPI Resp Reports as per HPI GI Reports as per HPI and Reports no additional complaints Reports as per HPI Physical Exam Vital Signs: Last Vital Signs BP 116/74 07/21/24 15:00 BMI result Body Mass Index 34.2 Const General: cooperative, healthy appearing and comfortable Chest Chest palpation & inspection: normal inspection of the chest and normal palpation of entire chest wall Breast/axilla inspection: normal inspection of the breasts and normal inspection of the axillae Breast/axilla palpation: normal palpation of the breasts, normal palpation of the axillae and no axillary lymphadenopathy Resp Effort & Inspection: normal respiratory effort Auscultation: clear to auscultation bilaterally Percussion: percussion normal Cardio Palpation: normal PMI Rate: regular rate Rhythm: regular rhythm Heart sounds: no murmurs and no rubs Peripheral pulses: Peripheral pulses 2+ throughout GI Inspection: Yes normal to inspection Palpation (GI): Soft to palpation, nontender, no guarding, not rigid and No hepatosplenomegaly present Percussion: Yes normal to percussion Auscultation: normal bowel sounds Rectal Exam - Female: deferred General: Yes bladder normal to palpation External Female Exam: No lesion Speculum Exam - Vagina: normal appearance of the vagina, normal palpation, normal vaginal discharge and not erythematous Speculum Exam - Cervix: normal appearance of the cervix, normal palpation and Other cervical findings present (IUD thread in place) Bimanual exam- vagina & uterus: normal bimanual exam, normal palpation, uterine size normal, bladder normal to palpation, consistency normal and normal palpation Bimanual Exam- Adnexa, other: normal adnexae, no masses and no tenderness Office Procedures IUD Insert/Removal Details Details: The patient is presenting for IUD removal and IUD reinsertion. Her last menstrual period was within the last 5 days, Urine test was done in the office and was negative; All the contraindications were excluded. The following possible complications were discussed with the patient: Intrauterine , Ectopic , Sepsis, Pelvic Infection, Irregular Bleeding and Amenorrhea, Perforation, Expulsion, Ovarian Cysts, Breast Cancer. The following adverse effects were discussed with the patient: alteration of menstrual bleeding pattern, including: unscheduled uterine bleeding decreased uterine bleeding increased scheduled uterine bleeding female genital tract bleeding ,amenorrhea , genital discharge , vulvovaginitis , breast pain , benign ovarian cyst and associated complications , dysmenorrhea , Gastrointestinal disorders abdominal/pelvic pain, headache/migraine , back pain , acne , depression Alternative options were discussed with the patient including but not limited: control pills, patch, NuvaRing, Depo-medroxyprogesterone acetate, Nexplanon, copper IUD, sterilization, vasectomy, others The procedure was explained in detail to patient , at the end patient signed the informed consent obtained. Alternative options were discussed with the patient The patient signed the consent and agreed with the plan; all questions answered. Urine test was done in the office and was negative Preop dx: Requesting IUD removal and Reinsertion Op: IUD removal and Mirena insertion Post op dx: same EBL= 10 cc Procedure: The patient was put in the dorsal lithotomy position a speculum was inserted in the vagina the IUD thread identified. Using a Shruti clamp the thread was grasped and the IUD pulled out with no complications. A no touch technique was used throughout the procedure. A speculum was placed into vagina and cervix was cleaned with betadine). A tenaculum was placed. A plastic sound was advanced through the external and internal os until it reached the fundus of the uterus, the depth was 8 cm. The sound was then withdrawn. The IUD was loaded in a sterile manner and advanced into position. The string was visualized and cut to 3 cm. Tenaculum site hemostatic. All instruments removed from vagina. Patient tolerated the procedure well. NO complications were noted. Patient was instructed to call for fever over 100.4, significant pain unrelieved by Motrin, IUD expulsion, heavy bleeding, or abnormal discharge. In addition, the following clinical considerations were discussed with the patient to call for removal: A stroke or heart attack ,Very severe or migraine headaches ,Unexplained fever ,Yellowing of the skin or whites of the eyes, as these may be signs of serious liver problems , or suspected , Pelvic pain or pain during sex ,HIV positive seroconversion in herself or her partner , Possible exposure to sexually transmitted infections Unusual vaginal discharge or genital sores , severe vaginal bleeding or bleeding that lasts a long time, or if she misses a menstrual period, Inability to feel Mirena's threads Counseled the patient that the IUD does not protect against STI's, recommended use of condoms for the first 7 days post insertion and explained to the patient that condoms are recommended for patients at risk for sexually transmitted infections. Follow up appointment made for 4 weeks following insertion. Date of removal in no more than five years for DUB treatment and 8 years for contraception from today?s date was d/w patient. This note was generated with a voice recognition program. Some errors may have been overlooked during the review of this note. Sometimes these errors may affect the content or meaning of a given sentence. 64251-AHU Insertion 06941-QPI Removal Procedure code (CPT) selection complete Office Meds Mirena 21 mcg/24 hr (up to 8 years) 52 mg intrauterine device Performing Provider: Ortiz Rey MD Performing Location: [facility] Documented (not given) by: Ortiz Rey MD on 07/21/24 15:33 Dose Route Admin Location Dispensed Lot Number Expiration Date [facility] Branch Manager Trainee 1 device intrauterine ea Results AMB Test Urine AMB Test Urine Negative Last Edit by Anastasia Wasserman CMA on 07/21/24 15:14 Assessment & Plan Assessment & Plan (1) Well woman exam: Code(s): Z01.419 - Encounter for gynecological examination (general) (routine) without abnormal findings Category: Medical Plan: Cotesting done. Counseled the patient about the recommended dietary allowance of 1000 mg of Calcium & 600 IU of vitamin D. The patient was instructed to perform monthly self-breast exams and to schedule an annual exam in a year; All questions answered and the patient verbalized understanding. Instructed the patient to schedule annual exam in a year (2) Encounter for IUD removal and reinsertion: Code(s): Z30.433 - Encounter for removal and reinsertion of intrauterine contraceptive device Category: Medical Plan: UPT was negative. GC/CT collected. Mirena IUD removed and a new Mirena IUD inserted. See procedure note Orders: Orders AMB HCG Urine Test Today Z32.02 - Encounter for test, result negative AMB IUD Insertion/Removal - Practice Supplied Today Z30.433 - Encounter for removal and reinsertion of intrauterine contraceptive device Medications: New Mirena (levonorgestrel) 1 device intrauterine ONCE 1 ea 0RF IUD removal/insertion NS Z30.433 - Encounter for removal and reinsertion of intrauterine contraceptive device Coding Level of Care Code Est Pt Level 3 (39997) Procedure Only Diagnoses Well woman exam Z01.419 Encounter for IUD removal and reinsertion Z30.433 CPT Codes Details - CPT: 69824-SFZ Insertion ([id number]) Details - CPT: 86913-ACW Removal ([id number])
[2024-07-21 15:00] VITALS: BP 116/74; BMI 34.2
--- OUTSIDE RECORDS SUMMARY | 2024-07-21 15:58 | XMS_ITS | Encounter Summary ---
Author Organization [facility] Address [address] [place] [address] Care Team Providers Care Branch Logistics Supervisor Name Role Phone Yola Vigil Primary Care Provider Unavailabl e Tano Guo MD Primary Care Provider Un available Yola Vigil Primary Care Provider Unavailabl e Reason for Referral * EXTERNAL (Priority) - Authorized/Booked Specialty Diagnoses / Procedures Referred By Contac t Referred To Contact Allergy & Immunology / Allergy Procedures REFERRAL TO ALLERGY Sam Dukes MD [address] [place] [phone] Nathaniel Humphrey MD [address] [place] [address] Referral ID Status Reason Start Date Expiration Date V isits Requested Visits Authorized SEE NOTE Authorized/B ooked 12/19/2017 03/21/2018 1 1 Encounter Details Date Type Department Care Team Description 12/19/2017 Orders Only Pulmonology - [place] [address] [facility] [address] [place] [phone] Sam Dukes MD Severe persistent asthma [...] Primary documented in this encounter Care Teams Branch Logistics Supervisor Relationship Specialty Start Date End Date Yola Vigil PCP - General Family Practice 07/23/17 06/24/18 Tano Guo MD PCP - General Internal Medicine 06/25/18 9 Yola Vigil PCP - General Family Practice 08/13/18 documented as of this encounter
--- OUTSIDE RECORDS SUMMARY | 2024-07-21 15:58 | XMS_ITS | Encounter Summary ---
Author Organization [facility] Address [address] [place] [address] Care Team Providers Care Shotgun Shell Reprinting Unit Operator Name Role Phone Yola Vigil Primary Care Provider Unavailkarina e Tano Guo MD Primary Care Provider Un available Yola Vigil Primary Care Provider Unavailkarina e Encounter Details Date Type Department Care Team Description 08/01/2017 Release of Information Medical Records [address] [place] [id number] Abstract, Provider Social History Tobacco Use Types Packs/Day Years Used Date Smoking Tobacco: Never Smokeless Tobacco: Never Sex Assigned at Date Recorded Not on file documented as of this encounter Plan of Treatment Not on file documented as of this encounter Visit Diagnoses Not on filedocumented in this encounter Care Teams Shotgun Shell Reprinting Unit Operator Relationship Specialty Start Date End Date Yola Vigil PCP - General Family Practice 07/23/17 06/24/18 Tano Guo MD PCP - General Internal Medicine 06/25/18 9 Yola Vigil PCP - General Family Practice 08/13/18 documented as of this encounter
--- OUTSIDE RECORDS SUMMARY | 2024-07-21 15:58 | XMS_ITS | Encounter Summary ---
Author Organization [facility] Address [address] [place] [address] Care Team Providers Care Cooker Syrup Name Role Phone Yola Vigil Primary Care Provider Unavailkarina e Tano Guo MD Primary Care Provider Un available Yola Vigil Primary Care Provider Unavailkarina e Encounter Details Date Type Department Care Team Description 07/31/2017 Transfer Records Medical Records [address] [place] [address] Abstract, Provider Social History Tobacco Use Types Packs/Day Years Used Date Smoking Tobacco: Never Smokeless Tobacco: Never Sex Assigned at Date Recorded Not on file documented as of this encounter Plan of Treatment Not on file documented as of this encounter Visit Diagnoses Not on filedocumented in this encounter Care Teams Cooker Syrup Relationship Specialty Start Date End Date Yola Vigil PCP - General Family Practice 07/23/17 06/24/18 Tano Guo MD PCP - General Internal Medicine 06/25/18 9 Yola Vigil PCP - General Family Practice 08/13/18 documented as of this encounter
--- OUTSIDE RECORDS SUMMARY | 2024-07-21 15:58 | XMS_ITS | Encounter Summary ---
Author Organization [facility] Address [address] [place] [address] Care Team Providers Care Technical Services Rep Name Role Phone Yola Vigil Primary Care Provider Vita e Tano Guo MD Primary Care Provider Un available Yola Vigil Primary Care Provider Unavailkarina e Reason for Visit * Reason Onset Date Comments Call From Md Office 03/06/2018 Encounter Details Date Type Department Care Team Description 03/06/2018 Telephone Pulmonology - [address] [place] [address] Sam Dukes MD Call From [...] 10:25 AM EDT Faxed all noted from [facility] total. * Telephone Encounter - Dia Adler - 03/06/2018 10:21 AM EDT Patient was referred by Dr. Dukes and they are requesting the last 6 office visit notes over the past 6 mths Please review documented in this encounter Plan of Treatment Not on file documented as of this encounter Visit Diagnoses Not on filedocumented in this encounter Care Teams Technical Services Rep Relationship Specialty Start Date End Date Yola Vigil PCP - General Family Practice 07/23/17 06/24/18 Tano Guo MD PCP - General Internal Medicine 06/25/18 9 Yola Vigil PCP - General Family Practice 08/13/18 documented as of this encounter
--- OUTSIDE RECORDS SUMMARY | 2024-07-21 15:58 | XMS_ITS | Encounter Summary ---
Author Organization [facility] Address [address] [place] [address] Care Team Providers Care Outsole Handler Name Role Phone Steve Vigilha Primary Care Provider Unavailabl e Reason for Visit * Reason Comments E-prescribe Rx Request Encounter Details Date Type Department Care Team Description 02/28/2019 Refill Pulmonology - [place] [address] [facility] [address] [place] [address] Sorin Johnston PA-C [address] [facility] [address] [place] [address] E-prescribe Rx Request Social History Tobacco Use Types Packs/Day Years Used Date Smoking Tobacco: Never Smokeless Tobacco: Never Alcohol Use Standard Drinks/Week Comments No 0 (1 standard drink = 0.6 oz pur e alcohol) Sex Assigned at Date Recorded Not on file documented as of this encounter Miscellaneous Notes * Telephone Encounter - Shobha Florez - 03/01/2019 10:49 AM EDT Patient would like script to be: E-PRESCRIBED/FAXED TO PHARMACY WHEN WAS THE PATIENT'S LAST APPOINTMENT WITH THE PRESCRIBING PROVIDER? 11/25/18 w/Mark Dukes Does patient have an upcoming appointment? NO, PATIENT CANCELLED APPT AND STATED WILL BE FOLLOWING DR DUKES (THE MEDICATION REQUESTED IS ON THE MED LIST ABOVE) All of the medications requested were on the CURRENT MEDS list Did you check the Pharmacy information above?: YES Patient wants: 30 -day supply Is this a mail order prescription request ? NO Patients current insurance carrier is: [facility] / Plan: [facility] / Product Type: MEDICAID RISK documented in this encounter Plan of Treatment Not on file documented as of this encounter Visit Diagnoses Not on filedocumented in this encounter Care Teams Outsole Handler Relationship Specialty Start Date End Date Yola Vigil PCP - General Family Practice 08/13/18 documented as of this encounter
--- OUTSIDE RECORDS SUMMARY | 2024-07-21 15:58 | XMS_ITS | Encounter Summary ---
Author Organization [facility] Address [address] [place] [address] Care Team Providers Care Electron Beam Machine Welder Setter Name Role Phone Yola Vigil Primary Care Provider Unavailkarina e Tano Guo MD Primary Care Provider Un available Yola Vigil Primary Care Provider Vita mishra Encounter Details Date Type Department Care Team Description 03/03/2018 Mat Tester Report Medical Records [address] [place] [address] Kunal Martinez Social History Tobacco Use Types Packs/Day Years [...] on filedocumented in this encounter Care Teams Electron Beam Machine Welder Setter Relationship Specialty Start Date End Date Yola Vigil PCP - General Family Practice 07/23/17 06/24/18 Tano Guo MD PCP - General Internal Medicine 06/25/18 9 Yola Vigil PCP - General Family Practice 08/13/18 documented as of this encounter
--- OUTSIDE RECORDS SUMMARY | 2024-07-21 15:58 | XMS_ITS | Encounter Summary ---
Author Organization [facility] Address [address] [place] [address] Care Team Providers Care Tank Car Loader Name Role Phone Yola Vigil Primary Care Provider Vita e Tano Guo MD Primary Care Provider Un available Yola Vigil Primary Care Provider Unavailabl e Reason for Visit * Reason Onset Date Comments Call-returning From Provider 12/19/2017 Encounter Details Date Type Department Care Team Description 12/19/2017 Telephone Pulmonology - [address] [place] [address] Sam Dukes MD Call-returning From Provider Social History Tobacco Use Types Packs/Day Years Used Date Smoking Tobacco: Never Smokeless Tobacco: Never Alcohol Use Standard Drinks/Week Comments No 0 (1 standard drink = 0.6 oz pur e alcohol) Sex Assigned at Date Recorded Not on file documented as of this encounter Miscellaneous Notes * Telephone Encounter - Sam Dukes MD - 12/19/2017 5:19 PM EDT Yes, left a message to let her know that her allergy test were abnormal and that I was going to refer her to allergy. * Telephone Encounter - Shruti Penn M.A. - 12/19/2017 1:27 PM EDT Did you call her? * Telephone Encounter - Jessi Mejia - 12/19/2017 1:19 PM EDT Pt said she is calling to return a call from Dr Dukes pt says she doesn't know why he called documented in this encounter Plan of Treatment Not on file documented as of this encounter Visit Diagnoses Not on filedocumented in this encounter Care Teams Tank Car Loader Relationship Specialty Start Date End Date Yola Vigil PCP - General Family Practice 07/23/17 06/24/18 Tano Guo MD PCP - General Internal Medicine 06/25/18 9 Yola Vigil PCP - General Family Practice 08/13/18 documented as of this encounter
--- OUTSIDE RECORDS SUMMARY | 2024-07-21 15:58 | XMS_ITS | Encounter Summary ---
Author Organization [facility] Address [address] [place] [address] Care Team Providers Care Childhood Teacher Name Role Phone Yola Vigil Primary Care Provider Vita e Tano Guo MD Primary Care Provider Un available Yola Vigil Primary Care Provider Unavailkarina e Reason for Visit * Reason Onset Date Comments Medication 09/19/2017 Encounter Details Date Type Department Care Team Description 09/19/2017 Telephone Pulmonology - [address] [place] [address] Sam Dukes MD Medication Social History Tobacco Use Types Packs/Day Years Used Date Smoking Tobacco: Never Smokeless Tobacco: Never Sex Assigned at Date Recorded Not on file documented as of this encounter Miscellaneous Notes * Telephone Encounter - Sam Dukes MD - 09/19/2017 5:05 PM EDT It was symbicort. I will try sending advair HFA * Telephone Encounter - Shruti Penn M.A. - 09/19/2017 1:42 PM EDT Please advise. * Telephone Encounter - Jessi Mejia - 09/19/2017 1:33 PM EDT Pt is calling in she says that HER MEDICATION DOES NOT COVER HER INHALER Dr FORD TOLD HER YYO CALL IF IT WANTS COVERED AND HER WOULD GIVE A SAMPLE PT DOENT KNOW THE MEDICATION NAME BECAUSE IT ISNEW documented in this encounter Plan of Treatment Not on file documented as of this encounter Visit Diagnoses Diagnosis Moderate persistent asthma without complication- Primary Unspecified asthma documented in this encounter Care Teams Childhood Teacher Relationship Specialty Start Date End Date Yola Vigil PCP - General Family Practice 07/23/17 06/24/18 Tano Guo MD PCP - General Internal Medicine 06/25/18 9 Yola Vigil PCP - General Family Practice 08/13/18 documented as of this encounter
== END 2024-07-21 15:26 | disposition home or self-care (01) ==
LOC: HO.HWS 14:45
PROVIDERS: PCP Nurse Practitioner Family; Visit Provider Obstetrics & Gynecology
DX: Z01.419 Encounter for gynecological examination (general) (routine) without abnormal findings (principal); Z30.433 Encounter for removal and reinsertion of intrauterine contraceptive device; Z32.02 Encounter for pregnancy test, result negative
CPT/HCPCS: 58300; 58301; 99213

== ENCOUNTER 2024-07-21 14:45 | Outpatient (REF) | payer OTHER, SELFPAY ==
--- OUTSIDE RECORDS SUMMARY | 2024-07-21 16:28 | XMS_ITS | Encounter Summary ---
Author Organization [facility] Address [address] [place] [address] Care Team Providers Care Coffee Weigher Name Role Phone Yola Vigil Primary Care Provider Unavailkarina e Tano Guo MD Primary Care Provider Un available Yola Vigil Primary Care Provider Unavailkarina e Encounter Details Date Type Department Care Team Description 07/31/2017 Transfer Records Medical Records [address] [place] [address] Abstract, Provider Social History Tobacco Use Types Packs/Day Years Used Date Smoking Tobacco: Never Smokeless Tobacco: Never Sex Assigned at Date Recorded Not on file documented as of this encounter Plan of Treatment Not on file documented as of this encounter Visit Diagnoses Not on filedocumented in this encounter Care Teams Coffee Weigher Relationship Specialty Start Date End Date Yola Vigil PCP - General Family Practice 07/23/17 06/24/18 Tano Guo MD PCP - General Internal Medicine 06/25/18 9 Yola Vigil PCP - General Family Practice 08/13/18 documented as of this encounter
--- OUTSIDE RECORDS SUMMARY | 2024-07-21 16:28 | XMS_ITS | Encounter Summary ---
Author Organization [facility] Address [address] [place] [address] Care Team Providers Care Specialty Department Supervisor Name Role Phone Yola Vigil Primary Care Provider Vita e Tano Guo MD Primary Care Provider Un available Yola Vigil Primary Care Provider Unavailabl e Reason for Visit * Reason Onset Date Comments Call-returning From Provider 12/19/2017 Encounter Details Date Type Department Care Team Description 12/19/2017 Telephone Pulmonology - [address] [place] [address] Sam Dukes MD Call-returning From [...] on filedocumented in this encounter Care Teams Specialty Department Supervisor Relationship Specialty Start Date End Date Yola Vigil PCP - General Family Practice 07/23/17 06/24/18 Tano Guo MD PCP - General Internal Medicine 06/25/18 9 Yola Vigil PCP - General Family Practice 08/13/18 documented as of this encounter
--- OUTSIDE RECORDS SUMMARY | 2024-07-21 16:28 | XMS_ITS | Encounter Summary ---
Author Organization [facility] Address [address] [place] [address] Care Team Providers Care Soft Metals Engraver Hand Name Role Phone Steve Vigilha Primary Care Provider Unavailabl e Reason for Visit * Reason Comments E-prescribe Rx Request Encounter Details Date Type Department Care Team Description 02/28/2019 Refill Pulmonology - [place] [address] [facility] [address] [place] [address] Sorin Johnston PA-C [address] [facility] [address] [place] [address] E-prescribe Rx Request Social History [...] NO Patients current insurance carrier is: [facility] / Plan: [facility] / Product Type: MEDICAID RISK documented in this encounter Plan of Treatment Not on file documented as of this encounter Visit Diagnoses Not on filedocumented in this encounter Care Teams Soft Metals Engraver Hand Relationship Specialty Start Date End Date Yola Vigil PCP - General Family Practice 08/13/18 documented as of this encounter
--- OUTSIDE RECORDS SUMMARY | 2024-07-21 16:28 | XMS_ITS | Encounter Summary ---
Author Organization [facility] Address [address] [place] [address] Care Team Providers Care Movie Producer Name Role Phone Yola Vigil Primary Care Provider Unavailabl e Reason for Visit * Reason Onset Date Comments medication problems 09/02/2018 Encounter Details Date Type Department Care Team Description 09/02/2018 Telephone Pulmonology - [address] [place] [address] Sam Dukes MD medication problems [...] 108 (90 BASE) MCG/ACT Aero Soln Tiotropium [place] Monohydrate (SPIRIVA RESPIMAT) 2.5 MCG/ACT Aero Soln documented in this encounter Plan of Treatment Not on file documented as of this encounter Visit Diagnoses Not on filedocumented in this encounter Care Teams Movie Producer Relationship Specialty Start Date End Date Yola Vigil PCP - General Family Practice 08/13/18 documented as of this encounter
--- OUTSIDE RECORDS SUMMARY | 2024-07-21 16:28 | XMS_ITS | Encounter Summary ---
Author Organization [facility] Address [address] [place] [address] Care Team Providers Care Card Dealer Name Role Phone Yola Vigil Primary Care Provider Unavailabl e Tano Guo MD Primary Care Provider Un available Yola Vigil Primary Care Provider Unavailabl e Reason for Referral * EXTERNAL (Priority) - Authorized/Booked Specialty Diagnoses / Procedures Referred By Contac t Referred To Contact Allergy & Immunology / Allergy Procedures REFERRAL TO ALLERGY Sam Dukes MD [address] [place] [phone] Nathaniel Humphrey MD [address] [place] [address] Referral ID Status Reason Start Date Expiration Date V isits Requested Visits Authorized SEE NOTE Authorized/B ooked 12/19/2017 03/21/2018 1 1 Encounter Details Date Type Department Care Team Description 12/19/2017 Orders Only Pulmonology - [place] [address] [facility] [address] [place] [address] Sam Dukes MD Severe persistent asthma [...] Primary documented in this encounter Care Teams Card Dealer Relationship Specialty Start Date End Date Yola Vigil PCP - General Family Practice 07/23/17 06/24/18 Tano Guo MD PCP - General Internal Medicine 06/25/18 9 Yola Vigil PCP - General Family Practice 08/13/18 documented as of this encounter
--- OUTSIDE RECORDS SUMMARY | 2024-07-21 16:28 | XMS_ITS | Encounter Summary ---
Author Organization [facility] Address [address] [place] [address] Care Team Providers Care Clinical Field Specialist Name Role Phone Yola Vigil Primary Care Provider Vita e Encounter Details Date Type Department Care Team Description 08/13/2018 Orders Only Medical Records [address] [place] [address] Abstract, Provider Severe persistent asthma without complication; [...] (HCC) documented in this encounter Care Teams Clinical Field Specialist Relationship Specialty Start Date End Date Yola Vigil PCP - General Family Practice 08/13/18 documented as of this encounter
--- OUTSIDE RECORDS SUMMARY | 2024-07-21 16:28 | XMS_ITS | Encounter Summary ---
Author Organization [facility] Address [address] [place] [address] Care Team Providers Care Bean Snipper Name Role Phone Yola Vigil Primary Care Provider Unavailkarina e Tano Guo MD Primary Care Provider Un available Yola Vigil Primary Care Provider Unavailkarina e Encounter Details Date Type Department Care Team Description 08/01/2017 Release of Information Medical Records [address] [place] [id number] Abstract, Provider Social History Tobacco Use Types Packs/Day Years Used Date Smoking Tobacco: Never Smokeless Tobacco: Never Sex Assigned at Date Recorded Not on file documented as of this encounter Plan of Treatment Not on file documented as of this encounter Visit Diagnoses Not on filedocumented in this encounter Care Teams Bean Snipper Relationship Specialty Start Date End Date Yola Vigil PCP - General Family Practice 07/23/17 06/24/18 Tano Guo MD PCP - General Internal Medicine 06/25/18 9 Yola Vigil PCP - General Family Practice 08/13/18 documented as of this encounter
--- OUTSIDE RECORDS SUMMARY | 2024-07-21 16:28 | XMS_ITS | Encounter Summary ---
Author Organization [facility] Address [address] [place] [address] Care Team Providers Care Toy Painter Name Role Phone Yola Vigil Primary Care Provider Tano Friedman MD Primary Care Provider Un available Yola Vigil Primary Care Provider Unavailkarina e Reason for Visit * Reason Onset Date Comments Medication 05/28/2018 Encounter Details Date Type Department Care Team Description 05/28/2018 Telephone Pulmonology - [address] [place] [address] Sam Dukes MD Medication Social History Tobacco Use Types Packs/Day Years Used Date Smoking Tobacco: Never Smokeless Tobacco: Never Alcohol Use Standard Drinks/Week Comments No 0 (1 standard drink = 0.6 oz pur e alcohol) Sex Assigned at Date Recorded Not on file documented as of this encounter Miscellaneous Notes * Telephone Encounter - Sam Dukes MD - 06/08/2018 4:41 PM EST Ok sent * Telephone Encounter - Shruti Penn M.A. - 06/08/2018 4:29 PM EST Spoke to pharmacy they do not have what you ordered they can get adarsh 24 but would need a new script.then they will see if its covered by [employer]. * Telephone Encounter - Shobha Florez - 06/08/2018 4:08 PM EST Patient called today regarding the medication Theophilline. In recent days the Pharmacy called our office questioning whether it is possible to use a generic medication instead of using the brand name? Patient's insurance will not cover brand name. The Pharmacy needs a script for the generic medication (if there is one). * Telephone Encounter - Shobha Florez - 05/28/2018 3:27 PM EST This is to document regarding the attached conversation that the patient believed this was the medication the pharmacy spoke about regarding a generic but did not have the exact name in front of her. * Telephone Encounter - Shobha Florez - 05/28/2018 3:17 PM EST theophylline (THEODUR) 200 MG 12 hr tablet Patient called today regarding this medication because her pharmacy told requested a generic since insurance will not cover. Pharmacy also called/or faxed our office regarding this on 05/25/18. Patient called to check into - please advise. documented in this encounter Plan of Treatment Not on file documented as of this encounter Visit Diagnoses Not on filedocumented in this encounter Care Teams Toy Painter Relationship Specialty Start Date End Date Yola Vigil PCP - General Family Practice 07/23/17 06/24/18 Tano Guo MD PCP - General Internal Medicine 06/25/18 9 Yola Vigil PCP - General Family Practice 08/13/18 documented as of this encounter
--- OUTSIDE RECORDS SUMMARY | 2024-07-21 16:28 | XMS_ITS | Encounter Summary ---
Author Organization [facility] Address [address] [place] [address] Care Team Providers Care Regional Rehabilitation Director Name Role Phone Yola Vigil Primary Care Provider Unavailabl e Encounter Details Date Type Department Care Team Description 01/19/2019 Refill Pulmonology - [address] [place] [address] Sam Dukes MD Social History Tobacco Use Types Packs/Day Years [...] on filedocumented in this encounter Care Teams Regional Rehabilitation Director Relationship Specialty Start Date End Date Yola Vigil PCP - General Family Practice 08/13/18 documented as of this encounter
[2024-07-22 07:24] LABS: CT PCR NOT DETECTED (Not Detect.); NG PCR NOT DETECTED (Not Detect.)
[2024-07-28 14:46] LABS: HPV Genotype 16 Negative (Negative); HPV Genotype 18 Negative (Negative); HPV High Risk Negative (Negative)
== END 2024-07-21 14:46 | disposition home or self-care (01) ==
LOC: HO.LNP 14:45
PROVIDERS: PCP Nurse Practitioner Family; Visit Provider Obstetrics & Gynecology
DX: Z30.433 Encounter for removal and reinsertion of intrauterine contraceptive device (principal); Z32.02 Encounter for pregnancy test, result negative
CPT/HCPCS: 58300; 58301; 81025; 87491; 87591; 87626; 88175; 99212; J7298

== ENCOUNTER 2024-08-16 08:03 | Outpatient (AMB) | payer OTHER, SELFPAY ==
[2024-08-16 08:09] VITALS: BP 116/72; PULSE 68; TEMP 37; O2SAT 97; BMI 32.9
--- NOTE | 2024-08-16 08:09 | A.OFFPC_ITS ---
Vital Signs 08/16/24 08:09 Height 5 ft 2 in Weight 180 lb BMI 32.9 BP 116/72 Blood Pressure Location Lt brachial Position Sitting Pulse 68 Pulse Source Pulse Oximeter Temp 98.6 F Temp Source Oral Pulse Oximetry (%) 97 Intake Visit Reasons: 6M F/U Intake Note: pt is here for 6 mon f.up Accompanied by: Self / Same As Patient Allergies shellfish derived Allergy (Severe, Verified 08/16/24 08:09) Oral swelling levothyroxine sodium [From Synthroid] Allergy (Intermediate, Verified 08/16/24 08:09) Rash levothyroxine Allergy (Mild, Verified 08/16/24 08:09) Rash ENVIRONMENTAL Allergy (Severe, Uncoded 07/21/24 15:12) SINUS, SNEEZING Medication List - Last Reconciled 08/16/24 by Vivek Aponte, BUILD MANAGER- albuterol sulfate 2.5 mg (3 mL) inhalation TID PRN budesonide-formoterol 160-4.5 mcg/actuation (Symbicort) 2 puffs inhalation BID 30 days buspirone 5 mg PO BID compr.stocking,thigh,reg,small As directed dupilumab (Dupixent) 300 mg (2 mL) subcut Q2W epinephrine 0.3 mg (0.3 mL) IM DAILY PRN fluoxetine 20 mg PO DAILY hydroxyzine HCl 25 mg PO BEDTIME ibuprofen 600 mg PO BID PRN levonorgestrel (Mirena) intrauterine loratadine 10 mg PO DAILY montelukast (Singulair) 10 mg PO BEDTIME 30 days nebulizers As directed omeprazole 20 mg PO DAILY roflumilast 500 mcg PO DAILY 90 days NS sucralfate 10 mL PO QID tiotropium bromide 2.5 mcg/actuation (Spiriva Respimat) 2 puffs inhalation DAILY 30 days tirzepatide (weight loss) (Zepbound) mg subcut trazodone 50 mg PO BEDTIME PRN Ventolin HFA 90 mcg/actuation (albuterol sulfate) 2 puffs PO Q4-6H PRN NS Tobacco use date assessed: 08/16/24 Dental Screening Dental Screen Date: 08/16/24 Did you have a dental visit in the last 12 months?: Yes Did you have a dental problem in the last 6 months where you did not have access to dental care?: No Was dental information given to patient?: Patient has dentist HPI 6M F/U HPI Details Chief Complaint Follow-up for dry skin and anxiety/depression management. History of Present Illness The patient is a 38-year-old female presenting with dry skin and psychological concerns, specifically anxiety disorder and major depressive disorder. Regular therapy sessions continue to control her mental health issues, with no reports of suicidal or homicidal ideations. 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 Use of ammonium lactate will be initiated to address the skin dryness. Social History - The patient did not report on any soci al determinants of health in the conversation. Health Maintenance - The patient did not discuss any vaccin ations, screenings, or lifestyle factors related to health maintenance in this visit. Review of Systems - Psychiatric: Reports anxiety and depre ssion under control; denies suicidal or homicidal ideation. - Dermatological: Reports dry skin on quiroz nds and feet, with periodic cystic lesions. - Cardiovascular/Respiratory: Denies kalia st pain and shortness of breath. - Gastrointestinal: Denies changes in devin wel movements. Physical Exam General: Cooperative, healthy appearing, comfortable, no acute distress and well developed Orientation: Patient oriented x3 Limitations: No limitations Head: Normal to inspection Ears: Hearing grossly normal bilaterally Nose: Normal external nose present Face and sinus: Normal facial exam Eyes: Appearance normal, both eyes and all related structures Neck: Normal visual inspection and Yes full ROM Respiratory: Normal respiratory effort and able to speak in complete sentences. Clear to auscultation bilaterally Cardiovascular: Regular rate and rhythm. Normal S1 and S2 GI: Normal to inspection. Soft to palpation and nontender Skin: Dry skin in between fingers and along feet. left lower torso with healing erythematous cystic lesion, same noted to right tricep region Neuro: Patient oriented x3 Extremities: Normal to inspection Results Plan The primary plan is to address the patient's xeroderma with ammonium lactate, which may aid in improving skin moisture. The management of her anxiety disorder and major depressive disorder remains unchanged, given their stability, and she will continue with regular therapy sessions. No changes are required at this kim e in her mental health treatment, considering the absence of any acute psychoemotional distress. Discussion Notes I discussed the patient's skin condition and recommended ammonium lactate to improve hydration and reduce dryness. For her mental health, I acknowledged that therapy is effectively managing her anxiety and depression. I emphasized the importance of continuing current mental health therapy for maintaining stability. Reassurance was provided regarding the absence of any depressive symptoms, such as suicidal ideation, and I underscored the need to contact healthcare services if there are any changes in her mental health status. Patient Instructions - Begin using ammonium lactate for dry s kin as directed. - Continue attending regular therapy ses sions for anxiety and depression management. - Monitor skin condition and mental heal th status; reach out if new symptoms develop. COUNTS INCLUDE 234 BEDS AT THE [facility] Medical History Asthma-COPD overlap syndrome Retrocalcaneal bone spur Left ankle injury Allergies Autumn's disease Orthostatic hypotension Left anterior knee pain Asthma BMI 33.0-33.9,adult Intermittent palpitations Obesity (BMI 30-39.9) Intrauterine contraceptive device RODRIGUEZ on CPAP Morbid obesity Moderate persistent asthma Degenerative disc disease, lumbar ASCUS favor benign Seasonal allergies Depression with anxiety Surgical History S/P laparoscopic sleeve gastrectomy History of repair of hiatal hernia History of esophagogastroduodenoscopy (EGD) History of appendectomy History of tonsillectomy Family History Mother Stroke Dementia Migraines Kidney stone Father Asthma Sister Asthma Son Asthma Daughter Anxiety Depressed Social History Household Members: Children Housing: Apartment Are you a primary medicare insurance specialist to a significant other at home: Yes (children) Do you presently have visiting nurse or other home services: No Alcohol intake: never Patient Tobacco Use Status: Never used Tobacco e-Cigarette/Vaping Use: Never Used Second Hand Smoke Exposure: No service: No Current occupational status: employed Current occupation: [employer] Current occupational exposures/hazards: No Cognitive needs: No Hearing needs: No Vision needs: No Female Reproductive History Menstrual Age of Menarche: 12 Questionnaire PHQ-9 Over the last 2 weeks, how often have you been bothered by any of the following problems? 1. Little interest or pleasure in doing things: not at all 2. Feeling down, depressed, or hopeless: not at all 3. Trouble falling or staying asleep, or sleeping too much: not at all 4. Feeling tired or having little energy: several days 5. Poor appetite or overeating: not at all 6. Feeling bad about yourself - or that you are a failure or have let yourself or your family down: not at all 7. Trouble concentrating on things, such as reading the newspaper or watching television: not at all 8. Moving or speaking so slowly that other people could have noticed. Or the opposite - being so fidgety or restless that you have been moving around a lot more than usual: not at all 9. Thoughts that you would be better off or of hurting yourself in some way: not at all Total score: 1 Depression Screening Interpretation: Negative Depression Screening Done: Yes 11985 - PHQ-9 Billing: Yes Source: Developed by Drs. Tuan Alves, Donna Epps, Piero Basurto and colleagues, with an educational will from [employer]. Thrive Questionnaire Date Thrive assessed: 08/16/24 I am a: Patient What is your living situation today?: I have a steady place to live Within the past 12 months, did the food you bought not last and you didn't have the money to get more?: Never true Within the past 12 months, did you worry whether your food would run out before you got money to buy more?: Never true Do you have trouble paying for medicines?: No Do you have trouble getting transportation to medical appointments?: No Do you have trouble paying your heating and electricity bill?: No Do you have trouble taking care of your child, family member or friend?: No Do you have trouble with day-to-day activities such as bathing, preparing meals, shopping, managing finances, etc.?: No Are you currently unemployed and looking for a job?: I choose not to answer this question Are you interested in more education?: No Please select the resources that you would like help with: None Currently or been in a relationship where the following occur: No concerns reported THRIVE Score: 0 AUDIT C Alcohol Use Questionnaire (AUDIT-C) 1. How often do you have a drink containing alcohol?: Never 3. How often do you have six or more drinks on one occasion?: Never Total Score: 0 Score Reviewed/Action Taken: Yes MIRANDA-7 AMB Questionnaire MIRANDA-7 Date MIRANDA - 7 assessed: 08/16/24 Feeling nervous, anxious, or on edge: 0 = Not at all Not being able to stop or control worryin = Not at all Worrying too much about different things: 0 = Not at all Trouble relaxin = Not at all Being so restless that it is hard to sit still: 0 = Not at all Becoming easily annoyed or irritable: 1 = Several days Feeling afraid as if something awful might happen: 0 = Not at all Total MIRANDA-7 score (0-4 normal; 5-9 mild; 10-14 moderate; 15-21 severe): 1 Source: Developed by Drs. Tuan Alves, Donna Epps, Piero Basurto and colleagues, with an educational will from [employer]. MIRANDA-7 Assessment Billing MIRANDA-7 Assessment Tool: MIRANDA-7 Assessment 02091 Physical exam (Primary Care) Vital Signs: Last Vital Signs Temp 98.6 F 08/16/24 08:09 Pulse 68 08/16/24 08:09 BP 116/72 08/16/24 08:09 Pulse Ox 97 08/16/24 08:09 BMI result Body Mass Index 32.9 Tobacco/Smoking Status: Tobacco use Status Tobacco use date assessed 08/16/24 08/16/24 08:14 Patient Tobacco Use Status Never used Tobacco 08/16/24 08:14 e-Cigarette/Vaping Use Never Used 08/16/24 08:14 PHQ-9: PHQ-9 Score PHQ-9: Total score 1 08/16/24 08:14 Depression Screening Interpretation: Negative Thrive Assessment: Date of Thrive Assessment Date Thrive assessed 08/16/24 08/16/24 08:14 Currently or been in a relationship where the following occur: No concerns reported Coding Level of Care Code Est Pt Level 3 (35491) Diagnoses Anxiety and depression F41.9; F32.A Additional Codes MIRANDA-7 Assessment Billing - MIRANDA-7 Assessment Tool: MIRANDA-7 Assessment 38199 ([id number]) PHQ-9 - 17003 - PHQ-9 Billing: Yes ([id number]) Assessment & Plan Assessment & Plan (1) Anxiety and depression: Code(s): F41.9 - Anxiety disorder, unspecified; F32.A - Depression, unspecified Category: Medical Plan . Orders: Orders Complete Blood Count Auto Diff Today F32.A - Depression, unspecified, F41.9 - Anxiety disorder, unspecified Comprehensive [place]. Panel Fast Today F32.A - Depression, unspecified, F41.9 - Anxiety disorder, unspecified TSH reflex Free T4 Today F32.A - Depression, unspecified, F41.9 - Anxiety disorder, unspecified UA CC w/rflx Micro + Cult Today F32.A - Depression, unspecified, F41.9 - Anxiety disorder, unspecified Lipid Panel Today F32.A - Depression, unspecified, F41.9 - Anxiety disorder, unspecified
== END 2024-08-16 08:45 | disposition home or self-care (01) ==
PROVIDERS: PCP Nurse Practitioner Family; Visit Provider Nurse Practitioner Family
DX: F41.9 Anxiety disorder, unspecified (principal); F32.A Depression, unspecified

== ENCOUNTER 2024-08-16 08:03 | Outpatient (REF) | payer OTHER, SELFPAY ==
--- OUTSIDE RECORDS SUMMARY | 2024-08-16 09:06 | XMS_ITS | Encounter Summary ---
Author Organization [facility] Address [address] [place] [address] Care Team Providers Care Shrink Pit Operator Name Role Phone Yola Vigil Primary Care Provider Vita e Tano Guo MD Primary Care Provider Un available Yola Vigil Primary Care Provider Unavailabl e Reason for Visit * Reason Onset Date Comments Call-returning From Provider 12/19/2017 Encounter Details Date Type Department Care Team Description 12/19/2017 Telephone Pulmonology - [address] [place] [address] Sam Dukes MD Call-returning From [...] on filedocumented in this encounter Care Teams Shrink Pit Operator Relationship Specialty Start Date End Date Yola Vigil PCP - General Family Practice 07/23/17 06/24/18 Tano Guo MD PCP - General Internal Medicine 06/25/18 9 Yola Vigil PCP - General Family Practice 08/13/18 documented as of this encounter
--- OUTSIDE RECORDS SUMMARY | 2024-08-16 09:06 | XMS_ITS | Encounter Summary ---
Author Organization [facility] Address [address] [place] [address] Care Team Providers Care Dairy Equipment Installer Name Role Phone Yola Vigil Primary Care Provider Tano Friedman MD Primary Care Provider Un available Yola Vigil Primary Care Provider Unavailkarina e Reason for Visit * Reason Onset Date Comments Medication 05/28/2018 Encounter Details Date Type Department Care Team Description 05/28/2018 Telephone Pulmonology - [address] [place] [address] Sam Dukes MD Medication Social [...] they will see if its covered by [employer]. * Telephone Encounter - Shobha Florez - [...] on filedocumented in this encounter Care Teams Dairy Equipment Installer Relationship Specialty Start Date End Date Yola Vigil PCP - General Family Practice 07/23/17 06/24/18 Tano Guo MD PCP - General Internal Medicine 06/25/18 9 Yola Vigil PCP - General Family Practice 08/13/18 documented as of this encounter
--- OUTSIDE RECORDS SUMMARY | 2024-08-16 09:06 | XMS_ITS | Encounter Summary ---
Author Organization [facility] Address [address] [place] [address] Care Team Providers Care Line Patroller Name Role Phone Yola Vigil Primary Care Provider Unavailabl e Tano Guo MD Primary Care Provider Un available Yola Vigil Primary Care Provider Unavailabl e Reason for Referral * EXTERNAL (Priority) - Authorized/Booked Specialty Diagnoses / Procedures Referred By Contac t Referred To Contact Allergy & Immunology / Allergy Procedures REFERRAL TO ALLERGY Sam Dukes MD [address] [place] [phone] Nathaniel Humphrey MD [address] [place] [address] Referral ID Status Reason Start Date Expiration Date V isits Requested Visits Authorized SEE NOTE Authorized/B ooked 12/19/2017 03/21/2018 1 1 Encounter Details Date Type Department Care Team Description 12/19/2017 Orders Only Pulmonology - [place] [employer] [address] [facility] [address] [place] [phone] Sam Dukes MD Severe persistent asthma [...] documented in this encounter Care Teams Line Patroller Relationship Specialty Start Date End Date Yola Vigil PCP - General Family Practice 07/23/17 06/24/18 Tano Guo MD PCP - General Internal Medicine 06/25/18 9 Yola Vigil PCP - General Family Practice 08/13/18 documented as of this encounter
--- OUTSIDE RECORDS SUMMARY | 2024-08-16 09:06 | XMS_ITS | Encounter Summary ---
Author Organization [facility] Address [address] [place] [address] Care Team Providers Care Ecological Risk Assessor Name Role Phone Yola Vigil Primary Care Provider Unavailkarina e Tano Guo MD Primary Care Provider Un available Yola Vigil Primary Care Provider Vita mishra Encounter Details Date Type Department Care Team Description 03/03/2018 Radiology Physician Report Medical Records [address] [place] [address] Kunal Martinez Social History Tobacco Use Types [...] on filedocumented in this encounter Care Teams Ecological Risk Assessor Relationship Specialty Start Date End Date Yola Vigil PCP - General Family Practice 07/23/17 06/24/18 Tano Guo MD PCP - General Internal Medicine 06/25/18 9 Yola Vigil PCP - General Family Practice 08/13/18 documented as of this encounter
--- OUTSIDE RECORDS SUMMARY | 2024-08-16 09:06 | XMS_ITS | Encounter Summary ---
Author Organization [facility] Address [address] [place] [address] Care Team Providers Care Bike Technician Name Role Phone Yola Vigil Primary Care Provider Vita e Tano Guo MD Primary Care Provider Un available Yola Vigil Primary Care Provider Unavailkarina e Reason for Visit * Reason Onset Date Comments Medication 09/19/2017 Encounter Details Date Type Department Care Team Description 09/19/2017 Telephone Pulmonology - [address] [place] [address] Sam Dukes MD Medication Social [...] Please advise. * Telephone Encounter - Jessi Mjeia - 09/19/2017 1:33 PM EDT Pt is [...] asthma documented in this encounter Care Teams Bike Technician Relationship Specialty Start Date End Date Yola Vigil PCP - General Family Practice 07/23/17 06/24/18 Tano Guo MD PCP - General Internal Medicine 06/25/18 9 Yola Vigil PCP - General Family Practice 08/13/18 documented as of this encounter
--- OUTSIDE RECORDS SUMMARY | 2024-08-16 09:06 | XMS_ITS | Encounter Summary ---
Author Organization [facility] Address [address] [place] [address] Care Team Providers Care Manager Management Name Role Phone Yola Vigil Primary Care Provider Unavailabl e Encounter Details Date Type Department Care Team Description 01/19/2019 Refill Pulmonology - [address] [place] [phone] Sam Dukes MD Social History [...] on filedocumented in this encounter Care Teams Manager Management Relationship Specialty Start Date End Date Yola Vigil PCP - General Family Practice 08/13/18 documented as of this encounter
--- OUTSIDE RECORDS SUMMARY | 2024-08-16 09:06 | XMS_ITS | Encounter Summary ---
Author Organization [facility] Address [address] [place] [address] Care Team Providers Care [employer] Insurance Agent Name Role Phone Yola Vigil Primary Care Provider Unavailkarina e Tano Guo MD Primary Care Provider Un available Yola Vigil Primary Care Provider Unavailkarina e Encounter Details Date Type Department Care Team Description 08/01/2017 Release of Information Medical Records [address] [place] [id number] Abstract, Provider Social History Tobacco Use Types Packs/Day Years Used Date Smoking Tobacco: Never Smokeless Tobacco: Never Sex Assigned at Date Recorded Not on file documented as of this encounter Plan of Treatment Not on file documented as of this encounter Visit Diagnoses Not on filedocumented in this encounter Care Teams [employer] Insurance Agent Relationship Specialty Start Date End Date Yola Vigil PCP - General Family Practice 07/23/17 06/24/18 Tano Guo MD PCP - General Internal Medicine 06/25/18 9 Yola Vigil PCP - General Family Practice 08/13/18 documented as of this encounter
--- OUTSIDE RECORDS SUMMARY | 2024-08-16 09:06 | XMS_ITS | Encounter Summary ---
Author Organization [facility] Address [address] [place] [address] Care Team Providers Care Office Helper Clerical Name Role Phone Yola Vigil Primary Care Provider Vita e Encounter Details Date Type Department Care Team Description 08/13/2018 Orders Only Medical Records [address] [place] [address] Abstract, Provider Severe persistent asthma without complication; [...] (HCC) documented in this encounter Care Teams Office Helper Clerical Relationship Specialty Start Date End Date Yola Vigil PCP - General Family Practice 08/13/18 documented as of this encounter
--- OUTSIDE RECORDS SUMMARY | 2024-08-16 09:06 | XMS_ITS | Encounter Summary ---
Author Organization [facility] Address [address] [place] [address] Care Team Providers Care Peanut Separator Name Role Phone Yola Vigil Primary Care Provider Unavailkarina e Tano Guo MD Primary Care Provider Un available Yola Vigil Primary Care Provider Unavailkarina e Encounter Details Date Type Department Care Team Description 07/31/2017 Transfer Records Medical Records [address] [place] [address] Abstract, Provider Social History Tobacco Use Types Packs/Day Years Used Date Smoking Tobacco: Never Smokeless Tobacco: Never Sex Assigned at Date Recorded Not on file documented as of this encounter Plan of Treatment Not on file documented as of this encounter Visit Diagnoses Not on filedocumented in this encounter Care Teams Peanut Separator Relationship Specialty Start Date End Date Yola Vigil PCP - General Family Practice 07/23/17 06/24/18 Tano Guo MD PCP - General Internal Medicine 06/25/18 9 Yola Vigil PCP - General Family Practice 08/13/18 documented as of this encounter
[2024-08-16 10:32] LABS: MANUAL DIFF FLAG NO
[2024-08-16 10:35] LABS: Basophils Percent Auto 0.4 % (0-2); Eosinophils Absolute Auto 0.1 X10*3/uL (0.0-0.4); Eosinophils Percent Auto 1.2 % (0-4); Imm Gran Abs Auto 0.03 X10*3/uL (0.00-0.03); Imm Gran Pct Auto 0.4 % (0.0-0.4); Lymphocytes Absolute Auto 2.2 X10*3/uL (1.2-4.9); Lymphocytes Percent Auto 30.1 % (20-40); Mean Corpuscular HGB Conc 32.6 g/dl (31.0-35.0); Mean Corpuscular Hemoglobin 28.2 pg (27.0-33.0); Mean Corpuscular Volume 86.5 fL (80.0-98.0); Mean Platelet Volume 11.2 fL (9.4-12.3); Monocytes Absolute Auto 0.5 X10*3/uL (0.1-1.2); Monocytes Percent Auto 7.5 % (2-11); Neutrophils Absolute Auto 4.4 x10*3/uL (2.0-8.3); Neutrophils Percent Auto 60.4 % (45-73); Platelet Count 237 X10*3/uL (160-400); Red Blood Count 4.97 X10*6/uL (4.20-5.50); Red Cell Distribution Width 13.6 % (11.0-16.0); White Blood Count 7.2 X10*3/uL (4.8-10.8)
[2024-08-16 11:03] LABS: Alanine Aminotransferase 12 U/L (0-31); Alkaline Phosphatase 58 U/L (39-117); Anion Gap 10 (12-20); Aspartate Amino Transferase 17 U/L (5-31); Bilirubin Total 0.4 mg/dL (0.0-1.0); Blood Urea Nitrogen 16 mg/dL (9-16); Carbon Dioxide 26 mmol/L (22-29); Chloride 109 mmol/L (96-108); Cholesterol 194 mg/dL (<200); Estimated Glomerular Filt Rate > 60; Glucose Fasting 78 mg/dL (60-99); HDL Cholesterol 54 mg/dL (>40); LDL Cholesterol Calculated 124 mg/dL (<100); Potassium 3.8 mmol/L (3.3-5.1); Sodium 141 mmol/L (135-145); Total Protein 7.6 g/dL (6.5-8.0); Triglycerides 81 mg/dL (<150)
[2024-08-16 11:06] LABS: Appearance Urine Clear; Color Urine Yellow; Glucose Urine UA Negative (Negative); Leukocyte Esterase Urine Moderate (2+) (Negative); Nitrite Urine Negative (Negative); PH 5.5 (5.0-9.0); Specific Gravity - Urine 1.025 (1.005-1.025); UMIC TRIGGER UACC YES; Urine Blood Negative (Negative); Urine Ketones Negative (Negative); Urine Protein Negative (Neg-Trace)
[2024-08-16 11:15] LABS: Bacteria Urine 4+ (None Seen); Hyaline Casts Urine 0-2 /LPF (0-2); RBC Urine 0-2 /HPF (0-2); UACC Culture Trigger YES; WBC Urine 21-50 /HPF (0-5)
[2024-08-16 11:20] LABS: TSH reflex Free T4 3.01 uIU/mL (0.32-4.0)
[2024-08-17 08:07] LABS: Immunoglobulin E 135 kU/L (<OR=114)
== END 2024-08-16 08:04 | disposition home or self-care (01) ==
LOC: HO.HMGCLDS 08:03
PROVIDERS: Hospitalist; PCP Nurse Practitioner Family; Referring Provider Surgery; Visit Provider Nurse Practitioner Family
DX: F41.9 Anxiety disorder, unspecified (principal); F32.A Depression, unspecified; J45.50 Severe persistent asthma, uncomplicated
CPT/HCPCS: 36415; 80053; 80061; 81001; 81003; 82785; 84443; 85025; 87086; 87088; 87186; 96127; 99212

== ENCOUNTER 2024-10-12 08:08 | Outpatient (AMB) | payer OTHER, SELFPAY ==
--- NOTE | 2024-10-12 08:59 | MHC.OFFWIV ---
Intake Vital Signs 10/12/24 09:08 BP 122/80 Blood Pressure Location Lt brachial Position Sitting Pulse 66 Pulse Source Pulse Oximeter Pulse Oximetry (%) 92 Oxygen Delivery Method Room Air Intake Visit Reasons: EP irritated skin Intake Note: Patient here for dry spots and rash that are itching. Patient Tobacco Use Status: Never used Tobacco Allergies shellfish derived Allergy (Severe, Verified 10/12/24 09:07) Oral swelling levothyroxine sodium [From Synthroid] Allergy (Intermediate, Verified 10/12/24 09:07) Rash levothyroxine Allergy (Mild, Verified 10/12/24 09:07) Rash ENVIRONMENTAL Allergy (Severe, Uncoded 10/12/24 09:07) SINUS, SNEEZING Medication List - Last Reconciled 10/12/24 by Alexandria De La Cruz MD albuterol sulfate 2.5 mg (3 mL) inhalation TID PRN budesonide-formoterol 160-4.5 mcg/actuation (Symbicort) 2 puffs inhalation BID 30 days buspirone 5 mg PO BID compr.stocking,thigh,reg,small As directed dupilumab (Dupixent) 300 mg (2 mL) subcut Q2W epinephrine 0.3 mg (0.3 mL) IM DAILY PRN fluoxetine 20 mg PO DAILY hydroxyzine HCl 25 mg PO BEDTIME ibuprofen 600 mg PO BID PRN levonorgestrel (Mirena) intrauterine loratadine 10 mg PO DAILY montelukast (Singulair) 10 mg PO BEDTIME 30 days nebulizers As directed omeprazole 20 mg PO DAILY roflumilast 500 mcg PO DAILY 90 days NS sucralfate 10 mL PO QID tiotropium bromide 2.5 mcg/actuation (Spiriva Respimat) 2 puffs inhalation DAILY 30 days tirzepatide (weight loss) (Zepbound) mg subcut trazodone 50 mg PO BEDTIME PRN Ventolin HFA 90 mcg/actuation (albuterol sulfate) 2 puffs PO Q4-6H PRN NS Do you need a note to return to daycare/school/sports/work: No HPI EP irritated skin HPI Details History - The patient is a 38 year old female presenting with concerns regarding a persistent rash following thyroid medication. - The rash developed approximately one week after initiating a thyroid medication, which was discontinued thereafter. - Despite cessation of the thyroid medication a month and a half ago, the rash persists. - The patient reports that the skin is very irritated, itchy, and displays red spots. - Application of blje-aqz-emdhozk hydrocortisone cream was attempted without significant relief. - Sporadic use of 20 mg prednisone has provided partial relief of symptoms. - The patient denies any current respiratory issues or exacerbations of asthma. Problem List - Rash secondary to thyroid medication - Asthma Patient Instructions - A prescription for a 12-day tapering prednisone dose has been sent to the pharmacy. - Follow up with a instructional media services technician; an appointment has been arranged for a nearby dermatology clinic in [place]. - Contact the instructional media services technician to book the appointment and to receive further evaluation of the rash. - Begin the prescribed prednisone regimen as directed and observe for improvements. - Report any exacerbation of symptoms or new symptoms. - Continue avoiding scratching to minimize irritation and potential infection. Review of Systems. - General: No fever no chills - Neurological: No headaches no dizziness - Ear nose throat: No sore throat no hearing difficulty no ear pain - Cardiovascular: No syncope, no chest pain, no palpitations - Gastrointestinal: No nausea vomiting or diarrhea Physical Exam General: No acute distress HEENT: No acute findings Neck: Supple Respiratory system: Able to talk in full sentences, no audible wheeze Gastrointestinal: No pain Extremities: No new findings INSULATION SPRAYER: Alert awake oriented x3 motor sensory intact Skin: Rash present, irritated, with multiple spots PFSH Medical History Asthma-COPD overlap syndrome Retrocalcaneal bone spur Left ankle injury Allergies Autumn's disease Orthostatic hypotension Left anterior knee pain Asthma BMI 33.0-33.9,adult Intermittent palpitations Obesity (BMI 30-39.9) Intrauterine contraceptive device RODRIGUEZ on CPAP Morbid obesity Moderate persistent asthma Degenerative disc disease, lumbar ASCUS favor benign Seasonal allergies Depression with anxiety Surgical History S/P laparoscopic sleeve gastrectomy History of repair of hiatal hernia History of esophagogastroduodenoscopy (EGD) History of appendectomy History of tonsillectomy Family History Mother Stroke Dementia Migraines Kidney stone Father Asthma Sister Asthma Son Asthma Daughter Anxiety Depressed Social History Household Members: Children Housing: Apartment Are you a primary continuum of care manager to a significant other at home: Yes (children) Do you presently have visiting nurse or other home services: No Alcohol intake: never Patient Tobacco Use Status: Never used Tobacco e-Cigarette/Vaping Use: Never Used Second Hand Smoke Exposure: No service: No Current occupational status: employed Current occupation: [employer] Current occupational exposures/hazards: No Cognitive needs: No Hearing needs: No Vision needs: No Female Reproductive History Menstrual Age of Menarche: 12 Physical Exam Vital Signs: Last Vital Signs Pulse 66 10/12/24 09:08 BP 122/80 10/12/24 09:08 Pulse Ox 92 10/12/24 09:08 Oxygen Delivery Method Room Air 10/12/24 09:08 Assessment & Plan Assessment & Plan (1) Body rash: Code(s): R21 - Rash and other nonspecific skin eruption Plan History - The patient is a 38 year old female presenting with concerns regarding a persistent rash following thyroid medication. - The rash developed approximately one week after initiating a thyroid medication, which was discontinued thereafter. - Despite cessation of the thyroid medication a month and a half ago, the rash persists. - The patient reports that the skin is very irritated, itchy, and displays red spots. - Application of hxaq-xpx-yqdyuwm hydrocortisone cream was attempted without significant relief. - Sporadic use of 20 mg prednisone has provided partial relief of symptoms. - The patient denies any current respiratory issues or exacerbations of asthma. Problem List - Rash secondary to thyroid medication - Asthma Patient Instructions - A prescription for a 12-day tapering prednisone dose has been sent to the pharmacy. - Follow up with a instructional media services technician; an appointment has been arranged for a nearby dermatology clinic in [place]. - Contact the instructional media services technician to book the appointment and to receive further evaluation of the rash. - Begin the prescribed prednisone regimen as directed and observe for improvements. - Report any exacerbation of symptoms or new symptoms. - Continue avoiding scratching to minimize irritation and potential infection. Orders: Referrals Dermatology Referral R21 - Rash and other nonspecific skin eruption Medications: New prednisone PO once; 3 tabs for 2 days, then 2 tabs for 3 days, then 1 tab for 3 days, then half tab for 4 days 12 days 17 tabs 0RF Coding Level of Care Code Est Pt Level 3 (70920) Diagnoses Body rash R21
[2024-10-12 09:08] VITALS: BP 122/80; PULSE 66; O2SAT 92
== END 2024-10-12 09:29 | disposition home or self-care (01) ==
PROVIDERS: PCP Nurse Practitioner Family; Visit Provider Internal Medicine
DX: R21 Rash and other nonspecific skin eruption (principal)

== ENCOUNTER → 2024-10-12 08:08 | Outpatient (BNVA) | payer OTHER, SELFPAY | PROVIDERS: PCP Nurse Practitioner Family; Visit Provider Internal Medicine | DX: R21 Rash and other nonspecific skin eruption (principal) | CPT/HCPCS: 99212 ==

== ENCOUNTER 2024-11-04 07:54 | Outpatient (AMB) | payer OTHER, SELFPAY ==
--- NOTE | 2024-11-04 07:55 | MHC.OFFVIS ---
Vital Signs 11/04/24 07:59 Height 5 ft 2 in Weight 180 lb BMI 32.9 Intake Visit Reasons: IUD check Tool Grinding Technician Required: No Information Interpreted: non-clinical & clinical Channel Installer: Channel Installer Present (Anastasia GEORGE) Accompanied by: Self / Same As Patient Allergies shellfish derived Allergy (Severe, Verified 11/04/24 08:00) Oral swelling levothyroxine sodium [From Synthroid] Allergy (Intermediate, Verified 11/04/24 08:00) Rash levothyroxine Allergy (Mild, Verified 11/04/24 08:00) Rash ENVIRONMENTAL Allergy (Severe, Uncoded 11/04/24 08:00) SINUS, SNEEZING Is last menstrual period known: No (mirena) HPI Comments Details: The patient is presenting for IUD check after 1 st period following IUD insertion. The patient has no complaints periods are normal, not painful, and flow is normal. [facility] Medical History Asthma-COPD overlap syndrome Retrocalcaneal bone spur Left ankle injury Allergies Autumn's disease Orthostatic hypotension Left anterior knee pain Asthma BMI 33.0-33.9,adult Intermittent palpitations Obesity (BMI 30-39.9) Intrauterine contraceptive device RODRIGUEZ on CPAP Morbid obesity Moderate persistent asthma Degenerative disc disease, lumbar ASCUS favor benign Seasonal allergies Depression with anxiety Surgical History S/P laparoscopic sleeve gastrectomy History of repair of hiatal hernia History of esophagogastroduodenoscopy (EGD) History of appendectomy History of tonsillectomy Family History Mother Stroke Dementia Migraines Kidney stone Father Asthma Sister Asthma Son Asthma Daughter Anxiety Depressed Social History Household Members: Children Housing: Apartment Are you a primary patient care representative to a significant other at home: Yes (children) Do you presently have visiting nurse or other home services: No Alcohol intake: never Patient Tobacco Use Status: Never used Tobacco e-Cigarette/Vaping Use: Never Used Second Hand Smoke Exposure: No service: No Current occupational status: employed Current occupation: [employer] Current occupational exposures/hazards: No Cognitive needs: No Hearing needs: No Vision needs: No Female Reproductive History Menstrual Age of Menarche: 12 Physical Exam Vital Signs: BMI result Body Mass Index 32.9 Results AMB Test Urine AMB Test Urine Negative Last Edit by Anastasia Wasserman CMA on 11/04/24 07:59 Results Reviewed Results Reviewed: Laboratory Last Values Tst Clinic Negative 11/04/24 07:59 Assessment & Plan Assessment & Plan (1) IUD check up: Code(s): Z30.431 - Encounter for routine checking of intrauterine contraceptive device Category: Medical Plan: UPT done in the office was negative. Discussed with the patient the finding on physical exam, IUD string in place, the patient was reassured. Instructions given to patient to call in case of temperature above 100.4, severe cramping/pelvic pain, abnormal discharge or abnormal uterine bleeding or if she misses her menstrual cycle. Otherwise follow-up at her annual exam appointment. All questions answered, the patient verbalized understanding. Orders: Orders AMB HCG Urine Test Today Z32.02 - Encounter for test, result negative Coding Level of Care Code Est Pt Level 3 (20514) Diagnoses IUD check up Z30.431
[2024-11-04 07:59] VITALS: BMI 32.9
== END 2024-11-04 08:17 | disposition home or self-care (01) ==
LOC: HO.HWS 07:54
PROVIDERS: PCP Nurse Practitioner Family; Visit Provider Obstetrics & Gynecology
DX: Z32.02 Encounter for pregnancy test, result negative (principal); Z30.431 Encounter for routine checking of intrauterine contraceptive device
CPT/HCPCS: 99213

== ENCOUNTER → 2024-11-04 07:54 | Outpatient (BNVA) | payer OTHER, SELFPAY | PROVIDERS: PCP Nurse Practitioner Family; Visit Provider Obstetrics & Gynecology | DX: Z30.431 Encounter for routine checking of intrauterine contraceptive device (principal) | CPT/HCPCS: 81025; 99212 ==

== ENCOUNTER 2025-01-13 10:00 | Outpatient (AMB) | payer OTHER, SELFPAY ==
--- NOTE | 2025-01-13 10:02 | A.OFFVIS_ITS ---
Vital Signs 01/13/25 10:03 Height 5 ft 2 in Weight 170 lb 13.732 oz BMI 31.2 BP 92/52 L Blood Pressure Location Lt brachial Position Sitting Pulse 75 Pulse Source Pulse Oximeter Pulse Oximetry (%) 98 Oxygen Delivery Method Room Air Intake Visit Reasons: Obstructive sleep apnea Chief Communications Officer Required: No Accompanied by: Self / Same As Patient Allergies shellfish derived Allergy (Severe, Verified 01/13/25 10:06) Oral swelling levothyroxine sodium (From Synthroid) Allergy (Intermediate, Verified 01/13/25 10:06) Rash levothyroxine Allergy (Mild, Verified 01/13/25 10:06) Rash ENVIRONMENTAL Allergy (Severe, Uncoded 11/04/24 08:00) SINUS, SNEEZING HPI Comments Details: The patient is a 39 y/o womanwith severe persistent asthma. Has been responding well to the Xolair and also to the addition of theophylline. Still, has been getting episodes of exacerbations some flares. Recently she did take a course of prednisone. Apparently her major triggers are stress in agitation. It appears that her allergy symptoms are well controlled on the current respiratory regimen. Current she has been noticing increased weight gain. We talked about the importance of losing weight to minimize the respiratory symptoms for her to improve her overall health. Recently her Xolair was increased to 300 mg twice a month. We did review her blood work that she had and she has had some eosinophilia as well as a critically high IgE level. Therefore, if she does not respond to Xolair she may be a good candidate for Dupixent. She continues on a very aggressive respiratory regimen including theophylline, Daliresp, Symbicort, Spiriva and singular. She is having hard time keeping up with work. I do agree that we have to improve her respiratory status in order for her to be able to function work without putting herself at risk of an adverse of event. Therefore, I do agree that for the next 3 months we could decrease the amount of work hours in order to optimize her respiratory therapy. In addition to that the patient has been complaining of some difficulty swallowing due to pain. She feels a fullness in a tightness of her throat area. She also did have a barium swallow demonstrating a small hiatal hernia with reflux. She will be following up with that endoscopy soon with gastroenterology. 12/20/2022 the patient is here for pulmonary follow-up visit. She continues on Dupixent. Lately she has been having increasing chest tightness and having to use her nebulizer more often. She continues use all her respiratory therapy as prescribed. Denies any sick contacts. Continues to respond positively to the Dupixent although still symptomatic at times. I explained to her that Dupixent will treat allergic triggers but would not do tree any nonallergic triggers for her asthma. I do not believe that she needing the biologic is really going to make a big change in her asthma control at this time. Patient will monitor closely for any reflux disease or other potential triggers such as lower respiratory infections. She has not been using her CPAP. The patient has been doing well her Stanton score is 6/24. She is working on losing weight after her bariatric surgery. We will plan to do a repeat study when she gets to her ideal weight. 07/29/2023 the patient is here for pulmonary follow-up visit. She keeps waxing and waning. She had been on Spiriva in [facility] and was switched over to Trelegy. Unfortunately the Trelegy was not covered and she was provided with Breo and Incruse. She has only been using 1 of the inhalers not knowing that she was supposed to be on 2. Explained to her that she is take both in the morning and hopefully her symptoms a little bit as well. The Dupixent shots continue to be affecting beneficial. She does get a headache after using it will usually wears off after 48 hours. We did talk about considering a lower dose in case her headaches get any worse. But right now will keep her on the during 100 mg dose. As far as the sleep apnea she has been off her CPAP now for some time after having surgery. She reach her ideal weight for her and therefore will go ahead and repeat her sleep study. Stanton score continues to be low elevated at 8 over 24. The patient understands that if her sleep study demonstrates und erlying sleep apnea she needs to go back on CPAP. 04/07/2024 the patient is here for pulmonary follow-up visit. She is having hard time with her breathing. She had to take a course of prednisone couple weeks ago. She continues on Dupixent. She has been on the Breo and the Incruse she does not feel like they are working very well. She is having to use her rescue inhaler multiple times a day. She did have a problem with a water leak. Apparently developing some mold. Besides that denies any other exposures. Will go ahead and recheck her allergy levels including her mold allergies. If indeed she has significant more larger allergies she may need further the mold issue in her apartment. Otherwise the patient will continue with the Dupixent. She also has been dealing with other issues including thyroid issues. She is going to be talking to her primary care doctor about that. Will follow-up in 3 months. If she has any worsening symptoms she will call for an earlier assessment. 07/12/2024 the patient is here for a pulmonary follow-up visit. She has been complaining worsening cough chest congestion consistent with chronic bronchitis. She does get relief with respiratory medicines. The Breztri inhaler has been hopeful. Will go ahead and send her prednisone to the pharmacy at this time. In the meantime she benefits from going back on Dupixent. Dupixent therapy has been very affecting beneficial. Therefore would like to continue this time. The patient also continues to wear CPAP. CPAP therapy continues to be affecting beneficial. Will go ahead and follow-up in 4-6 months. She has any issues she will call for an earlier assess 01/13/2025 the patient is here for a pulmonary follow-up visit. She has been struggling with her breathing. She complains of chest heaviness and tightness primarily when she does any kind of exertion and also when she is getting anxious and having an issue with stress. He has been using her inhaler multiple times a day. She has been using her respiratory inhalers as prescribed and continues on the Dupixent shots. During the visit the patient was taken for a walking oximetry up the stairs and should should did develop the chest tightness and heaviness. No significant wheezing we did do a spirometry afterwards which was completely normal. Therefore based on the fact that her breathing seems to be okay the patient was sent for blood work including a D-dimer troponin I which were negative. We also did request an EKG although she has not done it as of yet. The based on the fact that all the blood work come back normal including a normal hemoglobin will go ahead and send her a low-dose prednisone course to see if this provides any relief. [facility] Medical History (Updated 01/16/25 @ 21:27 by Sam Dukes MD) Chest pain Asthma-COPD overlap syndrome Retrocalcaneal bone spur Left ankle injury Allergies Autumn's disease Orthostatic hypotension Left anterior knee pain Asthma BMI 33.0-33.9,adult Intermittent palpitations Obesity (BMI 30-39.9) Intrauterine contraceptive device RODRIGUEZ on CPAP Morbid obesity Moderate persistent asthma Degenerative disc disease, lumbar ASCUS favor benign Seasonal allergies Depression with anxiety Surgical History S/P laparoscopic sleeve gastrectomy History of repair of hiatal hernia History of esophagogastroduodenoscopy (EGD) History of appendectomy History of tonsillectomy Family History Mother Stroke Dementia Migraines Kidney stone Father Asthma Sister Asthma Son Asthma Daughter Anxiety Depressed Social History Household Members: Children Housing: Apartment Are you a primary ostomy care nurse to a significant other at home: Yes (children) Do you presently have visiting nurse or other home services: No Alcohol intake: never Patient Tobacco Use Status: Never used Tobacco e-Cigarette/Vaping Use: Never Used Second Hand Smoke Exposure: No service: No Current occupational status: employed Current occupation: [employer] Current occupational exposures/hazards: No Cognitive needs: No Hearing needs: No Vision needs: No Female Reproductive History Menstrual Age of Menarche: 12 Review of Systems Const Reports daytime sleepiness, Denies difficulty sleeping, Denies fever(s), Denies headache(s), Denies snoring, Denies stops breathing during sleep and Reports weight loss Eyes Denies blurry vision and Denies diplopia ENT Denies dizziness and Denies headache(s) Card Denies chest pain, Denies irregular heart rhythm, Denies leg edema, Reports lightheadedness, Reports dyspnea, Reports dyspnea on exertion and Reports other (palpitations) Resp Reports cough, Denies hemoptysis, Denies excessive phlegm production, Reports dyspnea, Reports dyspnea on exertion, Denies snoring and Reports wheezing GI Denies abdominal pain, Denies hematochezia, Denies constipation, Denies heartburn, Denies diarrhea, Denies nausea and Denies vomiting Musc Reports back pain, Denies arthralgias, Denies joint swelling and Denies limited range of motion Neuro Denies dizziness and Denies headache(s) Psych Denies abnormal sleep pattern, Denies anxiety and Denies depression Aller/Immun Reports wheezing Physical Exam Vital Signs: Last Vital Signs Pulse 75 01/13/25 10:03 BP 92/52 L 01/13/25 10:03 Pulse Ox 98 01/13/25 10:03 Oxygen Delivery Method Room Air 01/13/25 10:03 BMI result Body Mass Index 31.2 Const General: alert Neck Neck: Yes normal visual inspection, Yes full ROM and Yes no lymphadenopathy Chest Chest palpation & inspection: normal inspection of the chest Resp Auscultation: no wheezes and diminished lung sounds Cardio Rate: regular rate Rhythm: regular rhythm Heart sounds: S1 normal heart sound present and S2 normal heart sound present GI Palpation (GI): Soft to palpation and nontender Auscultation: normal bowel sounds General: Yes no CVA tenderness Back/Spine/Pelvis Back: no CVA tenderness Office Procedures Spirometry Testing Spirometry Comments: In office spirometry completed with results given to Dr. Dukes. 90475- Spirometry Results Reviewed Results Reviewed: Spirometry - normal personally reviewed by me Assessment & Plan Assessment & Plan (1) Asthma: Code(s): J45.909 - Unspecified asthma, uncomplicated Category: Medical Qualifiers: Asthma complication type: uncomplicated Asthma persistence: persistent Asthma severity: severe Qualified Code(s): J45.50 - Severe persistent asthma, uncomplicated (2) RODRIGUEZ on CPAP: Comment: CPAP new to patient-started using 05/26/20, not on CPAP Code(s): G47.33 - Obstructive sleep apnea (adult) (pediatric); Z99.89 - Dependence on other enabling machines and devices Category: Medical (3) Hiatal hernia: Code(s): K44.9 - Diaphragmatic hernia without obstruction or gangrene Category: Medical (4) Allergies: Code(s): T78.40XA - Allergy, unspecified, initial encounter Category: Medical Qualifiers: Encounter type: subsequent encounter Qualified Code(s): T78.40XD - Allergy, unspecified, subsequent encounter (5) Asthma-COPD overlap syndrome: Code(s): J44.89 - Other specified chronic obstructive pulmonary disease Category: Medical (6) Chest pain: Code(s): R07.9 - Chest pain, unspecified Category: Medical Qualifiers: Chest pain type: unspecified Qualified Code(s): R07.9 - Chest pain, unspecified Plan Breztrjamie BID needs Daliresp for her chronic bronchitis continue Singulair and Claritin Bloodwork EKG Medrol pk Follow-up in 2-3 months Orders: Orders Troponin-I High Sensitivity 01/13/25 R07.9 - Chest pain, unspecified Venous Blood Gas 01/13/25 R07.9 - Chest pain, unspecified Complete Blood Count Auto Diff 01/13/25 R07.9 - Chest pain, unspecified D Dimer High Sensitivity 01/13/25 R07.9 - Chest pain, unspecified ECG 12 lead EKG 01/13/25 J44.9 - Chronic obstructive pulmonary disease, unspecified AMB Spirometry Testing 01/13/25 J44.89 - Other specified chronic obstructive pulmonary disease, J45.50 - Severe persistent asthma, uncomplicated Coding Level of Care Code Est Pt Level 4 (52832) Complex EM visit Add On G2211 Diagnoses Severe persistent asthma without complication J45.50 Asthma complication type: uncomplicated Asthma persistence: persistent Asthma severity: severe RODRIGUEZ on CPAP G47.33; Z99.89 Hiatal hernia K44.9 Allergy, subsequent encounter T78.40XD Encounter type: subsequent encounter Asthma-COPD overlap syndrome J44.89 Chest pain, unspecified type R07.9 Chest pain type: unspecified CPT Codes Spirometry - CPT: 36764- Spirometry ([id number]) Time Spent (min) 17
[2025-01-13 10:03] VITALS: BP 92/52; PULSE 75; O2SAT 98; BMI 31.2
--- OUTSIDE RECORDS SUMMARY | 2025-01-13 10:30 | XMS_ITS | Encounter Summary ---
Author Organization [facility] Address [address] [facility] [address] [place] [phone] Phone Care Team Providers Care Glove Maker Name Role Phone Vivek Aponte NP Primary Care Provider + Encounter Details Date Type Department Care Team (Late st Contact Info) Description 10/03/2022 Procedure Pass [facility] Endoscopy Admitting Dept Virtual Department [address] [place] [address] Social History Tobacco Use Types Packs/Day Years Used Date Smoking Tobacco: Never Smokeless Tobacco: Never Alcohol Use Standard Drinks/Week Comments Never 0 (1 standard drink = 0.6 oz pur e alcohol) Education Answer Date Recorded Are you interested in more education? Not on hyun e 10/03/2022 Are you concerned about learning? 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 Not on file Not on file documented as of this encounter Plan of Treatment Upcoming Encounters Date Type Department Care Team (Late st Contact Info) Description 02/18/2025 9:00 AM EDT Office Visit [facility] General Surgical Care [address] [place] [address] Toña Isaac MD [address] [facility], 2nd [place] [address] documented as of this encounter Visit Diagnoses Not on filedocumented in this encounter Care Teams Glove Maker Relationship Specialty Start Date End Date Vivek Aponte NP [address] [place] [address] [email or web address] PCP - General Family Medicine 11/26/21 documented as of this encounter Additional Source Comments The information contained in this document represents components of the legal health record. It is not the complete legal health record.[facility]
--- OUTSIDE RECORDS SUMMARY | 2025-01-13 10:30 | XMS_ITS | Clinical Summary ---
Author Organization [facility] Address [address] [place] [address] Care Team Providers Care Speed Operator Name Role Phone Yola Vigil Primary [...] infection. 1 Inhaler 11 07/24/2017 Active Tiotropium [place] Monohydrate (SPIRIVA RESPIMAT) 2.5 MCG/ACT Aero Soln [...] Last Done Comments Covid-19 Vaccine (#1) 04/21/1986 DTAP/TDAP/TD (1 - Tdap) 2004 CHOLESTEROL SCREENING 2005 CERVICAL CANCER SCREENING 2006 BMI CHECK/ADVISE 06/09/2024 11/25/2018, , 08/13/2018, Additional history exists DEPRESSION SCREENING/FOLLOWUP 06/09/2024 09/10/2017 SOCIAL NEEDS SCREENING 06/09/2024 INFLUENZA (#1) 2025 PNEUMOCOCCAL VACCINE FOR HIG H RISK PATIENTS (#2) 2050 06/26/2018 Care Teams Speed Operator Relationship Specialty Start Date End Date Yola Vigil PCP - General Family Practice 08/13/18
== END 2025-01-13 10:52 | disposition home or self-care (01) ==
LOC: HO.HPS 10:01
PROVIDERS: PCP Nurse Practitioner Family; Visit Provider Hospitalist
DX: J45.50 Severe persistent asthma, uncomplicated (principal); G47.33 Obstructive sleep apnea (adult) (pediatric); Z99.89 Dependence on other enabling machines and devices; K44.9 Diaphragmatic hernia without obstruction or gangrene; T78.40XD Allergy, unspecified, subsequent encounter; J44.89 Other specified chronic obstructive pulmonary disease; R07.9 Chest pain, unspecified
CPT/HCPCS: 94010; 99214

== ENCOUNTER 2025-01-13 10:00 | Outpatient (REF) | payer OTHER, SELFPAY ==
[2025-01-13 11:05] LABS: MANUAL DIFF FLAG NO
[2025-01-13 11:07] LABS: Hematocrit 41.3 % (37.0-47.0); Hemoglobin 13.9 g/dl (12.0-16.0); Imm Gran Abs Auto 0.03 X10*3/uL (0.00-0.03); Imm Gran Pct Auto 0.4 % (0.0-0.4); Lymphocytes Absolute Auto 1.6 X10*3/uL (1.2-4.9); Mean Corpuscular HGB Conc 33.7 g/dl (31.0-35.0); Mean Corpuscular Hemoglobin 28.4 pg (27.0-33.0); Mean Corpuscular Volume 84.5 fL (80.0-98.0); NRBC Abs Auto 0.000 X10*3/uL (0.0-0.012); NRBC Pct Auto 0.0 /100WBC (0.0-0.2); Platelet Count 245 X10*3/uL (160-400); Red Blood Count 4.89 X10*6/uL (4.20-5.50); White Blood Count 7.5 X10*3/uL (4.8-10.8)
--- NOTE | 2025-01-13 11:13 | ECG_ITS ---
Test Reason : copd Blood Pressure : */* mmHG Vent. Rate : 57 BPM Atrial Rate : 57 BPM P-R Int : 130 ms QRS Dur : 82 ms QT Int : 394 ms P-R-T Axes : 55 25 35 degrees QTcB Int : 383 ms Sinus bradycardia Otherwise normal ECG When compared with ECG of 29-May-2020 14:53, No significant change was found Referred By: Sam Dukes Electronically Signed By: CHERYLE WYNNE
[2025-01-13 11:16] LABS: VBG HCO3 32 mmol/L (22-26); VBG O2 % Saturation 39.0 %; Venous Blood Gas Refer to POC result
[2025-01-13 11:16] LABS: D Dimer High Sensitivity < 150 NG/ML
[2025-01-13 11:42] LABS: Troponin-I High Sensitivity < 2.7 ng/L (<3.5-17.0)
== END 2025-01-13 10:01 | disposition home or self-care (01) ==
LOC: HO.LAB 10:00
PROVIDERS: PCP Nurse Practitioner Family; Visit Provider Hospitalist
DX: G47.33 Obstructive sleep apnea (adult) (pediatric) (principal); J44.89 Other specified chronic obstructive pulmonary disease; J45.50 Severe persistent asthma, uncomplicated; K44.9 Diaphragmatic hernia without obstruction or gangrene; T78.40XA Allergy, unspecified, initial encounter; R07.9 Chest pain, unspecified; Z79.899 Other long term (current) drug therapy
CPT/HCPCS: 36415; 82803; 84484; 85025; 85379; 93005; 94010; 99212

== ENCOUNTER → 2025-01-13 11:13 | Outpatient (BNV) | payer OTHER, SELFPAY | PROVIDERS: PCP Nurse Practitioner Family; Visit Provider Internal Medicine | DX: R00.1 Bradycardia, unspecified (principal) | CPT/HCPCS: 93010 ==

== ENCOUNTER 2025-02-17 09:48 | Outpatient (AMB) | payer OTHER, SELFPAY ==
--- NOTE | 2025-02-17 09:52 | MHC.PC.OV ---
Vital Signs 02/17/25 09:56 Weight 171 lb BP 102/68 Blood Pressure Location Lt brachial Position Sitting Pulse 81 Pulse Oximetry (%) 98 Oxygen Delivery Method Room Air Intake Visit Reasons: 6M F/U Junior Automation Engineer Required: No Accompanied by: Self / Same As Patient Allergies shellfish derived Allergy (Severe, Verified 02/17/25 10:33) Oral swelling levothyroxine sodium (From Synthroid) Allergy (Intermediate, Verified 02/17/25 10:33) Rash levothyroxine Allergy (Mild, Verified 02/17/25 10:33) Rash ENVIRONMENTAL Allergy (Severe, Uncoded 02/17/25 10:33) SINUS, SNEEZING Medication List - Last Reconciled 02/17/25 by Vivek Aponte, CONSULTING INTERN- albuterol sulfate 2.5 mg (3 mL) inhalation TID PRN budesonide-formoterol 160-4.5 mcg/actuation (Symbicort) 2 puffs inhalation BID 30 days buspirone 5 mg PO BID compr.stocking,thigh,reg,small As directed dupilumab (Dupixent) 300 mg (2 mL) subcut Q2W epinephrine 0.3 mg (0.3 mL) IM DAILY PRN fluoxetine 20 mg PO DAILY hydroxyzine HCl 25 mg PO BEDTIME ibuprofen 600 mg PO BID PRN levonorgestrel (Mirena) intrauterine loratadine 10 mg PO DAILY montelukast (Singulair) 10 mg PO BEDTIME 30 days nebulizers As directed omeprazole 20 mg PO DAILY tiotropium bromide 2.5 mcg/actuation (Spiriva Respimat) 2 puffs inhalation DAILY 30 days tirzepatide (weight loss) (Zepbound) mg subcut trazodone 50 mg PO BEDTIME PRN Ventolin HFA 90 mcg/actuation (albuterol sulfate) 2 puffs PO Q4-6H PRN NS Tobacco use date assessed: 08/16/24 Dental Screening Dental Screen Date: 02/17/25 Did you have a dental visit in the last 12 months?: No Did you have a dental problem in the last 6 months where you did not have access to dental care?: No Was dental information given to patient?: Patient has dentist HPI 6M F/U HPI Details Chief Complaint The patient reports ongoing fatigue and feeling cold. History of Present Illness The patient is a 39-year-old female presenting with ongoing fatigue and feeling cold. 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 The patient also reports being under the care of a driver guard for asthma-COPD overlap syndrome, which is primarily asthma-related. She denies current wheezing, and her lungs were clear upon examination. Additionally, the patient is managing obesity and follows up at an obesity clinic. She is currently on Zepbound as part of her treatment regimen. Social History - The patient follows up at an obesity clinic for weight management. Health Maintenance Review of Systems - General: Reports fatigue and feeling cold. - Respiratory: Denies dyspnea, wheezing. - Cardiovascular: Denies chest pain. - Gastrointestinal: Denies abdominal pain, constipation, diarrhea, or blood in stool. Physical Exam General: Cooperative, healthy appearing, comfortable, no acute distress and well developed Orientation: Patient oriented x3 Limitations: No limitations Head: Normal to inspection Ears: Hearing grossly normal bilaterally Nose: Normal external nose present Face and sinus: Normal facial exam Eyes: Appearance normal, both eyes and all related structures Neck: Normal visual inspection and Yes full ROM Respiratory: Normal respiratory effort and able to speak in complete sentences. Clear to auscultation bilaterally Cardiovascular: Regular rate and rhythm. Normal S1 and S2 GI: Normal to inspection. Soft to palpation and nontender Skin: No rashes or lesions noted Neuro: Patient oriented x3 Extremities: Normal to inspection Results Plan 1. Autumn's Thyroiditis The patient will have her thyroid levels checked to assess current thyroid function. Further laboratory tests will be conducted to evaluate for autoimmune conditions contributing to her fatigue. 2. Asthma-Copd Overlap Syndrome The patient continues to be monitored by a driver guard, with current management focusing on asthma-related symptoms. 3. Obesity The patient is following up at an obesity clinic and is currently on Zepbound as part of her weight management plan. Discussion Notes I discussed with the patient the need to check her thyroid levels and conduct further labs to evaluate for autoimmune conditions due to her fatigue. We also reviewed her current management for asthma-COPD overlap syndrome and her weight management plan at the obesity clinic. Patient Instructions - Follow up with lab tests for thyroid and autoimmune evaluation. - Continue current asthma management and follow up with the driver guard. - Maintain weight management plan and follow up at the obesity clinic. [facility] Medical History Chest pain Asthma-COPD overlap syndrome Retrocalcaneal bone spur Left ankle injury Allergies Autumn's disease Orthostatic hypotension Left anterior knee pain Asthma BMI 33.0-33.9,adult Intermittent palpitations Obesity (BMI 30-39.9) Intrauterine contraceptive device RODRIGUEZ on CPAP Morbid obesity Moderate persistent asthma Degenerative disc disease, lumbar ASCUS favor benign Seasonal allergies Depression with anxiety Surgical History S/P laparoscopic sleeve gastrectomy History of repair of hiatal hernia History of esophagogastroduodenoscopy (EGD) History of appendectomy History of tonsillectomy Family History Mother Stroke Dementia Migraines Kidney stone Father Asthma Sister Asthma Son Asthma Daughter Anxiety Depressed Social History Household Members: Children Housing: Apartment Are you a primary lawn care worker to a significant other at home: Yes (children) Do you presently have visiting nurse or other home services: No Alcohol intake: never Patient Tobacco Use Status: Never used Tobacco e-Cigarette/Vaping Use: Never Used Second Hand Smoke Exposure: No service: No Current occupational status: employed Current occupation: [employer] Current occupational exposures/hazards: No Cognitive needs: No Hearing needs: No Vision needs: No Female Reproductive History Menstrual Age of Menarche: 12 Questionnaire PHQ-9 Over the last 2 weeks, how often have you been bothered by any of the following problems? 2. Feeling down, depressed, or hopeless: several days 5. Poor appetite or overeating: several days Source: Developed by Drs. Tuan Alves, Donna Epps, Piero Basurto and colleagues, with an educational will from [employer]. Thrive Questionnaire Date Thrive assessed: 08/16/24 I am a: Patient What is your living situation today?: I have a steady place to live Within the past 12 months, did the food you bought not last and you didn't have the money to get more?: Never true Within the past 12 months, did you worry whether your food would run out before you got money to buy more?: Never true Do you have trouble paying for medicines?: No Do you have trouble getting transportation to medical appointments?: No Do you have trouble paying your heating and electricity bill?: No Do you have trouble taking care of your child, family member or friend?: No Do you have trouble with day-to-day activities such as bathing, preparing meals, shopping, managing finances, etc.?: No Are you currently unemployed and looking for a job?: I choose not to answer this question Are you interested in more education?: No Please select the resources that you would like help with: None Currently or been in a relationship where the following occur: No concerns reported THRIVE Score: 0 MIRANDA-7 AMB Questionnaire MIRANDA-7 Date MIRANDA - 7 assessed: 08/16/24 Feeling nervous, anxious, or on edge: 0 = Not at all Not being able to stop or control worryin = Not at all Worrying too much about different things: 0 = Not at all Trouble relaxin = Not at all Being so restless that it is hard to sit still: 0 = Not at all Becoming easily annoyed or irritable: 1 = Several days Feeling afraid as if something awful might happen: 0 = Not at all Total MIRANDA-7 score (0-4 normal; 5-9 mild; 10-14 moderate; 15-21 severe): 1 Source: Developed by Drs. Tuan Alves, Donna Epps, Piero Basurto and colleagues, with an educational will from [employer]. Physical exam (Primary Care) Vital Signs: Last Vital Signs Pulse 81 02/17/25 09:56 BP 102/68 02/17/25 09:56 Pulse Ox 98 02/17/25 09:56 Oxygen Delivery Method Room Air 02/17/25 09:56 Tobacco/Smoking Status: Tobacco use Status Tobacco use date assessed 08/16/24 02/17/25 09:55 Patient Tobacco Use Status Never used Tobacco 02/17/25 09:55 e-Cigarette/Vaping Use Never Used 02/17/25 09:55 Thrive Assessment: Date of Thrive Assessment Date Thrive assessed 08/16/24 02/17/25 09:55 Currently or been in a relationship where the following occur: No concerns reported Coding Level of Care Code Est Pt Level 3 (58589) Diagnoses Elevated TSH R79.89 Autumn's disease E06.3 Fatigue R53.83 Assessment & Plan Assessment & Plan (1) Elevated TSH: Code(s): R79.89 - Other specified abnormal findings of blood chemistry Category: Medical (2) Autumn's disease: Code(s): E06.3 - Autoimmune thyroiditis Category: Medical (3) Fatigue: Code(s): R53.83 - Other fatigue Category: Medical Plan . Orders: Orders Complete Blood Count Auto Diff Today E06.3 - Autoimmune thyroiditis, R79.89 - Other specified abnormal findings of blood chemistry TSH reflex Free T4 Today E06.3 - Autoimmune thyroiditis, R79.89 - Other specified abnormal findings of blood chemistry Complement C4 Today R53.83 - Other fatigue Lyme IgG/IgM w/reflex to WB Today R53.83 - Other fatigue Ferritin Today R53.83 - Other fatigue Comprehensive Hurst. Panel Fast Today E06.3 - Autoimmune thyroiditis, R79.89 - Other specified abnormal findings of blood chemistry UA CC w/rflx Micro + Cult Today E06.3 - Autoimmune thyroiditis, R79.89 - Other specified abnormal findings of blood chemistry Lipid Panel Today E06.3 - Autoimmune thyroiditis, R79.89 - Other specified abnormal findings of blood chemistry WENDY Reflex Titer and Pattern Today R53.83 - Other fatigue Tick-borne Disease Molecular Today R53.83 - Other fatigue Complement C3 Today R53.83 - Other fatigue Sjogren's Antibodies Today R53.83 - Other fatigue IRON PROFILE Today R53.83 - Other fatigue Vitamin B12 and Folate Today R53.83 - Other fatigue HLA B27 Today R53.83 - Other fatigue
[2025-02-17 09:56] VITALS: BP 102/68; PULSE 81; O2SAT 98
--- OUTSIDE RECORDS SUMMARY | 2025-02-17 11:38 | XMS_ITS | Encounter Summary ---
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 Not on file Not on file documented as of this encounter Plan of Treatment Upcoming Encounters Date Type Department Care Team (Late st Contact Info) Description 02/18/2025 9:00 AM EDT Office Visit [facility] General Surgical Care [address] [place] [address] Toña Isaac MD [address] [facility], 2nd [place] [address] documented as of this encounter Visit Diagnoses Not on filedocumented in this encounter Care Teams Mate Fishing Vessel Relationship Specialty Start Date End Date Vivek Aponte NP [facility] [place] [address] PCP - General Family Medicine 11/26/21 documented as of this encounter Additional Source Comments The information contained in this document represents components of the legal health record. It is not the complete legal health record.[facility]
--- OUTSIDE RECORDS SUMMARY | 2025-02-17 11:38 | XMS_ITS | Encounter Summary ---
Author Organization [facility] Address [address] [facility] [address] [place] [phone] Phone Care Team Providers Care Telecommunicator Name Role Phone Vivek Aponte [employer] MECHANIC Primary Care Provider + Encounter Details Date Type Department Care Team (Late Contact Info) Description 07/01/2022 Procedure Pass [facility], Ct Scan - [address] [address] Social History Tobacco Use Types Packs/Day Years Used Date Smoking Tobacco: Never Smokeless Tobacco: Never Alcohol Use Standard Drinks/Week Comments Never 0 (1 standard drink = 0.6 oz pur e alcohol) Comments Unknown Sex and Gender Information Value Date Recorded Sex Assigned at Not on file Legal Sex Female 9:56 AM EST Gender Identity Not on file Sexual Orientation Not on file 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 General Surgical Care [address] [place] [address] Toña Isaac MD [address] [facility], 2nd [place] [address] [email or web address] documented as of this encounter Visit Diagnoses Not on filedocumented in this encounter Care Teams Telecommunicator Relationship Specialty Start Date End Date Vivek Aponte NP [address] [place] [address] [place] [address] PCP - General Family Medicine 11/26/21 documented as of this encounter Additional Source Comments The information contained in this document represents components of the legal health record. It is not the complete legal health record.[facility]
--- OUTSIDE RECORDS SUMMARY | 2025-02-17 11:38 | XMS_ITS | Clinical Summary ---
Author Organization [facility] Address [address] [address] Phone Care Team Providers Care Product Distribution Specialist Name Role Phone Vivek Aponte NP Primary Care Provider + Allergies Active Allergy Reactions Criticality Noted Date Comments Grass Pollen Sneezing 10/16/2022 Seasonal allergies Levothyroxine Rash Low 05/03/2024 Generic brand Shellfish Containing Products Anaphylaxis High 05/28 Oral swelling Medications albuterol 2.5 mg /3 mL (0.083 %) nebulizer solution INHALE THE CONTENTS OF 1 VIAL VIA NEBULIZER THREE TIMES A DAY NEEDED FOR SHORTNESS OF BREATH 05/05/20 21 Active busPIRone (BUSPAR) 5 MG tablet Take 5 mg by mouth 2 (two) times a day. 05/05/20 21 Active DUPIXENT SYRINGE 300 mg/2 mL subcutaneous syringe 05/14/20 21 Active EPINEPHrine 0.3 mg/0.3 mL auto-injector USE DIRECTED FOR ANAPHYLAXIS 05/07/20 Active FLUoxetine (PROZAC) 20 MG capsule Take 20 mg by mouth daily. 05/08/20 Active loratadine (CLARITIN) 10 mg tablet Take 10 mg by mouth daily. 05/05/20 21 Active DULERA 200-5 mcg/actuation HFAA INHALE TWO PUFFS BY MOUTH EVERY 12 HOURS 05/21/20 Active montelukast (SINGULAIR) 10 mg tablet Take 10 mg by mouth nightly at bedtime. 05/17/20 21 Active traZODone (DESYREL) 50 MG tablet TAKE ONE TABLET BY MOUTH AT BEDTIME NEEDED FOR INSOMNIA 05/08/20 21 Active SPIRIVA RESPIMAT 2.5 mcg/actuation mist for inhalation INHALE TWO PUFFS BY MOUTH EVERY DAY 05/08/20 21 Active cyanocobalamin, vitamin B-12, 1000 MCG tablet Take 1,000 mcg by mouth daily. Active folic acid (FOLVITE) 400 MCG tablet Take 400 mcg by mouth daily. Active fluticasone propionate (FLONASE) 50 mcg/actuation nasal spray 2 sprays by Nasal route daily. Active multivitamin-mi nerals-lutein (CENTRUM SILVER) Tab Take 1 tablet by mouth daily. Bariatric vitamin Active INCRUSE ELLIPTA 62.5 mcg/actuation inhalation Inhale 1 puff into the lungs daily. 03/04/20 23 Active BREO ELLIPTA 200-25 mcg/dose inhaler Inhale 1 puff into the lungs daily. 07/29/19 24 Active sucralfate (CARAFATE) 1 gram tabletIndicatio ns:Other acute gastritis without hemorrhage Take 1 tablet (1 g total) by mouth 4 (four) times a day. 360 tablet 6 03/02/20 24 Active hydrOXYzine (ATARAX) 25 MG tablet Take 25 mg by mouth nightly at bedtime. 05/25/20 24 Active SYMBICORT 160-4.5 mcg/actuation inhaler 07/21/19 25 Active cholecalciferol (VITAMIN D3) 50,000 unit capsuleIndicati ons:Vitamin D deficiency Take 1 capsule (50,000 Units total) by mouth once a week. 4 capsule 2 11/09/19 25 Active tirzepatide, weight loss, (ZEPBOUND) 7.5 mg/0.5 mL subcutaneous pen Inject 0.5 mL (7.5 mg total) under the skin once a week. 2 mL 2 01/15/20 25 Active omeprazole (PRILOSEC) 20 MG capsuleIndicati ons:Gastroesoph ageal reflux disease without esophagitis TAKE ONE CAPSULE BY MOUTH EVERY DAY 30 capsule 5 02/16/20 25 Active omeprazole (PRILOSEC) 20 MG capsule TAKE ONE CAPSULE BY MOUTH EVERY DAY 30 capsule 5 09/17/19 25 025 Discontinued Active Problems Problem Noted Date Diagnosed Date Gastric stenosis 09/03/2022 Assessment & Plan (09/03/2022 2:18 PM EDT): This is a 36-year-old woman who underwent a laparoscopic sleeve gastrectomy in 2019 and was found to have a gastric stenosis on her most recent endoscopy that is likely causing the heaviness that she is having and left upper quadrant discomfort when she has eaten. Her discomfort has improved significantly but she is still having some discomfort and is having some difficulty with some of the heavier foods that are proteins and fibrous foods. I will plan to perform another endoscopy with balloon dilation to help her tolerate her foods better. She may need a total of 3 to feel better. I will follow-up with the patient in the office for her normal bariatric follow-ups in 2 months. We will schedule the endoscopy for sometime in the first several weeks with balloon dilation. Risk benefits and alternatives were discussed with the patient regarding the endoscopy with balloon dilation. Class 1 obesity due to exces s calories without serious comorbidity with body mass index (BMI) of 32.0 to 32.9 in adult 07/01/2022 Assessment & Plan (11/05/2024 10:03 AM EDT): This is a 39-year-old woman who is using Zepbound for renewed weight loss after laparoscopic sleeve gastrectomy many years ago. Patient is doing well with weight loss. She is on 7.5 mg and is feeling satisfied with her meals. I have asked her to avoid skipping her lunchtime meal and add another 20 g of protein to her day. She will continue current exercise, vitamin intake, and water intake. She will follow-up with me again in 3 months timeframe. She will continue all of the medications as reviewed. She is not stable and is considered obese. Assessment & Plan (07/27/2024 1:32 PM EST): This is a 38-year-old woman who is doing well on stepdown. She reports she still has a little bit of hunger that she is controlling herself. Her weight loss is good but she would like to see a little bit more weight loss. I will increase her Zepbound to 7.5 mg. She will contact me through the portal in about 3 weeks and let me know how she is tolerating the increase in dose and whether she thinks her hunger is under good control and we will either refill the same dose or go up to the next level. She will continue current exercise and water intake. She must increase her protein slightly I would like her to have a minimum of 80 g of protein on a daily basis. She will continue current medications as reviewed. She is not stable and is considered obese. She will follow-up with me again in the office in 2 months timeframe. Assessment & Plan (06/11/2024 9:56 AM EST): This is a 38-year-old woman who is status post laparoscopic sleeve gastrectomy many years ago and was stalled in terms of weight loss and actually gaining weight. She started Zepbound last month and is feeling very good with her weight loss. She is down 6-1/2 pounds and is exercising eating enough protein and drinking plenty of water. She is ready to go up to the next dose. We have increased her dose. She will continue current eating plan water intake and exercise plan. She will follow-up with me again in 1 months timeframe. She is not stable and is considered obese. She will continue current medications as reviewed. Assessment & Plan (05/03/2024 9:54 AM EST): This is a 38-year-old woman who had laparoscopic sleeve gastrectomy many years ago with me. The patient has been a model patient and has followed all instructions. She has increased her exercise and been eating enough protein and has been unable to lose any more weight and has been actually putting on a few pounds. I believe that she would benefit from using one of the GLP medications. Her insurance company does cover Zepbound. I believe this will get her to her goal weight. I have ordered this for the patient and she will follow-up with me again in 1 months timeframe. The patient will continue current eating plan, water intake, and exercise. She is not stable and is considered obese. Assessment & Plan (03/02/2024 11:06 AM EDT): This is a 38-year-old woman who underwent laparoscopic sleeve gastrectomy with hiatal hernia many years ago with me at [facility]. The patient has had a weight loss stall for many months. She is exercising regularly but needs to increase her calorie intake and protein intake more consistently. She will increase her water intake to at least 64 ounces of water on a daily basis. Patient recently started taking levothyroxine for hypothyroidism and hopefully this will improve her metabolism and she will be able to have more weight loss. Patient will follow-up with me again in 2 months timeframe. She is not stable and is considered obese. Assessment & Plan (12/23/2023 10:06 AM EDT): This is a 38-year-old woman who underwent a laparoscopic sleeve gastrectomy and initially did very well with weight loss. She put some weight back on. She has been seeing me in an effort to get the weight off. She is exercising but she is not consuming enough calories and she is not eating enough protein. I have asked her to consume at least 80 g of protein on a daily basis to feel her workouts and to get at least 1000 to 1200 alma. She will start food journaling once again. She will continue current water intake and exercise. She will continue current medications as reviewed. She will follow-up with me again in 4 weeks and likely in 4-week increments to get her back on track in terms of weight loss. She is not stable and is considered obese. Assessment & Plan (09/22/2023 10:24 AM EDT): This is a 37-year-old woman with a history of laparoscopic sleeve gastrectomy who gained some weight back after surgery and is now working on losing the amount of weight that she has gained through our medical weight loss program. Patient is drinking plenty of water. She needs to increase her protein slightly so that she is consuming 78 g of protein on a daily basis. She will continue current exercise and add some formalized strength training. She will continue current medications as reviewed including her bariatric vitamin. She is doing well with weight loss. I will follow-up with her again in 6 weeks timeframe. She is not stable and is considered morbidly obese. Assessment & Plan (08/08/2023 10:07 AM EST): This is a 37-year-old woman who underwent laparoscopic sleeve gastrectomy for weight loss many years ago. She is in our medical weight loss component of the program in order to get off some pounds that she gained. She has asthma at baseline and sometimes has exacerbation. She had an exacerbation that started last week and she is currently on steroids. She will wean off the steroids and then get back on her eating and exercise plan. I will follow-up with her again in 6 weeks timeframe. She will continue current medications as reviewed. She is not stable and is considered obese. Assessment & Plan (06/24/2023 12:28 PM EST): This is a 37-year-old woman with a remote history of laparoscopic sleeve gastrectomy. The patient has put on significant amount of weight and she is trying to take this weight back off. The patient will increase her cardiovascular exercise to at least 30 minutes twice weekly and resume her normal exercise with strength training at least 4 times weekly. The patient will continue current water intake. I have asked her to add MiraLAX 1 capful to her water on a daily basis to decrease the occurrence of constipation which is likely causing some of the left upper quadrant discomfort that she has when she does not move her bowels. The patient will ensure that she is getting at least 70 to 80 g of protein on a daily basis. She should follow-up with me again in 6 weeks timeframe. She is not stable and is considered obese. Patient should continue current medications as reviewed. Assessment & Plan (05/19/2023 10:45 AM EST): This is a 37-year-old woman who is in our medical weight loss program in an effort to lose weight status post laparoscopic sleeve gastrectomy several years ago. The patient has not been consuming enough protein and she is not eating any carbohydrates she also has slacked on exercise over the past several weeks. I have asked the patient to eat at least 1/2 cup of carbohydrate with dinner or lunch. She should be consuming at least 70 g of protein on a daily basis. She will add back formalized exercise. I will follow-up with her again in 5 weeks timeframe. She is not stable and is considered obese. She will also have her thyroid levels checked at the end of this month and hopefully we will have a better idea of what the thyroid function is and be able to supplement if needed. Assessment & Plan (04/14/2023 11:09 AM EST): This is a 37-year-old woman who has a remote history of laparoscopic sleeve gastrectomy with hiatal hernia repair. The patient started to orange picker some weight when she went to nights for working and was not getting enough protein and eating too many carbohydrates. The patient is now working days and is trying to lose the amount of weight that she gained. She is exercising 5 days a week but is not getting enough protein. I have asked her to consume 80 to 100 g of protein. She will add 2 protein shakes to her current meals daily and continue her current exercise program. She will increase her water intake to at least 64 ounces of water on a daily basis. She will continue current medications as reviewed. She is not stable and is considered obese. I will follow-up with the patient again in 4 weeks timeframe. Assessment & Plan (03/17/2023 10:14 AM EDT): This is a 37-year-old woman who has a remote history of a laparoscopic gastric bypass and has put on some weight since she started working nights. The patient changed her schedule back to working days for the past week. She started exercising again last week but only exercise about twice. The goal is to increase her exercise days to at least 4 times per week doing both cardiovascular exercise and strength training. The patient will increase the intensity of her cardiovascular workouts. She will increase water intake to at least 64 ounces of water daily. She will avoid skipping meals and she will try to consume 2 protein shakes per day with 2 meals of protein and vegetables and half cup of carbohydrate once daily. She will continue current medications as reviewed. She will aim for at least 80 g of protein intake on a daily basis. I will follow-up with her again in 4 weeks timeframe to see how well she is doing with following this eating and exercise plan and check her weight loss. She is not stable and is considered obese. Assessment & Plan (12/30/2022 11:19 AM EDT): This is a 37-year-old woman who had laparoscopic sleeve gastrectomy for weight loss several years ago and had done well with weight loss. The patient started to pick some weight back up when she started to skip meals and fast for longer periods of time in between meals as well as overnight shifts at work with poor sleep habits. The patient recently changed her work schedule and is sleeping better and more consistent hours. She is exercising doing both cardiovascular and weight training several times a week and is drinking plenty of water. The patient still is skipping meals and is going to longer periods in between meals and is not getting any carbohydrate. I have asked the patient to add half cup of carbohydrate to her dinner meal and to eat on a schedule at times 9 AM, 12 PM, 3 PM, and 6 PM. The patient will follow-up with the dietitian in 2 weeks timeframe and follow-up with me again in 6 weeks timeframe. I believe eating more consistently and adding some carbohydrates should help the patient to get the weight off. She will keep all other things the same. Patient will continue current medications as reviewed. She is not stable and is considered obese. Assessment & Plan (10/29/2022 2:54 PM EDT): Patient follows up after having balloon dilation of a very small gastric stricture status post gastric sleeve several years ago. Patient reports the food is going much better and she is able to tolerate more proteins. She is still having some difficulty tolerating some of the heavier starches. She reports her left upper quadrant abdominal pain has improved significantly. The patient should increase her water intake to at least 64 ounces of water on a daily basis. I have recommended that she drink at least 16 ounces of water about an hour before she does her meals so that she can make sure that she is getting all of her fluids for the day. Patient should avoid skipping meals. I have also recommended that she change her workouts by some method every 3 weeks so that she can continue to burn more calories. She should also add resistance training at least 20 minutes 3 times a week. She will continue current medications as reviewed including taking her bariatric vitamin. She will follow- up with me in 2 months timeframe. She is not stable and is considered obese. Continuous LUQ abdominal pain 07/01/2022 Assessment & Plan (07/01/2022 11:22 AM EST): This is a 36-year-old woman who underwent a sleeve gastrectomy in 2019 and has done well with weight loss. The patient put on about 10 pounds when she switched to working at night. Patient has had left upper quadrant discomfort with use of her abdominal muscles and any abdominal distention since the end of March. I placed the patient on Carafate and omeprazole as I thought that she had gastritis that she has had before. Patient reports the pain has not improved. She has no gastrointestinal symptoms such as nausea vomiting heartburn burning of the stomach when she eats. She is moving her bowels and passing gas without difficulty. The abdominal pain is only elicited with use of the abdominal muscles. She is able to decrease the abdominal discomfort when she lifts her abdominal wall on the left upper quadrant. Given this I have asked her to stop the Carafate and continue the omeprazole. I will order a CT scan abdomen and pelvis to further evaluate the left upper quadrant discomfort. On my physical examination there is no evidence of masses or hernias appreciated in the area where she has discomfort although she is tender to palpation almost in a dermatome in the left upper quadrant. Patient has been unable to exercise since she has developed this abdominal discomfort. The plan will be to get her back to exercising once we can determine what the cause of her abdominal pain is. If there is no etiology seen on CAT scan we will likely send her to pain management for targeted injections to the abdominal wall to help with this discomfort. Patient will continue current eating plan as this is what causes her the least discomfort for now. She will increase water intake to at least 64 ounces of water on a daily basis. She will add formalize exercise back when she is able to. Patient will continue current medications as reviewed. She is not stable and is considered obese. The patient will follow-up with me again in 3 months timeframe. Once I have the results of the CAT scan I will call the patient discuss further options. Bariatric surgery status 04/05/2022 Obesity (BMI 30-39.9) 01/25/2022 Assessment & Plan (04/05/2022 11:53 AM EDT): This is a 36-year-old lady who underwent a laparoscopic sleeve gastrectomy in May 2020. Over the past several months the patient has had increase in weight likely related to the change in her schedule and working at night and not getting adequate sleep as she is only sleeping 3 to 4 hours/day in addition to not consuming enough protein. The patient is starting to consume enough protein. She is also exercising but is not performing enough cardiovascular exercise. Patient also has symptoms of gastritis over the past 2 weeks with mild epigastric pain that is about a 4 out of 10 and intermittent. I will send in a prescription for Carafate elixir to be taken 4 times a day as well as omeprazole to be taken daily. I have asked the patient increase her cardiovascular exercise to 4 times weekly and decrease resistance training to not more than 3 times a week for now. Patient will continue current medications as reviewed. I have asked the patient increase her sleep and try to get at least 5 to 6 hours of sleep on a daily basis which will help her stress hormones to decrease and allow her to lose more weight. I will follow-up with the patient again in 1 months timeframe. Assessment & Plan (01/25/2022 11:40 AM EDT): This is a 36-year-old lady who underwent a laparoscopic sleeve gastrectomy and hiatal hernia repair in May 2020. Patient has had about a 10 pound weight gain since she last saw me in the office. Patient was skipping meals and not drinking enough water. She got a new job and is working nights and believes that she fell off track in terms of her eating her water intake and her exercise. For the past 2 to 3 weeks she has been more consistent in eating and is doing some food journaling as well as exercising regularly. Patient should continue her current eating plan but she should add 10 to 15 g of protein more daily to reach 60 to 70 g of protein on a daily basis for intake. She should increase her intensity of exercise and add some resistance training 20 minutes at least twice weekly. She should continue current medications as reviewed. She is not stable is considered obese. I will follow-up with her again in the office in 2 months timeframe. Overweight with body mass in dex (BMI) of 28 to 28.9 in adult 05/29/2021 Assessment & Plan (11/26/2021 10:25 AM EDT): This is a 36-year-old lady who underwent a laparoscopic sleeve gastrectomy with hiatal hernia repair June 07, 2020. Patient is doing well with weight loss. She has increased her protein intake since the last visit. She is currently exercising only by walking and doing cardiovascular exercise and has not had any resistance training. She is following the diet and water intake and exercise plan. She should continue current eating plan and exercise plan with the addition of adding 20 minutes of resistance training with her body weight or resistance band resisting training 3 times weekly. Patient will follow up with the dietitian in 1 month and follow-up with me again in 4 months timeframe. She will continue current medications as reviewed. She is not stable is considered overweight. Assessment & Plan (08/24/2021 10:33 AM EDT): This is a 35-year-old lady who is done well with weight loss status post laparoscopic sleeve gastrectomy and hiatal hernia repair May 2020. Patient is doing well with water intake and exercises should continue both. She is doing poorly with protein intake and is only getting in on average about 30 g of protein daily. In order to rectify this the patient should add a 30 g of protein protein shake in addition to what she is currently eating daily this will bring her to 60 g of protein at minimum. Patient should continue current medications as prescribed. She should continue her bariatric vitamin and B12. She is not considered stable and is considered overweight. I will follow up with the patient again in 3 months timeframe. Assessment & Plan (06/26/2021 10:21 AM EST): This is a 35-year-old lady who is status post laparoscopic sleeve gastrectomy and hiatal hernia repair. Patient was seen last month and had a complaint of epigastric discomfort and was diagnosed with gastritis. Patient was started on Carafate elixir 4 times daily and has had almost complete resolution of symptoms. She does report having some mild early satiety and she is eating smaller meals and eating them slower. Patient still needs to increase her water intake to at least 64 to 80 ounces. Patient had a back strain which has prevented her from exercising over the past week. She feels that this back strain is improving and she plans to restart exercise in 1 weeks time. I reviewed the patient's laboratory values which included all of her vitamin levels which were in normal limits with the exception of vitamin B12 was slightly lower than it should be. Patient has increased her vitamin B12 oral supplementation to 2000 mcg every other day. Patient continues bariatric multivitamin. I refilled her Carafate and she will continue this for 1 more month before stopping. I will follow-up with the patient again in 2 months timeframe. Patient will continue current medications as reviewed. She is not stable and is considered overweight. Assessment & Plan (05/29/2021 11:12 AM EST): This is a 35-year-old lady who is status post laparoscopic sleeve gastrectomy and hiatal hernia repair on June 07, 2020. Patient has had a relative weight loss tall over the past 3 months. She has decreased exercise in intensity and is not drinking enough water. Patient was encouraged to increase her water intake to 64 to 80 ounces. She was also encouraged to find other sources of exercise outside of walking and jogging outside for when the weather is not conducive to performing this exercise. I have encouraged her to add resistance bands for 20 minutes 3 times a week to increase resistance training and increased metabolic rate. Patient reports having occasional epigastric discomfort with eating for the past 2 weeks. This appears to be mild gastritis. I have ordered Carafate elixir 1 g to be taken 4 times a day. Patient will also have nutrition labs drawn and we will supplement any labs that are deficient. Patient will follow up with me again in 4 weeks timeframe to assess epigastric discomfort. Patient was also encouraged to discontinue the bariatric shakes and consume protein and vegetables for all meals. I spent about 25 minutes with this patient in pzed-te-ezaf contact Intestinal malabsorption following gastrectomy 1 07/30/2020 Gastritis 05/29/2021 Encounters Date Type Department Care Team Description 02/15/2025 Refill [facility] General Surgical Care [address] [place] [address] Toña Isaac MD Medication Refill 11/18/2024 Transcribe Orders [facility] Specimen Processing [address] [place] [address] Toña Isaac MD Intestinal malabsorption following gastrectomy (Primary Dx) from Last 3 Months Immunizations Immunization Administration Dates Next Due INFLUENZA, SPLIT VIRUS, TRIV ALENT W/ PRESERVATIVE IM 04/26/2015 Influenza Quadrivalent MDCK w/Preservative IM 04/19/2019 Influenza Quadrivalent Preservative Free IM 03/10,04/23/2021,05/11/2020 Influenza Quadrivalent w/ Preservative IM 2017,06/17/2017 MMR 09/18/2016 Pneumococcal polysaccharide PPSV23 01/18/2021, Tdap 07/22/2017 Family History Medical History Relation Comments Anxiety disorder Daughter Depression Daughter Asthma Father Dementia Mother Migraines Mother Nephrolithiasis Mother Stroke Mother Asthma Sister Asthma Son Relation Status Comments Daughter Father Alive Mother Alive Sister Alive Son Social History Tobacco Use Types Packs/Day Years Used Date Smoking Tobacco: Never Smokeless Tobacco: Never Tobacco Cessation:Counseling Given: Not Answered Alcohol Use Standard Drinks/Week Comments Never 0 (1 standard drink = 0.6 oz pur e alcohol) Education Answer Date Recorded Are you interested in more education? Not on hyun e 10/03/2022 Are you concerned about learning? Not on file 10/03/2022 No 10/03/2022 No 10/03/2022 Digital Access Answer Date Recorded No 10/30/2022 No 10/30/2022 Reliable internet access at home? Not on file 10/30/2022 Device with a working camera? Not on file Intimate Partner Violence Answer Date R ecorded Are you denied basic needs s uch as food, clothing, or medical care? No 10/17/2022 In the past 12 months have y ou been in a relationship with a person who hurts, threatens, or tries to control you? No 10/17/2022 Are you denied basic needs s uch as food, clothing, or medical care? No 10/17/2022 In the past 12 months have y ou been in a relationship with a person who hurts, threatens, or tries to control you? 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 Not on file Not on file Last Filed Vital Signs Vital Sign Reading Time Taken Comments Blood Pressure 86/48 11/05/2024 9:32 AM EDT Pulse 70 11/05/2024 9:32 AM EDT Temperature 36.7 C (98 F) 11/05/2024 9:32 AM EDT Respiratory Rate 18 10/17/2022 8:04 AM EDT Oxygen Saturation 95% 11/05/2024 9:32 AM EDT Inhaled Oxygen Concentration - - Weight 79.5 kg (175 lb 3.2 oz) 11/05/2024 9:32 A M EDT Height 157.5 cm (5' 2 ) 11/05/2024 9:32 AM EDT Body Mass Index 32.04 11/05/2024 9:32 AM EDT Plan of Treatment Upcoming Encounters Date Type Department Care Team (Late st Contact Info) Description 02/18/2025 9:00 AM EDT Office Visit [facility] General Surgical Care [address] [place] [address] Toña Isaac MD 15 [facility], 2nd [place] [address] [email or web address] Due Date Last Done Comments DEPRESSION SCREENING 1997 HEPATITIS C SCREENING 10/20/2003 HIV ONE-TIME SCREENING (18-65 YEARS) 10/20/2003 PAP SMEAR 2006 INFLUENZA VACCINE (#1) 2025 , 04/23/2021, 05/11/2020, Additional history exists COVID-19 VACCINE (2024- season) 2025 04/26/2021, 10/10/2020, 09/19/2020 Adult Td,Tdap Booster 07/22/2027 07/22/2017 SCREENING FOR DIABETES 11/06/2027 11/05/2024, 2020 PNEUMOCOCCAL VACCINES (0-49 years) Aged Out 01/18/2021, 06/26/2018 No longer eligibl e based on patient's age to complete this topic SMOKING STATUS SCREENING (Once After 26 Yrs) Completed 07/27/2024 HEPATITIS A VACCINES Aged Out No long er eligible based on patient's age to complete this topic HIB VACCINES Aged Out No longer eligi ble based on patient's age to complete this topic MENINGOCOCCAL VACCINES (ACWY) Aged Out No longer eligible based on patient's age to complete this topic MENINGOCOCCAL VACCINES (B) Aged Out N o longer eligible based on patient's age to complete this topic Medical Devices Not on file Insurance [facility] Care Teams Product Distribution Specialist Relationship Specialty Start Date End Date Vivek Aponte NP [address] [facility] [place] [address] PCP - General Family Medicine 11/26/21 Additional Source Comments The information contained in this document represents components of the legal health record. It is not the complete legal health record.[facility]
--- OUTSIDE RECORDS SUMMARY | 2025-02-17 11:38 | XMS_ITS | Encounter Summary ---
Author Organization [facility] Address [address] [facility] [address] [place] [address] Phone Care Team Providers Care Plumbing Engineering Draftsperson Name Role Phone Vivek Aponte GREENSTONE POLISHER OPERATOR Primary Care Provider + Encounter Details Date Type Department Care Team (Late Contact Info) Description 08/01/2022 Procedure Pass [facility] Endoscopy Admitting Dept Virtual Department [address] [place] [address] Social History Tobacco Use Types Packs/Day Years Used Date Smoking Tobacco: Never Smokeless Tobacco: Never Alcohol Use Standard Drinks/Week Comments Never 0 (1 standard drink = 0.6 oz pur e alcohol) Comments No Sex and Gender Information Value Date Recorded Sex Assigned at Not on file Legal Sex Female 9:56 AM EST Gender Identity Not on file Sexual Orientation Not on file 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 Not on file documented as of this encounter Plan of Treatment Upcoming Encounters Date Type Department Care Team (Late Contact Info) Description 02/18/2025 9:00 AM EDT Office Visit [facility] General Surgical Care [address] [place] [address] Toña Isaac MD 15 [facility], 2nd [place] [address] documented as of this encounter Visit Diagnoses Not on filedocumented in this encounter Care Teams Plumbing Engineering Draftsperson Relationship Specialty Start Date End Date Vivek Aponte, FREDDY [address] [facility] [place] [address] PCP - General Family Medicine 11/26/21 documented as of this encounter Additional Source Comments The information contained in this document represents components of the legal health record. It is not the complete legal health record.[facility]
--- OUTSIDE RECORDS SUMMARY | 2025-02-17 11:38 | XMS_ITS | Encounter Summary ---
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 file Not on file documented as of this encounter Plan of Treatment Upcoming Encounters Date Type Department Care Team (Late st Contact Info) Description 02/18/2025 9:00 AM EDT [facility] General Surgical Care [address] [place] [address] Toña Isaac MD 15 [facility], 2nd [place] [address] Scheduled Orders Name Type Priority Associated Diagnoses Orde r Schedule Vitamin B1 (thiamine) Lab Routine Intestinal malabsorption following gastrectomy Expected: 11/18/2024, Expires: 11/18/2025 documented as of this encounter Visit Diagnoses Diagnosis Intestinal malabsorption following gastrectomy- Primary documented in this encounter Care Teams Monitoring Tech Relationship Specialty Start Date End Date Vivek Aponte NP [address] [place] [address] [place] [address] PCP - General Family Medicine 11/26/21 documented as of this encounter Additional Source Comments The information contained in this document represents components of the legal health record. It is not the complete legal health record.[facility]
--- OUTSIDE RECORDS SUMMARY | 2025-02-17 11:38 | XMS_ITS | Encounter Summary ---
Author Organization [facility] Address [address] [employer] [facility] [address] [place] [address] Phone Care Team Providers Care Lacquer Pin Press Operator Name Role Phone Vivek Aponte NP Primary Care Provider + Encounter Details Date Type Department Care Team ([facility] st Contact Info) Description 10/17/2022 Procedure Pass [facility] Endoscopy Admitting Dept Virtual Department [address] [place] [address] Social History Tobacco Use Types Packs/Day Years Used Date Smoking Tobacco: Never Smokeless Tobacco: Never Alcohol Use Standard Drinks/Week Comments Never 0 (1 standard drink = 0.6 oz pur e alcohol) Education Answer Date Recorded Are you interested in more education? Not on hyun e 10/03/2022 Are you concerned about learning? 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 Not on file documented as of this encounter Plan of Treatment Upcoming Encounters Date Type Department Care Team (Late st Contact Info) Description 02/18/2025 9:00 AM EDT [facility] General Surgical Care [address] [place] [address] Toña Isaac MD 15 [facility], 2nd [place] [address] [email or web address] documented as of this encounter Visit Diagnoses Not on filedocumented in this encounter Care Teams Lacquer Pin Press Operator Relationship Specialty Start Date End Date Vivek Aponte NP [facility] [place] [address] PCP - General Family Medicine 11/26/21 documented as of this encounter Additional Source Comments The information contained in this document represents components of the legal health record. It is not the complete legal health record.[facility]
--- OUTSIDE RECORDS SUMMARY | 2025-02-17 11:38 | XMS_ITS | Encounter Summary ---
Author Organization [facility] Address [address] [facility] [address] [place] [phone] Phone Care Team Providers Care Medical Associate Name Role Phone Vivek Aponte NP Primary Care Provider + Reason for Referral * Medication Prior Authorization - Closed Specialty Diagnoses / Procedures Referred By Contac t Referred To Contact Diagnoses Gastroesophageal reflux disease without esophagitis Toña Isaac MD [address] [place] [address] Phone: tel: fax: [email or web address] Referral ID Status Reason Start Date Expiration Date Visits Re quested Visits Authorized [id number] Closed 1 1 Reason for Visit * Reason Comments Medication Refill Encounter Details Date Type Department Care Team (Late st Contact Info) Description 02/15/2025 Refill [facility] General Surgical Care [address] [place] [address] [place] [address] Toña Isaac MD [address] [place] [address] [email or web address] Medication Refill Social History Tobacco Use Types Packs/Day Years [...] 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 Not on file Not on file documented as of this encounter Plan of Treatment Upcoming Encounters Date Type Department Care Team (Late st Contact Info) Description 02/18/2025 9:00 AM EDT Office Visit [facility] General Surgical Care [address] [place] [address] [place] [address] Toña Isaac MD 15 [facility], 2nd [place] [address] [email or web address] documented as of this encounter Visit Diagnoses Diagnosis Gastroesophageal reflux disease without esophagitis- Primary Esophageal reflux documented in this encounter Care Teams Medical Associate Relationship Specialty Start Date End Date Vivek Aponte NP [facility] [place] [address] PCP - General Family Medicine 11/26/21 documented as of this encounter Additional Source Comments The information contained in this document represents components of the legal health record. It is not the complete legal health record.[facility]
== END 2025-02-17 10:32 | disposition home or self-care (01) ==
LOC: HO.HMCC 09:49
PROVIDERS: PCP Nurse Practitioner Family; Visit Provider Nurse Practitioner Family
DX: R79.89 Other specified abnormal findings of blood chemistry (principal); E06.3 Autoimmune thyroiditis; R53.83 Other fatigue

== ENCOUNTER → 2025-02-17 09:48 | Outpatient (BNVA) | payer OTHER, SELFPAY | PROVIDERS: PCP Nurse Practitioner Family; Visit Provider Nurse Practitioner Family | DX: R94.6 Abnormal results of thyroid function studies (principal); E06.3 Autoimmune thyroiditis; R53.83 Other fatigue; J44.89 Other specified chronic obstructive pulmonary disease; E66.9 Obesity, unspecified | CPT/HCPCS: 99212 ==

== ENCOUNTER 2025-02-18 09:58 | Outpatient (REF) | payer OTHER, SELFPAY ==
--- OUTSIDE RECORDS SUMMARY | 2025-02-18 11:15 | XMS_ITS | Encounter Summary ---
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 Not on file documented as of this encounter Plan of Treatment Upcoming Encounters Date Type Department Care Team (Late st Contact Info) Description 03/14/2025 2:30 PM EDT [facility] General Surgical Care [address] [place] [address] Toña Isaac MD 15 [facility], 2nd [place] [address] [email or web address] documented as of this encounter Visit Diagnoses Not on filedocumented in this encounter Care Teams Compressor Station Operator Relationship Specialty Start Date End Date Vivek Aponte NP [address] [place] [address] [place] [address] PCP - General Family Medicine 11/26/21 documented as of this encounter Additional Source Comments The information contained in this document represents components of the legal health record. It is not the complete legal health record.[facility]
--- OUTSIDE RECORDS SUMMARY | 2025-02-18 11:15 | XMS_ITS | Encounter Summary ---
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 Not on file documented as of this encounter Plan of Treatment Upcoming Encounters Date Type Department Care Team (Late st Contact Info) Description 03/14/2025 2:30 PM EDT Office Visit [facility] General Surgical Care [address] [place] [address] Toña Isaac MD 15 [facility], 2nd [place] [address] Scheduled Orders Name Type Priority Associated Diagnoses Orde r Schedule Vitamin B1 (thiamine) Lab Routine Intestinal malabsorption following gastrectomy Expected: 11/18/2024, Expires: 11/18/2025 documented as of this encounter Visit Diagnoses Diagnosis Intestinal malabsorption following gastrectomy- Primary documented in this encounter Care Teams Sensitometrist Relationship Specialty Start Date End Date Vivek Aponte NP [address] [place] [address] [place] [address] PCP - General Family Medicine 11/26/21 documented as of this encounter Additional Source Comments The information contained in this document represents components of the legal health record. It is not the complete legal health record.[facility]
--- OUTSIDE RECORDS SUMMARY | 2025-02-18 11:15 | XMS_ITS | Encounter Summary ---
Author Organization [facility] Address [address] [facility] [address] [place] [address] Phone Care Team Providers Care Metal Ceiling Builder Name Role Phone Vivek Aponte NP Primary Care Provider + Reason for Referral * Medication Prior Authorization - Closed Specialty Diagnoses / Procedures Referred By Contac t Referred To Contact Diagnoses Gastroesophageal reflux disease without esophagitis Toña Isaac MD [address] [place] [address] Phone: tel: fax: mailto:[email or web address] Referral ID Status Reason Start Date Expiration Date Visits Re quested Visits Authorized [id number] Closed 1 1 Reason for Visit * Reason Comments Medication Refill Encounter Details Date Type Department Care Team (Late st Contact Info) Description 02/15/2025 Refill [facility] General Surgical Care [address] [place] [address] [place] [address] Toña Isaac MD [address] [place] [address] [email or web address] Medication Refill Social History Tobacco Use Types [...] 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 Not on file documented as of this encounter Plan of Treatment Upcoming Encounters Date Type Department Care Team (Late st Contact Info) Description 03/14/2025 2:30 PM EDT Office Visit [facility] General Surgical Care [address] [place] [address] [place] [address] Toña Isaac MD 15 [facility], 2nd [place] [address] [email or web address] documented as of this encounter Visit Diagnoses Diagnosis Gastroesophageal reflux disease without esophagitis- Primary Esophageal reflux documented in this encounter Care Teams Metal Ceiling Builder Relationship Specialty Start Date End Date Vivek Aponte NP [facility] [place] [address] PCP - General Family Medicine 11/26/21 documented as of this encounter Additional Source Comments The information contained in this document represents components of the legal health record. It is not the complete legal health record.[facility]
--- OUTSIDE RECORDS SUMMARY | 2025-02-18 11:15 | XMS_ITS | Encounter Summary ---
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 Not on file documented as of this encounter Plan of Treatment Upcoming Encounters Date Type Department Care Team (Late st Contact Info) Description 03/14/2025 2:30 PM EDT Office Visit [facility] General Surgical Care [address] [place] [address] Toña Isaac MD 15 [facility], 2nd [place] [address] documented as of this encounter Visit Diagnoses Not on filedocumented in this encounter Care Teams Automotive Consultant Relationship Specialty Start Date End Date Vivek Aponte NP [facility] [place] [address] PCP - General Family Medicine 11/26/21 documented as of this encounter Additional Source Comments The information contained in this document represents components of the legal health record. It is not the complete legal health record.[facility]
--- OUTSIDE RECORDS SUMMARY | 2025-02-18 11:15 | XMS_ITS | Encounter Summary ---
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 Not on file documented as of this encounter Plan of Treatment Upcoming Encounters Date Type Department Care Team (Late Contact Info) Description 03/14/2025 2:30 PM EDT Office Visit [facility] General Surgical Care [address] [place] [address] Toña Isaac MD 15 [facility], 2nd [place] [address] [email or web address] documented as of this encounter Visit Diagnoses Not on filedocumented in this encounter Care Teams Director Workforce Management Relationship Specialty Start Date End Date Vivek Aponte NP [address] [place] [address] [place] [address] PCP - General Family Medicine 11/26/21 documented as of this encounter Additional Source Comments The information contained in this document represents components of the legal health record. It is not the complete legal health record.[facility]
--- OUTSIDE RECORDS SUMMARY | 2025-02-18 11:16 | XMS_ITS | Encounter Summary ---
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 [address] PCP - General Family Medicine 11/26/21 documented as of this encounter Additional Source Comments The information contained in this document represents components of the legal health record. It is not the complete legal health record.[facility]
--- OUTSIDE RECORDS SUMMARY | 2025-02-18 11:16 | XMS_ITS | Clinical Summary ---
Author Organization [facility] Address [address] [address] Phone Care Team Providers Care Accounts Receivable Assistant Name Role Phone Vivke Aponte NP Primary Care Provider + Allergies [...] hernia many years ago with me at [facility]. The patient has had a weight [...] hiatal hernia repair. The patient started to brass pickler some weight when she went to nights [...] about 25 minutes with this patient in [id number] contact Intestinal malabsorption following gastrectomy 1 07/30/2020 Gastritis 05/29/2021 Encounters Date Type Department Care Team Description 02/15/2025 Refill 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 General Surgical Care [address] [place] [address] Toña Isaac MD 15 [facility], 2nd [place] [address] [email or web address] Due Date Last Done Comments [...] topic Medical Devices Not on file Insurance [facility] Care Teams Accounts Receivable Assistant Relationship Specialty Start Date End Date Vivek Aponte NP [address] [place] [address] PCP - General Family Medicine 11/26/21 Additional Source Comments The information contained in this document represents components of the legal health record. It is not the complete legal health record.[facility]
[2025-02-18 13:25] LABS: MANUAL DIFF FLAG NO
[2025-02-18 13:34] LABS: Hematocrit 42.6 % (37.0-47.0); Hemoglobin 13.7 g/dl (12.0-16.0); Imm Gran Abs Auto 0.02 X10*3/uL (0.00-0.03); Imm Gran Pct Auto 0.3 % (0.0-0.4); Lymphocytes Absolute Auto 1.9 X10*3/uL (1.2-4.9); Mean Corpuscular HGB Conc 32.2 g/dl (31.0-35.0); Mean Corpuscular Hemoglobin 27.8 pg (27.0-33.0); Mean Corpuscular Volume 86.6 fL (80.0-98.0); NRBC Abs Auto 0.000 X10*3/uL (0.0-0.012); NRBC Pct Auto 0.0 /100WBC (0.0-0.2); Platelet Count 242 X10*3/uL (160-400); Red Blood Count 4.92 X10*6/uL (4.20-5.50); White Blood Count 6.3 X10*3/uL (4.8-10.8)
[2025-02-18 13:42] LABS: Appearance Urine Clear; Glucose Urine UA Negative (Negative); PH 7.0 (5.0-9.0); Specific Gravity - Urine 1.025 (1.005-1.025)
[2025-02-18 14:02] LABS: Alanine Aminotransferase 11 U/L (0-31); Albumin Level 4.3 g/dL (3.5-5.0); Anion Gap 10 (12-20); Aspartate Amino Transferase 17 U/L (5-31); Blood Urea Nitrogen 13 mg/dL (9-16); Calcium 8.8 mg/dL (8.4-10.2); Carbon Dioxide 28 mmol/L (22-29); Chloride 106 mmol/L (96-108); Cholesterol 195 mg/dL (<200); Estimated Glomerular Filt Rate > 60; Iron 123 mcg/dL (30-160); Percent Iron Saturation 49 % (15-50); Potassium 4.1 mmol/L (3.3-5.1); Sodium 140 mmol/L (135-145); Total Iron Binding Capacity 253 mcg/dL (228-428); Total Protein 7.1 g/dL (6.5-8.0); Triglycerides 61 mg/dL (<150); Unsaturated Iron Binding 130 ug/dL
[2025-02-18 14:03] LABS: Alkaline Phosphatase 64 U/L (39-117); HDL Cholesterol 54 mg/dL (>40)
[2025-02-18 14:25] LABS: Ferritin 153 ng/mL (10-122)
[2025-02-18 14:34] LABS: Folate 7.8 ng/mL (> or = 4.0); Vitamin B12 354 pg/mL (200-900)
[2025-02-18 16:19] LABS: Free T4 (Free Thyroxine) 0.97 ng/dL (0.71-1.85)
[2025-02-19 06:43] LABS: Lyme Abs Screen <0.90 index
[2025-02-21 12:38] LABS: A. Phagocytphilium DNA,RT-PCR NOT DETECTED (NOT DETECTED); Babesia Microti DNA, RT-PCR NOT DETECTED (NOT DETECTED); Borrelia Miyamotoi,DNA RT-PCR NOT DETECTED (NOT DETECTED); E.Chaffeensis DNA RT-PCR NOT DETECTED (NOT DETECTED); Lyme(Borrelia ssp)DNA RT-PCR NOT DETECTED (NOT DETECTED)
[2025-02-23 09:55] LABS: Anti Nuclear Antibody Screen POSITIVE (NEGATIVE)
[2025-02-23 10:03] LABS: Anti Nuclear Antibody Titer 1:320 titer
[2025-02-23 16:23] LABS: Antibody to SS-A Antigen <1.0 NEG AI (<1.0 NEG); Antibody to SS-B Antigen <1.0 NEG AI (<1.0 NEG)
[2025-02-24 02:38] LABS: HLA B27 Negative (Negative)
== END 2025-02-18 09:59 | disposition home or self-care (01) ==
LOC: HO.10HDL 09:58
PROVIDERS: Visit Provider Nurse Practitioner Family
DX: E06.3 Autoimmune thyroiditis (principal); R79.89 Other specified abnormal findings of blood chemistry; R53.83 Other fatigue
CPT/HCPCS: 36415; 80053; 80061; 81003; 82607; 82728; 82746; 83540; 84439; 84443; 85025; 86038; 86039; 86160; 86235; 86617; 86618; 86812; 87468; 87469; 87478; 87484; 87798

== ENCOUNTER 2025-03-10 10:44 | Outpatient (REF) | payer OTHER, SELFPAY ==
[2025-03-10 15:06] LABS: Chlamydia pneumoniae PCR Not Detected (Not Detect.); Coronavirus 229E PCR Not Detected (Not Detect.); Coronavirus HKU1 PCR Not Detected (Not Detect.); Coronavirus NL63 PCR Not Detected (Not Detect.); Coronavirus OC43 PCR Not Detected (Not Detect.); RSV PCR Not Detected (Not Detect.); Rhino/Enterovirus PCR Not Detected (Not Detect.)
[2025-03-10 15:22] LABS: Influenza A H1 PCR Not Detected (Not Detect.); Influenza A H1-2009 PCR Not Detected (Not Detect.); Influenza A H3 PCR Not Detected (Not Detect.); SARS-CoV-2 PCR Detected (Not Detect.)
== END 2025-03-10 10:45 | disposition home or self-care (01) ==
LOC: HO.LAB 10:44
PROVIDERS: Nurse Practitioner Family; PCP Nurse Practitioner Family
DX: J06.9 Acute upper respiratory infection, unspecified (principal)
CPT/HCPCS: 87633; 99212

== ENCOUNTER 2025-03-10 10:44 | Outpatient (AMB) | payer OTHER, SELFPAY ==
[2025-03-10 10:52] VITALS: BP 98/60; PULSE 71; TEMP 37; O2SAT 97; BMI 31.1
--- NOTE | 2025-03-10 10:52 | AM.OFFWIN_ITS ---
Intake Vital Signs 03/10/25 10:52 Height 5 ft 2 in Weight 170 lb BMI 31.1 BP 98/60 Blood Pressure Location Lt brachial Position Sitting Pulse 71 Pulse Source Pulse Oximeter Temp 98.6 F Temp Source Oral Pulse Oximetry (%) 97 Oxygen Delivery Method Room Air Intake Visit Reasons: EP-sinus issue Intake Note: pt presents with sinus pressure/pain with discharge x3 days Patient Tobacco Use Status: Never used Tobacco Allergies shellfish derived Allergy (Severe, Verified 03/10/25 10:57) Oral swelling levothyroxine sodium (From Synthroid) Allergy (Intermediate, Verified 03/10/25 10:57) Rash levothyroxine Allergy (Mild, Verified 03/10/25 10:57) Rash ENVIRONMENTAL Allergy (Severe, Uncoded 02/17/25 10:33) SINUS, SNEEZING Do you need a note to return to daycare/school/sports/work: No HPI HPI Comments History of Present Illness Details 39 y/o Female patient who presents to [facility] with c/o Nasal sinus congestion and pressure for 3 days. She did use Sudafed with minimal relief. Reports that she gets recurrent Sinus infections and usually an Abx helps resolve the symptoms. Denies fevers, chills, nausea or vomiting. [facility] Medical History (Updated 03/10/25 @ 11:18 by Nilda Vizcarra NP) Acute respiratory disease Chest pain Asthma-COPD overlap syndrome Retrocalcaneal bone spur Left ankle injury Allergies Autumn's disease Orthostatic hypotension Left anterior knee pain Asthma BMI 33.0-33.9,adult Intermittent palpitations Obesity (BMI 30-39.9) Intrauterine contraceptive device RODRIGUEZ on CPAP Morbid obesity Moderate persistent asthma Degenerative disc disease, lumbar ASCUS favor benign Seasonal allergies Depression with anxiety Surgical History S/P laparoscopic sleeve gastrectomy History of repair of hiatal hernia History of esophagogastroduodenoscopy (EGD) History of appendectomy History of tonsillectomy Family History Mother Stroke Dementia Migraines Kidney stone Father Asthma Sister Asthma Son Asthma Daughter Anxiety Depressed Social History Household Members: Children Housing: Apartment Are you a primary day care center director to a significant other at home: Yes (children) Do you presently have visiting nurse or other home services: No Alcohol intake: never Patient Tobacco Use Status: Never used Tobacco e-Cigarette/Vaping Use: Never Used Second Hand Smoke Exposure: No service: No Current occupational status: employed Current occupation: [employer] Current occupational exposures/hazards: No Cognitive needs: No Hearing needs: No Vision needs: No Female Reproductive History Menstrual Age of Menarche: 12 Review of Systems Const All systems reviewed & are unremarkable except as noted in HPI and below Physical Exam Vital Signs: Last Vital Signs Temp 98.6 F 03/10/25 10:52 Pulse 71 03/10/25 10:52 BP 98/60 03/10/25 10:52 Pulse Ox 97 03/10/25 10:52 Oxygen Delivery Method Room Air 03/10/25 10:52 BMI result Body Mass Index 31.1 Const General: no acute distress Nutritional Appearance: well nourished Orientation/consciousness: patient oriented x3 HEENT Head: Yes normocephalic Ears: external ears normal and TM abnormal bulging bilateral and with fluid behind the TM bilateral; not perforated and not retracted General nose exam: Normal external nose present and Abnormal mucous membranes and turbinates present boggy Face and sinus: Yes sinuses nontender Mouth: moist mucous membranes Throat: Yes uvula midline Resp Effort & Inspection: normal respiratory effort, able to speak in complete sentences and no cough Auscultation: clear to auscultation bilaterally, no crackles, no rales, no rhonchi and no wheezes Cardio Heart sounds: S1 normal heart sound present and S2 normal heart sound present Neuro General: patient oriented x3, gait normal and moves all extremities Psych Speech and movement: Normal speech and movement present Assessment & Plan Assessment & Plan (1) Acute respiratory disease: Code(s): J06.9 - Acute upper respiratory infection, unspecified Plan: Ordered Resp Path Panel Ordered Z-pack on hold until viral panel results come back Acetaminophen for pain relief. OTC Afrin and Sudafed for congestion relief. Orders: Orders Resp Pathogen Panel - [facility] [place] Today J06.9 - Acute upper respiratory infection, unspecified Medications: New pseudoephedrine HCl ER (Sudafed 12 Hour) 120 mg PO Q12H 20 tabs 0RF J01.90 - Acute sinusitis, unspecified azithromycin 500 mg PO DAILY 3 tabs 0RF 3 days J01.90 - Acute sinusitis, unspecified Coding Level of Care Code Est Pt Level 4 (22809) Diagnoses Acute respiratory disease J06.9 Time Spent (min) 20
--- OUTSIDE RECORDS SUMMARY | 2025-03-10 12:29 | XMS_ITS | Encounter Summary ---
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 Not on file Not on file documented as of this encounter Plan of Treatment Upcoming Encounters Date Type Department Care Team (Late st Contact Info) Description 03/14/2025 2:30 PM EDT Office [facility] General Surgical Care [address] [place] [address] Toña Isaac MD 15 [facility], 2nd [place] [address] [email or web address] documented as of this encounter Visit Diagnoses Not on filedocumented in this encounter Care Teams Pediatric Speech Language Pathologist Relationship Specialty Start Date End Date Vivek Aponte NP [address] [place] [address] [place] [address] PCP - General Family Medicine 11/26/21 documented as of this encounter Additional Source Comments The information contained in this document represents components of the legal health record. It is not the complete legal health record.[facility]
--- OUTSIDE RECORDS SUMMARY | 2025-03-10 12:29 | XMS_ITS | Encounter Summary ---
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 Not on file Not on file documented as of this encounter Plan of Treatment Upcoming Encounters Date Type Department Care Team (Late st Contact Info) Description 03/14/2025 2:30 PM EDT Office Visit [facility] General Surgical Care [address] [place] [address] Toña Isaac MD 15 [facility], 2nd [place] [address] documented as of this encounter Visit Diagnoses Not on filedocumented in this encounter Care Teams Service Dismantler Relationship Specialty Start Date End Date Vivek Aponte NP [facility] [place] [address] PCP - General Family Medicine 11/26/21 documented as of this encounter Additional Source Comments The information contained in this document represents components of the legal health record. It is not the complete legal health record.[facility]
--- OUTSIDE RECORDS SUMMARY | 2025-03-10 12:29 | XMS_ITS | Encounter Summary ---
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 Not on file Not on file documented as of this encounter Plan of Treatment Upcoming Encounters Date Type Department Care Team (Late st Contact Info) Description 03/14/2025 2:30 PM EDT Office Visit [facility] General Surgical Care [address] [place] [address] Toña Isaac MD 15 [facility], 2nd [place] [address] Scheduled Orders Name Type Priority Associated Diagnoses Orde r Schedule Vitamin B1 (thiamine) Lab Routine Intestinal malabsorption following gastrectomy Expected: 11/18/2024, Expires: 11/18/2025 documented as of this encounter Visit Diagnoses Diagnosis Intestinal malabsorption following gastrectomy- Primary documented in this encounter Care Teams Beam Saw Operator Relationship Specialty Start Date End Date Vivek Aponte NP [address] [place] [address] [place] [address] PCP - General Family Medicine 11/26/21 documented as of this encounter Additional Source Comments The information contained in this document represents components of the legal health record. It is not the complete legal health record.[facility]
--- OUTSIDE RECORDS SUMMARY | 2025-03-10 12:30 | XMS_ITS | Encounter Summary ---
Author Organization 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 Not on file Not on file documented as of this encounter Plan of Treatment Upcoming Encounters Date Type Department Care Team (Late Contact Info) Description 03/14/2025 2:30 PM EDT Office Visit [facility] General Surgical Care [address] [place] [address] Toña Isaac MD 15 [facility], [address]nd [place] [address] [email or web address] documented as of this encounter Visit Diagnoses Not on filedocumented in this encounter Care Teams Petroleum Geologist Relationship Specialty Start Date End Date Vivek Aponte NP [address] [place] [address] [place] [address] PCP - General Family Medicine 11/26/21 documented as of this encounter Additional Source Comments The information contained in this document represents components of the legal health record. It is not the complete legal health record.[facility]
--- OUTSIDE RECORDS SUMMARY | 2025-03-10 12:30 | XMS_ITS | Clinical Summary ---
Author Organization [facility] Address [address] [address] Phone Care Team Providers Care Remnants Cutter Name Role Phone Vivek Aponte NP Primary [...] hernia many years ago with me at [facility]. The patient has had a weight [...] hiatal hernia repair. 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 Not on file Not [...] Description 03/14/2025 2:30 PM EDT Office Visit [facility] General Surgical Care [address] [place] [address] Toña Isaac MD 15 [facility], 2nd [place] [address] Health Maintenance Due Date Last Done Comments DEPRESSION SCREENING 1997 HEPATITIS C SCREENING 10/20/2003 HIV ONE-TIME SCREENING (18-65 YEARS) 10/20/2003 PAP SMEAR 2006 INFLUENZA VACCINE (#1) 2025 , 04/23/2021, 05/11/2020, Additional history exists COVID-19 VACCINE ( season) 2025 04/26/2021, 10/10/2020, 09/19/2020 Adult Td,Tdap [...] topic Medical Devices Not on file Insurance [facility] [place] [id number] [facility] Care Teams Remnants Cutter Relationship Specialty Start Date End Date Vivek Aponte NP [facility] [place] [address] PCP - General Family Medicine 11/26/21 Additional Source Comments The information contained in this document represents components of the legal health record. It is not the complete legal health record.[facility]
--- OUTSIDE RECORDS SUMMARY | 2025-03-10 12:30 | XMS_ITS | Encounter Summary ---
Author Organization 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 Not on file Not on file documented as of this encounter Plan of Treatment Upcoming Encounters Date Type Department Care Team (Late Contact Info) Description 03/14/2025 2:30 PM EDT Office Visit [facility] General Surgical Care [address] [place] [address] Toña Isaac MD 15 [facility], 2nd [place] [address] documented as of this encounter Visit Diagnoses Not on filedocumented in this encounter Care Teams Reservoir Caretaker Relationship Specialty Start Date End Date Vivek Aponte, FREDDY [address] [facility] [place] [address] PCP - General Family Medicine 11/26/21 documented as of this encounter Additional Source Comments The information contained in this document represents components of the legal health record. It is not the complete legal health record.[facility]
== END 2025-03-10 11:30 | disposition home or self-care (01) ==
PROVIDERS: PCP Nurse Practitioner Family; Visit Provider Nurse Practitioner Family
DX: J06.9 Acute upper respiratory infection, unspecified (principal)

== ENCOUNTER 2025-04-26 09:14 | Outpatient (REF) | payer OTHER, SELFPAY ==
--- NOTE | ~2025-04-26 | XR_ITS ---
EXAMINATION: XR CHEST CLINICAL INFORMATION: R07.9 - Chest pain, unspecified COMPARISON: 02/21/2021 TECHNIQUE: 2 views of the chest were obtained. FINDINGS: No significant abnormality is noted involving the heart, lungs, mediastinum, bony thorax or soft tissues. XR/XR chest 2V IMPRESSION: No acute disease Electronically signed by: Carlos Rubio MD 04/26/2025 10:34 AM [facility]
== END 2025-04-26 09:15 | disposition home or self-care (01) ==
LOC: HO.XRAY 09:14
PROVIDERS: PCP Nurse Practitioner Family; Visit Provider Hospitalist
DX: J44.89 Other specified chronic obstructive pulmonary disease (principal); G47.33 Obstructive sleep apnea (adult) (pediatric); J45.50 Severe persistent asthma, uncomplicated; K44.9 Diaphragmatic hernia without obstruction or gangrene; T78.40XD Allergy, unspecified, subsequent encounter; R07.89 Other chest pain; Z79.899 Other long term (current) drug therapy; Z99.89 Dependence on other enabling machines and devices
CPT/HCPCS: 71046; 99212

== ENCOUNTER 2025-04-26 09:14 | Outpatient (AMB) | payer OTHER, SELFPAY ==
[2025-04-26 09:37] VITALS: BP 90/62; PULSE 72; O2SAT 98; BMI 29.2
--- NOTE | 2025-04-26 09:37 | MHC.OFFVIS ---
Vital Signs 04/26/25 09:37 Height 5 ft 2 in Weight 159 lb 13.362 oz BMI 29.2 BP 90/62 Blood Pressure Location Lt brachial Position Sitting Pulse 72 Pulse Source Pulse Oximeter Pulse Oximetry (%) 98 Oxygen Delivery Method Room Air Intake Visit Reasons: Obstructive sleep apnea Talent Assistant Required: No Accompanied by: Self / Same As Patient Allergies shellfish derived Allergy (Severe, Verified 04/26/25 09:40) Oral swelling levothyroxine sodium (From Synthroid) Allergy (Intermediate, Verified 04/26/25 09:40) Rash levothyroxine Allergy (Mild, Verified 04/26/25 09:40) Rash ENVIRONMENTAL Allergy (Severe, Uncoded 02/17/25 10:33) SINUS, SNEEZING HPI Comments Details: The patient is a 39 y/o womanwith severe persistent asthma. Has been responding well to the Xolair and also to the addition of theophylline. Still, has been getting episodes of exacerbations some flares. Recently she did take a course of prednisone. Apparently her major triggers are stress in agitation. It appears that her allergy symptoms are well controlled on the current respiratory regimen. Current she has been noticing increased weight gain. We talked about the importance of losing weight to minimize the respiratory symptoms for her to improve her overall health. Recently her Xolair was increased to 300 mg twice a month. We did review her blood work that she had and she has had some eosinophilia as well as a critically high IgE level. Therefore, if she does not respond to Xolair she may be a good candidate for Dupixent. She continues on a very aggressive respiratory regimen including theophylline, Daliresp, Symbicort, Spiriva and singular. She is having hard time keeping up with work. I do agree that we have to improve her respiratory status in order for her to be able to function work without putting herself at risk of an adverse of event. Therefore, I do agree that for the next 3 months we could decrease the amount of work hours in order to optimize her respiratory therapy. In addition to that the patient has been complaining of some difficulty swallowing due to pain. She feels a fullness in a tightness of her throat area. She also did have a barium swallow demonstrating a small hiatal hernia with reflux. She will be following up with that endoscopy soon with gastroenterology. 12/20/2022 the patient is here for pulmonary follow-up visit. She continues on Dupixent. Lately she has been having increasing chest tightness and having to use her nebulizer more often. She continues use all her respiratory therapy as prescribed. Denies any sick contacts. Continues to respond positively to the Dupixent although still symptomatic at times. I explained to her that Dupixent will treat allergic triggers but would not do tree any nonallergic triggers for her asthma. I do not believe that she needing the biologic is really going to make a big change in her asthma control at this time. Patient will monitor closely for any reflux disease or other potential triggers such as lower respiratory infections. She has not been using her CPAP. The patient has been doing well her Nazlini score is 6/24. She is working on losing weight after her bariatric surgery. We will plan to do a repeat study when she gets to her ideal weight. 07/29/2023 the patient is here for pulmonary follow-up visit. She keeps waxing and waning. She had been on Spiriva in [facility] and was switched over to Trelegy. Unfortunately the Trelegy was not covered and she was provided with Breo and Incruse. She has only been using 1 of the inhalers not knowing that she was supposed to be on 2. Explained to her that she is take both in the morning and hopefully her symptoms a little bit as well. The Dupixent shots continue to be affecting beneficial. She does get a headache after using it will usually wears off after 48 hours. We did talk about considering a lower dose in case her headaches get any worse. But right now will keep her on the during 100 mg dose. As far as the sleep apnea she has been off her CPAP now for some time after having surgery. She reach her ideal weight for her and therefore will go ahead and repeat her sleep study. Nazlini score continues to be low elevated at 8 over 24. The patient understands that if her sleep study demonstrates underlying sleep apnea she needs to go back on CPAP. 04/07/2024 the patient is here for pulmonary follow-up visit. She is having hard time with her breathing. She had to take a course of prednisone couple weeks ago. She continues on Dupixent. She has been on the Breo and the Incruse she does not feel like they are working very well. She is having to use her rescue inhaler multiple times a day. She did have a problem with a water leak. Apparently developing some mold. Besides that denies any other exposures. Will go ahead and recheck her allergy levels including her mold allergies. If indeed she has significant more larger allergies she may need further the mold issue in her apartment. Otherwise the patient will continue with the Dupixent. She also has been dealing with other issues including thyroid issues. She is going to be talking to her primary care doctor about that. Will follow-up in 3 months. If she has any worsening symptoms she will call for an earlier assessment. 07/12/2024 the patient is here for a pulmonary follow-up visit. She has been complaining worsening cough chest congestion consistent with chronic bronchitis. She does get relief with respiratory medicines. The Breztri inhaler has been hopeful. Will go ahead and send her prednisone to the pharmacy at this time. In the meantime she benefits from going back on Dupixent. Dupixent therapy has been very affecting beneficial. Therefore would like to continue this time. The patient also continues to wear CPAP. CPAP therapy continues to be affecting beneficial. Will go ahead and follow-up in 4-6 months. She has any issues she will call for an earlier assess 01/13/2025 the patient is here for a pulmonary follow-up visit. She has been struggling with her breathing. She complains of chest heaviness and tightness primarily when she does any kind of exertion and also when she is getting anxious and having an issue with stress. He has been using her inhaler multiple times a day. She has been using her respiratory inhalers as prescribed and continues on the Dupixent shots. During the visit the patient was taken for a walking oximetry up the stairs and should should did develop the chest tightness and heaviness. No significant wheezing we did do a spirometry afterwards which was completely normal. Therefore based on the fact that her breathing seems to be okay the patient was sent for blood work including a D-dimer troponin I which were negative. We also did request an EKG although she has not done it as of yet. The based on the fact that all the blood work come back normal including a normal hemoglobin will go ahead and send her a low-dose prednisone course to see if this provides any relief. 04/26/2025 the patient is here for pulmonary follow-up visit. Overall the patient has been doing okay but she does complain of worsening chest tightness and shortness of breath and asthma. She did have COVID back in March she went to an urgent care because she was having significant sinus congestion. She thought it was allergies but she did test positive for COVID. At that point the patient started developing significant cough chest congestion and she was started on some antibiotics. Now she is completely often but she still feels like her breathing is doing better. She continues on the Symbicort. She continues on the Dupixent that has been very affecting beneficial for her. But now with a postviral reactive airways is likely that her breathing is going to be effective for the next several weeks. Will go ahead and optimize her respiratory therapy by switching from Symbicort to Breztri. She is also going to restart the Singulair. The patient will undergo a chest x-ray to make sure that she does not have any acute pulmonary issues going on and the patient will follow-up in 3 months. If she has any issues she can always call for further recommendations. [facility] Medical History (Updated 03/10/25 @ 11:18 by Nilda Vizcarra NP) Acute respiratory disease Chest pain Asthma-COPD overlap syndrome Retrocalcaneal bone spur Left ankle injury Allergies Autumn's disease Orthostatic hypotension Left anterior knee pain Asthma BMI 33.0-33.9,adult Intermittent palpitations Obesity (BMI 30-39.9) Intrauterine contraceptive device RODRIGUEZ on CPAP Morbid obesity Moderate persistent asthma Degenerative disc disease, lumbar ASCUS favor benign Seasonal allergies Depression with anxiety Surgical History S/P laparoscopic sleeve gastrectomy History of repair of hiatal hernia History of esophagogastroduodenoscopy (EGD) History of appendectomy History of tonsillectomy Family History Mother Stroke Dementia Migraines Kidney stone Father Asthma Sister Asthma Son Asthma Daughter Anxiety Depressed Social History Household Members: Children Housing: Apartment Are you a primary medicare contact specialist to a significant other at home: Yes (children) Do you presently have visiting nurse or other home services: No Alcohol intake: never Patient Tobacco Use Status: Never used Tobacco e-Cigarette/Vaping Use: Never Used Second Hand Smoke Exposure: No service: No Current occupational status: employed Current occupation: [employer] Current occupational exposures/hazards: No Cognitive needs: No Hearing needs: No Vision needs: No Female Reproductive History Menstrual Age of Menarche: 12 Review of Systems Const Reports daytime sleepiness, Denies difficulty sleeping, Denies fever(s), Denies headache(s), Denies snoring, Denies stops breathing during sleep and Reports weight loss Eyes Denies blurry vision and Denies diplopia ENT Denies dizziness and Denies headache(s) Card Denies chest pain, Denies irregular heart rhythm, Denies leg edema, Reports lightheadedness, Reports dyspnea, Reports dyspnea on exertion and Reports other (palpitations) Resp Reports cough, Denies hemoptysis, Denies excessive phlegm production, Reports dyspnea, Reports dyspnea on exertion, Denies snoring and Reports wheezing GI Denies abdominal pain, Denies hematochezia, Denies constipation, Denies heartburn, Denies diarrhea, Denies nausea and Denies vomiting Musc Reports back pain, Denies arthralgias, Denies joint swelling and Denies limited range of motion Neuro Denies dizziness and Denies headache(s) Psych Denies abnormal sleep pattern, Denies anxiety and Denies depression Aller/Immun Reports wheezing Physical Exam Vital Signs: Last Vital Signs Pulse 72 04/26/25 09:37 BP 90/62 04/26/25 09:37 Pulse Ox 98 04/26/25 09:37 Oxygen Delivery Method Room Air 04/26/25 09:37 BMI result Body Mass Index 29.2 Const General: alert Neck Neck: Yes normal visual inspection, Yes full ROM and Yes no lymphadenopathy Chest Chest palpation & inspection: normal inspection of the chest Resp Effort & Inspection: normal respiratory effort and prolonged expiratory phase Auscultation: no wheezes and diminished lung sounds Cardio Rate: regular rate Rhythm: regular rhythm Heart sounds: S1 normal heart sound present and S2 normal heart sound present GI Palpation (GI): Soft to palpation and nontender Auscultation: normal bowel sounds General: Yes no CVA tenderness Back/Spine/Pelvis Back: no CVA tenderness Assessment & Plan Assessment & Plan (1) Asthma: Code(s): J45.909 - Unspecified asthma, uncomplicated Category: Medical Qualifiers: Asthma complication type: uncomplicated Asthma persistence: persistent Asthma severity: severe Qualified Code(s): J45.50 - Severe persistent asthma, uncomplicated (2) RODRIGUEZ on CPAP: Comment: CPAP new to patient-started using 05/26/20, not on CPAP Code(s): G47.33 - Obstructive sleep apnea (adult) (pediatric); Z99.89 - Dependence on other enabling machines and devices Category: Medical (3) Hiatal hernia: Code(s): K44.9 - Diaphragmatic hernia without obstruction or gangrene Category: Medical (4) Allergies: Code(s): T78.40XA - Allergy, unspecified, initial encounter Category: Medical Qualifiers: Encounter type: subsequent encounter Qualified Code(s): T78.40XD - Allergy, unspecified, subsequent encounter (5) Asthma-COPD overlap syndrome: Code(s): J44.89 - Other specified chronic obstructive pulmonary disease Category: Medical (6) Chest pain: Code(s): R07.9 - Chest pain, unspecified Category: Medical Qualifiers: Chest pain type: unspecified Qualified Code(s): R07.9 - Chest pain, unspecified Plan stop Symbicort start Breztri restart Singulair Daliresp continue Claritin CXR Follow-up in 4 months Orders: Orders XR chest 2V Today R07.9 - Chest pain, unspecified Medications: New sratsalkgn-[id number]-[id number] 160-9-4.8 mcg/actuation (Breztri Aerosphere) 2 inhalations inhalation BID 10.7 grams 6RF 30 days montelukast 10 mg PO DAILY 30 tabs 11RF 30 days J45.909 - Unspecified asthma, uncomplicated Refilled loratadine 10 mg PO DAILY 30 tabs 10RF Coding Level of Care Code Est Pt Level 4 (48882) Complex EM visit Add On G2211 Diagnoses Severe persistent asthma without complication J45.50 Asthma complication type: uncomplicated Asthma persistence: persistent Asthma severity: severe RODRIGUEZ on CPAP G47.33; Z99.89 Hiatal hernia K44.9 Allergy, subsequent encounter T78.40XD Encounter type: subsequent encounter Asthma-COPD overlap syndrome J44.89 Chest pain, unspecified type R07.9 Chest pain type: unspecified Time Spent (min) 16
== END 2025-04-26 10:07 | disposition home or self-care (01) ==
LOC: HO.HPS 09:14
PROVIDERS: PCP Nurse Practitioner Family; Visit Provider Hospitalist
DX: J45.50 Severe persistent asthma, uncomplicated (principal); G47.33 Obstructive sleep apnea (adult) (pediatric); Z99.89 Dependence on other enabling machines and devices; K44.9 Diaphragmatic hernia without obstruction or gangrene; T78.40XD Allergy, unspecified, subsequent encounter; J44.89 Other specified chronic obstructive pulmonary disease; R07.9 Chest pain, unspecified
CPT/HCPCS: 99214

== ENCOUNTER → 2025-04-26 10:11 | Outpatient (BNV) | payer OTHER, SELFPAY | PROVIDERS: PCP Nurse Practitioner Family; Visit Provider Radiology Diagnostic Radiology | DX: R07.9 Chest pain, unspecified (principal) | CPT/HCPCS: 71046 ==

== ENCOUNTER 2025-05-16 13:32 | Outpatient (AMB) | payer OTHER, SELFPAY ==
[2025-05-16 13:41] VITALS: BP 100/68; PULSE 72; O2SAT 98; BMI 29.4
--- NOTE | 2025-05-16 13:41 | A.OFFPC_ITS ---
Vital Signs 05/16/25 13:41 Height 5 ft 2 in Weight 161 lb BMI 29.4 BP 100/68 Blood Pressure Location Lt brachial Position Sitting Pulse 72 Pulse Source Pulse Oximeter Pulse Oximetry (%) 98 Oxygen Delivery Method Room Air Intake Visit Reasons: PE Printer Floor Covering Assistant Required: No Accompanied by: Self / Same As Patient Allergies shellfish derived Allergy (Severe, Verified 05/16/25 13:45) Oral swelling levothyroxine sodium (From Synthroid) Allergy (Intermediate, Verified 05/16/25 13:45) Rash levothyroxine Allergy (Mild, Verified 05/16/25 13:45) Rash ENVIRONMENTAL Allergy (Severe, Uncoded 02/17/25 10:33) SINUS, SNEEZING Tobacco use date assessed: 05/16/25 Dental Screening Dental Screen Date: 05/16/25 Did you have a dental visit in the last 12 months?: Yes Did you have a dental problem in the last 6 months where you did not have access to dental care?: No Was dental information given to patient?: Patient has dentist HPI PE 2 HPI Details History of Present Illness The patient is a 39 year old female presenting for a physical examination. She has a history of a positive antinuclear antibody (JIGNA) test and is scheduled for a follow-up with rheumatology. She sees a property assessment monitor on a regular basis for an unspecified condition. Additionally, the patient has a history of subclinical hypothyroidism with a slightly elevated TSH. Due to being symptomatic, she was started on Turon Thyroid, as she has multiple medication allergies. She plans to follow up with endocrinology for this condition. Recent lab results were noted to be not bad overall, though cholesterol was slightly elevated. Health Maintenance - Patient had recent lab work performed. - Follow-up with pulmonology on a regula r basis. 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 -denies any CP, SOB, abd pain, blood in stool, constipation, diarrhea, SI or HI Physical Exam General: Cooperative, healthy appearing, comfortable, no acute distress and well developed Orientation: Patient oriented x3 Limitations: No limitations Head: Normal to inspection Ears: Hearing grossly normal bilaterally Nose: Normal external nose present Face and sinus: Normal facial exam Eyes: Appearance normal, both eyes and all related structures Neck: Normal visual inspection and Yes full ROM Respiratory: Normal respiratory effort and able to speak in complete sentences. Clear to auscultation bilaterally Cardiovascular: Regular rate and rhythm. Normal S1 and S2 GI: Normal to inspection. Soft to palpation and nontender : testicles without masses/lesions and no hernias appreciated Skin: No rashes or lesions noted except for a small circular/dry lesion (erythema) under her left abdominal fold (tinea) Neuro: Patient oriented x3 Extremities: Normal to inspection Results - Antinuclear antibody (JIGNA): Positive. - Thyroid-stimulating hormone (TSH): Sli ghtly elevated. - Cholesterol: Slightly elevated. Plan 1. Follow Up A follow-up visit is scheduled in 4 to 5 months. 2. Positive Antinuclear Antibody (Jigna) The patient will follow up with rheumatology for her positive JIGNA result. 3. Subclinical Hypothyroidism The patient was previously started on Turon Thyroid for symptomatic subclinical hypothyroidism and will follow up with endocrinology for further management. 4. Tinea Cruris A topical cream was prescribed to be applied in a very faint amount to the affected area under the left abdominal fold. The patient was advised to keep the area as dry as possible. Discussion Notes I discussed the patient's recent lab results, which were overall not bad, though I noted I wished her cholesterol was a bit better and that her TSH remains slightly elevated. We reviewed her treatment for subclinical hypothyroidism with Turon Thyroid, which was initiated because she was symptomatic despite the subclinical diagnosis. I explained she would follow up with endocrinology for this condition and with rheumatology for a previously positive JIGNA test. Regarding the rash, I identified it as what appears to be tinea under her left abdominal fold and prescribed a cream, instructing her to use a very small amount and to keep the area as dry as possible. I advised a follow-up visit in 4 to 5 months. Patient Instructions - Continue to see your lung specialist ( property assessment monitor) regularly. - Make sure to follow up with the rheuma tology specialist for your positive JIGNA lab result. - Continue taking Turon Thyroid as pres cribed and follow up with the metalworking specialist for your thyroid condition. - For the rash under your left stomach f old, apply a very small amount of the prescribed cream. - Keep the area with the rash as dry as you can. - Please schedule a follow-up appointmen t to see me in 4 to 5 months. [facility] Medical History Acute respiratory disease Chest pain Asthma-COPD overlap syndrome Retrocalcaneal bone spur Left ankle injury Allergies Autumn's disease Orthostatic hypotension Left anterior knee pain Asthma BMI 33.0-33.9,adult Intermittent palpitations Obesity (BMI 30-39.9) Intrauterine contraceptive device RODRIGUEZ on CPAP Morbid obesity Moderate persistent asthma Degenerative disc disease, lumbar ASCUS favor benign Seasonal allergies Depression with anxiety Surgical History S/P laparoscopic sleeve gastrectomy History of repair of hiatal hernia History of esophagogastroduodenoscopy (EGD) History of appendectomy History of tonsillectomy Family History Mother Stroke Dementia Migraines Kidney stone Father Asthma Sister Asthma Son Asthma Daughter Anxiety Depressed Social History Household Members: Children Housing: Apartment Are you a primary career development associate to a significant other at home: Yes (children) Do you presently have visiting nurse or other home services: No Alcohol intake: never Patient Tobacco Use Status: Never used Tobacco e-Cigarette/Vaping Use: Never Used Second Hand Smoke Exposure: No service: No Current occupational status: employed Current occupation: [employer] Current occupational exposures/hazards: No Cognitive needs: No Hearing needs: No Vision needs: No Female Reproductive History Menstrual Age of Menarche: 12 Questionnaire PHQ-9 Over the last 2 weeks, how often have you been bothered by any of the following problems? 1. Little interest or pleasure in doing things: not at all 2. Feeling down, depressed, or hopeless: not at all 3. Trouble falling or staying asleep, or sleeping too much: not at all 4. Feeling tired or having little energy: not at all 5. Poor appetite or overeating: not at all 6. Feeling bad about yourself - or that you are a failure or have let yourself or your family down: not at all 7. Trouble concentrating on things, such as reading the newspaper or watching television: not at all 8. Moving or speaking so slowly that other people could have noticed. Or the opposite - being so fidgety or restless that you have been moving around a lot more than usual: not at all 9. Thoughts that you would be better off or of hurting yourself in some way: not at all Total score: 0 Depression Screening Interpretation: Negative Depression Screening Done: Yes 52675 - PHQ-9 Billing: Yes Source: Developed by Drs. Tuan Alves, Donna Epps, Piero Basurto and colleagues, with an educational will from [email or web address]. Thrive Questionnaire Date Thrive assessed: 08/16/24 I am a: Patient What is your living situation today?: I have a steady place to live Within the past 12 months, did the food you bought not last and you didn't have the money to get more?: Never true Within the past 12 months, did you worry whether your food would run out before you got money to buy more?: Never true Do you have trouble paying for medicines?: No Do you have trouble getting transportation to medical appointments?: No Do you have trouble paying your heating and electricity bill?: No Do you have trouble taking care of your child, family member or friend?: No Do you have trouble with day-to-day activities such as bathing, preparing meals, shopping, managing finances, etc.?: No Are you currently unemployed and looking for a job?: I choose not to answer this question Are you interested in more education?: No Please select the resources that you would like help with: None Currently or been in a relationship where the following occur: No concerns reported THRIVE Score: 0 MIRANDA-7 AMB Questionnaire MIRANDA-7 Date MIRANDA - 7 assessed: 05/16/25 Feeling nervous, anxious, or on edge: 0 = Not at all Not being able to stop or control worryin = Not at all Worrying too much about different things: 0 = Not at all Trouble relaxin = Not at all Being so restless that it is hard to sit still: 0 = Not at all Becoming easily annoyed or irritable: 0 = Not at all Feeling afraid as if something awful might happen: 0 = Not at all Total MIRANDA-7 score (0-4 normal; 5-9 mild; 10-14 moderate; 15-21 severe): 0 Source: Developed by Donna Vera Kurt Kroenke and colleagues, with an educational will from [email or web address]. MIRANDA-7 Assessment Billing MIRANDA-7 Assessment Tool: MIRANDA-7 Assessment 47949 Physical exam (Primary Care) Vital Signs: Last Vital Signs Pulse 72 05/16/25 13:41 BP 100/68 05/16/25 13:41 Pulse Ox 98 05/16/25 13:41 Oxygen Delivery Method Room Air 05/16/25 13:41 BMI result Body Mass Index 29.4 Tobacco/Smoking Status: Tobacco use Status Tobacco use date assessed 05/16/25 05/16/25 13:46 Patient Tobacco Use Status Never used Tobacco 05/16/25 13:43 e-Cigarette/Vaping Use Never Used 05/16/25 13:43 PHQ-9: PHQ-9 Score PHQ-9: Total score 0 05/16/25 13:46 Depression Screening Interpretation: Negative Thrive Assessment: Date of Thrive Assessment Date Thrive assessed 08/16/24 05/16/25 13:43 Currently or been in a relationship where the following occur: No concerns reported Coding Level of Care Code Est Pt Level 3 (95749) Est Pt Prev Care 18-39y(63335) Diagnoses Elevated TSH R79.89 Physical exam Z00.00 Tinea B35.9 Additional Codes MIRANDA-7 Assessment Billing - MIRANDA-7 Assessment Tool: MIRANDA-7 Assessment 70558 ([id number]) PHQ-9 - 43525 - PHQ-9 Billing: Yes ([id number]) Assessment & Plan Assessment & Plan (1) Elevated TSH: Code(s): R79.89 - Other specified abnormal findings of blood chemistry Category: Medical (2) Physical exam: Code(s): Z00.00 - Encounter for general adult medical examination without abnormal findings Category: Medical (3) Tinea: Code(s): B35.9 - Dermatophytosis, unspecified Category: Medical Plan . Medications: New clotrimazole-betamethasone 1-0.05 % 1 appl topical BID 15 grams 0RF 2 weeks
--- OUTSIDE RECORDS SUMMARY | 2025-05-16 22:18 | XMS_ITS | Encounter Summary ---
Author Organization [facility] Address [address] [facility] [address] [place] [address] Phone Care Team Providers Care Mailroom Supervisor Name Role Phone Vivek Aponte NP Primary Care Provider + Reason for Visit * Reason Comments Medication Refill Encounter Details Date Type Department Care Team (Late st Contact Info) Description 05/12/2025 Refill [facility] General Surgical Care [address] [place] [address] Toña Isaac MD 15 [facility], 2nd [place] [address] [email or web address] Medication Refill Social History Tobacco Use Types [...] 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 Not on file Not on file documented as of this encounter Plan of Treatment Upcoming Encounters Date Type Department Care Team (Late st Contact Info) Description 06/29/2025 8:30 AM EST Office Visit [facility] General Surgical Care [address] [place] [address] Alana Sultana, WATER RESOURCE ENGINEERING SPECIALIST [address] [facility], 2nd [place] [address] documented as of this encounter Visit Diagnoses Not on filedocumented in this encounter Care Teams Mailroom Supervisor Relationship Specialty Start Date End Date Vivek Aponte NP [address] [place] [address] [place] [address] PCP - General Family Medicine 11/26/21 documented as of this encounter Additional Source Comments The information contained in this document represents components of the legal health record. It is not the complete legal health record.[facility]
--- OUTSIDE RECORDS SUMMARY | 2025-05-16 22:18 | XMS_ITS | Encounter Summary ---
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 Not on file Not on file documented as of this encounter Plan of Treatment Upcoming Encounters Date Type Department Care Team (Late st Contact Info) Description 06/29/2025 8:30 AM EST Office Visit [facility] General Surgical Care [address] [place] [address] Alana Sultana, PHOTONICS ENGINEERING TECHNOLOGIST [address] [facility], 2nd [place] [address] [email or web address] documented as of this encounter Visit Diagnoses Not on filedocumented in this encounter Care Teams Racking Technician Relationship Specialty Start Date End Date Vivek Aponte NP [facility] [place] [address] PCP - General Family Medicine 11/26/21 documented as of this encounter Additional Source Comments The information contained in this document represents components of the legal health record. It is not the complete legal health record.[facility]
--- OUTSIDE RECORDS SUMMARY | 2025-05-16 22:18 | XMS_ITS | Encounter Summary ---
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 Not on file Not on file documented as of this encounter Plan of Treatment Upcoming Encounters Date Type Department Care Team (Late st Contact Info) Description 06/29/2025 8:30 AM EST Office Visit [facility] General Surgical Care [address] [place] [address] Alana Sultana, SUPERVISOR POWDERED METAL 15 [facility], 2nd [place] [address] Scheduled Orders Name Type Priority Associated Diagnoses Orde r Schedule Vitamin B1 (Thiamine) Lab Routine Intestinal malabsorption following gastrectomy Expected: 11/18/2024, Expires: 11/18/2025 documented as of this encounter Visit Diagnoses Diagnosis Intestinal malabsorption following gastrectomy- Primary documented in this encounter Care Teams Grooving Lathe Tender Relationship Specialty Start Date End Date Vivek Aponte NP [address] [facility] [place] [address] PCP - General Family Medicine 11/26/21 documented as of this encounter Additional Source Comments The information contained in this document represents components of the legal health record. It is not the complete legal health record.[facility]
--- OUTSIDE RECORDS SUMMARY | 2025-05-16 22:18 | XMS_ITS | Encounter Summary ---
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 Not on file Not on file documented as of this encounter Plan of Treatment Upcoming Encounters Date Type Department Care Team (Late Contact Info) Description 06/29/2025 8:30 AM EST Office Visit [facility] General Surgical Care [address] [place] [address] Alana Sultana, ANDRES 15 [facility], 2nd [place] [address] documented as of this encounter Visit Diagnoses Not on filedocumented in this encounter Care Teams Biology Intern Relationship Specialty Start Date End Date Vivek Aponte, FREDDY [address] [place] [address] [place] [address] PCP - General Family Medicine 11/26/21 documented as of this encounter Additional Source Comments The information contained in this document represents components of the legal health record. It is not the complete legal health record.[facility]
--- OUTSIDE RECORDS SUMMARY | 2025-05-16 22:18 | XMS_ITS | Encounter Summary ---
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, 2nd [place] [address] documented as of this encounter Visit Diagnoses Not on filedocumented in this encounter Care Teams Pool Attendant Relationship Specialty Start Date End Date Vivek Aponte, FREDDY [address] [facility] [place] [address] PCP - General Family Medicine 11/26/21 documented as of this encounter Additional Source Comments The information contained in this document represents components of the legal health record. It is not the complete legal health record.[facility]
--- OUTSIDE RECORDS SUMMARY | 2025-05-16 22:18 | XMS_ITS | Clinical Summary ---
Author Organization [facility] Address [address] [address] Phone Care Team Providers Care Linux Systems Analyst Name Role Phone Vivek Aponte NP Primary [...] week. 4 capsule 2 11/09/19 25 Active omeprazole (PRILOSEC) 20 MG capsuleIndicati ons:Gastroesoph ageal reflux disease without esophagitis TAKE ONE CAPSULE BY MOUTH EVERY DAY 30 capsule 5 02/16/20 25 Active ZEPBOUND 7.5 mg/0.5 mL subcutaneous pen INJECT 0.5 ML UNDER THE SKIN ONCE A WEEK 2 mL 2 05/12/20 25 Active tirzepatide, weight loss, (ZEPBOUND) 7.5 mg/0.5 mL subcutaneous pen Inject 0.5 mL (7.5 mg total) under the skin once a week. 2 mL 2 01/15/20 25 025 Discontinued Active Problems Problem Noted [...] comorbidity with body mass index (BMI) of 30.0 to 30.9 in adult 07/01/2022 Assessment & Plan (03/14/2025 2:55 PM EDT): This is a 39-year-old woman who is doing extremely well with weight loss on the GLP-1 medication Zepbound. She does not feel hungry and does not have any side effects on the 7.5 mg. We will continue to 7.5 mg weekly. We will switch her care to our nurse practitioner for the medical weight loss. She will have her annual blood work drawn by her primary care physician. She will continue all other medications as reviewed. She will continue current exercise eating plan and water intake. She is not stable and is considered obese. Assessment & Plan (11/05/2024 10:03 AM EDT): [...] hernia many years ago with me at [facility]. The patient has had a weight [...] hiatal hernia repair. 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 Status post laparoscopic sleeve gastrectomy 03/10 Obesity (BMI 30-39.9) 01/25/2022 Assessment & Plan [...] about 25 minutes with this patient in [id number] contact Intestinal malabsorption following gastrectomy 1 07/30/2020 Gastritis 05/29/2021 Encounters Date Type Department Care Team Description 05/12/2025 Refill [facility] General Surgical Care [address] [place] [address] Toña Isaac MD Medication Refill 03/14/2025 2:30 PM EDT Office Visit [facility] General Surgical Care [address] [place] [address] Toña Isaac MD Class 1 obesity due to excess calories without serious comorbidity with body mass index (BMI) of 30.0 to 30.9 in adult (Primary Dx); Status post laparoscopic sleeve gastrectomy; Bariatric surgery status 02/15/2025 Refill [facility] Surgical Care [address] [place] [address] Toña Isaac MD Medication Refill from Last [...] 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 Not on file Last Filed Vital Signs Vital Sign Reading Time Taken Comments Blood Pressure 82/44 03/14/2025 2:41 PM EDT Pulse 79 03/14/2025 2:41 PM EDT Temperature 36.7 C (98 F) 03/14/2025 2:41 PM EDT Respiratory Rate 18 10/17/2022 8:04 AM EDT Oxygen Saturation 98% 03/14/2025 2:41 PM EDT Inhaled Oxygen Concentration - - Weight 74.8 kg (165 lb) 03/14/2025 2:41 PM EDT Height 157.5 cm (5' 2 ) 03/14/2025 2:41 PM EDT Body Mass Index 30.18 03/14/2025 2:41 PM EDT Plan of Treatment Upcoming Encounters Date Type Department Care Team (Late st Contact Info) Description 06/29/2025 8:30 AM EST Office Visit [facility] General Surgical Care [address] [place] [address] Alana Sultana, GRAPHIC PRE PRESS TRADES WORKER 15 [facility], 2nd [place] [address] Health Maintenance Due Date Last Done Comments DEPRESSION SCREENING 1997 HEPATITIS C SCREENING 10/20/2003 HIV ONE-TIME SCREENING (18-65 YEARS) 10/20/2003 PAP SMEAR 2006 INFLUENZA VACCINE (#1) 2025 2, 04/23/2021, 05/11/2020, Additional history exists COVID-19 VACCINE (2024- season) 2025 04/26/2021, 10/10/2020, 09/19/2020 Adult Td,Tdap Booster 07/22/2027 07/22/2017 SCREENING FOR DIABETES 11/06/2027 11/05/2024, 2020 PNEUMOCOCCAL VACCINES (0-49 years) Aged Out 01/18/2021, 06/26/2018 No longer eligibl e based on patient's age to complete this topic SMOKING STATUS SCREENING (Once After 26 Yrs) Completed 03/14/2025 HEPATITIS A VACCINES Aged Out No long [...] topic Medical Devices Not on file Insurance [facility] [employer] [facility] Care Teams Linux Systems Analyst Relationship Specialty Start Date End Date Vivek Aponte NP [address] [place] [address] [place] [address] PCP - General Family Medicine 11/26/21 Additional Source Comments The information contained in this document represents components of the legal health record. It is not the complete legal health record.[facility]
--- OUTSIDE RECORDS SUMMARY | 2025-05-16 22:18 | XMS_ITS | Encounter Summary ---
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, 2nd [place] [address] documented as of this encounter Visit Diagnoses Not on filedocumented in this encounter Care Teams Lotus Notes Administrator Relationship Specialty Start Date End Date Vivek Aponte NP [facility] [place] [address] PCP - General Family Medicine 11/26/21 documented as of this encounter Additional Source Comments The information contained in this document represents components of the legal health record. It is not the complete legal health record.[facility]
== END 2025-05-16 13:58 | disposition home or self-care (01) ==
LOC: HO.HMCC 13:32
PROVIDERS: PCP Nurse Practitioner Family; Visit Provider Nurse Practitioner Family
DX: Z00.00 Encounter for general adult medical examination without abnormal findings (principal); R79.89 Other specified abnormal findings of blood chemistry; B35.9 Dermatophytosis, unspecified

== ENCOUNTER → 2025-05-16 13:32 | Outpatient (BNVA) | payer OTHER, SELFPAY | PROVIDERS: PCP Nurse Practitioner Family; Visit Provider Nurse Practitioner Family | DX: Z00.00 Encounter for general adult medical examination without abnormal findings (principal); E03.8 Other specified hypothyroidism; B35.6 Tinea cruris; R79.89 Other specified abnormal findings of blood chemistry | CPT/HCPCS: 96127; 99212; 99395 ==

== ENCOUNTER 2025-06-07 11:14 | Outpatient (AMB) | payer OTHER, SELFPAY ==
--- NOTE | 2025-06-07 11:20 | A.OFFVIS_ITS ---
Vital Signs 06/07/25 11:22 Height 5 ft 2 in Weight 164 lb 0.383 oz BMI 30.0 BP 92/54 L Blood Pressure Location Lt brachial Position Sitting Pulse 74 Pulse Source Pulse Oximeter Pulse Oximetry (%) 97 Oxygen Delivery Method Room Air Intake Visit Reasons: Elevated TSH Intake Note: Patient present today for Elevated TSH office visit. Core Carrier Required: No Accompanied by: Self / Same As Patient Allergies shellfish derived Allergy (Severe, Verified 06/07/25 11:23) Oral swelling levothyroxine sodium (From Synthroid) Allergy (Intermediate, Verified 06/07/25 11:23) Rash levothyroxine Allergy (Mild, Verified 06/07/25 11:23) Rash ENVIRONMENTAL Allergy (Severe, Uncoded 06/07/25 11:23) SINUS, SNEEZING Medication List - Last Reconciled 06/07/25 by Tuan Johnston MD albuterol sulfate 2.5 mg (3 mL) inhalation TID PRN budesonide-formoterol 160-4.5 mcg/actuation (Symbicort) 2 puffs inhalation BID 30 days buspirone 5 mg PO BID clotrimazole-betamethasone 1-0.05 % 1 appl topical BID 2 weeks compr.stocking,thigh,reg,small As directed dupilumab (Dupixent) 300 mg (2 mL) subcut Q2W epinephrine 0.3 mg (0.3 mL) IM DAILY PRN fluoxetine 20 mg PO DAILY hydroxyzine HCl 25 mg PO BEDTIME ibuprofen 600 mg PO BID PRN levonorgestrel (Mirena) intrauterine loratadine 10 mg PO DAILY montelukast 10 mg PO DAILY 30 days nebulizers As directed omeprazole 20 mg PO DAILY pseudoephedrine HCl ER (Sudafed 12 Hour) 120 mg PO Q12H thyroid (pork) (Elizabeth Thyroid) 15 mg PO DAILY tiotropium bromide 2.5 mcg/actuation (Spiriva Respimat) 2 puffs inhalation DAILY 30 days tiotropium bromide 2.5 mcg/actuation (Spiriva Respimat) 2 puffs inhalation DAILY 30 days tirzepatide (weight loss) (Zepbound) 7.5 mg subcut trazodone 50 mg PO BEDTIME PRN Ventolin HFA 90 mcg/actuation (albuterol sulfate) 2 puffs PO Q4-6H PRN NS HPI Comments Details: 39 year old female here today for follow up of Hashimotos disease. Levothyroxine started February 2024 used it for 2 months had allergic reaction with rash and itchiness Changed to Synthroid brand and still continued to have itchiness Stopped thyroid medicine 05/24/24 LMP : 06/09/24 Reports fatigue Bowel movements are regular No skin or hair changes No heat or cold intolerance Losing weight with Mounjaro : lost 7 lbs Patient denies any difficulty swallowing, pain on swallowing or voice changes or difficulty breathing. Patient denies any history of childhood neck radiation. Denies having ever used lithium, amiodarone or biotin supplements. Patient denies any family history of thyroid cancer Maternal aunt and cousin have hyperthyroidism Interval history Labs 07/06/2024 showed TSH of 2.28, free T4 0.99 Taking Elizabeth thyroid 15 mg q.d.started by PCP in . Tolerating [place] Laboratory Tests 02/17/23 02/24/23 05/22/23 08:03 09:24 10:05 TSH 4.74 H 2.45 3.67 Free T4 0.81 02/12/24 04/07/24 08:53 12:32 TSH 3.43 1.90 Free T4 Laboratory Tests 02/24/23 09:24 Thyroid Peroxidase Ab 426 H Laboratory Tests 07/06/24 Unknown TSH 2.28 Free T4 0.99 PFSH Medical History Acute respiratory disease Chest pain Asthma-COPD overlap syndrome Retrocalcaneal bone spur Left ankle injury Allergies Autumn's disease Orthostatic hypotension Left anterior knee pain Asthma BMI 33.0-33.9,adult Intermittent palpitations Obesity (BMI 30-39.9) Intrauterine contraceptive device RODRIGUEZ on CPAP Morbid obesity Moderate persistent asthma Degenerative disc disease, lumbar ASCUS favor benign Seasonal allergies Depression with anxiety Surgical History S/P laparoscopic sleeve gastrectomy History of repair of hiatal hernia History of esophagogastroduodenoscopy (EGD) History of appendectomy History of tonsillectomy Family History Mother Stroke Dementia Migraines Kidney stone Father Asthma Sister Asthma Son Asthma Daughter Anxiety Depressed Social History Household Members: Children Housing: Apartment Are you a primary rn palliative care to a significant other at home: Yes (children) Do you presently have visiting nurse or other home services: No Alcohol intake: never Patient Tobacco Use Status: Never used Tobacco e-Cigarette/Vaping Use: Never Used Second Hand Smoke Exposure: No service: No Current occupational status: employed Current occupation: [employer] 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 She appears to be clinically euthyroid Plan is to change the Elizabeth thyroid to Tirosint 50 mcg and recheck TSH and free T4 in 6 weeks' time. We will have patient follow up with Dr. Larson in 2 months when she returns from maternity leave Orders: Orders Free T4 (Free Thyroxine) 6 Weeks E06.3 - Autoimmune thyroiditis Thyroid Stimulating Hormone 6 Weeks E06.3 - Autoimmune thyroiditis Medications: New Tirosint (levothyroxine) 50 mcg PO DAILY 30 caps 5RF NS Discontinued thyroid (pork) (Elizabeth Thyroid) Discontinued Reason: Doctor's Order 15 mg PO DAILY 30 tabs 2RF Coding Level of Care Code Est Pt Level 3 (36902) Add On Problem Visit Only Diagnoses Autumn's disease E06.3
[2025-06-07 11:22] VITALS: BP 92/54; PULSE 74; O2SAT 97
--- OUTSIDE RECORDS SUMMARY | 2025-06-07 15:15 | XMS_ITS | Encounter Summary ---
Author Organization [facility] Prior to 04/09/2024 Address [address] [place] [address] Care Team Providers Care Fabric Designer Name Role Phone Steve Vigilha Primary Care Provider Unavailabl e Reason for Visit * Reason Comments E-prescribe Rx Request Encounter Details Date Type Department Care Team Description 02/28/2019 Refill Pulmonology - [place] [address] [facility] [address] [place] [address] Sorin Johnston PA-C [address] [facility] [address] [place] [address] E-prescribe Rx Request Social History [...] LAST APPOINTMENT WITH THE PRESCRIBING PROVIDER? 11/25/18 Keila Dukes Does patient have an upcoming appointment? [...] NO Patients current insurance carrier is: [facility] / Plan: [facility] / Product Type: MEDICAID RISK documented in this encounter Plan of Treatment Not on file documented as of this encounter Visit Diagnoses Not on filedocumented in this encounter Care Teams Fabric Designer Relationship Specialty Start Date End Date Yola Vigil PCP - General Family Practice 08/13/18 documented as of this encounter
--- OUTSIDE RECORDS SUMMARY | 2025-06-07 15:15 | XMS_ITS | Encounter Summary ---
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 Not on file Not on file documented as of this encounter Plan of Treatment Upcoming Encounters Date Type Department Care Team (Late Contact Info) Description 06/29/2025 8:30 AM EST Office Visit [facility] [address] [place] [address] Alana Sultana, ANDRES [address] [facility], 2nd [place] [address] documented as of this encounter Visit Diagnoses Not on filedocumented in this encounter Care Teams Physical Therapist Assistant Relationship Specialty Start Date End Date Vivek Aponte, FREDDY [address] [place] [address] [place] [address] PCP - General Family Medicine 11/26/21 documented as of this encounter Additional Source Comments The information contained in this document represents components of the legal health record. It is not the complete legal health record.[facility]
--- OUTSIDE RECORDS SUMMARY | 2025-06-07 15:15 | XMS_ITS | Clinical Summary ---
Author Organization [facility] Prior to 04/09/2024 Address [address] [place] [address] Care Team Providers Care Blanket Cutting Machine Operator Name Role Phone Yola Vigil Primary [...] infection. 1 Inhaler 11 07/24/2017 Active Tiotropium [place] Monohydrate (SPIRIVA RESPIMAT) 2.5 MCG/ACT Aero Soln Inhale 2 Puffs into the lungs daily for 30 days. 1 Inhaler 11 12/19/2017 Active budesonide (PULMICORT) 0.5 MG/2ML nebulizer [...] RISK PATIENTS (#2) 2050 06/26/2018 Care Teams Blanket Cutting Machine Operator Relationship Specialty Start Date End Date Yola Vigil PCP - General Family Practice 08/13/18
--- OUTSIDE RECORDS SUMMARY | 2025-06-07 15:15 | XMS_ITS | Clinical Summary ---
Author Organization [facility] Address [address] [address] Phone Care Team Providers Care Department Traffic Freight Router Name Role Phone Vivek Aponte NP Primary [...] Take 20 mg by mouth daily. 05/08/20 21 Active loratadine (CLARITIN) 10 mg tablet Take [...] into the lungs daily. 07/29/19 24 Active hydrOXYzine (ATARAX) 25 MG tablet [...] WEEK 2 mL 2 05/12/20 25 Active sucralfate (CARAFATE) 1 gram tabletIndicatio ns:Other acute gastritis without hemorrhage TAKE ONE TABLET BY MOUTH FOUR TIMES A DAY 360 tablet 6 06/07/20 25 Active sucralfate (CARAFATE) 1 gram tabletIndicatio ns:Other acute gastritis without hemorrhage Take 1 tablet (1 g total) by mouth 4 (four) times a day. 360 tablet 6 03/02/20 24 025 Discontinued tirzepatide, weight loss, (ZEPBOUND) 7.5 mg/0.5 mL [...] hernia many years ago with me at [facility]. The patient has had a weight loss [...] hiatal hernia repair. The patient started to peanut picker some weight when she went to [...] about 25 minutes with this patient in aeoc-dw-ixjw contact Intestinal malabsorption following gastrectomy 1 07/30/2020 Gastritis 05/29/2021 Encounters Date Type Department Care Team Description 06/07/2025 Refill [facility] [address] [place] [address] Toña Isaac MD Medication Refill 05/12/2025 Refill [facility] [address] [place] [address] Toña Isaac MD Medication Refill 03/14/2025 2:30 PM EDT Office Visit [facility] [address] [place] [address] Toña Isaac MD Class 1 obesity due to excess calories without serious comorbidity with body mass index (BMI) of 30.0 to 30.9 in adult (Primary Dx); Status post laparoscopic sleeve gastrectomy; Bariatric surgery status from Last 3 Months Immunizations Immunization Administration [...] 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 Not on file Not [...] Description 06/29/2025 8:30 AM EST Office Visit [facility] General Surgery Clinic [address] [place] [address] Alana Sultana, ANDRES 15 [facility], 2nd [place] [address] Health Maintenance Due Date Last Done Comments [...] topic Medical Devices Not on file Insurance [facility] [employer] [facility] [employer] Care Teams Department Traffic Freight Router Relationship Specialty Start Date End Date Vivek Aponte NP [address] [facility] [place] [address] PCP - General Family Medicine 11/26/21 Additional Source Comments The information contained in this document represents components of the legal health record. It is not the complete legal health record.[facility]
--- OUTSIDE RECORDS SUMMARY | 2025-06-07 15:15 | XMS_ITS | Encounter Summary ---
Author Organization [facility] Prior to 04/09/2024 Address [address] [place] [address] Care Team Providers Care Bend Sorter Name Role Phone Yola Vigil Primary Care Provider Unavailkarina e Tano Guo MD Primary Care Provider Un available Yola Vigil Primary Care Provider Unavailabl e Reason for Visit * Reason Onset Date Comments Medication 05/28/2018 Encounter Details Date Type Department Care Team Description 05/28/2018 Telephone Pul[address]ology [address] [place] [phone] Sam Dukes MD Medication Social History Tobacco [...] they will see if its covered by [employer]. * Telephone Encounter - Shobha Florez - [...] on filedocumented in this encounter Care Teams Bend Sorter Relationship Specialty Start Date End Date Yola Vigil PCP - General Family Practice 07/23/17 06/24/18 Tano Guo MD PCP - General Internal Medicine 06/25/18 9 Yola Vigil PCP - General Family Practice 08/13/18 documented as of this encounter
--- OUTSIDE RECORDS SUMMARY | 2025-06-07 15:15 | XMS_ITS | Encounter Summary ---
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 file Not on file documented as of this encounter Plan of Treatment Upcoming Encounters Date Type Department Care Team (Late st Contact Info) Description 06/29/2025 8:30 AM EST Office Visit [facility] [address] [place] [address] Alana Sultana, SYSTEM CONTROLLER [address] [facility], 2nd [place] [address] documented as of this encounter Visit Diagnoses Not on filedocumented in this encounter Care Teams Grade And Center Marker Relationship Specialty Start Date End Date Vivek Aponte NP [facility] [place] [address] PCP - General Family Medicine 11/26/21 documented as of this encounter Additional Source Comments The information contained in this document represents components of the legal health record. It is not the complete legal health record.[facility]
--- OUTSIDE RECORDS SUMMARY | 2025-06-07 15:15 | XMS_ITS | Encounter Summary ---
Author Organization [facility] Prior to 04/09/2024 Address [address] [place] [address] Care Team Providers Care Winter Sports Manager Name Role Phone Yola Vigil Primary Care Provider Unavailkarina e Tano Guo MD Primary Care Provider Un available Yola Vigil Primary Care Provider Unavailabl e Reason for Visit * Reason Onset Date Comments Medication 09/19/2017 Encounter Details Date Type Department Care Team Description 09/19/2017 Telephone Pulmonology - [address] [place] [phone] Sam Dukes MD Medication Social History Tobacco [...] asthma documented in this encounter Care Teams Winter Sports Manager Relationship Specialty Start Date End Date Yola Vigil PCP - General Family Practice 07/23/17 06/24/18 Tano Guo MD PCP - General Internal Medicine 06/25/18 9 Yola Vigil PCP - General Family Practice 08/13/18 documented as of this encounter
--- OUTSIDE RECORDS SUMMARY | 2025-06-07 15:15 | XMS_ITS | Encounter Summary ---
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 Not on file documented as of this encounter Plan of Treatment Upcoming Encounters Date Type Department Care Team (Late st Contact Info) Description 06/29/2025 8:30 AM EST Office Visit [facility] [address] [place] [address] Alana Sultana, ANDRES 15 [facility], 2nd [place] [address] documented as of this encounter Visit Diagnoses Not on filedocumented in this encounter Care Teams Gear Generator Set Up Operator Relationship Specialty Start Date End Date Vievk Aponte, FREDDY [address] [facility] [place] [address] PCP - General Family Medicine 11/26/21 documented as of this encounter Additional Source Comments The information contained in this document represents components of the legal health record. It is not the complete legal health record.[facility]
--- OUTSIDE RECORDS SUMMARY | 2025-06-07 15:15 | XMS_ITS | Encounter Summary ---
Author Organization [facility] Address [address] [facility] [address] [place] [address] Phone Care Team Providers Care Wildland Fire Fighter Specialist Name Role Phone Vivek Aponte NP Primary Care Provider + Reason for Visit * Reason Comments Medication Refill Encounter Details Date Type Department Care Team (Late st Contact Info) Description 06/07/2025 Refill [facility] [address] [place] [address] Toña Isaac MD [address] [facility], 2nd [place] [address] [email or web address] Medication Refill Social History Tobacco Use Types [...] 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 on file Not on file documented as of this encounter Plan of Treatment Upcoming Encounters Date Type Department Care Team (Late st Contact Info) Description 06/29/2025 8:30 AM EST Office Visit [facility] [address] [place] [address] Alana Sultana, TAG MARKER [address] [facility], 2nd [place] [address] documented as of this encounter Visit Diagnoses Diagnosis Other acute gastritis without hemorrhage documented in this encounter Care Teams Wildland Fire Fighter Specialist Relationship Specialty Start Date End Date Vivek Aponte NP [facility] [place] [address] PCP - General Family Medicine 11/26/21 documented as of this encounter Additional Source Comments The information contained in this document represents components of the legal health record. It is not the complete legal health record.[facility]
--- OUTSIDE RECORDS SUMMARY | 2025-06-07 15:15 | XMS_ITS | Encounter Summary ---
Author Organization 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 Surgery [facility] [address] [place] [address] Alana Sultana, DICE MAKER [address] [facility], 2nd [place] [address] [email or web address] documented as of this encounter Visit Diagnoses Not on filedocumented in this encounter Care Teams Head Of Store Operations Relationship Specialty Start Date End Date Vivek Aponte NP [facility] [place] [address] PCP - General Family Medicine 11/26/21 documented as of this encounter Additional Source Comments The information contained in this document represents components of the legal health record. It is not the complete legal health record.[facility]
--- OUTSIDE RECORDS SUMMARY | 2025-06-07 15:15 | XMS_ITS | Encounter Summary ---
Author Organization [facility] Prior to 04/09/2024 Address [address] [place] [address] Care Team Providers Care Campus Safety Officer Name Role Phone Yola Vigil Primary Care Provider Unavailabl e Tano Guo MD Primary Care Provider Un available Yola Vigil Primary Care Provider Unavailabl e Reason for Referral * EXTERNAL (Priority) - Authorized/Booked Specialty Diagnoses / Procedures Referred By Contac t Referred To Contact Allergy & Immunology / Allergy Procedures REFERRAL TO ALLERGY Sam Dukes MD [address] [place] [phone] Nathaniel Humphrey MD [address] [place] [address] Referral ID Status Reason Start Date Expiration Date V isits Requested Visits Authorized SEE NOTE Authorized/B ooked 12/19/2017 03/21/2018 1 1 Encounter Details Date Type Department Care Team Description 12/19/2017 Orders Only Pulmonology - [address] [place] [phone] Sam Dukes MD Severe persistent asthma [...] Primary documented in this encounter Care Teams Campus Safety Officer Relationship Specialty Start Date End Date Yola Vigil PCP - General Family Practice 07/23/17 06/24/18 Tano Guo MD PCP - General Internal Medicine 06/25/18 9 Yola Vigil PCP - General Family Practice 08/13/18 documented as of this encounter
--- OUTSIDE RECORDS SUMMARY | 2025-06-07 15:15 | XMS_ITS | Encounter Summary ---
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 Not on file documented as of this encounter Plan of Treatment Upcoming Encounters Date Type Department Care Team (Late st Contact Info) Description 06/29/2025 8:30 AM EST Office Visit [facility] [address] [place] [address] Alana Sultana, [employer] P[employer]ER [address] [place] [address] Scheduled Orders Name Type Priority Associated Diagnoses Orde r Schedule Vitamin B1 (Thiamine) Lab Routine Intestinal malabsorption following gastrectomy Expected: 11/18/2024, Expires: 11/18/2025 documented as of this encounter Visit Diagnoses Diagnosis Intestinal malabsorption following gastrectomy- Primary documented in this encounter Care Teams Senior Agricultural Assistant Relationship Specialty Start Date End Date Vivek Aponte NP [address] [facility] [place] [address] PCP - General Family Medicine 11/26/21 documented as of this encounter Additional Source Comments The information contained in this document represents components of the legal health record. It is not the complete legal health record.[facility]
--- OUTSIDE RECORDS SUMMARY | 2025-06-07 15:15 | XMS_ITS | Encounter Summary ---
Author Organization [facility] Prior to 04/09/2024 Address [address] [place] [address] Care Team Providers Care Pattern Storage Clerk Name Role Phone Yola Vigil Primary Care Provider Unavailabl e Encounter Details Date Type Department Care Team Description 01/19/2019 Refill Pulmonology [address] [place] [address] Sam Dukes MD Social History [...] on filedocumented in this encounter Care Teams Pattern Storage Clerk Relationship Specialty Start Date End Date Yola Vigil PCP - General Family Practice 08/13/18 documented as of this encounter
--- OUTSIDE RECORDS SUMMARY | 2025-06-07 15:15 | XMS_ITS | Encounter Summary ---
Author Organization [facility] Prior to 04/09/2024 Address [address] [place] [address] Care Team Providers Care Refiner Operator Name Role Phone Yola Vigil Primary Care Provider Unavailkarina e Tano Guo MD Primary Care Provider Un available Yola Vigil Primary Care Provider Unavailabl e Reason for Visit * Reason Onset Date Comments Call From Md Office 03/06/2018 Encounter Details Date Type Department Care Team Description 03/06/2018 Telephone Pulmonology [address] [place] [phone] Sam Dukes MD Call From Md Office [...] 10:25 AM EDT Faxed all noted from [facility] 4 total. * Telephone Encounter - Dia Adler - 03/06/2018 10:21 AM EDT Patient was referred by Dr. Dukes and they are requesting the last 6 office visit notes over the past 6 mths Please review documented in this encounter Plan of Treatment Not on file documented as of this encounter Visit Diagnoses Not on filedocumented in this encounter Care Teams Refiner Operator Relationship Specialty Start Date End Date Yola Vigil PCP - General Family Practice 07/23/17 06/24/18 Tano Guo MD PCP - General Internal Medicine 06/25/18 9 Yola Vigil PCP - General Family Practice 08/13/18 documented as of this encounter
== END 2025-06-07 11:43 | disposition home or self-care (01) ==
LOC: HO.ENCR 11:15
PROVIDERS: PCP Nurse Practitioner Family; Visit Provider Internal Medicine Endocrinology, Diabetes & Metabolism
DX: E06.3 Autoimmune thyroiditis (principal)
CPT/HCPCS: 99213

== ENCOUNTER → 2025-06-07 11:14 | Outpatient (BNVA) | payer OTHER, SELFPAY | PROVIDERS: PCP Nurse Practitioner Family; Visit Provider Internal Medicine Endocrinology, Diabetes & Metabolism | DX: E06.3 Autoimmune thyroiditis (principal); Z79.899 Other long term (current) drug therapy | CPT/HCPCS: 99212 ==